=== PATIENT | male | born 1955 | race Caucasian/White ===

== ENCOUNTER → 2018-08-25 06:02 | Outpatient (CLI) | payer BC, SELFPAY ==
--- NOTE | 2018-08-25 06:36 | MRI_ITS ---
STUDY: MRI LUMBAR SPINE WITHOUT CONTRAST REASON FOR EXAM: Male, 62 years old. Back pain. Right hip pain. TECHNIQUE: Standardized fat and water weighted pulse sequences were obtained in the sagittal and axial planes. COMPARISON: None FINDINGS: There is normal alignment and curvature of the lumbosacral spine with narrowing of the disc spaces at L1-L2, L2-3, L3-4, L4-5. The L5-S1 disc space is normal. There are no fractures and no abnormal marrow infiltrative processes except for Modic endplate changes at the sites of disc space narrowing. The conus medullaris terminates at T12-L1. L1-2: Normal endplates. Mild disc space narrowing. Normal bilateral facet joints. Normal central canal and bilateral lateral recesses. Normal bilateral intervertebral neural foramina. L2-3: Disc space narrowing with marginal osteophytes from the vertebral body endplates and Modic type I endplate changes. There is mild concentric disc bulging and narrowing of all of the intervertebral foramina. Mild degenerative changes of the facet joint L3-4: Disc space narrowing with small marginal osteophytes from the vertebral body endplates and Modic endplate changes as well. Degenerative changes of the facet joints. No focal disc protrusion or extrusion. L4-5: There is narrowing of the disc space with concentric disc bulging and encroachment on both intervertebral foramina. No focal disc protrusion or extrusion. There is a 7.4 x 3.4 mm synovial cyst within the central canal and originating from the right facet joint. L5-S1: Normal endplates. Normal disc height, hydration and morphology. Normal bilateral facet joints. Normal central canal and bilateral lateral recesses. Normal bilateral intervertebral neural foramina. The aorta and visualized portions of the kidneys are normal. 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 No focal disc protrusion or extrusion. A 7.4 x 3.4 mm synovial cyst within the right side of the central canal and originating from the right facet joint at the L4-5 level Electronically Signed: Barrington Ruiz MD at 6:02 EDT Tel , Service support ,
== END ==
PROVIDERS: Family Provider Family Medicine; PCP Family Medicine; Referring Provider Family Medicine
DX: M54.16 Radiculopathy, lumbar region (principal)
CPT/HCPCS: 72148

== ENCOUNTER → 2021-04-27 09:39 | Outpatient (CLI) | payer MEDICARE, OTHER, SELFPAY ==
--- NOTE | 2021-04-27 09:49 | RAD_ITS ---
STUDY: X-RAY - CERVICAL SPINE REASON FOR EXAM: Male, 65 years old. PAIN TECHNIQUE: 3 view(s) of the cervical spine were obtained. COMPARISON: None FINDINGS: Craniocervical junction is intact and aligned. There is minor straightening and reversal of cervical lordosis. Vertebral bodies are intact. There is age-related disc degeneration at C5-C6 and C6-C7 with ventral osteophyte. Odontoid is intact and located symmetrically within the atlas which in turn is centered on the axis. Prevertebral soft tissues are normal. RAD/Cerv Spine 2 or 3 Views IMPRESSION: Mild age-related changes in the lower cervical spine. Electronically Signed: Iris Mascorro MD at 16:52 EDT Tel , Service support ,
== END ==
PROVIDERS: PCP Family Medicine
DX: M54.2 Cervicalgia (principal)
CPT/HCPCS: 72040

== ENCOUNTER 2025-06-28 07:44 | Inpatient (IN) | payer MEDICARE, OTHER, SELFPAY ==
[2025-06-28] VITALS (26 sets, daily range): BP systolic 92–149; BP diastolic 56–98; PULSE 51–82; RESP 16–24; TEMP 36.6–37.1; O2SAT 94–100; BMI 27.1
--- NOTE | 2025-06-28 07:48 | EKG12_ITS ---
Test Reason : CP Blood Pressure : */* mmHG Vent. Rate : 55 BPM Atrial Rate : 55 BPM P-R Int : 148 ms QRS Dur : 72 ms QT Int : 418 ms P-R-T Axes : 34 70 34 degrees QTcB Int : 399 ms Critical Test Result: STEMI Sinus bradycardia with sinus arrhythmia ST elevation consider anterolateral injury or acute infarct ACUTE ID / STEMI Abnormal ECG Confirmed by PIYUSH COKER, NUVIA ([id number]), avid editor CESAR WALLIS ([id number]) on 07/01/2025 9:13:48 AM Referred By: Baudilio Murillo Confirmed By: NUVIA PICKETT MD
--- NOTE | 2025-06-28 07:49 | ED.VIS.CHEST ---
HPI History of Present Illness Chief Complaint: Chest Pain Detail of Chief Complaint: Right parasternal discomfort Informant: patient Onset/Context/Timing Onset: Today and Hours Activity at onset: activity on onset Timing: Continuous Quality: Positive for Dull Location: Right Parasternal Current Severity: Moderate Maximum Severity: Severe Worsened By: Exertion Relieved By: Nothing Associated Symptoms: Positive for Nausea and Diaphoresis; Negative for Vomiting, Dyspnea, Cough, Fever, Lightheadedness, Acid Reflux or Palpitations Narrative Narrative: Patient 69-year-old gentleman with history hypothyroidism who was riding his bicycle when he developed chest discomfort. He has no known history of coronary disease, hypertension, diabetes or hypercholesterolemia. He rides often during the week. He has no other symptoms. Prior Similar Symptoms: No Recent Illness/Hospitalization: No CVD Risk Factors: Negative for Hypertension, Diabetes, Hypercholesterolemia, Family History 1' </=55 or Smoking PE Risk Factors: Negative for Recent Travel/Surgery, Recent Immobilization, Prior DVT or PE, Cancer or OCP + Smoking + >/=35 TAD Risk Factors: Negative for Marfan's Syndrome, Hypertension or Family History PFSH PFSH Allergy/AdvReac Type Severity Reaction Status Date / Time No Known Allergies Allergy Verified 06/28/25 07:52 Social History (Updated 06/28/25 @ 07:[address] Gage Woodson MD) household members: spouse Smoking Status: Never smoker ROS ROS ED Constitutional Constitutional ED: Denies chills, fever(s) or subjective Eyes Eyes: Reports none ENT ENT ED: Denies rhinorrhea Cardiovascular Cardiovascular: Reports as per HPI; Denies orthopnea Respiratory/Chest Respiratory/Chest: Reports dyspnea; Denies cough, dyspnea on exertion or orthopnea Gastrointestinal Gastrointestinal: Denies abdominal pain, diarrhea, melena or vomiting Genitourinary Genitourinary ED: Denies dysuria or hematuria Musculoskeletal Musculoskeletal: Denies arthralgias, back pain or myalgias Integumentary Denies rash Hematologic/Lymphatic Hematologic/Lymphatic: Denies easy bleeding, easy bruising or lymphadenopathy EXAM Physical Exam Const Positive well nourished and well developed Constitutional Narrative: Patient seems slightly anxious. He is slightly diaphoretic. General Appearance ED: well developed HEENT Reports moist mucous membranes normocephalic and atraumatic Eyes PERRL and EOMs intact bilaterally Neck no lymphadenopathy and no JVD Chest Wall inspection of chest normal and palpation of chest normal Resp normal respiratory effort and clear to auscultation bilaterally Cardio regular rate, regular rhythm, S1 normal heart sound, S2 normal heart sound and no murmurs GI normal to inspection, nondistended, normoactive bowel sounds, soft to palpation and non-tender Extremity normal to inspection General Extremety ED: Negative for edema or pulses abnormal General Extremity: Negative for edema or pulses abnormal Neuro oriented x3 and CN's II-XII intact bilaterally Sensorium / Orientation: awake and alert Psych Mood & Affect: anxious Skin no rashes or lesions noted MDM MDM MDM Narrative Medical decision making narrative: Patient had 7 prehospital EKGs. The fourth EKG had hyperacute T waves. First EKG was transmitted did not reveal evidence of a STEMI. EKG that was obtained here has ST elevation with hyperacute T waves V2 through V3 consistent with an anterior AK. There is no reciprocal changes. Patient received 324 mg of aspirin prehospital. He received 180 mg of Brilinta in the emergency department 5000 units of heparin. Spoke with the certified nuclear medicine technologist Dr. Murillo. He asked for us to get to the patient to the [facility] as quick as possible. [facility] notified us at 0753 that they were ready. EKG Initial EKG: Attestation: I personally reviewed and interpreted this EKG as follows: Interpretation: Sinus Rhythm (Acute ST elevation AK anterior leads, hyperacute T waves. 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 (Informed of EKG findings and need for [facility]) and Discussing w/Consultants (vp digital marketing social media and crm) Discharge Plan Triage Chief Complaint: Chest Pain ED Provider: Gage Woodson Dx/Rx/DC Orders Clinical Impression: Acute ST elevation myocardial infarction (STEMI) of anterior wall, Hypothyroidism, Elevated blood-pressure reading without diagnosis of hypertension Primary Care Provider: Gilbert Hernandes Referrals: Gilbert Hernandes MD [Primary Care Provider] - Print Language: Macanese Disposition Disposition: Acute Care Hospital [facility]
[2025-06-28] MEDS: TICAGRELOR 90 MG TABLET 180 MG PO (07:50)
[2025-06-28] MEDS: Heparin Injection (Vial) 5,000 UNIT/ML VIAL 5000 UNIT IV (07:50)
[2025-06-28 08:03] LABS: Hematocrit 46.8 % (40-54); Hemoglobin 15.9 g/dL (13.0-16.5); Immature Granulocytes Count 0.010 X10^3/uL (0.0-0.0); Mean Corp Hgb Conc 34.0 g/dL (32-36); Mean Corpuscular Volume 86.2 fL (80-94); Mean Platelet Vol. 9.0 fl (6.2-12.0); NRBC Flagged by Analyzer 0 % (0-5); Platelet Count 220 K/mm3 (150-450); RBC Distribution Width CV 13.2 % (11.6-14.6); RBC Distribution Width SD 40.7 fl (35.1-43.9); Red Blood Count 5.43 M/mm3 (4.6-6.2); White Blood Count 5.6 K/mm3 (4.4-11.0)
--- OUTSIDE RECORDS SUMMARY | 2025-06-28 08:11 | XMS RPT_ITS | CCD ---
[facility] Providers Care Lay Health Advocate Name Role Phone Ashtyn Gamez Unavailable Unavailable Finneran, Ashtyn Unavailable Unavailable Finneran, Ashtyn Unavailable Unavailable Godinsky, Chan Unavailable Unavailable Finneran, Ashtyn Unavailable Unavailable Finneran, Ashtyn Unavailable Unavailable Godinsky, Chan Unavailable Unavailable Finneran, Ashtyn Unavailable Unavailable Finneran, Ashtyn Unavailable Unavailable Godinsky, Chan Unavailable Unavailable Finneran, Ashtyn Unavailable Unavailable Finneran, Ashtyn Unavailable Unavailable Godinsky, Chan Unavailable Unavailable Finneran, Ashtyn Unavailable Unavailable Finneran, Ashtyn Unavailable Unavailable Teodoroan Ashtyn COKER Primary Care Provider [phone] Wayne Red MD Unavailable Gabe Mattson MD Unavailable [phone] ASHTYN GAMEZ Attending Unavailable ASHTYN GAMEZ Referring Unavailable ASHTYN GAMEZ Primary Care Unavailable GABE MATTSON Attending Unavailable ASHTYN GAMEZ Primary Care Unavailable GABE MATTSON Attending Unavailable ASHTYN GAMEZ Referring Unavailable ASHTYN GAMEZ Primary Care Unavailable Medications Current Medications Medication Drug Class(es) Dates Sig (Normalized) Sig (Original) cholecalciferol 0.025 mg oral capsule (5 sources) Vitamin D take 1 capsule by mouth once daily cholecalciferol (Vitamin D-3) 25 MCG (1000 UT) capsule Take 1,000 Units by mouth daily. Active levothyroxine sodium 0.075 mg oral tablet (5 sources) l-Thyroxine Start: 4 End: 4 levothyroxine (Synthroid, Levoxyl) 75 MCG tablet Take 75 mcg by mouth. 05/28/2024 Active Multiple Vitamins-Minerals (Centrum Men) tablet (5 sources) Multiple Vitamins-Minerals (Centrum Men) tablet Take by mouth. Active naproxen sodium 220 mg oral tablet (5 sources) Nonsteroidal Anti-inflammatory Drug Start: 4 naproxen sodium (Aleve) 220 MG tablet every 12 hours. 02/29/2024 Active saccharomyces boulardii 250 mg oral capsule (5 sources) saccharomyces boulardii (Florastor) 250 MG capsule Take by mouth. Active tadalafil 20 mg oral tablet (5 sources) Phosphodiesterase 5 Inhibitor Start: 4 End: 4 take 1 tablet by mouth every twenty-four hours as needed tadalafil (Cialis) 20 MG tablet Take 1 tablet (20 mg) by mouth Daily as needed for erectile dysfunction. 12 tablet 3 07/25/2024 Active Problems Active Problems Problem Classification Problem Date Documented Da te Episodic/Chronic Genitourinary symptoms and ill-defined conditions (3 sources) Nocturia; Translations: [Nocturia] Onset: 07-25-2024 07-25-2024 Episodic Hyperplasia of prostate (4 sources) Benign prostatic hypertrophy with outflow obstruction; Translations: [Benign prostatic hyperplasia with lower urinary tract symptoms] Onset: 08-29-2024 07-25-2024 Chronic Other diseases of kidney and ureters (2 sources) Other obstructive and reflux uropathy; Translations: [Other obstructive and reflux uropathy] Onset: 08-29-2024 Episodic Other male genital disorders (1 source) Secondary erectile dysfunction; Translations: [Male erectile dysfunction, unspecified] 07-25-2024 Chronic Other male genital disorders (2 sources) Male erectile dysfunction, unspecified; Translations: [Male erectile dysfunction, unspecified] Onset: 07-25-2024 Chronic Spondylosis; intervertebral disc disorders; other back problems (4 sources) Other spondylosis, lumbar region; Translations: [Spondylosis without myelopathy or radiculopathy, lumbar region] Onset: 07-06-2018 Chronic Spondylosis; intervertebral disc disorders; other back problems (2 sources) Spinal stenosis, lumbar region without neurogenic claudication; Translations: [Spinal stenosis, lumbar region without neurogenic franklin] Onset: 10-27-2018 Past or Other Problems Problem Classification Problem Date Documented Da te Episodic/Chronic Other connective tissue disease (10 sources) Synovial cyst of lumbar spine; Translations: [Other bursal cyst, other site] Onset: 10-18-2018 08-29-2022 Episodic Other non-traumatic joint disorders (5 sources) Pain in left shoulder; Translations: [Pain in joint, shoulder region] Onset: 03-02-2024 03-02-2024 Episodic Spondylosis; intervertebral disc disorders; other back problems (14 sources) Low back pain; Translations: [Radiculopathy, lumbar region] Onset: 09-20-2018 08-29-2022 Episodic Results Test Name Value Interpretation Reference Range Facility 36on 09-05-2024 36 Pt has declined to schedule SX at this time. Scheduled OV appt for further discussion of SX with Dr. Mattson 11/21/2024 @08:50am [facility] location. [place] [address] ----- Message from Gabe Mattson MD sent at 08/29/2024 2:42 PM EDT ----- Cysto, turp (up to him when he wants, and after fluid shortage) [place] [address] Spoke with spouse, Chioma, gave Dr. Aguilar message. Cancelled 09/21 scheduled SX. Made OV appt 11/21/24 in [facility] for further discussion of SX. Offered sooner available appt but pt wishes to schedule out. [address] 09-04-2024 36 Call placed to pt to schedule SX, spoke with spouse Chioma. Pt has many questions. Pt would like to know if he can postpone SX for year or more. Pt would like to know the risks if he does wait. Pt would like to know risk vs benefits of SX. Please advise. If you feel another in-office appt would be best to discuss these questions, please let me know and I will get pt scheduled. Thank you. [place] [address] ----- Message from Gabe Mattson MD sent at 08/29/2024 2:42 PM EDT ----- Cysto, turp (up to him when he wants, and after fluid shortage) [facility] 36on 08-27-2024 36 Pt returned the call from the office and the message was released. He confirmed it is ok to change his upcoming appt to 2:20 pm on 08/29/[address] Mattson. [facility] 36on 08-24-2024 36 Left message for patient asking if his upcoming appointment time with Dr Mattson can be moved to 2:20 pm on 08/29 [facility] Office Visiton 07-25-2024 Follow-up visit [id number] Tiki Quinteros 1955 M Date Provider Department Center 07/25/2024 [id number] MATTSON [facility] None Family History Family Status - Relation Status Age at Mother Father Level of Service:33996 [place] OFFICE/OUTPATIENT NEW MODERATE MDM 45 MINUTES Reason for Visit and Comments: New Patient [542] Benign Prostatic Hypertrophy [[id number]] - Slow stream Nocturia 1-2 times Has tried Tamsulosin in past was not effective [facility] Progress Noteon 07-25-2024 Progress Note Gabe Mattson MD 07/25/2024 at 10:33 AM UROLOGY INITIAL OFFICE VISIT PATIENT NAME: Austin Quinteros DATE OF : 1955 TODAY'S DATE: 07/25/2024 Chief Complaint: Chief Complaint Patient presents with New Patient Benign Prostatic Hypertrophy Slow stream Nocturia 1-2 times Has tried Tamsulosin in past was not effective HISTORY OF PRESENT ILLNESS: Mr. Quinteros is a 68 y.o. male who presents with BPH, obstruction He does report nocturia 2 times per night He does report weakened stream during the day He denies hematuria He also has urgency , frequency to void He tried taking flomax, without improvement REVIEW OF SYSTEMS: Review of Systems Constitutional: Negative for activity change, chills, fatigue and fever. Gastrointestinal: Negative for abdominal distention and abdominal pain. Genitourinary: Positive for frequency and urgency. Negative for decreased urine volume, difficulty urinating, flank pain and hematuria. Past Medical History: Past Medical History: Diagnosis Date Thyroid disease no longer on medications Past Surgical History: Past Surgical History: Procedure Laterality Date CARPAL TUNNEL RELEASE Bilateral 2012 Current Medications: Prior to Admission medications Medication Sig Start Date End Date Taking? Authorizing Provider cholecalciferol (Vitamin D-3) 25 MCG (1000 UT) capsule Take 1,000 Units by mouth daily. Yes Historical Provider, levothyroxine (Synthroid, Levoxyl) 75 MCG tablet Take 75 mcg by mouth. 05/28/24 08/26/24 Yes Historical Provider, Multiple Vitamins-Minerals (Centrum Men) tablet Take by mouth. Yes Historical Provider, naproxen sodium (Aleve) 220 MG tablet every 12 hours. 02/29/24 Yes Historical Provider, MD clifton mckeon (Florastor) 250 MG capsule Take by mouth. Yes Historical Provider, Allergies: Patient has no known allergies. Social History: Social History Socioeconomic History Marital status: Spouse name: Not on file Number of children: Not on file Years of education: Not on file Highest education level: Not on file Occupational History Not on file Tobacco Use Smoking status: Never Smokeless tobacco: Never Substance and Sexual Activity Alcohol use: No Drug use: No Sexual activity: Not on file Other Topics Concern Not on file Social History Narrative Not on file Social Determinants of Health Financial Resource Strain: Not on file Food Insecurity: Not on file Transportation Needs: Not on file Physical Activity: Not on file Stress: Not on file Social Connections: Not on file Intimate Partner Violence: Not on file Housing Stability: Not on file Family History: @FAMXNH@ PHYSICAL EXAM: VITALS: There were no vitals taken for this visit. Physical Exam Vitals reviewed. Constitutional: Appearance: Normal appearance. Musculoskeletal: General: Normal range of motion. Cervical back: Normal range of motion. Skin: General: Skin is dry. Neurological: General: No focal deficit present. Mental Status: He is alert and oriented to person, place, and time. DATA: WBC No results found for: WBC BMP No results found for: NA, K, CL, CO2, BUN, CREATININE, GLUCOSE, CALCIUM PSA No results found for: PSA UANo results found for: APPEARANCE, COLORU, LABSPEC, LABPH, URINE, GLUCOSEU, UROBILINOGEN, BILIRUBINUR, OCBU Review: Records reviewed from Dr Gamez PSA 06/2023 0.8 Creatinine 1.0 Will plan for cystoscopy next visit. I explained this procedure in detail including all risks, benefit and alternatives. I explained the possibility of urinary retention, infection and bleeding. Assessment and Plan Diagnoses and all orders for this visit: BPH with urinary obstruction Nocturia - Bladder scan ED (erectile dysfunction) of organic origin Other orders - tadalafil (Cialis) 20 MG tablet; Take 1 tablet (20 mg) by mouth Daily as needed for erectile dysfunction. PSA excellent Post void residual 0ml No relief with flomax for BPH and LUTs Follow up for cyto, trus Rx for cialis to try for ed Follow up for Transrectal ultrasound and cyto . Gabe Mattson MD 07/25/24 10:33 AM Normal [facility] 36on 05-11-2024 36 Patient returned radha l to office. He would prefer the [place] office since it is closest to him home. Appt scheduled 07/25/[address] Mattson and placed on the wait list in case of a cancellation Normal [facility] XR Shoulder - left 2 Viewson 03-03-2024 No fracture or dislocation of the left shoulder is identified. Mild degenerative changes of the left acromioclavicular and glenohumeral joints. Report Dictated on Electronically Signed By: Jorge Russo MD Electronically Signed Date/Time: 03/03/2024 12:39 PM EDT [facility] Patient Name: AUSTIN QUINTEROS : 1955 Exam Date/Time: 03/02/2024 12:20 Procedure: XR SHOULDER 2+ VIEWS LEFT Ordering Provider: GAMEZ MATTHEW Reason For Exam: [id number] LEFT SHOULDER CLINICAL INDICATION: Pain Three views of the left shoulder were obtained. COMPARISON: None. FINDINGS: No fracture or dislocation of the left shoulder is identified. There is no abnormal soft tissue swelling. There is degenerative spurring and loss of joint space at the left acromioclavicular and glenohumeral joints. [facility] Jorge Russo MD - 03/03/2024 Patient Name: AUSTIN QUINTEROS : 1955 Exam Date/Time: 03/02/2024 12:20 Procedure: XR SHOULDER 2+ VIEWS LEFT Ordering Provider: GAMEZ MATTHEW Reason For Exam: [id number] LEFT SHOULDER CLINICAL INDICATION: Pain Three views of the left shoulder were obtained. COMPARISON: None. FINDINGS: No fracture or dislocation of the left shoulder is identified. There is no abnormal soft tissue swelling. There is degenerative spurring and loss of joint space at the left acromioclavicular and glenohumeral joints. IMPRESSION: No fracture or dislocation of the left shoulder is identified. Mild degenerative changes of the left acromioclavicular and glenohumeral joints. Report Dictated on Electronically Signed By: Jorge Russo MD Electronically Signed Date/Time: 03/03/2024 12:39 PM EDT [employer] XR Shoulder - left 2 ViewsOr dered By: Jorge Russo on 03-03-2024 [employer] [facility] [employer] XR Shoulder - left 2 Viewson 03-02-2024 Radiology Study observation (narrative) [employer] Cerv Spine 2 or 3 Viewson Cerv Spine 2 or 3 Views [facility] [address] [place] [id number] Cerv Spine 2 or 3 Views MR#: [id number] Acct: [id number] Name: AUSTIN QUINTEROS Román Brunner Rep #: [id number] : 1955 M 65 From: [place] PCP: Dr. Ashtyn Gamez MD Status: REG CLI Study: Cerv Spine 2 or 3 Views Date of Exam: 04/27/21 Exam# [id number] Ordering Dr: PATRICIA GARZA STUDY: X-RAY - CERVICAL SPINE REASON FOR EXAM: Male, 65 years old. PAIN TECHNIQUE: 3 view(s) of the cervical spine were obtained. COMPARISON: None FINDINGS: Craniocervical junction is intact and aligned. There is minor straightening and reversal of cervical lordosis. Vertebral bodies are intact. There is age-related disc degeneration at C5-C6 and C6-C7 with ventral osteophyte. Odontoid is intact and located symmetrically within the atlas which in turn is centered on the axis. Prevertebral soft tissues are normal. RAD/Cerv Spine 2 or 3 Views IMPRESSION: Mild age-related changes in the lower cervical spine. Electronically Signed: Iris Mascorro MD at 16:52 EDT Tel , Service support , CC: Dr. Ashtyn Gamez MD; PATRICIA GARZA Wool Shearer: Signed Normal [facility] CULTURE STAPH AUREUSon 10-29 CULTURE STAPH AUREUS CULTURE STAPH AUREUS --> Status: F No Staphylococcus aureus isolated. Normal [facility] Comment on above: Performed By: #### C /SA ####[place] [address] [place] [address] Hemoglobin AND Hematocriton 10-27-2018 Hematocrit Auto Volume Fraction (Bld) 49.3 % Normal 40.0-52.[address] [facility] Comment on above: Performed By: #### H GHCT ####[facility] [employer] [id number] [place] [address] Hemoglobin mass conc (Bld) 17.1 g/dL Normal 13.0-18.[address] [facility] Comment on above: Performed By: #### H GHCT ####[place] [address] [place] [address] CR Spine Lumbosacral 2 or 3 Viewson 09-21-2018 CR Spine Lumbosacral 2 or 3 Views Patient Name: AUSTIN QUINTEROS Diagnostic Radiology Exam Date/Time 09/20/2018 09:10:00 EST Exam CR Spine Lumbosacral 2 or 3 Views Ordering Physician CHAN CAMPBELL Accession Number [id number] CPT4 Codes 79844 () Reason For Exam PAIN Report LUMBAR SPINE 2 VIEWS CLINICAL INDICATION: PAIN TECHNIQUE: Two views of the lumbar spine. Lateral flexion and extension views. COMPARISON: 07/06/2018 FINDINGS: On the flexion lateral image, there is grade 1 retrolisthesis of L2 on 3 and L3 on 4 which does not significant change with extension. No other focal alignment abnormality. Moderate disc space narrowing L2-3, L3-4, L4-5. Large endplate osteophytes at L2-3 and L3-4. Mild facet arthrosis lower lumbar spine. No acute fracture seen. IMPRESSION: 1. Degenerative changes. Report Dictated on Final Dictating Physician: MD TURNER JOHN R Signed Date and Time: 09/20/2018 10:57 pm Signed by: MD TURNER JOHN R Transcribed Date and Time: 09/20/2018 10:[address] [facility] CR Hip w/ Pelvis 2 or 3 View s Righton 07-07-2018 CR Hip w/ Pelvis 2 or 3 Views Right Patient Name: AUSTIN QUINTEROS Diagnostic Radiology Exam Date/Time 07/06/2018 12:10:00 EDT Exam CR Hip w/ Pelvis 2 or 3 Views Right n Ordering Physician MD FRANCO, ASHTYN AHUJA Accession Number [id number] CPT4 Codes 44332 () Reason For Exam PAIN Report RIGHT HIP CLINICAL INDICATION: Right hip pain A single AP view of the pelvis followed by AP and lateral views of the right hip were obtained. COMPARISON: None FINDINGS: No fracture or dislocation of the pelvis or right hip is identified. Mild loss of joint space and acetabular spurring is noted within the left and right hip joints. The sacroiliac joints appear grossly unremarkable. No lytic or blastic bony lesions are seen. IMPRESSION: No fracture or dislocation of the pelvis or right hip is identified. Mild osteoarthritis of the bilateral hips. Report Dictated on Final Dictating Physician: JORGE RUSSO Signed Date and Time: 07/07/2018 1:11 pm Signed by: JORGE RUSSO Transcribed Date and Time: 07/07/2018 1:[address] [facility] CR Spine Lumbosacral 4+ View son 07-07-2018 CR Spine Lumbosacral 4+ Views Patient Name: AUSTIN QUINTEROS Diagnostic Radiology Exam Date/Time 07/06/2018 12:10:00 EDT Exam CR Spine Lumbosacral 4+ Views Ordering Physician MD FRANCO, ASHTYN AHUJA Accession Number [id number] CPT4 Codes 56373 () Reason For Exam PAIN Report LUMBAR SPINE SERIES CLINICAL INDICATION: Back pain AP, oblique, and lateral views of the lumbar spine were obtained. COMPARISON: None. FINDINGS: Mild dextroscoliosis of the lumbar spine is noted convex at L2/L3. Alignment is otherwise within normal limits. No fracture or compression deformity of the lumbar spine is seen. There is severe loss of joint space and degenerative spurring at L2/L3. More moderate degenerative changes are noted at L3/L4 and L4/L5. There are mild facet hypertrophic changes noted diffusely. No pars interarticularis defects are seen on the oblique views. IMPRESSION: No acute bony abnormality of the lumbar spine is identified. Mild dextroscoliosis of the lumbar spine. Advanced degenerative changes at L2/L3. Report Dictated on Workstation: [employer] Final Dictating Physician: JORGE RUSSO Signed Date and Time: 07/07/2018 1:14 pm Signed by: JORGE RUSSO Transcribed Date and Time: 07/07/2018 1:16 Normal [facility] Vital Signs Date Time Vital Sign Value Performing Clinician Elvin rodrigez 08-29-2024 14:20-0400 Diastolic blood pressure 79 mm[Hg] Gabe Mattson MD Work Phone: [facility] 08-29-2024 14:20-0400 Heart rate 77 /min Gabe Mattson MD Work Phone: [facility] 08-29-2024 14:20-0400 Systolic blood pressure 136 mm[Hg] Gabe Mattson MD Work Phone: [facility] Encounters Encounter Date Encounter Type Care Provider Facility Start: 09-05-2024 End: 09-05-2024 Telephone encounter Gabe Mattson MD Work Phone: [facility] [place] Comment on above: Surgery Scheduling Start: 09-04-2024 End: 09-05-2024 Telephone encounter Gabe Mattson MD Work Phone: [facility] Start: 08-29-2024 End: 08-29-2024 Patient encounter procedure Gabe Mattson MD Work Phone: [facility] Comment on above: BPH with urinary obs truction (Primary Dx) Start: 08-29-2024 End: 08-29-2024 ambulatory [facility] Start: 08-24-2024 End: 08-27-2024 Telephone encounter Gabe Mattson MD Work Phone: [facility] Comment on above: Appointment Request Start: 07-25-2024 End: 07-25-2024 Office outpatient new 45 minutes Gabe Mattson MD Work Phone: [facility] Comment on above: BPH with urinary obs truction (Primary Dx); Nocturia; ED (erectile dysfunction) of organic origin Start: 07-25-2024 End: 07-25-2024 ambulatory [facility] Start: 03-14-2024 End: 03-14-2024 Telephone encounter Wayne Red MD Work Phone: [facility] Start: 03-02-2024 End: 06-01-2024 Subsequent hospital visit by physician Ashtyn Gamez MD Work Phone: [facility] Rad[facility] Comment on above: Pain in left shoulde r Pain in left shoulde r (Primary Dx) Start: 03-02-2024 End: 03-02-2024 ambulatory ASHTYN GAMEZ [facility] Start: 11-03-2018 Patient encounter procedure [facility] Start: 10-27-2018 [facility] Start: 10-27-2018 [facility] Start: 09-20-2018 [facility] Start: 09-13-2018 [facility] Start: 07-06-2018 Patient encounter procedure Ashtyn Gamez [facility] Encounter for other preprocedural examination Chan Soledad [facility] Plan of Treatment Date Care Activity Detail Author Start: 2029 RSV Immunization for Adults (1 - 1-dose 75+ series) RSV Immunization for Adults (1 - 1-dose 75+ series) [facility] Start: 11-21-2024 End: 11-21-2024 Patient encounter procedure 11/21/2024 8:50 AM EST Office Visit [facility] [address] [place] [id number] Gabe Mattson MD [address] [place] [address] [facility] Start: 08-29-2024 End: 08-29-2024 Patient encounter procedure [facility] Start: 07-25-2024 End: 07-25-2024 Patient encounter procedure 07/25/2024 10:00 AM EDT Office Visit [facility] [address] [place] [id number] Gabe Mattson MD [address] [place] [address] [facility] Start: 07-15-2024 COVID-19 Vaccine ( season) COVID-19 Vaccine ( season) [facility] Start: 07-15-2024 COVID-19 Vaccine ( season) COVID-19 Vaccine ( season) [facility] Start: 07-15-2024 Influenza vaccination Influenza Vacc ine (#1) [facility] Start: 07-15-2023 COVID-19 Vaccine ( season) COVID-19 Vaccine ( season) [facility] Start: 05-16-2019 DTaP/Tdap/Td Vaccine s (1 - Tdap) DTaP/Tdap/Td Vaccines (1 - Tdap) [facility] Start: 2014 RSV Immunization age d 60 or older (1 - 1-dose 60+ series) RSV Immunization aged 60 or older (1 - 1-dose 60+ series) [facility] Start: 1972 Hepatitis C screening Hepatitis C Sc reening [facility] Start: 1966 Depression Screening Depression Scre ening [facility] Start: 1955 Lipid panel Lipid Panel [facility] Start: 1955 Medicare Annual Well ness (AWV) Medicare Annual Wellness (AWV) [facility] Start: 1955 Screening for malign ant neoplasm of colon [facility] Start: 1955 Thyroid stimulating hormone measurement TSH Level [facility] [employer] OUTSIDE PROCEDURE SCAN OUTSIDE P ROCEDURE SCAN Procedures Ordered: 03/02/2024 [facility] [employer] [facility] Comment on above: Ordered: 03/02/2024 End: 03-02-2024 XR Shoulder - left 2 Views [facility] [employer] System Work Phone: Comment on above: Once for 1 Occurrenc es starting 03/02/2024 until 03/02/2024 Immunizations Immunization Date Immunization Notes Care Provider [facility] 07-19-2023 influenza virus vacc ine, unspecified formulation Ashtyn Gamez MD Work Phone: [facility] [employer] Payers Date Payer Category Payer Commercial Managed C are - HMO [facility] [id number] 2023 Unknown 2023 Unknown [id number] 2019 Medicare 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 (finding) [facility] Start: 1955 Sex Assigned At Not on file [facility] Gender identity Not on file [facility] Start: 06-14-2022 Sex Male (finding) [facility] Clinical Notes 03-14-2024 to 09-05-2024 Telephone Encounter - Alisa De Santiago - 09/05/2024 9:39 AM EDTTelephone Encounter - Alisa De Santiago - 09/05/2024 9:39 AM EDTTelephone Encounter - Alisa De Santiago - 09/05/2024 9:39 AM EDT Note Date & Type Note Facility 09-05-2024 Telephone encount er Note Pt has declined to schedule SX at this time. Scheduled OV appt for further discussion of SX with Dr. Mattson 11/21/2024 @08:50am [facility] location. [facility] 09-05-2024 Telephone encount er Note ----- Message from Gabe Mattson MD sent at 08/29/2024 2:42 PM EDT ----- Cysto, turp (up to him when he wants, and after fluid shortage) [facility] 09-05-2024 Miscellaneous Notes Formattin g of this note might be different from the original. Pt has declined to schedule SX at this time. Scheduled OV appt for further discussion of SX with Dr. Mattson 11/21/2024 @08:50am [facility] location. ----- Message from Gabe Mattson MD sent at 08/29/2024 2:42 PM EDT ----- Cysto, turp (up to him when he wants, and after fluid shortage) documented in this encounter [facility] 09-05-2024 Telephone encount er Note Spoke with spouse, Chioma, gave Dr. Aguilar message. Cancelled 09/21 scheduled SX. Made OV appt 11/21/24 in [facility] for further discussion of SX. Offered sooner available appt but pt wishes to schedule out. [facility] 09-05-2024 Miscellaneous Notes Formattin g of this note might be different from the original. Spoke with spouse, Chioma, gave Dr. Aguilar message. Cancelled 09/21 scheduled SX. Made OV appt 11/21/24 in [facility] for further discussion of SX. Offered sooner available appt but pt wishes to schedule out. Call placed to pt to schedule SX, spoke with spouse Chioma. Pt has many questions. Pt would like to know if he can postpone SX for year or more. Pt would like to know the risks if he does wait. Pt would like to know risk vs benefits of SX. Please advise. If you feel another in-office appt would be best to discuss these questions, please let me know and I will get pt scheduled. Thank you. ----- Message from Gabe Mattson MD sent at 08/29/2024 2:42 PM EDT ----- Cysto, turp (up to him when he wants, and after fluid shortage) documented in this encounter [facility] 09-04-2024 Telephone encount er Note Call placed to pt to schedule SX, spoke with spouse Chioma. Pt has many questions. Pt would like to know if he can postpone SX for year or more. Pt would like to know the risks if he does wait. Pt would like to know risk vs benefits of SX. Please advise. If you feel another in-office appt would be best to discuss these questions, please let me know and I will get pt scheduled. Thank you. [facility] 09-04-2024 Telephone encount er Note ----- Message from Gabe Mattson MD sent at 08/29/2024 2:42 PM EDT ----- Cysto, turp (up to him when he wants, and after fluid shortage) [facility] 08-29-2024 History of Presen t illness Narrative Images from the original note were not included. Cystoscopy Procedure Note Indications: BPH with urinary obstruction [N40.1, N13.8] Pre-operative Diagnosis: BPH obstruction Post-operative Diagnosis: BPH Procedure Details The risks, benefits, complications, treatment options, and expected outcomes were discussed with the patient. The patient concurred with the proposed plan, giving informed consent. Cystoscopy was performed today under local anesthesia, using sterile technique. The patient was placed on the office table, prepped with Betadine, and draped in the usual sterile fashion. A flexible cystoscope was used to perform this procedure. Findings: Anterior urethra: normal without strictures and without scarring. Prostatic urethra: 3+ trilobar prostatic hyperplasia, without bladder neck contracture of 18 [place] size. Bladder: Mild trabeculation, without lesions. Ureteral orifice(s) was/were seen bilateral. Ureteral orifice(s) bilateral were in the normal location and bilateral ureteral orifices were effluxing clear urine. Moderate median lobe causing obstruction Specimens: none Complications: None; patient tolerated the procedure well. Disposition: To home after 30 minute observation. Condition: stable Attending Attestation: I performed the procedure. UROLOGY PROCEDURE REPORT PATIENT NAME: Austin Quinteros DATE OF : 1955 TODAY'S DATE: 08/29/2024 PreOp Dx::BPH PostOp Dx: Same Operation Transrectal Ultrasound of the prostate,no biopsy Surgeon Gabe Mattson MD Assist None Anesthesia:local EBL Minimal Specimen none Complications None; patient tolerated the procedure well. Condition To Home INDICATIONS: Austin Quinteros , is a 68 y.o. male who has BPH. Prostate Ultrasound is indicated. The risks of ultrasound and possible biopsy were explained in detail. The procedure was explained. All questions were answered and he wishes to proceed. PROCEDURE: Austin Quinteros Was brought to the exam room. Thorough time out was performed and everyone present was in agreement.Austin Quinteros was placed in the lithotomy position. The prostate probe was placed and the prostate was imaged in the transverse and longitudinal planes.,no biopsy was performed. FINDINGS Prostate Size 55 ml Seminal Vesicles WNL Bladder Unremarkable Areas of hypoechoic: No Calcifications: No The patient tolerated procedure well TURP I discussed the procedure in detail. I explained the overnight hospital stay involved. I explained the need for a catheter post operatively. I explained the need to hold any blood thinners both before and after surgery. I explained the complications including primarily bleeding and infection and post operative stricture. All risks, benefits and alternatives explained. Pt agrees to proceed forward I explained to the patient today that the etiology of his lower urinary tract symptoms appear to be related to BPH. I explained the dangers to his renal function of urinary retention and obstruction over time. The risks, benefits and alternatives of surgery were explained to him. These include but are not limited to hematuria, urinary incontinence, retrograde ejaculation, and very likely a period of continued urinary frequency and urgency. I explained that he will have to wear a catheter in his bladder after surgery. He understands the above and wishes to proceed forward. Impression/Plan Diagnoses and all orders for this visit: BPH with urinary obstruction Prostate measuring 55 grams No relief with flomax Median lobe so urolift not ideal Recommend TURP for obstructive luts when he is ready to schedule No follow-ups on file. Gabe Mattson MD 08/29/24 2:42 PM documented in this encounter [facility] 08-29-2024 Note Cystoscopy Procedure Note Indications: BPH with urinary obstruction [N40.1, N13.8] Pre-operative Diagnosis: BPH obstruction Post-operative Diagnosis: BPH Procedure Details The risks, benefits, complications, treatment options, and expected outcomes were discussed with the patient. The patient concurred with the proposed plan, giving informed consent. Cystoscopy was performed today under local anesthesia, using sterile technique. The patient was placed on the office table, prepped with Betadine, and draped in the usual sterile fashion. A flexible cystoscope was used to perform this procedure. Findings: Anterior urethra: normal without strictures and without scarring. Prostatic urethra: 3+ trilobar prostatic hyperplasia, without bladder neck contracture of 18 [place] size. Bladder: Mild trabeculation, without lesions. Ureteral orifice(s) was/were seen bilateral. Ureteral orifice(s) bilateral were in the normal location and bilateral ureteral orifices were effluxing clear urine. Moderate median lobe causing obstruction Specimens: none Complications: None; patient tolerated the procedure well. Disposition: To home after 30 minute observation. Condition: stable Attending Attestation: I performed the procedure. UROLOGY PROCEDURE REPORT PATIENT NAME: Austin Quinteros DATE OF : 1955 TODAY'S DATE: 08/29/2024 PreOp Dx::BPH PostOp Dx: Same Operation Transrectal Ultrasound of the prostate,no biopsy Surgeon Gabe Mattson MD Assist None Anesthesia:local EBL Minimal Specimen none Complications None; patient tolerated the procedure well. Condition To Home INDICATIONS: Austin Quinteros , is a 68 y.o. male who has BPH. Prostate Ultrasound is indicated. The risks of ultrasound and possible biopsy were explained in detail. The procedure was explained. All questions were answered and he wishes to proceed. PROCEDURE: Austin Quinteros Was brought to the exam room. Thorough time out was performed and everyone present was in agreement.Austin Quinteros was placed in the lithotomy position. The prostate probe was placed and the prostate was imaged in the transverse and longitudinal planes.,no biopsy was performed. FINDINGS Prostate Size 55 ml Seminal Vesicles WNL Bladder Unremarkable Areas of hypoechoic: No Calcifications: No The patient tolerated procedure well TURP I discussed the procedure in detail. I explained the overnight hospital stay involved. I explained the need for a catheter post operatively. I explained the need to hold any blood thinners both before and after surgery. I explained the complications including primarily bleeding and infection and post operative stricture. All risks, benefits and alternatives explained. Pt agrees to proceed forward I explained to the patient today that the etiology of his lower urinary tract symptoms appear to be related to BPH. I explained the dangers to his renal function of urinary retention and obstruction over time. The risks, benefits and alternatives of surgery were explained to him. These include but are not limited to hematuria, urinary incontinence, retrograde ejaculation, and very likely a period of continued urinary frequency and urgency. I explained that he will have to wear a catheter in his bladder after surgery. He understands the above and wishes to proceed forward. Impression/Plan Diagnoses and all orders for this visit: BPH with urinary obstruction Prostate measuring 55 grams No relief with flomax Median lobe so urolift not ideal Recommend TURP for obstructive luts when he is ready to schedule No follow-ups on file. Gabe Mattson MD 08/29/24 2:42 PM [facility] 08-27-2024 Telephone encount er Note Pt returned the call from the office and the message was released. He confirmed it is ok to change his upcoming appt to 2:20 pm on 08/29/[address] Mattson. [facility] 08-27-2024 Miscellaneous Notes Formattin g of this note might be different from the original. Pt returned the call from the office and the message was released. He confirmed it is ok to change his upcoming appt to 2:20 pm on 08/29/[address] Mattson. Left message for patient asking if his upcoming appointment time with Dr Mattson can be moved to 2:20 pm on 08/29 documented in this encounter [facility] 08-24-2024 Telephone encount er Note Left message for patient asking if his upcoming appointment time with Dr Mattson can be moved to 2:20 pm on 08/29 [facility] 07-25-2024 History of Presen t illness Narrative Images from the original note were not included. Gabe Mattson MD 07/25/2024 at 10:33 AM UROLOGY INITIAL OFFICE VISIT PATIENT NAME: Austin Quinteros DATE OF : 1955 TODAY'S DATE: 07/25/2024 Chief Complaint: Chief Complaint Patient presents with New Patient Benign Prostatic Hypertrophy Slow stream Nocturia 1-2 times Has tried Tamsulosin in past was not effective HISTORY OF PRESENT ILLNESS: Mr. Quinteros is a 68 y.o. male who presents with BPH, obstruction He does report nocturia 2 times per night He does report weakened stream during the day He denies hematuria He also has urgency , frequency to void He tried taking flomax, without improvement REVIEW OF SYSTEMS: Review of Systems Constitutional: Negative for activity change, chills, fatigue and fever. Gastrointestinal: Negative for abdominal distention and abdominal pain. Genitourinary: Positive for frequency and urgency. Negative for decreased urine volume, difficulty urinating, flank pain and hematuria. Past Medical History: Past Medical History: Diagnosis Date Thyroid disease no longer on medications Past Surgical History: Past Surgical History: Procedure Laterality Date CARPAL TUNNEL RELEASE Bilateral 2012 Current Medications: Prior to Admission medications Medication Sig Start Date End Date Taking? Authorizing Provider cholecalciferol (Vitamin D-3) 25 MCG (1000 UT) capsule Take 1,000 Units by mouth daily. Yes Historical Provider, levothyroxine (Synthroid, Levoxyl) 75 MCG tablet Take 75 mcg by mouth. 05/28/24 08/26/24 Yes Historical Provider, Multiple Vitamins-Minerals (Centrum Men) tablet Take by mouth. Yes Historical Provider, naproxen sodium (Aleve) 220 MG tablet every 12 hours. 02/29/24 Yes Historical Provider, MD lazo boulardii (Florastor) 250 MG capsule Take by mouth. Yes Historical Provider, Allergies: Patient has no known allergies. Social History: Social History Socioeconomic History Marital status: Spouse name: Not on file Number of children: Not on file Years of education: Not on file Highest education level: Not on file Occupational History Not on file Tobacco Use Smoking status: Never Smokeless tobacco: Never Substance and Sexual Activity Alcohol use: No Drug use: No Sexual activity: Not on file Other Topics Concern Not on file Social History Narrative Not on file Social Determinants of Health Financial Resource Strain: Not on file Food Insecurity: Not on file Transportation Needs: Not on file Physical Activity: Not on file Stress: Not on file Social Connections: Not on file Intimate Partner Violence: Not on file Housing Stability: Not on file Family History: @FAMHXNH@ PHYSICAL EXAM: VITALS: There were no vitals taken for this visit. Physical Exam Vitals reviewed. Constitutional: Appearance: Normal appearance. Musculoskeletal: General: Normal range of motion. Cervical back: Normal range of motion. Skin: General: Skin is dry. Neurological: General: No focal deficit present. Mental Status: He is alert and oriented to person, place, and time. DATA: WBC No results found for: WBC BMP No results found for: NA, K, CL, CO2, BUN, CREATININE, GLUCOSE, CALCIUM PSA No results found for: PSA UANo results found for: APPEARANCE, COLORU, LABSPEC, LABPH, URINE, GLUCOSEU, UROBILINOGEN, BILIRUBINUR, OCBU Review: Records reviewed from Dr Gamez PSA 06/2023 0.8 Creatinine 1.0 Will plan for cystoscopy next visit. I explained this procedure in detail including all risks, benefit and alternatives. I explained the possibility of urinary retention, infection and bleeding. Assessment and Plan Diagnoses and all orders for this visit: BPH with urinary obstruction Nocturia - Bladder scan ED (erectile dysfunction) of organic origin Other orders - tadalafil (Cialis) 20 MG tablet; Take 1 tablet (20 mg) by mouth Daily as needed for erectile dysfunction. PSA excellent Post void residual 0ml No relief with flomax for BPH and LUTs Follow up for cyto, trus Rx for cialis to try for ed Follow up for Transrectal ultrasound and cyto . Gabe Mattson MD 07/25/24 10:33 AM documented in this encounter [facility] 05-11-2024 Telephone encount er Note Patient returned call to office. He would prefer the [place] office since it is closest to him home. Appt scheduled 07/25/[address] Mattson and placed on the wait list in case of a cancellation [facility] 05-11-2024 Miscellaneous Notes Formattin g of this note might be different from the original. Patient returned call to office. He would prefer the [place] office since it is closest to him home. Appt scheduled 07/25/[address] Mattson and placed on the wait list in case of a cancellation Referral from [facility]. Referral created and all documents uploaded to media. Call placed to pt but no answer at this time. I left a detailed VM with office number for call back to schedule [employer] appt. documented in this encounter [facility] 03-14-2024 Note Referral from [facility]. Selin busch created and all documents uploaded to media. Call placed to pt but no answer at this time. I left a detailed VM with office number for call back to schedule [facility] appt. [facility] 03-14-2024 Telephone encount er Note Referral from [facility]. Referral created and all documents uploaded to media. Call placed to pt but no answer at this time. I left a detailed VM with office number for call back to schedule [facility] appt. [facility] 03-14-2024 Miscellaneous Notes Formattin g of this note might be different from the original. Referral from [facility]. Referral created and all documents uploaded to media. Call placed to pt but no answer at this time. I left a detailed VM with office number for call back to schedule [employer] appt. documented in this encounter [facility] Evaluation note Diagnosis Pain in left shoulder [facility] Diagnosis Pain in left shoulder- Primary Pain in left shoulder [facility] Diagnosis BPH with urinary obstruction- Primary Hypertrophy of prostate with urinary obstruction and other lower urinary tract symptoms (LUTS) Nocturia ED (erectile dysfunction) of organic origin Impotence of organic origin [facility] Diagnosis BPH with urinary obstruction- Primary Hypertrophy of prostate with urinary obstruction and other lower urinary tract symptoms (LUTS) documented in this encounter [facility] Summary Purpose Family History No Family History Records FoundNo Family History Records FoundNo Family History Records FoundNo Family History Records Found Advance Directives No Advanced Directives Records FoundNo Advanced Directives Records FoundNo Advanced Directives Records FoundNo Advanced Directives Records Found Additional Source Comments (unrecognized sect ion and content) No Status Records FoundNo Status Records FoundNo Status Records FoundNo Status Records Found INFORMATION SOURCE (unrecogn ized section and content) DATE CREATED AUTHOR 10/21/2018 [facility] DATE CREATED AUTHOR AUTHOR'S ORGANIZ ATION 11/09/2018 [facility] DATE CREATED AUTHOR AUTHOR'S ORGANIZ ATION 05/02/2021 [facility] DATE CREATED AUTHOR AUTHOR'S ORGANIZ ATION 09/06/2024 [facility] Care Teams (unrecognized sec tion and content) [facility] Relationship Specialty Start Date End Date Ashtyn Gamez MD [address] [place] [address] PCP - General 07/06/18 [facility] Relationship Specialty Start Date End Date Ashtyn Gamez MD [address] [place] [address] PCP - General 07/06/18 Wayne Red MD [address] [place] [address] Surgeon Urology 03/14/24 [facility] Relationship Specialty Start Date End Date Ashtyn Gamez MD [address] [place] [address] PCP - General 07/06/18 Wayne Red MD [address] [place] [address] Surgeon Urology 03/14/24 [facility] Relationship Specialty Start Date End Date Ashtyn Gamez MD [address] [place] [address] PCP - General 07/06/18 Wayne Red MD [address] [place] [address] Surgeon Urology 03/14/24 [facility] Relationship Specialty Start Date End Date Ashtyn Gamez MD [address] [place] [address] PCP - General 07/06/18 Wayne Red MD [address] [place] [address] Surgeon Urology 03/14/24 Gabe Mattson MD [address] [place] [address] Surgeon Urology 07/25/24 [facility] Relationship Specialty Start Date End Date Ashtyn Gamez MD [address] [place] [phone] PCP - General 07/06/18 Wayne Red MD [address] [place] [id number] Surgeon Urology 03/14/24 Gabe Mattson MD [address] [place] [address] Surgeon Urology 07/25/24 [facility] Relationship Specialty Start Date End Date Ashtyn Gamez MD [address] [place] [address] PCP - General 07/06/18 Wayne Red MD [address] [place] [phone] Surgeon Urology 03/14/24 Gabe Mattson MD [address] [place] [address] Surgeon Urology 07/25/24 [facility] Relationship Specialty Start Date End Date Ashtyn Gamez MD [address] [place] [phone] PCP - General 07/06/18 Wayne Red MD [address] [place] [address] Surgeon Urology 03/14/24 Gabe Mattson MD [address] [place] [address] Surgeon Urology 07/25/24 Reason for Visit (unrecogniz ed section and content) Reason Comments New Patient Benign Prostatic Hypertrophy Slow stream Nocturia 1-2 times Has tried Tamsulosin in past was not effective Specialty Diagnoses / Procedures Referred By Contac t Referred To Contact Urology Diagnoses Benign prostatic hyperplasia without lower urinary tract symptoms Procedures Eval and Tx Ashtyn Gamez MD [address] [place] [address] [facility] [address] [facility] [address] [place] [address] Referral ID Status Reason Start Date Expiration Date V isits Requested Visits Authorized [id number] Pending Review 03/14/2024 03/14/2025 1 1 Reason Onset Date Comments Appointment Request 08/24/2024 Reason Comments Benign Prostatic Hypertrophy Procedure Cystoscopy / TRUS pr ostate Reason Onset Date Comments Surgery Scheduling 09/05/2024 FOR RECORDS PERTAINING TO PATIENTS WHO ARE OR HAVE BEEN ENROLLED IN A CHEMICAL DEPENDENCY/SUBSTANCEABUSE PROGRAM, SOME INFORMATION MAY BE OMITTED. This clinical summary was aggregated from multiple sources. Caution should be exercised in using it in the provision of clinical care. This summary normalizes information from multiple sources, and as a consequence, information in this document may materially change the coding, format and clinical context of patient data. In addition, data may be omitted in some cases. CLINICAL DECISIONS SHOULD BE BASED ON THE PRIMARY CLINICAL RECORDS. [employer] provides no warranty or guarantee of the accuracy or completeness of information in this document.
--- NOTE | 2025-06-28 08:16 | ED.RN ---
Pt was given 324 of ASA and 3 nitro [employer]
[2025-06-28 08:28] LABS: Anion Gap 10 (5-15); BUN 18 mg/dL (4-19); BUN/Creat Ratio 18.5 RATIO (10-20); Calcium,Total 9.3 mg/dL (7.6-11.0); Carbon Dioxide 23.8 mmol/L (21.0-32.0); Chloride 106 mmol/L (98-108); Estimated Creatinine Clearance 79.27 ml/min (50-250); Glucose 130 mg/dL (70-99); Potassium 3.5 mmol/L (3.3-5.1); Troponin T High Sensitivity 28 ng/L (<=22)
[2025-06-28 08:39] LABS: Prothrombin Time (Protime)PT. 13.4 SECONDS (11.7-14.9)
[2025-06-28 08:40] LABS: Partial Thromboplast Time 25.8 Seconds (24.1-36.2)
--- NOTE | 2025-06-28 09:22 | PCM.CONS.C ---
Assessment & Plan Assessment/Plan (1) Acute ST elevation myocardial infarction (STEMI) of anterior wall: PLAN: The patient was given intravenous heparin bolus, aspirin, 1 loading dose of Brilinta 180 mg, ticagrelor and rushed to the car catheterization lab after explaining all the risks involved including but not limited to , myocardial infarction, cerebrovascular accident, and bleeding and he agreed to proceed with it. Will utilize a right radial artery approach The procedure was performed demonstrating total occlusion of the proximal LAD with GEORGETTE 0 flow along with distal left main 30% stenosis and mid RCA 30% stenosis with moderate elevation of intracardiac filling pressures LVEDP 30 mmHg. PCI with drug-eluting stent, 2 overlapping in the mid and proximal LAD in addition to kissing balloon angioplasty to the second diagonal branch was performed with restoring GEORGETTE-3 flow in both LAD and diagonal branch. There was 0% residual stenosis. The patient remained hemodynamically stable not requiring any pressors. He is in no acute respiratory distress. #1 initiate very low-dose beta-blockers if tolerated however the heart rate is in the 50s #2 initiate very low-dose VENTURA inhibitors if tolerated due to low normal blood pressure #3 continue dual and platelet therapy baby aspirin anticoagulant for minimum of 1 year #4 high potency statins for goal LDL less than 55 considering the patient's age #5 echocardiogram for LV systolic function #6 cardiac rehabilitation referral (2) Elevated blood-pressure reading without diagnosis of hypertension: PLAN: Currently BP is lower limits of normal following the intervention for which we will carefully monitor (3) Hypothyroidism: PLAN: Continue Synthroid HPI Consult Data Date of Consult: 06/28/25 HPI Narrative Reason for Consultation: STEMI HPI Narrative: AUSTIN BHAGAT, is a 69 M who presents chest pain on and off since last night however this morning after biking since the patient has a very active lifestyle and has never had a coronary event, the above symptoms appear to be worrisome and this morning his pain was persistent for which he called 911 and came to the ER where he was found to be an anterior wall STEMI with an injury pattern of at least [address] segment elevation extending from V2 V3 through V6. He continued to have 10 out of 10 chest pain. No syncope associated with it. No significant respiratory distress. He denies any previous coronary event or cerebrovascular event. He denies any TIA-like symptoms. He denies any swelling lower extremities orthopnea or PND. He denies any tobacco or alcohol use. He runs a very active lifestyle and uses only Synthroid for hypothyroidism. He denies any ingestion of [id number]-[id number] medications. PFSH Allergy/AdvReac Type Severity Reaction Status Date / Time No Known Allergies Allergy Verified 06/28/25 07:52 Family History no significant family his no significant family history Surgical History no surgical history no surgical history Social History household members: spouse Smoking Status: Never smoker ROS ROS Narrative Most of the review of system is nonsignificant and noncontributory to the above Physical Exam Const alert and oriented x3 Orientation / Consciousness: awake HEENT normocephalic and head/scalp atraumatic Eyes PERRL and EOMs intact bilaterally Neck full ROM Carotids: normal carotid upstroke Lymph Lymphatic: no lymphadenopathy noted Chest inspection of chest normal Resp normal respiratory effort and clear to auscultation bilaterally Cardio regular rate and regular rhythm Palpation: normal PMI Rate: bradycardia Rhythm: regular rhythm GI normal to inspection, nondistended, normoactive bowel sounds Palpation: no hepatosplenomegaly no CVA tenderness and external exam normal Back/Spine no CVA tenderness Extremity normal capillary refill, no joint enlargement and no clubbing, cyanosis or edema Skin no rashes or lesions noted Psych mental status grossly normal Risk Stratification Risk Stratification Applicable: No Objective Data Vital Signs: Vital Signs Temp Pulse Resp BP Pulse Ox O2 Del Method 98.8 F 62 18 139/78 H 97 Room Air 06/28/25 07:44 06/28/25 07:44 06/28/25 07:44 06/28/25 07:44 06/28/25 07:44 06/28/25 07:54 Oxygen Delivery Method Room Air Weight: 205 lb 14.588 oz Body Mass Index (BMI) 27.1 Intake & Output: Intake and Output for Last 24 Hours 06/26/25 06/27/25 06/28/25 23:59 23:59 23:59 Intake Total Balance Lab / Micro Data Attestation: I reviewed the patient's lab results. 06/28/25 07:53 06/28/25 07:53 Labs: Laboratory Results - last 24 hr 06/28/25 07:53: WBC 5.6, RBC 5.43, Hgb 15.9, Hct 46.8, MCV 86.2, MCH 29.3, MCHC 34.0, RDW Std Deviation 40.7, RDW Coeff of Abbe 13.2, Plt Count 220, MPV 9.0, Immature Gran % (Auto) 0.200, Neut % (Auto) 54.6, Lymph % (Auto) 32.3, Tillman % (Auto) 6.8, Eos % (Auto) 5.2 H, Baso % (Auto) 0.9, Absolute Neuts (auto) 3.1, Absolute Lymphs (auto) 1.81, Nucleated RBC % 0, PT 13.4, INR 1.0, APTT 25.8, Sodium 140, Potassium 3.5, Chloride 106, Carbon Dioxide 23.8, Anion Gap 10, BUN 18, Creatinine 0.98, Estim Creat Clear Calc 79.27, Est GFR (MDRD) Non-Af 83, BUN/Creatinine Ratio 18.5, Glucose 130 H, Calcium 9.3, Troponin T High Sens 28 H Rhythm Strip Rhythm Strip: Sinus Rhythm Ectopy: None Cardiology Labs/Tests 06/28/25 07:53: WBC 5.6, RBC 5.43, Hgb 15.9, Hct 46.8, MCV 86.2, MCH 29.3, MCHC 34.0, Plt Count 220, MPV 9.0, Immature Gran % (Auto) 0.200, Neut % (Auto) 54.6, Lymph % (Auto) 32.3, Tillman % (Auto) 6.8, Eos % (Auto) 5.2 H, Baso % (Auto) 0.9, Absolute Neuts (auto) 3.1, Nucleated RBC % 0, PT 13.4, INR 1.0, APTT 25.8, Sodium 140, Potassium 3.5, Chloride 106, Carbon Dioxide 23.8, Anion Gap 10, BUN 18, Creatinine 0.98, Est GFR (MDRD) Non-Af 83, BUN/Creatinine Ratio 18.5, Glucose 130 H, Calcium 9.3 Rhythm: EKG: Sinus bradycardia with anterior wall ST segment elevation consistent with injury pattern extending 3 mm from V3 through V6 ECHO: Stress Test: Cardiac Cath: PCI: CT Surgery: Holter monitor: EPS: PPM: CXR: Chest CT Scan:
[2025-06-28 09:30] LABS: ACT Activated Clotting Time 227 sec (74-137)
[2025-06-28 09:30] LABS: ACT Activated Clotting Time 182 sec (74-137)
[2025-06-28 09:30] LABS: ACT Activated Clotting Time 291 sec (74-137)
--- NOTE | 2025-06-28 09:31 | PCIREPORT_ITS ---
PCI Cardiac Cath Report PCI Report: Procedures #1 left heart catheterization #2 coronary angiography #3 left ventriculography #4 PCI with drug-eluting stent to the proximal and mid LAD with a kissing balloon angioplasty to the second diagonal branch #5 right radial artery approach #6 conscious sedation Advanced Practice Registered Nurse Dr Baudilio Murillo MD [facility] Sedation Administered via licensed practitioner under my supervision, 1 mg of Versed 50 mcg of fentanyl which was repeated once Indication for procedure Acute anterior wall STEMI with stuttering pain of at least 12 hours however the acute pain that was persistent 10 out of 10 occurred this a.m. while biking induced by exercise Technique of the diagnostic procedure Using JR4, 5 Hungarian pigtail catheter, an XB 3.06 Hungarian guiding catheter, the procedure was performed. Multiple views of the coronary arteries were obtained and aortic valve was crossed with 5 Hungarian pigtail for left ventriculogram as well as measuring L ventricular end-diastolic pressure and a pullback technique to measure the AV gradient. Hemodynamics Left ventricular end-diastolic pressure at the beginning of procedure was 32 mmHg and towards the end of procedure 27 mmHg. Systemic pressure 104/54, no pressure gradient appreciated across aortic valve Angiographic findings Left main?large-caliber vessel with distal 20-30% stenosis at the bifurcation Left anterior descending artery?large caliber vessel with a small first diagonal branch and large septal senior portfolio analyst then the LAD is 100% occluded with GEORGETTE 0 flow distally prior to the origin of the second large diagonal branch, the later has an ostial 90% stenosis and mid LAD has 3 tandem lesions of 50% stenosis all hazy appearing suggestive of an active soft plaque Left circumflex?large caliber vessel with a large first marginal branch without stenosis and a moderate size second appears manage branch without stenosis Right coronary artery?large dominant vessel with an ostial 30% stenosis and a mid 30% stenosis and distally a large PDA and a large bifurcating PLV without stenosis Left ventriculogram?was performed at the end of procedure in the [place] projection revealing normal-sized ventricle with mild to moderate systolic dysfunction EF around 40 to 45% Technique of the interventional procedure Appropriate AUC criteria?met Anticoagulation?heparin to maintain therapeutic ACT throughout the procedure time, at the end of the case ACT 227 seconds Antiplatelet?pretreatment with aspirin 325 mg and 180 mg of ticagrelor and 2 boluses of Integrilin Guide catheter?XB 3.06 Hungarian Guide wired?0.014 run-through in both LAD and diagonal branch Initially we performed a balloon dilatation with a 2.5 x 12 mm to the mid LAD restoring GEORGETTE-3 flow after the balloon was inflated twice up to 6 claudette and deflated quickly and then it was apparent that the ostial second diagonal branch has a 95% stenosis and we performed a Cutting Balloon angioplasty to the ostial diagonal branch with a 2.5 x 10 mm cutting balloon Alto from [employer] up to 6 claudette inflated for 30 seconds twice and then we deployed 2 overlapping drug-eluting stent to cover the entire diseased segment of the mid LAD and the proximal LAD 3.5 x 38 mm proximally from Medtronic frontier stent up to 14 claudette after pulling the guidewire from the diagonal branch and then distally a 3.5 x 26 mm Medtronic stent up to 14 claudette and then postdilated the entire stented segment with a 4.0 mm noncompliant balloon up to 14 claudette however at the ostial diagonal branch we performed a kissing balloon angioplasty with a 2.5 x 12 mm noncompliant balloon in the diagonal branch and a 4.0 mm noncompliant balloon in the LAD simultaneously up to 12 claudette resulting in excellent angiograp hic results and 0 % residual l stenosis and GEORGETTE-3 flow distally in both LAD and diagonal branch. It is worth mentioning there was an area just distal to the diagonal branch with slight stent underexpansion for which we inflated a 4.0 x 12 mm noncompliant balloon up to 20 claudette resulting in 0% stenosis and excellent angiographic results. Conclusions 1- 100% occlusion of the proximal LAD in the setting of an anterior wall STEMI and GEORGETTE 0 flow along with ostial second diagonal branch 90% stenosis that underwent successful PCI with 2 overlapping drug-eluting stent to the proximal and mid LAD and Cutting Balloon angioplasty to the ostial diagonal branch with final kissing balloon angioplasty restoring GEORGETTE-3 flow in LAD and diagonal branch and resulting in 0% 0 stenosis from 100% occlusion. Final diameter 4.2 mm #2 mild disease involving the ostial and proximal dominant RCA with 20 to 30% stenosis #3 distal left main 20 to 30% stenosis at the bifurcation #4 mild elevation of intracardiac filling pressures with moderate LV systolic dysfunction EF of around 45% Recommendation #1 dual antiplatelet therapy for minimum of 1 year #2 hypotensive statins for a minimum goal LDL less than 55 #3 very slow introduction of beta-blockers and VENTURA inhibitors as tolerated for favorable LV remodeling however the patient blood pressure and heart rate are at the lower limits of normal which may not allow the above medical therapy #4 check echocardiogram for accurate assessment of LVEF #5 cardiac rehabitation program referral
--- NOTE | 2025-06-28 09:44 | EKG12_ITS ---
Test Reason : post cath stemi Blood Pressure : */* mmHG Vent. Rate : 55 BPM Atrial Rate : 55 BPM P-R Int : 168 ms QRS Dur : 80 ms QT Int : 418 ms P-R-T Axes : 68 74 21 degrees QTcB Int : 399 ms Sinus bradycardia Nonspecific ST abnormality Abnormal ECG When compared with ECG of 28-Jun-2025 07:46, MANUAL COMPARISON REQUIRED DATA IS UNCONFIRMED Confirmed by PIYUSH COKER, NUVIA ([id number]), video news editor SEPIDEH POPE ([id number]) on 07/02/2025 6:17:16 AM Referred By: Baudilio Murillo Confirmed By: NUVIA PICKETT MD
--- NOTE | 2025-06-28 09:53 | ECHOD_ITS ---
Reason For Study Reason For Study: S/P AK Procedure This was a 2D Doppler, Color Flow transthoracic echocardiogram. The patient was scanned supine. Exam performed portable in clinical lab specialist. Left Ventricle Normal LV size. Normal left ventricular thickness. Diastolic function is indeterminate. The estimated ejection fraction is 50 %. There is moderate hypokinesis involving the mid to distal anterior wall and anterior apical segment. Right Ventricle Normal RV size. Normal systolic function. Atria The left and right atria are normal. Mitral Valve The mitral valve is structurally normal. No prolapse or stenosis seen. Trivial mitral valve insufficiency. Tricuspid Valve Unable to estimate RV systolic pressure due to inadequate jet, pulmonary artery pressure probably normal. Aortic Valve Trisinus/trileaflet aortic valve. With mild sclerosis but no stenosis. Pulmonic Valve Trivial eccentric pulmonic valve insufficiency. Great Vessels Normal sized aortic root. Pericardium/Pleural No pericardial effusion. MMode/2D Measurements & Calculations LVIDd: 4.5 cm IVSd: 1.1 cm LVOT diam: 2.2 cm LVIDs: 2.6 cm LVPWd: 1.1 cm LVOT area: 3.7 cm2 RVDd: 3.9 cm FS: 41.4 % LAV(MOD-bp): 51.6 ml LVAd ap4: 26.0 cm2 LVAd ap2: 22.8 cm2 LAV(MOD-bp) Indexed: 23.7 ml/m2 LVLd ap4: 7.8 cm LVLd ap2: 8.4 cm LAV(MOD-sp2): 58.5 ml EDV(MOD-sp4): 71.6 ml EDV(MOD-sp2): 53.2 ml LAV(MOD-sp4): 45.7 ml EDV(sp4-el): 74.0 ml EDV(sp2-el): 52.9 ml LVAs ap4: 15.6 cm2 LVAs ap2: 15.0 cm2 LVLs ap4: 6.8 cm LVLs ap2: 7.3 cm ESV(MOD-sp4): 31.1 ml ESV(MOD-sp2): 26.0 ml ESV(sp4-el): 30.6 ml ESV(sp2-el): 26.3 ml EF(MOD-sp4): 56.6 % EF(MOD-sp2): 51.1 % EF(sp4-el): 58.6 % SV(MOD-sp4): 40.5 ml SV(MOD-sp2): 27.2 ml SV(sp4-el): 43.4 ml SI(MOD-sp4): 18.6 ml/m2 SI(MOD-sp2): 12.5 ml/m2 Ao sinus diam: 3.6 cm LA A4 area: 17.1 cm2 LA dimension(2D): 3.6 cm TAPSE: 2.2 cm RA A4 area: 14.9 cm2 Time Measurements MV dec time: 0.17 sec Doppler Measurements & Calculations MV E max mandeep: 55.8 cm/sec Lat Peak E' Mandeep: 10.3 cm/sec Med Peak E' Mandeep: 10.3 cm/sec MV A max mandeep: 46.9 cm/sec E/E' lat: 5.4 E/E' med: 5.4 MV E/A: 1.2 MV dec slope: 329.7 cm/sec2 Ao V2 max: 91.6 cm/sec LV V1 max: 92.1 cm/sec Ao max P.4 mmHg LV V1 max P.4 mmHg Ao V2 mean: 63.9 cm/sec LV V1 mean P.1 mmHg Ao mean P.8 mmHg LV V1 mean: 67.5 cm/sec Ao V2 VTI: 23.0 cm LV V1 VTI: 22.7 cm AV (velocity ratio): 0.99 DAVID(I,D): 3.7 cm2 DAVID(V,D): 3.7 cm2 SV(LVOT): 84.1 ml PA V2 max: 68.9 cm/sec ECHO/Echo Complete Interpretation Summary Normal LV size. Normal left ventricular thickness. Diastolic function is indeterminate. The estimated ejection fraction is 50 %. There is moderate hypokinesis involving the mid to distal anterior wall and ant erior apical segment Normal systolic function. Normal RV size. With mild sclerosis but no stenosis No significant valvular pathology Ordering Physician: Baudilio Murillo Referring Physician: Baudilio Murillo MD Performed By: Kasia Pearl RDCS
[2025-06-28] MEDS: 0.9% Normal Saline (1000mL) 1,000 ML 50 ML IV (10:35)
[2025-06-28 10:40] LABS: Hematocrit 45.2 % (40-54); Hemoglobin 15.6 g/dL (13.0-16.5); Immature Granulocytes Count 0.030 X10^3/uL (0.0-0.0); Mean Corp Hgb Conc 34.5 g/dL (32-36); Mean Corpuscular Volume 85.4 fL (80-94); Mean Platelet Vol. 9.0 fl (6.2-12.0); NRBC Flagged by Analyzer 0 % (0-5); Platelet Count 220 K/mm3 (150-450); RBC Distribution Width CV 13.2 % (11.6-14.6); RBC Distribution Width SD 40.9 fl (35.1-43.9); Red Blood Count 5.29 M/mm3 (4.6-6.2); White Blood Count 9.2 K/mm3 (4.4-11.0)
[2025-06-28 10:54] LABS: Prothrombin Time (Protime)PT. 14.6 SECONDS (11.7-14.9)
[2025-06-28 10:58] LABS: Partial Thromboplast Time 176.2 Seconds (24.1-36.2)
[2025-06-28 11:04] LABS: Anion Gap 8 (5-15); BUN 17 mg/dL (4-19); BUN/Creat Ratio 19.0 RATIO (10-20); Calcium,Total 8.9 mg/dL (7.6-11.0); Carbon Dioxide 23.3 mmol/L (21.0-32.0); Chloride 107 mmol/L (98-108); Estimated Creatinine Clearance 89.29 ml/min (50-250); Glucose 110 mg/dL (70-99); Potassium 4.1 mmol/L (3.3-5.1); Troponin T High Sensitivity 1233 ng/L (<=22)
--- NOTE | 2025-06-28 11:41 | PCM.HP.STD ---
HPI - General General Date of Admission: 06/28/25 Date of Service: 06/28/25 Chief Complaint: Chest pain HPI Narrative AUSTIN BHAGAT, is a 69 M who presented to [facility] [place] ED on 06/28/2025 with chest pain. STEMI alert called in the ED. EKG showed ST elevations with hyperacute T waves in V2 and V3. Vital signs were stable precath. Was taken emergently to the [facility]. Left heart cath showed 100% occlusion of the proximal LAD along with tandem lesions in the mid LAD suggestive of active soft plaque. RCA and left circumflex with minimal stenosis. S/p 2 drug-eluting stents placed in the proximal and mid LAD with balloon angioplasty with good result. Estimated EF 45% in the [facility]. Patient was taken to the ICU after cath for further management. I saw the patient shortly after he arrived to the ICU. He was sitting back comfortably in bed and in no acute distress. Denied any chest pain currently. Has minimal medical history noted, is only on Synthroid for hypothyroidism at home. He is very active and was riding his bike today when the chest pain occurred. Noted that he did have mild chest discomfort intermittently over the past week but no chest pain prior to this. Denies any alcohol or tobacco use. No other acute concerns at this time. [facility] Medical History Enlarged prostate Chest pain (~06/28/25) Myocardial infarct (~06/28/25) Hypothyroidism Non-smoker Home Medications ?Medication ?Instructions ?Recorded ?Last Taken ?Type cholecalciferol (vitamin D3) 50 50 mcg PO DAILY supplement 06/28/25 06/27/25 History mcg (2,000 unit) capsule (Vitamin D3) levothyroxine 75 mcg tablet 75 mcg PO DAILY thyroid 06/28/25 06/28/25 History multivitamin (Daily Multi-Vitamin 1 tab PO DAILY supplement 06/28/25 06/27/25 History tablet) somaya life probiotic 1 ea PO DAILY supplement 06/28/25 06/27/25 History Allergy/AdvReac Type Severity Reaction Status Date / Time No Known Allergies Allergy Verified 06/28/25 07:52 Family History no significant family his Surgical History (Updated 06/28/25 @ 10:45 by Mary Webster) H/O cardiac catheterization (~06/28/25) History of heart artery stent (~06/28/25) Surgical History no surgical history Social History household members: spouse Smoking Status: Never smoker ROS Constitutional Constitutional: Denies chills, fatigue, fever(s) or weakness Eyes Eyes: Denies change in vision Cardiovascular Cardiovascular: Denies chest pain, dyspnea on exertion, edema or lightheadedness Respiratory/Chest Respiratory/Chest: Denies cough or shortness of breath at rest Gastrointestinal Gastrointestinal: Denies abdominal pain Vital Signs Vital Signs Vital Signs: 06/28/25 07:44 06/28/25 07:54 06/28/25 11:16 Temperature 98.8 F Temperature Source Oral Pulse Rate 62 65 Respiratory Rate 18 Blood Pressure 139/78 H 130/72 H Blood Pressure Mean 98 Pulse Ox 97 Oxygen Delivery Method Room Air Room Air Weight Weight: 93.5 kg Body Mass Index (BMI) 27.1 Physical Exam Const alert, oriented x3, no apparent distress, average body habitus, healthy appearing and well nourished Constitutional Narrative: Pleasant elderly male, sitting back comfortably in bed, conversing normally, in no acute distress. General Appearance: cooperative, comfortable, well kempt and well developed HEENT normocephalic, head/scalp atraumatic, hearing grossly normal bilaterally, nasal mucous membranes and turbinates normal and moist oral mucous membranes Eyes PERRL, EOMs intact bilaterally and conjunctivae normal Neck full ROM Chest inspection of chest normal Resp normal respiratory effort, normal air movement, no use of accessory muscles and clear to auscultation bilaterally Cardio regular rate, regular rhythm, no murmurs and peripheral pulses 2+ throughout GI normal to inspection, nondistended, normoactive bowel sounds, soft to palpation, non-tender and non-distended Back/Spine normal ROM Extremity normal to inspection, full ROM and no pedal edema Skin no rashes or lesions noted Psych mental status grossly normal Results Lab / Micro Data 06/28/25 10:30 06/28/25 10:30 Labs: Laboratory Results - last 24 hr 06/28/25 07:20: Activated Clotting Time 291 H 06/28/25 07:53: WBC 5.6, RBC 5.43, Hgb 15.9, Hct 46.8, MCV 86.2, MCH 29.3, MCHC 34.0, RDW Std Deviation 40.7, RDW Coeff of Abbe 13.2, Plt Count 220, MPV 9.0, Immature Gran % (Auto) 0.200, Neut % (Auto) 54.6, Lymph % (Auto) 32.3, [place] % (Auto) 6.8, Eos % (Auto) 5.2 H, Baso % (Auto) 0.9, Absolute Neuts (auto) 3.1, Absolute Lymphs (auto) 1.81, Nucleated RBC % 0, PT 13.4, INR 1.0, APTT 25.8, Sodium 140, Potassium 3.5, Chloride 106, Carbon Dioxide 23.8, Anion Gap 10, BUN 18, Creatinine 0.98, Estim Creat Clear Calc 79.27, Est GFR (MDRD) Non-Af 83, BUN/Creatinine Ratio 18.5, Glucose 130 H, Calcium 9.3, Troponin T High Sens 28 H 06/28/25 08:06: Activated Clotting Time 182 H 06/28/25 08:21: Activated Clotting Time 227 H 06/28/25 10:30: WBC 9.2, RBC 5.29, Hgb 15.6, Hct 45.2, MCV 85.4, MCH 29.5, MCHC 34.5, RDW Std Deviation 40.9, RDW Coeff of Abbe 13.2, Plt Count 220, MPV 9.0, Immature Gran % (Auto) 0.300, Neut % (Auto) 86.1 H, Lymph % (Auto) 10.3 L, [place] % (Auto) 2.5, Eos % (Auto) 0.5, Baso % (Auto) 0.3, Absolute Neuts (auto) 8.0 H, Absolute Lymphs (auto) 0.95, Nucleated RBC % 0, Sodium 138, Potassium 4.1, Chloride 107, Carbon Dioxide 23.3, Anion Gap 8, BUN 17, Creatinine 0.87, Estim Creat Clear Calc 89.29, Est GFR (MDRD) Non-Af 93, BUN/Creatinine Ratio 19.0, Glucose 110 H, Calcium 8.9, Troponin T High Sens 1233 H* D Rhythm Strip Rhythm Strip: Sinus Rhythm Ectopy: None Assessment & Plan Assessment/Plan (1) Acute ST elevation myocardial infarction (STEMI) of anterior wall: PLAN: Plan Patient is a 69-year-old male who presented [facility] [place] ED on 06/28/2025 with chest pain. 1. STEMI ? Admit under inpatient status to ICU. Cardiology following. EKG in ED showed ST elevations in V2 and V3. Emergent left heart cath showed 100% occlusion of the proximal LAD along with tandem lesions in the mid LAD suggestive of active soft plaque. RCA and left circumflex with minimal stenosis. S/p 2 drug-eluting stents placed in the proximal and mid LAD with balloon angioplasty with good result. Echo post cath showed EF 50%, moderate hypokinesis involving the mid to distal anterior wall and anterior apical segment, no other concerning findings. Per cardiology, will treat with aspirin, Brilinta, high intensity statin, and low-dose Lopressor and lisinopril as tolerated. Lipid panel and A1c ordered. Continue cardiac monitoring. If patient remains stable, will be okay for discharge home in the next 1 to 2 days. 2. Hypothyroidism ? TSH ordered. Continue home Synthroid. DVT prophylaxis: Lovenox CODE STATUS: Full code, verified Expected disposition: Home, 1 to 2 days Total clinical time spent by myself addressing the patient's medical issues, reviewing all the data, and collaborating with patient's care team: 55 minutes. Charges/Coding Visit Charges Inpatient E&M: 59855 Init Hosp L2
--- NOTE | 2025-06-28 11:43 | ECQM.STEMI ---
STEMI STEMI ED Door Time / Other REG STEMI EKG Time (1) Acute ST elevation myocardial infarction (STEMI) of anterior wall: Acute 06/28/25 07:44 Balloon/Aspiration Date-Time Date of Balloon/Aspiration:: 06/28/25 Time of Balloon/Aspiration:: 08:13
--- NOTE | 2025-06-28 12:46 | CRPHASE1_ITS ---
Patient Communication Patient Information PHII Cardiac Rehab Discussed with Patient:: Yes Guide to Cardiac Rehab Given to Patient:: Yes Cardiac Rehab Facility Choice List Given to Patient:: Yes Communication to Cardiac Rehab Choice Program [facility] CR PHII:: Communication Given to CR [employer]:: Baudilio Murillo Refer Phase II Cardiac Rehab:: Yes Sessions:: 36 sessions - 3 days/wk, 12 weeks Cardiac Rehabilitation Info Program Information Cardiac Rehabilitation Program Information: Cardiac Rehab The cardiac rehab team at [facility] consists of highly skilled exercise physiologists, nurses, respiratory therapists and physicians working together with you. Our purpose is to help you have a full recovery and achieve the goals you set for yourself. Over the years many of our patients have returned to activities they assumed they would never do again! We can help restore your confidence and motivation to make lifestyle changes that can have a significant impact on your health and quality of life! We can help answer questions and concerns you may have about exercise, lifestyle, medications, diet, stress and anxiety which are common following a hospitalization. WE monitor ECG and vital signs during exercise and discuss your progress with you and report to your physician(s). Cardiac Rehab is proven to help reduce readmissions, improve functional capacity and lower recurrence of problems with your heart. Our Cardiac Rehab program is Certified by the [place] [employer]-Vascular and Pulmonary Rehabilitation (AACVPR) and Accredited by the [place] [employer] through our [facility]. You can contact us at . We invite you to call us with your questions or to get started in our program. If you have other questions or concerns be sure to ask your physician/provider during your follow-up visit. WE look forward to seeing you!
--- NOTE | 2025-06-28 12:47 | CRPH1.INSTRU ---
General Education Discussed with Patient CAD and cardiac anatomy and function:: Patient communicates acknowledgment and Family communicates acknowledgment Explanation of diagnoses and procedures:: Patient communicates acknowledgment and Family communicates acknowledgment Sign/Symptoms of VT:: Patient communicates acknowledgment and Family communicates acknowledgment Antiplatelet therapy: Patient communicates acknowledgment and Family communicates acknowledgment Proper use of NTG-SL: Patient communicates acknowledgment and Family communicates acknowledgment Emergency procedures and activation of EMS: Patient communicates acknowledgment and Family communicates acknowledgment Compliance of all prescribed medications: Patient communicates acknowledgment and Family communicates acknowledgment Dyslipidemia Risk Factors Patient Dyslipidemia Risk Factors Are:: Total Cholesterol, Triglycerides, HDL and LDL Recommendations Recommendations Include:: Lipid profile not available Response Code Dyslipidemia Response Code:: Patient communicates acknowledgment and Family communicates acknowledgment Overweight/Obesity Risk Factors Patient Overweight/Obesity Risk Factors Are:: BMI Normal [24-29 & > 65 years old] Recommendations Recommendations Include:: Weight loss of 5-10%, Reduced calorie diet and Exercise 5-7 times/week Response Code Overweight/Obesity:: Patient communicates acknowledgment and Family communicates acknowledgment Hypertension Risk Factors Patient Hypertension Risk Factors Are:: No documented hx of HTN
[2025-06-28] MEDS: TICAGRELOR 90 MG TABLET PO (21:19)
[2025-06-29] VITALS (14 sets, daily range): BP systolic 91–119; BP diastolic 56–75; PULSE 51–73; RESP 13–21; TEMP 36.6–36.9; O2SAT 91–99; BMI 27.2
[2025-06-29 06:34] LABS: Hematocrit 45.1 % (40-54); Hemoglobin 15.2 g/dL (13.0-16.5); Mean Corp Hgb Conc 33.7 g/dL (32-36); Mean Corpuscular Volume 86.6 fL (80-94); Mean Platelet Vol. 9.5 fl (6.2-12.0); Platelet Count 215 K/mm3 (150-450); RBC Distribution Width CV 13.5 % (11.6-14.6); RBC Distribution Width SD 41.7 fl (35.1-43.9); Red Blood Count 5.21 M/mm3 (4.6-6.2); White Blood Count 7.7 K/mm3 (4.4-11.0)
[2025-06-29 06:55] LABS: Scan Indicated on CBC? Y/N NO
[2025-06-29 07:48] LABS: AST(SGOT) 94 U/L (<=37); Alanine Aminotransfer ALT/SGPT 30 U/L (<=46); Albumin, Serum 3.7 g/dL (3.4-4.8); Alkaline Phosphatase 60 U/L (40-129); Anion Gap 11 (5-15); BUN 15 mg/dL (4-19); BUN/Creat Ratio 16.1 RATIO (10-20); Calcium,Total 8.8 mg/dL (7.6-11.0); Carbon Dioxide 19.7 mmol/L (21.0-32.0); Chloride 109 mmol/L (98-108); Estimated Creatinine Clearance 84.44 ml/min (50-250); Globulin 2.2 g/dL (2.2-4.2); Glucose 104 mg/dL (70-99); Potassium 3.9 mmol/L (3.3-5.1)
[2025-06-29] MEDS: Aspirin E.C. 81 MG Tablet PO (08:15)
[2025-06-29 08:21] LABS: Cholesterol 152 mg/dL (<=200); Low Density Lipoprotein Calc. 102 mg/dL; Triglycerides 82 mg/dL; Very Low Density Lipoprotein 16 mg/dL (5-40); cholesterol:hdl ratio screen 4.50
--- NOTE | 2025-06-29 10:00 | EKG12_ITS ---
Test Reason : AM EKG Blood Pressure : */* mmHG Vent. Rate : 52 BPM Atrial Rate : 52 BPM P-R Int : 142 ms QRS Dur : 84 ms QT Int : 480 ms P-R-T Axes : 23 74 111 degrees QTcB Int : [address] & Marked T wave abnormality, consider anterolateral ischemia Abnormal ECG When compared with ECG of 28-Jun-2025 10:05, MANUAL COMPARISON REQUIRED DATA IS UNCONFIRMED Confirmed by PIYUSH COKER, NUVIA ([id number]), development editor SEPIDEH POPE ([id number]) on 07/02/2025 6:15:47 AM Referred By: Baudilio Murillo Confirmed By: NUVIA PICKETT MD
--- NOTE | 2025-06-29 10:35 | CASEMGMT ---
RN CM Face to Face with patient for initial transition planning/care coordination assessment. RN CM introduced self and role at [facility]. Patient lying in bed, alert and oriented. Patient willing to participate in assessment and is able to answer all questions appropriately. Care providers, pharmacy, and demographics verified. Strata: 1 PCP: Greta Specialists: none Preferred Pharmacy: Ruma RUIZ; [facility] Retail at discharge Insurance: [facility], MMO Prescription Benefit: yes, copy of prescription card placed on chart and copy sent to [facility] Retail Rx Living Will/HPOA: yes, Chioma Quinteros LNOK: Living Arrangements: Patient lives with in a 2 story home. Patient is independent and able to ambulate stairs. Transportation: self, DME/HHC: Nupur has access to cane at home. No previous HHC or SNF Patient wishes to discharge home with follow-up plans in place, denies needs at discharge. Patient states he has no further needs or concerns at this time. CM to follow for discharge planning needs that may arise. Disposition Plan: Patient to discharge home with family support and follow-up plans in place. Piper PERSAUD, RN, CM
[2025-06-29] MEDS: TICAGRELOR 90 MG TABLET PO (10:48)
[2025-06-29] MEDS: Cholecalciferol (VIT D3) 25 MCG TABLET (1,000 UNITS) 50 MCG PO (10:49)
--- NOTE | 2025-06-29 11:04 | PN.CARD_ITS ---
Subjective Subjective He is doing well this morning. He denies any chest pain or shortness of breath. Objective Data Vital Signs: Vital Signs Temp Pulse Resp BP Pulse Ox O2 Del Method O2 Flow Rate 97.9 F 60 16 107/67 97 Room Air 2 06/29/25 08:00 06/29/25 10:48 06/29/25 09:00 06/29/25 09:00 06/29/25 09:00 06/29/25 09:00 06/28/25 16:00 Oxygen Flow Rate (L/min) 2 Oxygen Delivery Method Room Air Weight: 206 lb 5.643 oz Body Mass Index (BMI) 27.2 Intake & Output: Intake and Output for Last 24 Hours 06/27/25 06/28/25 06/29/25 23:59 23:59 23:59 Intake Total 270 / 270 Output Total 450 / 750 300 / 300 Balance -180 / -480 -300 / -300 Lab / Micro Data 06/29/25 06:05 06/29/25 06:05 Labs: Laboratory Results - last 24 hr 06/28/25 10:30: PT 14.6, INR 1.1, APTT 176.2 H*, Sodium 138, Potassium 4.1, Chloride 107, Carbon Dioxide 23.3, Anion Gap 8, BUN 17, Creatinine 0.87, Estim Creat Clear Calc 89.29, Est GFR (MDRD) Non-Af 93, BUN/Creatinine Ratio 19.0, G lucose 110 H, Hemoglobin A1c 5.5, Calcium 8.9, Troponin T High Sens 1233 H* D, TSH 1.680 06/29/25 06:05: WBC 7.7, RBC 5.21, Hgb 15.2, Hct 45.1, MCV 86.6, MCH 29.2, MCHC 33.7, RDW Std Deviation 41.7, RDW Coeff of Abbe 13.5, Plt Count 215, MPV 9.5, Sodium 140, Potassium 3.9, Chloride 109 H, Carbon Dioxide 19.7 L, Anion Gap 11, BUN 15, Creatinine 0.92, Estim Creat Clear Calc 84.44, Est GFR (MDRD) Non-Af 90, BUN/Creatinine Ratio 16.1, Glucose 104 H, Calcium 8.8, Total Bilirubin 0.73, AST 94 H, ALT 30, Alkaline Phosphatase 60, Total Protein 5.9, Albumin 3.7, Globulin 2.2, Albumin/Globulin Ratio 1.7, Triglycerides 82, Cholesterol 152, LDL Cholesterol, Calc 102, VLDL Cholesterol 16, HDL Cholesterol 34 L, Cholesterol/HDL Ratio 4.50 Rhythm Strip Rhythm Strip: Sinus Rhythm Ectopy: None Cardiology Labs/Tests 06/28/25 10:30: PT 14.6, INR 1.1, APTT 176.2 H*, Sodium 138, Potassium 4.1, Chloride 107, Carbon Dioxide 23.3, Anion Gap 8, BUN 17, Creatinine 0.87, Est GFR (MDRD) Non-Af 93, BUN/Creatinine Ratio 19.0, Glucose 110 H, Hemoglobin A1c 5.5, Calcium 8.9 06/29/25 06:05: WBC 7.7, RBC 5.21, Hgb 15.2, Hct 45.1, MCV 86.6, MCH 29.2, MCHC 33.7, Plt Count 215, MPV 9.5, Sodium 140, Potassium 3.9, Chloride 109 H, Carbon Dioxide 19.7 L, Anion Gap 11, BUN 15, Creatinine 0.92, Est GFR (MDRD) Non-Af 90, BUN/Creatinine Ratio 16.1, Glucose 104 H, Calcium 8.8, Total Bilirubin 0.73, Triglycerides 82, Cholesterol 152, VLDL Cholesterol 16, HDL Cholesterol 34 L, Cholesterol/HDL Ratio 4.50 Rhythm: NSR EKG: NSR ECHO: EF 50% with mild wall motion Cardiac Cath: 100% proximal LAD PCI: 2 EMA to LAD Radiography Diagnostic Testing: Radiology Impression Echocardiogram 06/28/25 09:53 Interpretation Summary Normal LV size. Normal left ventricular thickness. Diastolic function is indeterminate. The estimated ejection fraction is 50 %. There is moderate hypokinesis involving the mid to distal anterior wall and anterior apical segment Normal systolic function. Normal RV size. With mild sclerosis but no stenosis No significant valvular pathology Ordering Physician: Baudilio Murillo Referring Physician: Baudilio Murillo MD Performed By: Kasia Pearl RDCS Physical Exam Const alert HEENT normocephalic Eyes PERRL Neck full ROM Lymph Lymphatic: no lymphadenopathy noted Chest inspection of chest normal Resp normal respiratory effort Cardio regular rate, regular rhythm, S1 normal heart sound and S2 normal heart sound GI normal to inspection, nondistended, normoactive bowel sounds no CVA tenderness Back/Spine no CVA tenderness Extremity normal to inspection Skin no rashes or lesions noted Assessment & Plan Assessment/Plan (1) Acute ST elevation myocardial infarction (STEMI) of anterior wall: PLAN: Status post PCI to LAD with two overlapping stents and KBI to second diagonal with excellent angiographic results. mild-moderate disease in RCA. Continue with Aspirin and Ticagrelor Switch to metoprolol succinate 25 mg daily Continue with lisinopril 5 mg daily Continue with high intensity Statin and repeat lipid panel in 3 months Cardiac rehab Had a long discssion about importance of medications compliance
--- NOTE | 2025-06-29 11:36 | PCM.DC ---
Discharge Instructions DC O2, CPAP, BIPAP needs Home O2 Discharge instructions: No Dressing / Incision Discharge Activity: Return to Normal Activity Weight Bearing Status: Full weight bearing Follow Up Care Test Results: Test results from this visit will be discussed in further detail at your follow-up appointment, if applicable. Discharge Plan Admission Admit Date/Time: 06/28/25 11:43 Primary Reason for Your Visit: acute PR Attending Provider: Jose Miguel Glynn Primary Care Provider: Gilbert Hernandes Consulting Providers: Baudilio Murillo; Padilla Terry Discharge Orders/Prescriptions Prescriptions: New lisinopril 5 mg Tablet 5 mg PO DAILY Qty: 30 0RF ticagrelor [Brilinta] 90 mg Tablet 90 mg PO BID Qty: 60 0RF atorvastatin 80 mg Tablet 80 mg PO QHS Qty: 30 0RF metoprolol succinate 25 mg tablet extended release 24 hr 25 mg PO DAILY Qty: 30 0RF Rx Instructions: start on 06/29/25 aspirin 81 mg Tablet,Delayed Release (Dr/Ec) 81 mg PO BREAKFAST Qty: 0 0RF Continued levothyroxine 75 mcg tablet 75 mcg PO DAILY multivitamin [Daily Multi-Vitamin] Tablet 1 tab PO DAILY [employer] life probiotic capsule 1 ea PO DAILY cholecalciferol (vitamin D3) [Vitamin D3] 50 mcg (2,000 unit) capsule 50 mcg PO DAILY Referrals / Follow Up: Deni Ludwig MD [Med Staff - Active Staff] - See Referral Note (in two weeks-call this tuesday if you have not heard from the office-tell them you were hospitalized and had a heart stent placed) Gilbert Hernandes MD [Primary Care Provider] - Disposition Disposition (needs filled in before D/C Order can be placed): Home, Self Care
--- NOTE | 2025-06-29 11:45 | PCM.DC.SUM ---
Providers Date of Admission: 06/28/25 Date of Discharge: 06/29/25 Primary Care Physician: Dr. Gilbert Hernandes MD Reason For Visit: ACUTE ANTERIOR ST ELEVATION ME Diagnosis Discharge Diagnosis (1) Acute ST elevation myocardial infarction (STEMI) of anterior wall: Status: Acute Code(s): I21.09 - ST elevation (STEMI) myocardial infarction involving other coronary artery of anterior wall Plan 1. ST elevation ME #2 hypothyroidism #3 occlusive coronary artery disease in the LAD #4 hyperlipidemia Medications at Discharge Home Medications cholecalciferol (vitamin D3) 50 mcg (2,000 unit) capsule (Vitamin D3) 50 mcg PO DAILY supplement 06/28/25 levothyroxine 75 mcg tablet 75 mcg PO DAILY thyroid 06/28/25 multivitamin (Daily Multi-Vitamin tablet) 1 tab PO DAILY supplement 06/28/25 somaya life probiotic 1 ea PO DAILY supplement 06/28/25 aspirin 81 mg tablet,delayed release 81 mg PO BREAKFAST #0 tabs 06/29/25 atorvastatin 80 mg tablet 80 mg PO QHS #30 tabs 06/29/25 lisinopril 5 mg tablet 5 mg PO DAILY #30 tabs 06/29/25 metoprolol succinate 25 mg tablet,extended release 24 hr 25 mg PO DAILY #30 tabs 06/29/25 ticagrelor 90 mg tablet (Brilinta) 90 mg PO BID #60 tabs 06/29/25 Hospital Course Operations None Procedures 2-D Echocardiogram Summary of Care Provided Minutes Spent on Discharge: 31 Hospital Course: This 69-year-old white male was seen in the emergency room at [facility] with a chief complaint of chest pain, STEMI alert was called in the emergency room, EKG showed ST elevation in the anterior wall leads V2 and V3. Vital signs are stable, patient was taken emergently to the [facility] [facility], cardiac catheterization showed 100% occlusion of the proximal LAD along with occlusive disease in the mid LAD, 2 drug-eluting stents were placed, there were no complications from the procedure. Patient was transferred to the ICU, he had no major arrhythmias during his hospitalization. On 06/29/2025, patient was seen and examined: On examination he appeared in good health and spirits. Vital signs as documented. Skin warm and dry and without overt rashes. Neck without JVD, neck was supple, trachea midline, thyroid was normal. Lungs clear bilaterally, normal air movement was noted. Heart exam notable for regular rhythm, normal sounds and absence of murmurs, rubs or gallops. Abdomen unremarkable and without evidence of organomegaly, masses, or abdominal aortic enlargement. Bowel sounds are present, abdomen is not distended. Extremities nonedematous, no cyanosis was noted, no clubbing was noted. Neuro: Cranial nerves II through XII are grossly intact, no focal motor deficits were noted, sensation to light touch and pinprick intact, motor exam 5/5 throughout. Psych: Patient is alert and oriented x3, he does not appear anxious or depressed, he does not appear agitated. Echocardiogram showed a 50% EF. Patient was discharged home in stable condition on 06/29/2025 Weight / BMI Weight Weight: 93.6 kg Body Mass Index (BMI) 27.2 ABG / Lab / Microbiology Data 06/29/25 06:05 06/29/25 06:05 Laboratory: Laboratory Results - last 24 hr 06/28/25 10:30: PT 14.6, INR 1.1, APTT 176.2 H*, Hemoglobin A1c 5.5, TSH 1.680 06/29/25 06:05: WBC 7.7, RBC 5.21, Hgb 15.2, Hct 45.1, MCV 86.6, MCH 29.2, MCHC 33.7, RDW Std Deviation 41.7, RDW Coeff of Abbe 13.5, Plt Count 215, MPV 9.5, Sodium 140, Potassium 3.9, Chloride 109 H, Carbon Dioxide 19.7 L, Anion Gap 11, BUN 15, Creatinine 0.92, Estim Creat Clear Calc 84.44, Est GFR (MDRD) Non-Af 90, BUN/Creatinine Ratio 16.1, Glucose 104 H, Calcium 8.8, Total Bilirubin 0.73, AST 94 H, ALT 30, Alkaline Phosphatase 60, Total Protein 5.9, Albumin 3.7, Globulin 2.2, Albumin/Globulin Ratio 1.7, Triglycerides 82, Cholesterol 152, LDL Cholesterol, Calc 102, VLDL Cholesterol 16, HDL Cholesterol 34 L, Cholesterol/HDL Ratio 4.50 Radiography Diagnostic Testing: Radiology Impression Echocardiogram 06/28/25 09:53 Interpretation Summary Normal LV size. Normal left ventricular thickness. Diastolic function is indeterminate. The estimated ejection fraction is 50 %. There is moderate hypokinesis involving the mid to distal anterior wall and anterior apical segment Normal systolic function. Normal RV size. With mild sclerosis but no stenosis No significant valvular pathology Ordering Physician: Baudilio Murillo Referring Physician: Baudilio Murillo MD Performed By: Kasia Pearl RDCS D/C Instructions Weight Bearing Status: Full weight bearing DC O2, CPAP, BIPAP Needs Home O2 Discharge instructions: No Meaningful Use Info Meaningful Use Meaningful Use Diagnoses (Choose all that apply): AMI AMI/Post PCI/Angioplasty Aspirin given w/in 24hrs of arrival?: Yes ASA at discharge?: Yes Antiplatelet Therapy at Discharge:: Yes Statins at discharge?: Yes Jan/ARB at discharge?: Yes Beta Scarlett at discharge?: Yes Done w/ Acute ME measure.: Yes Documented LVEF (%): 50 Discharge Plan Admission Admit Date/Time: 06/28/25 11:43 Primary Reason for Your Visit: acute ME Attending Provider: Jose Miguel Glynn Primary Care Provider: Gilbert Hernandes Consulting Providers: Baudilio Murillo; Padilla Terry Discharge Orders/Prescriptions Prescriptions: New lisinopril 5 mg Tablet 5 mg PO DAILY Qty: 30 0RF ticagrelor [Brilinta] 90 mg Tablet 90 mg PO BID Qty: 60 0RF atorvastatin 80 mg Tablet 80 mg PO QHS Qty: 30 0RF metoprolol succinate 25 mg tablet extended release 24 hr 25 mg PO DAILY Qty: 30 0RF Rx Instructions: start on 06/29/25 aspirin 81 mg Tablet,Delayed Release (Dr/Ec) 81 mg PO BREAKFAST Qty: 0 0RF Continued levothyroxine 75 mcg tablet 75 mcg PO DAILY multivitamin [Daily Multi-Vitamin] Tablet 1 tab PO DAILY somaya life probiotic capsule 1 ea PO DAILY cholecalciferol (vitamin D3) [Vitamin D3] 50 mcg (2,000 unit) capsule 50 mcg PO DAILY Referrals / Follow Up: Deni Ludwig MD [Med Staff - Active Staff] - See Referral Note (in two weeks-call this tuesday if you have not heard from the office-tell them you were hospitalized and had a heart stent placed) Gilbert Hernandes MD [Primary Care Provider] - Disposition Disposition (needs filled in before D/C Order can be placed): Home, Self Care Charges/Coding Visit Charges Inpatient E&M: 21111 Disch Hosp >30min
== END 2025-06-29 13:00 | disposition home or self-care (01) | DRG 322 ==
LOC: ED 07:59 → ICU 08:09
PROVIDERS: Hospitalist; Admitting Provider Internal Medicine Cardiovascular Disease; Emergency Provider Emergency Medicine; PCP Family Medicine; Referring Provider Internal Medicine Cardiovascular Disease; Visit Provider Internal Medicine
DX: I21.02 ST elevation (STEMI) myocardial infarction involving left anterior descending coronary artery (principal); E03.9 Hypothyroidism, unspecified; E78.5 Hyperlipidemia, unspecified; I25.10 Atherosclerotic heart disease of native coronary artery without angina pectoris; R03.0 Elevated blood-pressure reading, without diagnosis of hypertension
CPT/HCPCS: 80048; 80053; 80061; 83036; 84443; 84484; 85025; 85027; 85347; 85610; 85730; 92921; 92941; 93005; 93306; 93458; 94668; 94762; 97802; 99152; 99153; 99285; C1725; Q9967; C1769; C1874; C1894; C9606; J0153; J1327

== ENCOUNTER → 2025-07-09 | Outpatient (CLI) | payer MEDICARE, OTHER, SELFPAY ==
--- NOTE | 2025-07-09 08:19 | PCM.CR.HP ---
CR - History & Physical General Arrival date:: 07/09/25 Arrival time:: 08:00 Date of Referral:: 07/01/25 Date of CR Evaluation:: 07/09/25 Referring Physician: Dr Murillo Primary Diagnosis: STEMI/PCI History of Present Cardiac Event Onset Date Current stable Angina Pectoris:: No Acute Myocardial Infarction within 12 months:: Yes Coronary Artery Bypass Graft:: No Heart valve replacement or repair:: No PTCA or coronary stenting:: Yes Vessel: LAD Heart or Heart-Lung Transplant:: No Heart Failure EF <35%:: No Type of Symptoms:: chest pain Interventions with present event:: Stents Were there any complications?: No Medications Ambulatory Orders ?Medication ?Instructions ?Recorded cholecalciferol (vitamin D3) 50 50 mcg PO DAILY supplement 06/28/25 mcg (2,000 unit) capsule (Vitamin D3) levothyroxine 75 mcg tablet 75 mcg PO DAILY thyroid 06/28/25 multivitamin (Daily Multi-Vitamin 1 tab PO DAILY supplement 06/28/25 tablet) somaya life probiotic 1 ea PO DAILY supplement 06/28/25 aspirin 81 mg tablet,delayed 81 mg PO BREAKFAST #0 tabs 06/29/25 release atorvastatin 80 mg tablet 80 mg PO QHS #90 tabs 07/05/25 lisinopril 5 mg tablet 5 mg PO DAILY #90 tabs 07/05/25 metoprolol succinate 25 mg 25 mg PO DAILY #90 tabs 07/05/25 tablet,extended release 24 hr ticagrelor 90 mg tablet (Brilinta) 90 mg PO BID #180 tabs 07/05/25 Allergies Allergies No Known Allergies Allergy (Verified 07/05/25 09:11) Sleep Disorder Evaluation Hx of Sleep Apnea: No Do you snore loudly (louder than talking or can be heard through closed doors)?: No Do you often feel tired/ fatigued/ sleepy during daytime?: No Has anyone observed you stop breathing during sleep?: No History of Hypertension (for STOP score): No STOP Results: Negative Advance Directives Advanced Directives Advance Directives: Yes Living Will Living Will: Yes Power of Bulb Farmworker, Durable Power of Bulb Farmworker for Healthcare: Yes Name of Medical Power of Bulb Farmworker: [place]/ Information Education/Medical Records Advanced Care Planning Booklet Provided: Patient Declined Advance Directives on File: Yes Request family branch customer service representative bring in a Copy: No Reason not requested: on file Advanced Directives Advanced Directives Do you have a Healthcare Power of Bulb Farmworker?: Yes Living Will: Yes Advance Directives on File: Yes Past Medical History Covid-19 Screening Physicial Symptoms Fever: No Unexplained muscle aches: No Current respiratory symptoms: No Upper respiratory infections symptoms: No Gastro-intestinal symptoms: No Otg-Isot-Qhymft symptoms: No Other Clinical Concerns Has tested positive for COVID-19 in last 30 days: No Exposure Risk Had contact w/person w/symptoms or Covid-19 (+) last 14 days: No Has High Risk Exposures ID'd by Health dept/Inf Control team: No Pertinent Comorbidities 65 years or older:: Yes Lives in Assisted Living facility:: No Has a chronic lung disease or moderate to severe asthma:: No Has a serious heart condition:: No Immunocompromised:: No Severely obese (Body Mass Index of 40 or higher):: No Diabetic:: No Has chronic kidney disease undergoing dialysis:: No Has liver disease:: No Past Medical Illness Medical History Enlarged prostate Chest pain (~06/28/25) Myocardial infarct (~06/28/25) Hypothyroidism Non-smoker Past Surgical History Surgical History Stented coronary artery (06/28/25) H/O cardiac catheterization (~06/28/25) History of heart artery stent (~06/28/25) Surgical History: - (carpal tunnel) Review of Systems Review of Systems Hints Review of Present Symptoms: Reports Appetite - Normal and Sleep - Normal Pain Is Patient Pain Free?: Yes Pain Location: none Risk Factor Assessment Chief Complaint Chief Complaint: PCI Vital Signs Respiratory Rate: 16 Pulse Ox: 98 Blood Pressure: 118/74 Nailbeds:: Normal Pulse Pulse Rate: 54 Pulse Rhythm: Regular Blood Cholesterol/Lipids Total Cholesterol (mg/dL) Goal = less than 200 mg/dL: 152 HDL Cholesterol (mg/dL) Goal = less than 40 mg/dL: 34 LDL Cholesterol (mg/dL) Goal = less than 70 mg/dL: 102 Triglycerides (mg/dL) Goal = less than 150 mg/dL: 82 Diabetes Nutrition Referral for Diabetes: No Obesity Height: 6 ft 1 in Weight:: 200 lb Weight in Pounds: 200.0 lbs Weight Source: Stated by Patient Body Mass Index (BMI): 26.4 Nutritional Referral for Obesity: No Physical Inactivity Physical Inactivity: Reg Exercise 30 min/day and Physically demanding job Risk Stratification Risk Guidelines: Lowest Risk: Risk Factor for Sedentary Lifestyle and Moderate Risk: Risk Factor for Dyslipidemia and Risk Factor for Hypertension For Smoking Smoking Risk Guidelines For Dyslipidemia Dyslipidemia Risk Guidelines For Diabetes Mellitus Diabetes Risk Guidelines For Obesity/Overweight Obesity/Overweight Risk Guidelines For Hypertension Hypertension Risk Guidelines For Sedentary Lifestyle Sedentary Lifestyle Risk Guidelines For Depression Depression Risk Guidelines Social History Smoking History Smoking Status: Never smoker Alcohol Use Alcohol Usage: No Substance Abuse Hx Substance Use: No 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) Social Environment Status Marital Status: Current Living Arrangements Living Environment:: Spouse Children How many children do you have?: 4 Do any of your children live nearby?: Yes Safety Do you feel safe in your surroundings?: Yes Assistance Do you need any assistance at home?: No Nutrition Survey Nutrition Survey Instructions Scoring Instructions Nutrition Survey Initial: Have you lost >10 lbs over the past 2 months without trying?: No Are you following a special diet at home for diabetes, low fat, or low salt?: No Are you interested in meeting with a dietitian for help understanding your diet?: Yes Do you eat less than 3 meals a day?: No Do you eat fatty meats (lott, sausage, ribs, etc), fried foods, desserts, large amounts of salad dressings, margarine, butter, or cheese most days?: Yes Do you have food allergies? [Enter types in comment field]: No Do you eat in restaurants more than 3 times a week?: No Do you season food with salt, seasoning salt, or garlic salt?: Yes Do you used canned, boxed, frozen meals, or soups, seasoning packets?: Yes Total Score:: 4 Self-Efficacy 6-Item Scale Initial Assessment: We would like to know how confident you are in doing certain activities. Please select your confidence level for: Fatigue Select Number: 10 Physical Discomfort or Pain Select Number: 10 Emotional Distress Select Number: 9 Other Symptoms or Health Problems Select Number: 10 Different Tasks and Activities Select Number: 8 Medication Select Number: 10 Total Score:: 9
[2025-07-09 08:48] VITALS: BP 118/74; PULSE 54; RESP 16; O2SAT 98
--- NOTE | 2025-07-09 08:54 | PCM.CR.ITP ---
Diagnosis General Information Admitting Diagnosis: STEMI Secondary Diagnosis: PCI Barriers to Learning: No Barriers Stage of change r/t lifestyle modifications:: Action Gave educational material for:: Treating Heart Disease, How The Heart Works, What it means to have Heart Disease, How Coronary Artery Disease is Diagnosed, Heart Procedures, What Heart Medications Do, Risk Factors & Modifications, Living an Active Life, Nutrition, Emotions & Heart Disease, Stress Management & Relaxation and Sleep Disorders & Heart Disease Education/Goals Individual Counseling: Initial Assessment: Abnormal Cholesterol Levels and Low HDL <40/Males or <50/Females Cardiac Rehabilitation Goals Personal Goals: Initial Assessment: Improve energy level, Get back to work, or to resume activities faster, Improve knowledge of cardiac disease, Improve muscle strength and endurance, Improve diet and eating habits (eat healthier) and Control risk factors (learn risk factor modification) Scale for measuring improvement of personal goals Diagnosis & Disease Process Outcomes/Goals: Pt IDs own risk factors & lifestyle modifications by Session 10, Verbalizes symptoms of angina & response by session 3. and Pt independently manages Plan/Interventions: Assist Pt to ID & engage in lifestyle modification to reduce CVD risk, Instruct on individual risk factors, Review symptoms of angina & emergency actions and Review secondary diagnosis & identify educational needs. 30 day Reassessments:: Not Met 30 day Reassessments:: Not Met 30 day Reassessments:: Not Met 30 day Reassessments:: Not Met Final Reassessments:: Not Met Safety Referral to Physical Therapy: No Referral to [facility] Case Management: No Fall Risk Assessed:: Yes Assistive Devices:: None Exercise - Initial Assessment Visit Date of Eval: 07/09/25 (initial evaluation) Mets: Pre-: >5 METS for 30 minutes by discharge Physician Prescribed Exercise Modalities: Treadmill, Rower, Schwinn Airdyne AD-7, SciFit Stepper, SciFit Pro-II Ergometer and SciFit Lateral [place] Frequency: 3x/week for 12 weeks [36 sessions] Intensity: 60-80% of age predicted maximum heart rate reserve Duration: 30 - 45 minutes METs - Progression 0.5-1.0 weekly:: 0.5-1.0 Current METSs:: 3 Target Heart Rate:: 90-113 Target RPE 12-16:: 12-16 EKG Type: Sinus Federico with T wave abnormality Outcomes & Goals Goals:: Verbalizes understanding of THR, RPE & goal METS by session 6, Documents in home exercise log/reports 30 min aerobic 5 day/wk by DC and Demonstrates accurate pulse taking by DC Intervention & Plan Exercise Program Goals: Instruct on personal THR & RPE, Instruct on MET level & personal MET goal, Show patient to take own pulse /validate performance until accurate and Instruct on home exercise Physical Activity Home Exercise Physical Activity - Home Exercise: Safe Exercise, Warm-up, Self-monitoring, Cool-Down, Home Exercise > 30 min Daily and Sitting Time <3 hours/daily Outcomes & Goals Outcomes/Goals: Demonstrates correct Warm-up/exercise Cool-Down (S3) if = 2.5 METs, Verbalizes symptoms of exercise intolerance by Session 3 (S3) and Demonstrate safe equipment use (S3) & follows exercise prescrition (6) Intervention & Plan Plan/Intervention: Instruct warm-up & cool-down if exercising at > 2 METs, Instruct on symptoms of exercise intolerance & actions to take, Instruct & monitor on saf and Assess intial functional capacity & safety risk Nutrition - Initial Assessment Program Goals Nutrition Program Goals Patient has diagnosis of Hyperlipidemia (ICD E78)?: Yes Visit Date of Eval: 07/09/25 (initial evaluation) Cholesterol/Lipids (Other Core Measures) Triglycerides (mg/dL): 82 Total Cholesterol (mg/dL): 152 LDL Cholesterol (mg/dL): 102 HDL Cholesterol (mg/dL): 34 Lipid Medication: atorvastating 80mg QHS Outcomes/Goals: Pt IDs own risk factors & lifestyle modifications by Session 10, Verbalizes symptoms of angina & response by session 3. and Pt independently manages Intervention/Plan: Advocate for lipid panel cholesterol medication if applicable, Instruct on personal lipid levels & lipid goals/NCEP guidelines and Instruct on cholesterol Referral to dietitian:: Yes Diabetes (Other Core Measures) Diabetes Type: Not Applicable Weight Mgt (Other Care) Height: 6 ft 1 in Weight:: 200 lb BMI: 26.4 BMI (Report if calculated above): 26 Diagnosis Overweight/Obesity BMI> 30% ICD-10 E66: No Diagnosis High BMI/Morbid Obesity BMI> 35% ICD-10 Z68: No Outcomes/Goals: Pt sets, maintains & shows weight loss goal & trend during rehab Intervention/Plan: Instruct on ideal BMI & set weight loss goal w/patient, Assist pt to ID & incorporate diet changes for weight loss by S9, Refer to Structured Weight Loss program as appropriate and Encourage goal of using 250-300dcal per session for weight loss Healthy Eating Habits Will attend diet classes:: Yes Outcomes/Goals:: Consume diet rich in vegs,fruits,whole grain/high fiber,fish,lean meat and Limit sat/trans fats,cholesterol & added salts & sugars Intervention/Plan:: Assess current eating habits Education Gave educational materials for:: Signs & symptoms of hypoglycemia, Signs & symptoms of hyperglycemia, Relate diabetes to coronary artery disease and Healthy eating Core - Initial Assessment Visit Date of Eval: 07/09/25 (initial evaluation) Medication Compliance Preventative Medication(s):: Aspirin, VENTURA inhibitor, Ticagrelor/P2Y12 inhibitor and Beta alexandrea H/O mental health issues: depression, anxiety, or addiction?: No Doesn?t believe in the benefits of treatment?: No Believes medications are unnecessary or harmful?: No Has a concern about medication side effects?: No Expresses concern over the cost of medications?: No Outcomes/Goals: Verbalizes medications,desired effect & common side effects @ DC, Pt self-reports following medication regimen and Keeps card in wallet w/medications listed by DC Interventions/plans: Instruct on medication effects & side effects, Review medication list w/patient every two weeks and Instruct importance of taking meds as ordered & assist problem solving Tobacco Use Tobacco Use: Non-smoker Hypertension Hypertension Diagnosis:: Not Applicable Resting Blood Pressure:: 188/74 [employer] [employer] Hypertension Guidelines Outcomes/Goals: Able to verbalize/achieve optimal blood pressure <130/80 and Incorporates diet changes & exercise for blood pressure control by DC Interventions/plan: Instruct on optimal blood pressure, hypertension & medications and Instruct on effects of sodium, alcohol, stress, exercise &hypertension Tobacco Cessation Referral Smoking Cessation Referral:: No Individual Education/Counseling:: Yes Education Schedule Given:: Yes Psychosocial - Initial Assess VIsit Date of Eval: 07/09/25 (initial evaluation) History of previous Mental disease:: No History of Emotional Disorders: None Target Goals Target Goals Psychosocial Test Tool Used:: PHQ-9 Questionnaire phq-9 Severity See PHQ-9 Score: 1 Total Score:: 1 Referral to Behavioral Health PS - Interventions: Yes: Attend Stress Management Classes and No: Referral to Behavioral Health if PHQ-9 score >9:, No: Referral to [facility] and No: Referral to Physician if PHQ-9 if score is 5-9: Outcomes/Goals: See list Psychosocial Outcomes/Goals:: ID's personal stressors & 2 strategies to manage stress by discharge Intervention/Plan: See List Interventions/Plan:: Assess stressors,coping strategies & signs of derpression on admission, Instruct/assist pt to develop coping & personal stress Mgt strategies, Refer to Behavioral Health if appropriate, Refer to Physician if appropriate and Instruct patient to recognize signs & symptoms of depression Patient Health Questionnaire PHQ-9 Screening Initial Assessment: 1. Little interest or pleasure in doing things: Not at all 2. Feeling down, depressed, or hopeless: Not at all 3. Trouble falling or staying asleep, or sleeping too much: Not at all 4. Feeling tired or having little energy: Several days 5. Poor appetite or overeating: Not at all 6. Feeling bad about yourself -- or that you are a failure or have let yourself or your family down: Not at all 7. Trouble concentrating on things, such as reading the newspaper or watching television: Not at all 8. Moving or speaking so slowly that other people could have noticed. Or the opposite - being so fidgety or restless that you have been moving around a lot more than usual: Not at all 9. Thoughts that you would be better off , or of hurting yourself in some way: Not at all How difficult have these problems made it for you to do your work, take care of things at home, or get along with other people?: Not difficult at all Total Score: 1 LUCIANA-Q SV Test Statements CAD is a disease of the arteries in the heart: False Examples of risk factors for heart disease: True Angina is chest pain or discomfort: True The benefits of resistance training include: True Eating more meat and dairy products: False Anti-platelet medications such as aspirin are important: True The only effective way to manage stress: False An exercise warm-up slowly increases heart rate: I Don't Know Prepared, processed foods usually have high sodium: True Depression is common after a heart attack: True The statin medications lower cholesterol: True To control blood pressure, lower the amount of sodium: True If someone gets chest discomfort during walking: False Transfats are partially hydrogenated vegetable oils: I Don't Know Sleep apnea that is not treated increases the risk: False To control cholesterol, one should become a vegetarian: True Someone knows if he/she is exercising at the right level: False Diabetes cannot be prevented with exercise & health eating: True Stress is a large risk for heart attack: True A diet that can help lower blood pressure is rich in: True Total Score Total Correct Responses: 15 Self-Efficacy 6-Item Scale Initial Assessment: We would like to know how confident you are in doing certain activities. Please select your confidence level for: Fatigue Select Number: 10 Physical Discomfort or Pain Select Number: 10 Emotional Distress Select Number: 9 Other Symptoms or Health Problems Select Number: 10 Different Tasks and Activities Select Number: 8 Medication Select Number: 10 Total Score:: 9 Nutrition Survey Nutrition Survey Instructions Scoring Instructions Nutrition Survey Initial: Have you lost >10 lbs over the past 2 months without trying?: No Are you following a special diet at home for diabetes, low fat, or low salt?: No Are you interested in meeting with a dietitian for help understanding your diet?: Yes Do you eat less than 3 meals a day?: No Do you eat fatty meats (oltt, sausage, ribs, etc), fried foods, desserts, large amounts of salad dressings, margarine, butter, or cheese most days?: Yes Do you have food allergies? [Enter types in comment field]: No Do you eat in restaurants more than 3 times a week?: No Do you season food with salt, seasoning salt, or garlic salt?: Yes Do you used canned, boxed, frozen meals, or soups, seasoning packets?: Yes Total Score:: 4 Exercise - 30-day Assessment Physician Prescribed Exercise Modalities: Treadmill, Rower, Schwinn Airdyne AD-7, SciFit Stepper, SciFit Pro-II Ergometer and SciFit Lateral [place] Exercise - 60-day Assessment Physician Prescribed Exercise Modalities: Treadmill, Rower, Schwinn Airdyne AD-7, SciFit Stepper, SciFit Pro-II Ergometer and SciFit Lateral [place] Exercise - 90-day Assessment Physician Prescribed Exercise Modalities: Treadmill, Rower, Schwinn Airdyne AD-7, SciFit Stepper, SciFit Pro-II Ergometer and 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 Exercise - Final/Discharge Physician Prescribed Exercise Modalities: Treadmill, Rower, Schwinn Airdyne AD-7, SciFit Stepper, SciFit Pro-II Ergometer and SciFit Lateral [place] Frequency: 3x/week for 12 weeks [36 sessions] Intensity: 60-80% of age predicted maximum heart rate reserve METs - Progression 0.5-1.0 weekly:: 0.5-1.0 Current METSs:: 3 Target Heart Rate:: 90-113 Nutrition - 30-Day Assessment Weight Mgt (Other Care) Height: 6 ft 1 in Weight:: 200 lb BMI: 26.4 BMI (Report if calculated above): 26 Nutrition - 60-Day Assessment Weight Mgt (Other Care) Height: 6 ft 1 in Weight:: 200 lb BMI: 26.4 BMI (Report if calculated above): 26 Core - Final Assessment Hypertension Resting Blood Pressure:: 188/74 [employer] Hypertension Guidelines Core - 60-Day Assessment Hypertension Resting Blood Pressure:: 188/74 [place] [employer] Hypertension Guidelines Psychosocial - 30-Day Assess Target Goals Target Goals Referral to Behavioral Health PS - Interventions: Yes: Attend Stress Management Classes and No: Referral to Behavioral Health if PHQ-9 score >9:, No: Referral to [facility] and No: Referral to Physician if PHQ-9 if score is 5-9: Psychosocial - 60-Day Assess Target Goals Target Goals Referral to Behavioral Health PS - Interventions: Yes: Attend Stress Management Classes and No: Referral to Behavioral Health if PHQ-9 score >9:, No: Referral to [facility] and No: Referral to Physician if PHQ-9 if score is 5-9: Psychosocial - 90-Day Assess Target Goals Target Goals Referral to Behavioral Health PS - Interventions: Yes: Attend Stress Management Classes and No: Referral to Behavioral Health if PHQ-9 score >9:, No: Referral to [facility] and No: Referral to Physician if PHQ-9 if score is 5-9: Psychosocial - Final Assessmen Target Goals Target Goals Psychosocial Test phq-9 Severity See PHQ-9 Score: 1 Total Score:: 1 Referral to Behavioral Health PS - Interventions: Yes: Attend Stress Management Classes and No: Referral to Behavioral Health if PHQ-9 score >9:, No: Referral to [facility] and No: Referral to Physician if PHQ-9 if score is 5-9: Nutrition - 90-Day Assessment Weight Mgt (Other Care) Height: 6 ft 1 in Weight:: 200 lb BMI: 26.4 BMI (Report if calculated above): 26 Nutrition - Final Assessment Program Goals Patient has diagnosis of Hyperlipidemia (ICD E78)?: Yes Weight Mgt (Other Care) Height: 6 ft 1 in Weight:: 200 lb BMI: 26.4 BMI (Report if calculated above): 26
[2025-07-09 09:03] VITALS: BP 188/74; BMI 26.0; BMI 26.4
[2025-07-09 09:05] VITALS: BMI 26.4
== END | disposition home or self-care (01) ==
LOC: CR 08:00
PROVIDERS: PCP Family Medicine; Referring Provider Internal Medicine Cardiovascular Disease; Visit Provider Internal Medicine Cardiovascular Disease
DX: Z95.5 Presence of coronary angioplasty implant and graft (principal); I21.09 ST elevation (STEMI) myocardial infarction involving other coronary artery of anterior wall; R03.0 Elevated blood-pressure reading, without diagnosis of hypertension

== ENCOUNTER 2025-07-12 08:53 | Outpatient (RCR) | payer MEDICARE, OTHER, SELFPAY ==
[2025-07-09 09:03] VITALS: BMI 26.4
== END 2025-07-14 23:59 ==
LOC: CR 08:53
PROVIDERS: PCP Family Medicine; Referring Provider Internal Medicine Cardiovascular Disease; Visit Provider Internal Medicine Cardiovascular Disease
DX: I21.09 ST elevation (STEMI) myocardial infarction involving other coronary artery of anterior wall (principal); R03.0 Elevated blood-pressure reading, without diagnosis of hypertension; Z95.5 Presence of coronary angioplasty implant and graft
CPT/HCPCS: 93798

== ENCOUNTER 2025-08-12 09:15 | Outpatient (RCR) | payer MEDICARE, OTHER, SELFPAY ==
[2025-07-09 09:03] VITALS: BMI 26.4
--- NOTE | 2025-08-07 08:53 | PCM.CR.ITP ---
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 Nutrition - Initial Assessment Weight Mgt (Other Care) Height: 6 ft 1 in Weight:: 199 lb BMI: 26.2 Psychosocial - Initial Assess Referral to Behavioral Health PS - Interventions: Yes: Attend Stress Management Classes Exercise - 30-day Assessment Visit Date of Eval: 08/07/25 Session #:: 10 Physician Prescribed Exercise Modalities: Treadmill, Schwinn Airdyne AD-7 and SciFit Lateral [place] Frequency: 3x/week for 12 weeks [36 sessions] Intensity: 60-80% of age predicted maximum heart rate reserve Duration: 30 - 45 minutes Current METSs:: 6.5 Target Heart Rate:: 90-113 Current RPE:: 9-10 Maximum Excercise HR:: 106 Resting Blood Pressure: 92/62 Maximum Exercise Blood Pressure: 118/68 EKG Type: SB to ST with a rare pac, pvc Outcomes & Goals Goals:: Verbalizes understanding of THR, RPE & goal METS by session 6, Documents in home exercise log/reports 30 min aerobic 5 day/wk by DC, Demonstrates accurate pulse taking by DC and Other additional outcome/goals: see below Intervention & Plan Exercise Program Goals: Instruct on personal THR & RPE, Instruct on MET level & personal MET goal, Show patient to take own pulse /validate performance until accurate, Instruct on home exercise and Other additional plan/int Physical Activity Home Exercise Physical Activity - Home Exercise: Safe Exercise, Warm-up, Self-monitoring, Cool-Down, Home Exercise > 30 min Daily and Sitting Time <3 hours/daily Outcomes & Goals Outcomes/Goals: Demonstrates correct Warm-up/exercise Cool-Down (S3) if = 2.5 METs, Verbalizes symptoms of exercise intolerance by Session 3 (S3), Demonstrate safe equipment use (S3) & follows exercise prescrition (6) and Other: See below Intervention & Plan Plan/Intervention: Instruct warm-up & cool-down if exercising at > 2 METs, Instruct on symptoms of exercise intolerance & actions to take, Instruct & monitor on saf, Assess intial functional capacity & safety risk and Other See below 30-day Reassessments 30 day Reassessments:: Progressing Reassessment Notes & Comments:: Pt oriented to equipment. RPE explained to pt. Pt demonstrates understanding in his daily sessions. 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 Loss Sales Consultant Exercise - Final/Discharge Physician Prescribed Exercise Modalities: Treadmill, Schwinn Airdyne AD-7 and SciFit Lateral [place] Nutrition - 30-Day Assessment Program Goals Nutrition Program Goals Patient has diagnosis of Hyperlipidemia (ICD E78)?: Yes Visit Date of Eval: 08/07/25 Session #:: 10 (Nutrition survey score of 4) Cholesterol/Lipids (Other Core Measures) Determine presence & major risk factors that modify LDL goal: Hypertension or hypertensive medication, Low HDL cholesterol <40 mg/dL*, Family history of premature CHD in Male < 55 years: female <65 yearsFa and Age men > 45 years; women >/= 55 years Outcomes/Goals: Pt IDs own risk factors & lifestyle modifications by Session 10, Verbalizes symptoms of angina & response by session 3., Pt independently manages and Other Additional Outcomes/Goals: Intervention/Plan: Advocate for lipid panel cholesterol medication if applicable, Instruct on personal lipid levels & lipid goals/NCEP guidelines, Instruct on cholesterol and Other additional plan/int Diabetes (Other Core Measures) Diabetes Type: Not Applicable Weight Mgt (Other Care) Height: 6 ft 1 in Weight:: 199 lb BMI: 26.2 Diagnosis Overweight/Obesity BMI> 30% ICD-10 E66: No Diagnosis High BMI/Morbid Obesity BMI> 35% ICD-10 Z68: No Outcomes/Goals: Pt sets, maintains & shows weight loss goal & trend during rehab and Other additional outcomes/goals Intervention/Plan: Instruct on ideal BMI & set weight loss goal w/patient, Assist pt to ID & incorporate diet changes for weight loss by S9, Refer to Structured Weight Loss program as appropriate, Encourage goal of using 250-300dcal per session for weight loss and Other additional plan/interventions 30 day Reassessments:: Progressing Reassessment Notes & Comments:: Pt is at a healthy weight. Pt is scheduled to attend nutrition classes. Heart healthy low sodium diet encouraged. Healthy Eating Habits Will attend diet classes:: Yes Outcomes/Goals:: Consume diet rich in vegs,fruits,whole grain/high fiber,fish,lean meat, Limit sat/trans fats,cholesterol & added salts & sugars and Other additional outcome/goals: Intervention/Plan:: Assess current eating habits and Other Additional plan/interventions 30-day Reassessments:: Progressing Reassessment Notes & Comments:: Pt is at a healthy weight. Pt is scheduled to attend nutrition classes. Heart healthy low sodium diet encouraged. 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 Education Gave educational materials for:: Signs & symptoms of hypoglycemia, Signs & symptoms of hyperglycemia, Relate diabetes to coronary artery disease and Healthy eating Nutrition - 60-Day Assessment Weight Mgt (Other Care) Height: 6 ft 1 in Weight:: 199 lb BMI: 26.2 Core - 30-Day Assessment Visit Date of Eval: 08/07/25 Session #:: 10 Medication Compliance Preventative Medication(s):: Aspirin, VENTURA inhibitor, Ticagrelor/P2Y12 inhibitor and Beta alexandrea H/O mental health issues: depression, anxiety, or addiction?: No Doesn?t believe in the benefits of treatment?: No Believes medications are unnecessary or harmful?: No Has a concern about medication side effects?: No Expresses concern over the cost of medications?: No Outcomes/Goals: Verbalizes medications,desired effect & common side effects @ DC, Pt self-reports following medication regimen, Keeps card in wallet w/medications listed by DC and Other additional outcome/goals: Interventions/plans: Instruct on medication effects & side effects, Review medication list w/patient every two weeks, Instruct importance of taking meds as ordered & assist problem solving and Other additional 30-day Reassessments:: Progressing Reassessment Notes & Comments:: Pt is currently taking meds as prescribed. Pt to attend cardiac meds class. Tobacco Use Tobacco Use: Non-smoker Hypertension Hypertension Diagnosis:: Hypertension ICD-10 I10 Resting Blood Pressure:: 92/62 [employer] Hypertension Guidelines Peak Exercise Blood Pressure:: 118/68 Outcomes/Goals: Able to verbalize/achieve optimal blood pressure <130/80, Incorporates diet changes & exercise for blood pressure control by DC and Other additional outcomes/goals Interventions/plan: Instruct on optimal blood pressure, hypertension & medications, Instruct on effects of sodium, alcohol, stress, exercise &hypertension and Other additional plan/interventions 30 day Reassessments:: Progressing Reassessment Notes & Comments:: Pt's BP's are within AHA normal limits. Will continue to monitor and report to pt's physician if necessary. Tobacco Cessation Referral Smoking Cessation Referral:: No Individual Education/Counseling:: No Education Schedule Given:: Yes Psychosocial - 30-Day Assess VIsit Date of Eval: 08/07/25 Session #:: 10 History of previous Mental disease:: No Psychosocial Test Tool Used:: PHQ-9 Questionnaire phq-9 Severity See PHQ-9 Score: 1 Referral to Behavioral Health PS - Interventions: Yes: Attend Stress Management Classes Outcomes/Goals: See list Psychosocial Outcomes/Goals:: ID's personal stressors & 2 strategies to manage stress by discharge and Other Additional outcome/goals: Intervention/Plan: See List Interventions/Plan:: Assess stressors,coping strategies & signs of derpression on admission, Instruct/assist pt to develop coping & personal stress Mgt strategies, Refer to Behavioral Health if appropriate, Refer to Physician if appropriate, Instruct patient to recognize signs & symptoms of depression, Instruct patient to recog and Other additional plan/intervention 30-day Reassessments: 30 day Reassessments:: Progressing Reassessment Notes & Comments:: Pt denies any psychosocial issues at this time. Pt to attend stress management class. Will reassess every 30 days. Psychosocial - 60-Day Assess Referral to Behavioral Health PS - Interventions: Yes: Attend Stress Management Classes Outcomes/Goals: See list Psychosocial Outcomes/Goals:: ID's personal stressors & 2 strategies to manage stress by discharge and Other Additional outcome/goals: Psychosocial - 90-Day Assess Referral to Behavioral Health PS - Interventions: Yes: Attend Stress Management Classes Psychosocial - Final Assessmen Referral to Behavioral Health PS - Interventions: Yes: Attend Stress Management Classes Nutrition - 90-Day Assessment Weight Mgt (Other Care) Height: 6 ft 1 in Weight:: 199 lb BMI: 26.2 Nutrition - Final Assessment Weight Mgt (Other Care) Height: 6 ft 1 in Weight:: 199 lb BMI: 26.2
[2025-08-07 08:59] VITALS: BP 92/62
[2025-08-07 09:10] VITALS: BMI 26.2
[2025-08-07 09:21] VITALS: BP 92/62
== END 2025-08-13 23:59 ==
LOC: CR 09:15
PROVIDERS: PCP Family Medicine; Referring Provider Internal Medicine Cardiovascular Disease; Visit Provider Internal Medicine Cardiovascular Disease
DX: Z95.5 Presence of coronary angioplasty implant and graft (principal); I21.09 ST elevation (STEMI) myocardial infarction involving other coronary artery of anterior wall; R03.0 Elevated blood-pressure reading, without diagnosis of hypertension
CPT/HCPCS: 93798

== ENCOUNTER 2025-09-13 09:15 | Outpatient (RCR) | payer MEDICARE, OTHER, SELFPAY ==
[2025-08-07 09:10] VITALS: BMI 26.2
--- NOTE | 2025-09-04 08:13 | PCM.CR.ITP ---
Exercise - Initial Assessment Physician Prescribed Exercise Modalities: Treadmill, Schwinn Airdyne AD-7 and SciFit Lateral Rig Builder Helper Nutrition - Initial Assessment Weight Mgt (Other Care) Height: 6 ft 1 in Weight:: 200 lb 8 oz BMI: 26.4 Core - Initial Assessment Hypertension Resting Blood Pressure:: 108/70 [place] [employer] Hypertension Guidelines Psychosocial - Initial Assess Referral to Behavioral Health PS - Interventions: Yes: Attend Stress Management Classes Exercise - 30-day Assessment Physician Prescribed Exercise Modalities: Treadmill, Schwinn Airdyne AD-7 and SciFit Lateral Rig Builder Helper Exercise - 60-day Assessment Visit Date of Eval: 09/04/25 Session #:: 21 Physician Prescribed Exercise Modalities: Treadmill, Schwinn Airdyne AD-7 and SciFit Lateral [place] Frequency: 3x/week for 12 weeks [36 sessions] Intensity: 60-80% of age predicted maximum heart rate reserve Duration: 30 - 45 minutes Current METSs:: 8.7 Target Heart Rate:: 90-113 Current RPE:: 12 Maximum Excercise HR:: 112 Resting Blood Pressure: 110/64 Maximum Exercise Blood Pressure: 140/70 EKG Type: SB to ST w/ a rare pac, pvc Outcomes & Goals Goals:: Verbalizes understanding of THR, RPE & goal METS by session 6, Documents in home exercise log/reports 30 min aerobic 5 day/wk by DC, Demonstrates accurate pulse taking by DC and Other additional outcome/goals: see below Intervention & Plan Exercise Program Goals: Instruct on personal THR & RPE, Instruct on MET level & personal MET goal, Show patient to take own pulse /validate performance until accurate, Instruct on home exercise and Other additional plan/int Physical Activity Home Exercise Physical Activity - Home Exercise: Safe Exercise, Warm-up, Self-monitoring, Cool-Down, Home Exercise > 30 min Daily and Sitting Time <3 hours/daily Outcomes & Goals Outcomes/Goals: Demonstrates correct Warm-up/exercise Cool-Down (S3) if = 2.5 METs, Verbalizes symptoms of exercise intolerance by Session 3 (S3), Demonstrate safe equipment use (S3) & follows exercise prescrition (6) and Other: See below Intervention & Plan Plan/Intervention: Instruct warm-up & cool-down if exercising at > 2 METs, Instruct on symptoms of exercise intolerance & actions to take, Instruct & monitor on saf, Assess intial functional capacity & safety risk and Other See below 30-day Reassessments 30 day Reassessments:: Progressing Reassessment Notes & Comments:: Proper warm up and cool down demonstrated and explained to pt. Pt is able to return demonstration in their daily sessions. Exercise - 90-day Assessment Physician Prescribed Exercise Modalities: Treadmill, Schwinn Airdyne AD-7 and SciFit Lateral [place] Exercise - Final/Discharge Physician Prescribed Exercise Modalities: Treadmill, Schwinn Airdyne AD-7 and SciFit Lateral [place] Nutrition - 30-Day Assessment Weight Mgt (Other Care) Height: 6 ft 1 in Weight:: 200 lb 8 oz BMI: 26.4 Nutrition - 60-Day Assessment Program Goals Nutrition Program Goals Patient has diagnosis of Hyperlipidemia (ICD E78)?: Yes Visit Date of Eval: 09/04/25 Session #:: 21 (Nutrition survey score of 4.) Cholesterol/Lipids (Other Core Measures) Determine presence & major risk factors that modify LDL goal: Cigarette smoking, Hypertension or hypertensive medication, Low HDL cholesterol <40 mg/dL*, Family history of premature CHD in Male < 55 years: female <65 yearsFa and Age men > 45 years; women >/= 55 years Outcomes/Goals: Pt IDs own risk factors & lifestyle modifications by Session 10, Verbalizes symptoms of angina & response by session 3., Pt independently manages and Other Additional Outcomes/Goals: Intervention/Plan: Advocate for lipid panel cholesterol medication if applicable, Instruct on personal lipid levels & lipid goals/NCEP guidelines, Instruct on cholesterol and Other additional plan/int Diabetes (Other Core Measures) Diabetes Type: Not Applicable Weight Mgt (Other Care) Height: 6 ft 1 in Weight:: 200 lb 8 oz BMI: 26.4 Diagnosis Overweight/Obesity BMI> 30% ICD-10 E66: No Diagnosis High BMI/Morbid Obesity BMI> 35% ICD-10 Z68: No Outcomes/Goals: Pt sets, maintains & shows weight loss goal & trend during rehab and Other additional outcomes/goals Intervention/Plan: Instruct on ideal BMI & set weight loss goal w/patient, Assist pt to ID & incorporate diet changes for weight loss by S9, Refer to Structured Weight Loss program as appropriate, Encourage goal of using 250-300dcal per session for weight loss and Other additional plan/interventions Healthy Eating Habits Will attend diet classes:: Yes Outcomes/Goals:: Consume diet rich in vegs,fruits,whole grain/high fiber,fish,lean meat, Limit sat/trans fats,cholesterol & added salts & sugars and Other additional outcome/goals: Intervention/Plan:: Assess current eating habits and Other Additional plan/interventions 30-day Reassessments:: Progressing Reassessment Notes & Comments:: Pt is at a healthy weight. Pt is scheduled to attend nutrition classes with our attorney lawyer. Heart healthy low sodium diet encouraged. Education Gave educational materials for:: Signs & symptoms of hypoglycemia, Signs & symptoms of hyperglycemia, Relate diabetes to coronary artery disease and Healthy eating Core - Final Assessment Hypertension Resting Blood Pressure:: 108/70 [place] [employer] Hypertension Guidelines Core - 60-Day Assessment Visit Date of Eval: 09/04/25 Session #:: 21 Medication Compliance Preventative Medication(s):: Aspirin, VENTURA inhibitor, Ticagrelor/P2Y12 inhibitor and Beta alexandrea H/O mental health issues: depression, anxiety, or addiction?: No Doesn’t believe in the benefits of treatment?: No Believes medications are unnecessary or harmful?: No Has a concern about medication side effects?: No Expresses concern over the cost of medications?: No Outcomes/Goals: Verbalizes medications,desired effect & common side effects @ DC, Pt self-reports following medication regimen, Keeps card in wallet w/medications listed by DC and Other additional outcome/goals: Interventions/plans: Instruct on medication effects & side effects, Review medication list w/patient every two weeks, Instruct importance of taking meds as ordered & assist problem solving and Other additional Tobacco Use Tobacco Use: Non-smoker Hypertension Hypertension Diagnosis:: Hypertension ICD-10 I10 Resting Blood Pressure:: 110/64 Resting Blood Pressure:: 108/70 [place] [employer] Hypertension Guidelines Peak Exercise Blood Pressure:: 140/70 Outcomes/Goals: Able to verbalize/achieve optimal blood pressure <130/80, Incorporates diet changes & exercise for blood pressure control by DC and Other additional outcomes/goals Interventions/plan: Instruct on optimal blood pressure, hypertension & medications, Instruct on effects of sodium, alcohol, stress, exercise &hypertension and Other additional plan/interventions 30 day Reassessments:: Progressing Reassessment Notes & Comments:: Pt's BP's are within AHA normal limits. Will continue to monitor and report to pt's physician if necessary. Pt is currently taking meds as prescribed. Tobacco Cessation Referral Smoking Cessation Referral:: No Individual Education/Counseling:: No Education Schedule Given:: Yes Psychosocial - 30-Day Assess Referral to Behavioral Health PS - Interventions: Yes: Attend Stress Management Classes Outcomes/Goals: See list Psychosocial Outcomes/Goals:: ID's personal stressors & 2 strategies to manage stress by discharge and Other Additional outcome/goals: Psychosocial - 60-Day Assess VIsit Date of Eval: 09/04/25 Session #:: 21 History of previous Mental disease:: No Psychosocial Test Tool Used:: [employer] QOL Cardiac and PHQ-9 Questionnaire phq-9 Severity See PHQ-9 Score: 1 Referral to Behavioral Health PS - Interventions: Yes: Attend Stress Management Classes Outcomes/Goals: See list Psychosocial Outcomes/Goals:: ID's personal stressors & 2 strategies to manage stress by discharge and Other Additional outcome/goals: Intervention/Plan: See List Interventions/Plan:: Assess stressors,coping strategies & signs of derpression on admission, Instruct/assist pt to develop coping & personal stress Mgt strategies, Refer to Behavioral Health if appropriate, Refer to Physician if appropriate, Instruct patient to recognize signs & symptoms of depression, Instruct patient to recog and Other additional plan/intervention 30-day Reassessments: 30 day Reassessments:: Progressing Reassessment Notes & Comments:: Pt denies any psychosocial issues at this time. Pt to attend stress management class. Will reassess every 30 days. Psychosocial - 90-Day Assess Referral to Behavioral Health PS - Interventions: Yes: Attend Stress Management Classes Psychosocial - Final Assessmen Referral to Behavioral Health PS - Interventions: Yes: Attend Stress Management Classes Nutrition - 90-Day Assessment Weight Mgt (Other Care) Height: 6 ft 1 in Weight:: 200 lb 8 oz BMI: 26.4 Nutrition - Final Assessment Weight Mgt (Other Care) Height: 6 ft 1 in Weight:: 200 lb 8 oz BMI: 26.4
[2025-09-04 08:25] VITALS: BP 108/70; BP 110/64; BMI 26.4
== END 2025-09-13 23:59 ==
LOC: CR 09:15
PROVIDERS: PCP Family Medicine; Referring Provider Internal Medicine Cardiovascular Disease; Visit Provider Internal Medicine Cardiovascular Disease
DX: Z95.5 Presence of coronary angioplasty implant and graft (principal); I21.09 ST elevation (STEMI) myocardial infarction involving other coronary artery of anterior wall; R03.0 Elevated blood-pressure reading, without diagnosis of hypertension
CPT/HCPCS: 93798

== ENCOUNTER 2025-10-07 09:15 | Outpatient (RCR) | payer MEDICARE, OTHER, SELFPAY ==
[2025-09-04 08:25] VITALS: BMI 26.4
--- NOTE | 2025-10-03 08:46 | PCM.CR.ITP ---
Exercise - Initial Assessment Physician Prescribed Exercise Modalities: Treadmill, Schwinn Airdyne AD-7 and SciFit Lateral Associate Merchandiser Nutrition - Initial Assessment Weight Mgt (Other Care) Height: 6 ft 1 in Weight:: 199 lb BMI: 26.2 Psychosocial - Initial Assess Referral to Behavioral Health PS - Interventions: Yes: Attend Stress Management Classes Exercise - 30-day Assessment Physician Prescribed Exercise Modalities: Treadmill, Schwinn Airdyne AD-7 and SciFit Lateral Associate Merchandiser Exercise - 60-day Assessment Physician Prescribed Exercise Modalities: Treadmill, Schwinn Airdyne AD-7 and SciFit Lateral [place] Exercise - 90-day Assessment Visit Date of Eval: 10/03/25 Session #:: 34 Physician Prescribed Exercise Modalities: Treadmill, Schwinn Airdyne AD-7 and SciFit Lateral [place] Frequency: 3x/week for 12 weeks [36 sessions] Intensity: 60-80% of age predicted maximum heart rate reserve Duration: 30 - 45 minutes Current METSs:: 11.4 Target Heart Rate:: 90-120 Current RPE:: 12-13 Maximum Excercise HR:: 131 Resting Blood Pressure: 108/50 Maximum Exercise Blood Pressure: 160/70 EKG Type: NSR-ST w/rare to occas PAC, rare PVC. ST depression noted. Outcomes & Goals Goals:: Verbalizes understanding of THR, RPE & goal METS by session 6, Documents in home exercise log/reports 30 min aerobic 5 day/wk by DC, Demonstrates accurate pulse taking by DC and Other additional outcome/goals: see below Intervention & Plan Exercise Program Goals: Instruct on personal THR & RPE, Instruct on MET level & personal MET goal, Show patient to take own pulse /validate performance until accurate, Instruct on home exercise and Other additional plan/int Physical Activity Home Exercise Physical Activity - Home Exercise: Safe Exercise, Warm-up, Self-monitoring, Cool-Down, Home Exercise > 30 min Daily and Sitting Time <3 hours/daily Outcomes & Goals Outcomes/Goals: Demonstrates correct Warm-up/exercise Cool-Down (S3) if = 2.5 METs, Verbalizes symptoms of exercise intolerance by Session 3 (S3), Demonstrate safe equipment use (S3) & follows exercise prescrition (6) and Other: See below Intervention & Plan Plan/Intervention: Instruct warm-up & cool-down if exercising at > 2 METs, Instruct on symptoms of exercise intolerance & actions to take, Instruct & monitor on saf, Assess intial functional capacity & safety risk and Other See below 30-day Reassessments 30 day Reassessments:: Met Reassessment Notes & Comments:: Pt has met his exercise goals. Pt was working at 11.4 METS. Pt will be given his exercise prescription as well as community resources to continue his exercise. Pt understands the importance of warming up and cooling down. Pt also understands symptoms of exercise intolerance and how to exercise safely. Pt has 2 sessions remaining. Exercise - Final/Discharge Physician Prescribed Exercise Modalities: Treadmill, Schwinn Airdyne AD-7 and SciFit Lateral Associate Merchandiser Nutrition - 30-Day Assessment Weight Mgt (Other Care) Height: 6 ft 1 in Weight:: 199 lb BMI: 26.2 Nutrition - 60-Day Assessment Weight Mgt (Other Care) Height: 6 ft 1 in Weight:: 199 lb BMI: 26.2 Core - 30-Day Assessment Hypertension [place] [employer] Hypertension Guidelines Reassessment Notes & Comments:: Pt's BP's are within AHA normal limits. Will continue to monitor and report to pt's physician if necessary. Core - Final Assessment Hypertension [place] [employer] Hypertension Guidelines Reassessment Notes & Comments:: Pt's BP's are within AHA normal limits. Will continue to monitor and report to pt's physician if necessary. Core - 90 Day Assessment Visit Date of Eval: 10/03/25 Session #:: 34 Medication Compliance Preventative Medication(s):: Aspirin, VENTURA inhibitor, Ticagrelor/P2Y12 inhibitor and Beta alexandrea H/O mental health issues: depression, anxiety, or addiction?: No Doesn’t believe in the benefits of treatment?: No Believes medications are unnecessary or harmful?: No Has a concern about medication side effects?: No Expresses concern over the cost of medications?: No Outcomes/Goals: Verbalizes medications,desired effect & common side effects @ DC, Pt self-reports following medication regimen, Keeps card in wallet w/medications listed by DC and Other additional outcome/goals: Interventions/plans: Instruct on medication effects & side effects, Review medication list w/patient every two weeks, Instruct importance of taking meds as ordered & assist problem solving and Other additional Tobacco Use Tobacco Use: Non-smoker Hypertension Resting Blood Pressure:: 108/50 [place] [employer] Hypertension Guidelines Peak Exercise Blood Pressure:: 160/70 Outcomes/Goals: Able to verbalize/achieve optimal blood pressure <130/80, Incorporates diet changes & exercise for blood pressure control by DC and Other additional outcomes/goals Interventions/plan: Instruct on optimal blood pressure, hypertension & medications, Instruct on effects of sodium, alcohol, stress, exercise &hypertension and Other additional plan/interventions 30 day Reassessments:: Met Reassessment Notes & Comments:: Pt's BP's are within AHA normal limits. Will continue to monitor and report to pt's physician if necessary. Tobacco Cessation Referral Smoking Cessation Referral:: No Individual Education/Counseling:: No Education Schedule Given:: Yes Psychosocial - 30-Day Assess Referral to Behavioral Health PS - Interventions: Yes: Attend Stress Management Classes Psychosocial - 60-Day Assess Referral to Behavioral Health PS - Interventions: Yes: Attend Stress Management Classes Psychosocial - 90-Day Assess VIsit Date of Eval: 10/03/25 Session #:: 34 Psychosocial Test Tool Used:: [employer] QOL Cardiac and PHQ-9 Questionnaire phq-9 Severity See PHQ-9 Score: 1 Referral to Behavioral Health PS - Interventions: Yes: Attend Stress Management Classes Outcomes/Goals: See list Psychosocial Outcomes/Goals:: ID's personal stressors & 2 strategies to manage stress by discharge and Other Additional outcome/goals: Intervention/Plan: See List Interventions/Plan:: Assess stressors,coping strategies & signs of derpression on admission, Instruct/assist pt to develop coping & personal stress Mgt strategies, Refer to Behavioral Health if appropriate, Refer to Physician if appropriate, Instruct patient to recognize signs & symptoms of depression, Instruct patient to recog and Other additional plan/intervention 30-day Reassessments: 30 day Reassessments:: Met Reassessment Notes & Comments:: Pt denies any psychosocial issues at this time. Pt has attended stress management class. Psychosocial - Final Assessmen Referral to Behavioral Health PS - Interventions: Yes: Attend Stress Management Classes Nutrition - 90-Day Assessment Visit Date of Eval: 10/03/25 Session #:: 34 Cholesterol/Lipids (Other Core Measures) Triglycerides (mg/dL): 82 Total Cholesterol (mg/dL): 152 LDL Cholesterol (mg/dL): 102 HDL Cholesterol (mg/dL): 34 Lipid Medication: atorvastatin Determine presence & major risk factors that modify LDL goal: Hypertension or hypertensive medication, Low HDL cholesterol <40 mg/dL*, Family history of premature CHD in Male < 55 years: female <65 yearsFa and Age men > 45 years; women >/= 55 years Intervention/Plan: Advocate for lipid panel cholesterol medication if applicable, Instruct on personal lipid levels & lipid goals/NCEP guidelines, Instruct on cholesterol and Other additional plan/int 30-day Reassessments:: Progressing Reassessment Notes & Comments:: Pt had a 1 on 1 consultation with our chiropractic neurologist 10/02/25. Diabetes (Other Core Measures) Diabetes Type: Not Applicable Weight Mgt (Other Care) Height: 6 ft 1 in Weight:: 199 lb BMI: 26.2 Diagnosis Overweight/Obesity BMI> 30% ICD-10 E66: No Diagnosis High BMI/Morbid Obesity BMI> 35% ICD-10 Z68: No Healthy Eating Habits Will attend diet classes:: Yes Outcomes/Goals:: Consume diet rich in vegs,fruits,whole grain/high fiber,fish,lean meat, Limit sat/trans fats,cholesterol & added salts & sugars and Other additional outcome/goals: Intervention/Plan:: Assess current eating habits and Other Additional plan/interventions 30-day Reassessments:: Met Reassessment Notes & Comments:: Pt has met 1 on 1 with our chiropractic neurologist. Pt is also attending nutrition classes this week with our chiropractic neurologist. Education Gave educational materials for:: Signs & symptoms of hypoglycemia, Signs & symptoms of hyperglycemia, Relate diabetes to coronary artery disease and Healthy eating Nutrition - Final Assessment Weight Mgt (Other Care) Height: 6 ft 1 in Weight:: 199 lb BMI: 26.2
[2025-10-03 08:52] VITALS: BP 108/50
[2025-10-03 08:58] VITALS: BP 108/50; BMI 26.2
== END 2025-10-13 23:59 ==
LOC: CR 09:15
PROVIDERS: PCP Family Medicine; Referring Provider Internal Medicine Cardiovascular Disease; Visit Provider Internal Medicine Cardiovascular Disease
DX: Z95.5 Presence of coronary angioplasty implant and graft (principal); I21.09 ST elevation (STEMI) myocardial infarction involving other coronary artery of anterior wall; R03.0 Elevated blood-pressure reading, without diagnosis of hypertension
CPT/HCPCS: 93798; 97802

== ENCOUNTER → 2025-10-21 | Outpatient (CLI) | payer MEDICARE, OTHER, SELFPAY ==
[2025-09-04 08:25] VITALS: BMI 26.4
[2025-10-03 08:58] VITALS: BMI 26.2
--- NOTE | 2025-10-21 14:41 | ECHOL_ITS ---
Reason For Study Reason For Study: STEMI Procedure This was a limited 2D transthoracic echocardiogram. Exam performed in department. Left Ventricle Normal left ventricle. Left ventricular EF by Chen's biplane: 69%. Diastolic function unable to be determined on limited echocardiogram. No regional wall motion abnormalities noted. Right Ventricle Normal right ventricle. Normal systolic function. Atria The left and right atria are normal. Right atrial pressure estimated at: 3 mmHg. Mitral Valve Normal mitral valve. Tricuspid Valve Normal tricuspid valve. No tricuspid regurgitation. No tricuspid stenosis. Aortic Valve Normal trileaflet aortic valve. Pericardium/Pleural No pericardial effusion. MMode/2D Measurements & Calculations LVIDd: 4.9 cm IVSd: 0.92 cm LAV(MOD- bp): 53.6 ml LVIDs: 3.2 cm LVPWd: 1.1 cm LAV(MOD- bp) Indexed: 25.2 ml/m2 FS: 34.7 % LAV(MOD- sp2): 49.6 ml LAV(MOD- sp4): 45.9 ml LVAd ap4: 28.7 cm2 LVAd ap2: 28.3 cm2 SV(MOD- sp4): 54.9 ml LVLd ap4: 8.7 cm LVLd ap2: 8.5 cm SI(MOD- sp4): 25.8 ml/m2 EDV(MOD-sp4): 79.0 ml EDV(MOD-sp2): 82.4 ml EDV(sp4-el): 80.4 ml EDV(sp2-el): 80.2 ml LVAs ap4: 13.7 cm2 LVAs ap2: 13.8 cm2 LVLs ap4: 7.0 cm LVLs ap2: 7.0 cm ESV(MOD-sp4): 24.2 ml ESV(MOD-sp2): 25.1 ml ESV(sp4-el): 22.7 ml ESV(sp2-el): 22.9 ml EF(MOD-sp4): 69.4 % EF(MOD-sp2): 69.6 % EF(sp4-el): 71.7 % SV(MOD-sp2): 57.3 ml SV(sp4-el): 57.7 ml LA A4 area: 17.7 cm2 SI(MOD-sp2): 26.9 ml/m2 LA dimension(2D): 3.4 cm RA A4 area: 20.2 cm2 ECHO/Echo, Limited Study Interpretation Summary Limited echocardiogram. Normal left ventricular systolic function, with EF: 69% by Chen's biplane Normal left ventricular wall motion Normal right ventricular systolic function Valvular assessment limited on this study Ordering Physician: Maryjane Glynn Referring Physician: Maryjane Glynn Performed By: Allison Navarrete RCS
--- OUTSIDE RECORDS SUMMARY | 2025-10-21 16:22 | XMS RPT_ITS | CCD ---
Author Organization [facility] Care Team Providers Care [employer] Name Role Phone Ashtyn Gamez Unavailable Unavailable Finneran, Ashtyn Unavailable Unavailable Finneran, Ashtyn Unavailable Unavailable Godinsky, Chan Unavailable Unavailable Finneran, Ashtyn Unavailable Unavailable Finneran, Ashtyn Unavailable Unavailable Godinsky, Chan Unavailable Unavailable Finneran, Ashtyn Unavailable Unavailable Finneran, Ashtyn Unavailable Unavailable Godinsky, Chan Unavailable Unavailable Finneran, Ashtyn Unavailable Unavailable Finneran, Ashtyn Unavailable Unavailable Godinsky, Chan Unavailable Unavailable Finneran, Ahstyn Unavailable Unavailable Finneran, Ashtyn Unavailable Unavailable Ashtyn Gamez MD Primary Care Provider [phone] Wayne Red MD Unavailable Gabe Mattson MD Unavailable ASHTYN GAMEZ Attending Unavailable ASHTYN GAMEZ Referring Unavailable GRETA, ASHTYN Primary Care Unavailable GABE MATTSON Attending Unavailable JEAN CLAUDENERHORTENSIA, ASHTYN Primary Care Unavailable GABE MATTSON Attending Unavailable JEAN CLAUDENERAN, ASHTYN Referring Unavailable JEAN CLAUDENERAN, ASHTYN Primary Care Unavailable Dr. Ashtyn Gamez MD Primary Care Provider Dr. Gage Woodson MD Emergency Provider Dr. Baudilio Murillo MD Admit Provider Unavailable Dr. Baudilio Murillo MD Attending Provider UnavailDr. Baudilio Edwards MD Referring Provider UnavailDr. Ashtyn Armstrong MD Primary Care Provider Dr. Gage Woodson MD Emergency Provider Dr. Baudilio Murillo MD Admit Provider Unavailable Dr. Baudilio Murillo MD Attending Provider Unavailab Fady COKER Dr. Samer Referring Provider Unavailab Fady COKER, Dr. Astudillo Other Provider Unavailable Dr. Jose Miguel Glynn DO Attending Provider Mara PICKENS, Dr. Causey Other Provider Gretta PICKENS, Dr. Gillespie Other Provider Rufus COKER, Dr. Tamez Attending Provider Unavailab katelynn Gamez MD, Dr. Hunt Referring Provider Renard MCKENZIE-CMaryjane Attending Provider Oziel COKER, Dr. Cheema Attending Provider Oziel COKER, Dr. Cheema Referring Provider Greta COKER, Dr. Hunt Primary Care Physician Chintan COKER, Dr. Almonte Emergency Department Physician Lidia COKER, Dr. Astudillo Admitting Physician Unavailmanuel Murillo MD, Dr. Astudillo Attending Physician Unavailmanuel Murillo MD, Dr. Astudillo Nurse Practitioner Unavailab Nomi PICKENS, Dr. Gillespie Attending Physician Mara PICKENS, Dr. Causey Nurse Practitioner Gretta PICKENS, Dr. Gillespie Nurse Practitioner Rufus COKER, Dr. Tamez Attending Physician UnavailMaryjane Orta Attending Physician Oziel COKER, Dr. Cheema Attending Physician Greta, Ashtyn Primary Care Unavailable Oziel, Deni Referring Unavailable Oziel, Deni Attending Unavailable Finneran, Ashtyn Primary Care Unavailable Oziel, Deni Referring Unavailable Oziel, Deni Attending Unavailable Azouz, Samer Admitting Unavailable Azouz, Samer Referring Unavailable Jean Claudeneran, Ashtyn Primary Care Unavailable Azouz, Pippar Consulting Unavailable Dashawn Hooper Attending Unavailable Padilla Terry Consulting Unavailable Jose Miguel Glynn Consulting Unavailable Azouz, Samer Attending Unavailable Finneran, Ashtyn Primary Care Unavailable Finneran, Ashtyn Primary Care Unavailable Finneran, Ashtyn Referring Unavailable Maryjane Glynn Attending Unavailable Azouz, Samer Referring Unavailable Finneran, Ashtyn Primary Care Unavailable Lidia, Samer Attending Unavailable Ashtyn Gamez Primary Care Unavailable Oziel, [place] Referring Unavailable Oziel, [place] Attending Unavailable Jean ClaudealfredoAshtyn morales Primary Care Unavailable Oziel, Deni Referring Unavailable Oziel, [place] Attending Unavailable Padilla Terry Attending Unavailable Jose Miguel Glynn Attending Unavailable Azouz, Samer Admitting Unavailable Azouz, Samer Referring Unavailable Azomandi, Samer Attending Unavailable Ashtyn Gamez Primary Care Unavailable Azouz, Samer Consulting Unavailable Azouz, Samer Admitting Unavailable Azouz, Samer Referring Unavailable Ashtyn Gamez Primary Care Unavailable Azouz, Samer Consulting Unavailable Jose Miguel Glynn Attending Unavailable Padilla Terry Consulting Unavailable Medications Current Medications Medication Drug Class(es) Dates Sig (Normalized) Sig (Original) aspirin 81 mg delayed release oral tablet (6 sources) Platelet Aggregation Inhibitor, Nonsteroidal Anti-inflammatory Drug Start: 06-29-2025 take 1 tablet by mouth at breakfast atorvastatin 80 mg oral tablet (10 sources) HMG-CoA Reductase Inhibitor Start: 06-29-2025 End: 07-05-2025 take 1 tablet by mouth at bedtime cholecalciferol 0.05 mg oral capsule (11 sources) Vitamin D Start: 06-28-2025 take 1 capsule by mouth once daily take 1 capsule by mouth once magaly ly cholecalciferol (Vitamin D-3) 25 MCG (1000 UT) capsule Take 1,000 Units by mouth daily. Active levothyroxine sodium 0.075 m g oral tablet (11 sources) l-Thyroxine Start: 06-28-2025 take 1 tablet by kristel th once daily Start: 05-28-2024 End: 08-26-2024 levothyroxine (Synthroid, Le voxyl) 75 MCG tablet Take 75 mcg by mouth. 05/28/2024 Active lisinopril 5 mg oral tablet (10 sources) Angiotensin Converting Enzyme Inhibitor Start: 06-29-2025 End: 07-05-2025 take 1 tablet by mouth once daily 24 hr metoprolol succinate 25 mg extended release oral tablet (10 sources) beta-Adrenergic Scarlett Start: 06-29-2025 End: 07-05-2025 take 1 tablet by mouth once daily Multiple Vitamins-Minerals (Centrum Men) tablet (5 sources) Multiple Vitamins-Minera ls (Centrum Men) tablet Take by mouth. Active Multivitamin (Daily Multi-Vitamin) tablet (6 sources) Start: 06-28-2025 Start: 06-28-2025 Multivitamin ( Daily Multi-Vitamin) tablet Active 1 {tbl} PO DAILY June 28, 2025 12:00am supplement naproxen sodium 220 mg oral tablet (5 sources) Nonsteroidal Anti-inflammatory Drug Start: 02-29-2024 naproxen sodium (Aleve) 220 MG tablet every 12 hours. 02/29/2024 Active saccharomyces boulardii 250 mg oral capsule (5 sources) saccharomyces boulardii (Florastor) 250 MG capsule Take by mouth. Active Sc[employer]crow [employer] life probiotic capsule (6 sources) Start: 06-28-2025 take 1 capsule by mouth once daily Start: 06-28-2025 take 1 capsule by mo [facility] once daily somaya life probiotic capsule Active 1 NMA PO DAILY June 28, 2025 12:00am supplement tadalafil 20 mg oral tablet (5 sources) Phosphodiesterase 5 Inhibitor Start: 07-25-2024 End: 08-24-2024 take 1 tablet by mouth every twenty-four hours as needed tadalafil (Cialis) 20 MG tablet Take 1 tablet (20 mg) by mouth Daily as needed for erectile dysfunction. 12 tablet 3 07/25/2024 Active ticagrelor 90 mg oral tablet (10 sources) Start: 06-29-2025 End: 07-05-2025 take 1 tablet by mouth twice daily Problems Active Problems Problem Classification Problem Date Documented Da te Episodic/Chronic Acute myocardial infarction (18 sources) Acute anterior ST segment elevation myocardial infarction; Translations: [ST elevation (STEMI) myocardial infarction involving other coronary artery of anterior wall] Onset: 06-28-2025 06-28-2025 Chronic Coronary atherosclerosis and other heart disease (10 sources) Stented coronary artery; Translations: [Presence of coronary angioplasty implant and graft] Onset: 06-28-2025 07-01-2025 Episodic Comment on above: PCI with drug-elutin g stent, 2 overlapping in the mid and proximal LAD ([place] 3.5x39 mmg and [place] 3.5 X26 mm) in addition to kissing balloon angioplasty to the second diagonal branch was performed with restoring GEORGETTE-3 flow in both LAD and diagonal branch PCI with drug-elutin g stent, 2 overlapping in the mid and proximal LAD ([place] 3.5x39 mmg and [place] 3.5 X26 mm) in addition to kissing balloon angioplasty to the second diagonal branch was performed with restoring GEORGETTE-3 flow in both LAD and diagonal branch-06/28/2025 Genitourinary symptoms and ill-defined conditions (3 sources) Nocturia; Translations: [Nocturia] Onset: 07-25-2024 07-25-2024 Episodic Hyperplasia of prostate (4 sources) Benign prostatic hypertrophy with outflow obstruction; Translations: [Benign prostatic hyperplasia with lower urinary tract symptoms] Onset: 08-29-2024 07-25-2024 Chronic Other circulatory disease (19 sources) Elevated blood-pressure reading without diagnosis of hypertension; Translations: [Elevated blood-pressure reading, without diagnosis of hypertension] 06-28-2025 Episodic Other circulatory disease (1 source) Elevated blood-pressure reading, without diagnosis of hypertension; Translations: [Elevated blood-pressure reading, without diagnosis of hypertension] Onset: 08-19-2025 Episodic Other diseases of kidney and ureters (2 [...] lumbar region without neurogenic franklin] Onset: 10-27-2018 Thyroid disorders (15 sources) Hypothyroidism; Translations: [Hypothyroidism, unspecified] Onset: 08-19-2025 06-28-2025 Chronic Unclassified (5 sources) in two weeks-call this tuesday if you have not heard from the office-tell them you were hospitalized and had a heart stent placed Unclassified (4 sources) Presence of stent in coronary artery Unclassified (4 [address]) Acute [address] elevation myocardial infarction (STEMI) of anterior wall Unclassified (5 sources) Z95.5 - Presence of coronary angioplasty implant and graft,I21.09 - ST elevation (STEMI) myocardial infarction involving other coronary artery of anterior wall,R03.0 - Elevated blood-pressure reading, without diagnosis of hypertension Past or Other Problems Problem Classification Problem [...] Test Name Value Interpretation Reference Range Facility No Panel InformationOrdered By: Toy Rosado on 08-07-2025 [facility] Cardiac Rehab [address] [place] [address] CR - Individual Treatment Plan MR#: [id number] Acct: [id number] Name: TEX QUINTEROS Rep #:[id number] : 1955 69 From: Toy Mittal BS, RVT PCP: Dr. Ashtyn Gamez MD DOS: 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 [place] Nutrition - Initial Assessment Weight Mgt (Other Care) Height: 6 ft 1 in Weight:: 199 lb BMI: 26.2 Psychosocial - Initial Assess Referral to Behavioral Health PS - Interventions: Yes: Attend Stress Management Classes Exercise - 30-day Assessment Visit Date of Eval: 08/07/25 Session #:: 10 Physician Prescribed Exercise Modalities: Treadmill, Schwinn Airdyne AD-7 and SciFit Lateral Hvac Engineering Technician Frequency: 3x/week for 12 weeks [36 sessions] Intensity: 60-80% of age predicted maximum heart rate reserve Duration: 30 - 45 minutes Current METSs:: 6.5 Target Heart Rate:: 90-113 Current RPE:: 9-10 Maximum Excercise HR:: 106 Resting Blood Pressure: 92/62 Maximum Exercise Blood Pressure: 118/68 EKG Type: SB to ST with a rare pac, pvc Outcomes & Goals Goals:: Verbalizes understanding of THR, RPE & goal METS by session 6, Documentsin home exercise log/reports 30 min aerobic 5 day/wk by DC, Demonstrates accurate pulse taking by DC and Other additional outcome/goals: see below Intervention & Plan Exercise Program Goals: Instruct on personal THR & RPE, Instruct on MET level & personal MET goal, Show patient to take own pulse /validate performance until accurate, Instruct on home exercise and Other additional plan/int Physical Activity Home Exercise Physical Activity - Home Exercise: Safe Exercise, Warm-up, Self-monitoring, Cool-Down, Home Exercise > 30 min Daily and Sitting Time <3 hours/daily Outcomes & Goals Outcomes/Goals: Demonstrates correct Warm-up/exercise Cool-Down (S3) if = 2.5 METs, Verbalizes symptoms of exercise intolerance by Session 3 (S3), Demonstratesafe equipment use (S3) & follows exercise prescrition (6) and Other: See below Intervention & Plan Plan/Intervention: Instruct warm-up & cool-down if exercising at > 2 METs, Instruct on symptoms of exercise intolerance & actions to take, Instruct & monitor on saf, Assess intial functional capacity & safety risk and Other See below 30-day Reassessments 30 day Reassessments:: Progressing Reassessment Notes & Comments:: Pt oriented to equipment. RPE explained to pt. Pt demonstrates understanding in his daily sessions. Exercise - 60-day Assessment Physician Prescribed Exercise Modalities: Treadmill, Schwinn Airdyne AD-7 and SciFit Lateral Hvac Engineering Technician Exercise - 90-day Assessment Physician Prescribed Exercise Modalities: Treadmill, Schwinn Airdyne AD-7 and SciFit Lateral Hvac Engineering Technician Exercise - Final/Discharge Physician Prescribed Exercise Modalities: Treadmill, Schwinn Airdyne AD-7 and SciFit Lateral [place] Nutrition - 30-Day Assessment Program Goals Nutrition Program Goals Patient has diagnosis of Hyperlipidemia (ICD E78)?: Yes Visit Date of Eval: 08/07/25 Session #:: 10 (Nutrition survey score of 4) Cholesterol/Lipids (Other Core Measures) Determine presence & major risk factors that modify LDL goal: Hypertension or hypertensive medication, Low HDL cholesterol <40 mg/dL*, Family history of premature CHD in Male < 55 years: female <65 yearsFa and Age men > 45 years; women >/= 55 years Outcomes/Goals: Pt IDs own risk factors & lifestyle modifications by Session 10,Verbalizes symptoms of angina & response by session 3., Pt independently managesand Other Additional Outcomes/Goals: Intervention/Plan: Advocate for lipid panel cholesterol medication if applicable, Instruct on personal lipid levels & lipid goals/NCEP guidelines, Instruct on cholesterol and Other additional plan/int Diabetes (Other Core Measures) Diabetes Type: Not Applicable Weight Mgt (Other Care) Height: 6 ft 1 in Weight:: 199 lb BMI: 26.2 Diagnosis Overweight/Obesity BMI> 30% ICD-10 E66: No Diagnosis High BMI/Morbid Obesity BMI> 35% ICD-10 Z68: No Outcomes/Goals: Pt sets, maintains & shows weight loss goal & trend during rehaband Other additional outcomes/goals Intervention/Plan: Instruct on ideal BMI & set weight loss goal w/patient, Assist pt to ID & incorporate diet changes for weight loss by S9, Refer to Structured Weight Loss program as appropriate, Encourage goal of using 250-300dcal per session for weight loss and Other additional plan/interventions 30 day Reassessments:: Progressing Reassessment Notes & Comments:: Pt is at a healthy weight. Pt is scheduled to attend nutrition classes. Heart healthy low sodium diet encouraged. Healthy Eating Habits Will attend diet classes:: Yes Outcomes/Goals:: Consume diet rich in vegs,fruits,whole grain/high fiber,fish,lean meat, Limit sat/trans fats,cholesterol & added salts & sugars and Other additional outcome/goals: Intervention/Plan:: Assess current eating habits and Other Additional plan/interventions 30-day Reassessments (more content not included)... [facility] CR - History AND Physicalon 07-09-2025 CR - History & Physical [facility] Cardiac Rehab [address] [place] [address] CR - History Physical MR#: [id number] Acct: [id number] Name: TEX QUINTEROS Rep #: [id number] : 1955 69 From: Nusrat Hurtado PCP: Dr. Ashtyn Gamez MD DOS: 07/09/25 CR - History Physical General Arrival date:: 07/09/25 Arrival time:: 08:00 Date of Referral:: 07/01/25 Date of CR Evaluation:: 07/09/25 Referring Physician: Dr Murillo Primary Diagnosis: STEMI/PCI History of Present Cardiac Event Onset Date Current stable Angina Pectoris:: No Acute Myocardial Infarction within 12 months:: Yes Coronary Artery Bypass Graft:: No Heart valve replacement or repair:: No PTCA or coronary stenting:: Yes Vessel: LAD Heart or Heart-Lung Transplant:: No Heart Failure EF <35%:: No Type of Symptoms:: chest pain Interventions with present event:: Stents Were there any complications?: No Medications Ambulatory Orders ???Medication ???Instructions ???Recorded cholecalciferol (vitamin D3) 50 50 mcg PO DAILY supplement 5 mcg (2,000 unit) capsule (Vitamin D3) levothyroxine 75 mcg tablet 75 mcg PO DAILY thyroid 06/28/25 multivitamin (Daily Multi-Vitamin 1 tab PO DAILY supplement 5 tablet) somaya life probiotic 1 ea PO DAILY supplement 06/28/25 aspirin 81 mg tablet,delayed 81 mg PO BREAKFAST #0 tabs 5 release atorvastatin 80 mg tablet 80 mg PO QHS #90 tabs 07/05/25 lisinopril 5 mg tablet 5 mg PO DAILY #90 tabs 07/05/25 metoprolol succinate 25 mg 25 mg PO DAILY #90 tabs 07/05/25 tablet,extended release 24 hr ticagrelor 90 mg tablet (Brilinta) 90 mg PO BID #180 tabs 07/05/25 Allergies Allergies No Known Allergies Allergy (Verified 07/05/25 09:11) Sleep Disorder Evaluation Hx of Sleep Apnea: No Do you snore loudly (louder than talking or can be heard through closed doors)?: No Do you often feel tired/ fatigued/ sleepy during daytime?: No Has anyone observed you stop breathing during sleep?: No History of Hypertension (for STOP score): No STOP Results: Negative Advance Directives Advanced Directives Advance Directives: Yes Living Will Living Will: Yes Power of Language Specialist, Durable Power of Language Specialist for Healthcare: Yes Name of Medical Power of Language Specialist: [place]/ Information Education/Medical Records Advanced Care Planning Booklet Provided: Patient Declined Advance Directives on File: Yes Request family arborist representative bring in a Copy: No Reason not requested: on file Advanced Directives Advanced Directives Do you have a Healthcare Power of Language Specialist?: Yes Living Will: Yes Advance Directives on File: Yes Past Medical History Covid-19 Screening Physicial Symptoms Fever: No Unexplained muscle aches: No Current respiratory symptoms: No Upper respiratory infections symptoms: No Gastro-intestinal symptoms: No Kvj-Ebbp-Lrgnje symptoms: No Other Clinical Concerns Has tested positive for COVID-19 in last 30 days: No Exposure Risk Had contact w/person w/symptoms or Covid-19 (+) last 14 days: No Has High Risk Exposures ID'd by Health dept/Inf Control team: No Pertinent Comorbidities 65 years or older:: Yes Lives in Assisted Living facility:: No Has a chronic lung disease or moderate to severe asthma:: No Has a serious heart condition:: No Immunocompromised:: No Severely obese (Body Mass Index of 40 or higher):: No Diabetic:: No Has chronic kidney disease undergoing dialysis:: No Has liver disease:: No Past Medical Illness Medical History Enlarged prostate Chest pain ( 06/28/25) Myocardial infarct ( 06/28/25) Hypothyroidism Non-smoker Past Surgical History Surgical History Stented coronary artery (06/28/25) H/O cardiac catheterization ( 06/28/25) History of heart artery stent ( 06/28/25) Surgical History: - (carpal tunnel) Review of Systems Review of Systems Hints Review of Present Symptoms: Reports Appetite - Normal and Sleep - Normal Pain Is Patient Pain Free?: Yes Pain Location: none Risk Factor Assessment Chief Complaint Chief Complaint: PCI Vital Signs Respiratory Rate: 16 Pulse Ox: 98 Blood Pressure: 118/74 Nailbeds:: Normal Pulse Pulse Rate: 54 Pulse Rhythm: Regular Blood Cholesterol/Lipids Total Cholesterol (mg/dL) Goal = less than 200 mg/dL: 152 HDL Cholesterol (mg/dL) Goal = less than 40 mg/dL: 34 LDL Cholesterol (mg/dL) Goal = less than 70 mg/dL: 102 Triglycerides (mg/dL) Goal = less than 150 mg/dL: 82 Diabetes Nutrition Referral for Diabetes: No Obesity Height: 6 ft 1 in Weight:: 200 lb Weight in Pounds: 200.0 lbs Weight Source: Stated by Patient Body Mass Index (BMI): 26.4 Nutritional Referral for Obesity: No Physical Inactivity Physical Inactivity: Reg Exercise 30 min/day and Physically demanding job Risk (more content not included)... Normal [facility] Cardiac rehabilitation evalu ation reportOrdered By: Nusrat Hurtado on 07-09-2025 Study report [facility] Cardiac Rehab [address] [place] [address] CR - History & Physical MR#: [id number] Acct: [id number] Name: TEX QUINTEROS Rep #:[id number] : 1955 69 From: Nusrat Hurtado PCP: Dr. Ashtyn Gamez MD DOS: CR - History & Physical General Arrival date:: 07/09/25 Arrival time:: 08:00 Date of Referral:: 07/01/25 Date of CR Evaluation:: 07/09/25 Referring Physician: Dr Murillo Primary Diagnosis: STEMI/PCI History of Present Cardiac Event Onset Date Current stable Angina Pectoris:: No Acute Myocardial Infarction within 12 months:: Yes Coronary Artery Bypass Graft:: No Heart valve replacement or repair:: No PTCA or coronary stenting:: Yes Vessel: LAD Heart or Heart-Lung Transplant:: No Heart Failure EF <35%:: No Type of Symptoms:: chest pain Interventions with present event:: Stents Were there any complications?: No Medications Ambulatory Orders ?Medication ?Instructions ?Recorded cholecalciferol (vitamin D3) 50 50 mcg PO DAILY supple ment 06/28/25 mcg (2,000 unit) capsule (Vitamin D3) levothyroxine 75 mcg tablet 75 mcg PO DAILY thyroid multivitamin (Daily Multi-Vitamin 1 tab PO DAILY suppl ement 06/28/25 tablet) somaya life probiotic 1 ea PO DAILY supplement aspirin 81 mg tablet,delayed 81 mg PO BREAKFAST #0 tab s 06/29/25 release atorvastatin 80 mg tablet 80 mg PO QHS #90 tabs lisinopril 5 mg tablet 5 mg PO DAILY #90 tabs 07/05 metoprolol succinate 25 mg 25 mg PO DAILY #90 tabs tablet,extended release 24 hr ticagrelor 90 mg tablet (Brilinta) 90 mg PO BID #180 t abs 07/05/25 Allergies Allergies No Known Allergies Allergy (Verified 07/05/25 09:11) Sleep Disorder Evaluation Hx of Sleep Apnea: No Do you snore loudly (louder than talking or can be heard through closed doors)?:No Do you often feel tired/ fatigued/ sleepy during daytime?: No Has anyone observed you stop breathing during sleep?: No History of Hypertension (for STOP score): No STOP Results: Negative Advance Directives Advanced Directives Advance Directives: Yes Living Will Living Will: Yes Power of Language Specialist, Durable Power of Language Specialist for Healthcare: Yes Name of Medical Power of Language Specialist: [place]/ Information Education/Medical Records Advanced Care Planning Booklet Provided: Patient Declined Advance Directives on File: Yes Request family arborist representative bring in a Copy: No Reason not requested: on file Advanced Directives Advanced Directives Do you have a Healthcare Power of Language Specialist?: Yes Living Will: Yes Advance Directives on File: Yes Past Medical History Covid-19 Screening Physicial Symptoms Fever: No Unexplained muscle aches: No Current respiratory symptoms: No Upper respiratory infections symptoms: No Gastro-intestinal symptoms: No Gik-Vapr-Hoqcsu symptoms: No Other Clinical Concerns Has tested positive for COVID-19 in last 30 days: No Exposure Risk Had contact w/person w/symptoms or Covid-19 (+) last 14 days: No Has High Risk Exposures ID'd by Health dept/Inf Control team: No Pertinent Comorbidities 65 years or older:: Yes Lives in Assisted Living facility:: No Has a chronic lung disease or moderate to severe asthma:: No Has a serious heart condition:: No Immunocompromised:: No Severely obese (Body Mass Index of 40 or higher):: No Diabetic:: No Has chronic kidney disease undergoing dialysis:: No Has liver disease:: No Past Medical Illness Medical History Enlarged prostate Chest pain (~06/28/25) Myocardial infarct (~06/28/25) Hypothyroidism Non-smoker Past Surgical History Surgical History Stented coronary artery (06/28/25) H/O cardiac catheterization (~06/28/25) History of heart artery stent (~06/28/25) Surgical History: - (carpal tunnel) Review of Systems Review of Systems Hints Review of Present Symptoms: Reports Appetite - Normal and Sleep - Normal Pain Is Patient Pain Free?: Yes Pain Location: none Risk Factor Assessment Chief Complaint Chief Complaint: PCI Vital Signs Respiratory Rate: 16 Pulse Ox: 98 Blood Pressure: 118/74 Nailbeds:: Normal Pulse Pulse Rate: 54 Pulse Rhythm: Regular Blood Cholesterol/Lipids Total Cholesterol (mg/dL) Goal = less than 200 mg/dL: 152 HDL Cholesterol (mg/dL) Goal = less than 40 mg/dL: 34 LDL Cholesterol (mg/dL) Goal = less than 70 mg/dL: 102 Triglycerides (mg/dL) Goal = less than 150 mg/dL: 82 Diabetes Nutrition Referral for Diabetes: No Obesity Height: 6 ft 1 in Weight:: 200 lb Weight in Pounds: 200.0 lbs Weight Source: Stated by Patient Body Mass Index (BMI): 26.4 Nutritional Referral for Obesity: No Physical Inactivity Physical Inactivity: Reg Exercise 30 min/day and Physically demanding job Risk Stratification Risk Guidelines: Lowest Risk: Risk Factor for Sedentary Lifestyle and Moderate Risk: Risk Factor for Dyslipidemia and Risk Factor for Hypertension For Smoking Smoking Risk Guidelines For Dyslipidemia Dyslipidemia Risk Guidelines For Diabetes Mellitus Diabetes Risk Guidelines Fo (more content not included)... [facility] No Panel InformationOrdered By: Nusrat Hurtado on 07-09-2025 [facility] Cardiac Rehab [address] [place] [address] CR - Individual Treatment Plan MR#: [id number] Acct: [id number] Name: TEX QUINTEROS Rep #:[id number] : 1955 69 From: Nusrat Hurtado PCP: Dr. Ashtyn Gamez MD DOS: Diagnosis General Information Admitting Diagnosis: STEMI Secondary Diagnosis: PCI Barriers to Learning: No Barriers Stage of change r/t lifestyle modifications:: Action Gave educational material for:: Treating Heart Disease, How The Heart Works, What it means to have Heart Disease, How Coronary Artery Disease is Diagnosed, Heart Procedures, What Heart Medications Do, Risk Factors & Modifications, Living an Active Life, Nutrition, Emotions & Heart Disease, Stress Management & Relaxation and Sleep Disorders & Heart Disease Education/Goals Individual Counseling: Initial Assessment: Abnormal Cholesterol Levels and Low HDL <40/Males or <50/Females Cardiac Rehabilitation Goals Personal Goals: Initial Assessment: Improve energy level, Get back to work, or to resume activities faster, Improve knowledge of cardiac disease, Improve muscle strength and endurance, Improve diet and eating habits (eat healthier) and Control risk factors (learn risk factor modification) Scale for measuring improvement of personal goals Diagnosis & Disease Process Outcomes/Goals: Pt IDs own risk factors & lifestyle modifications by Session 10,Verbalizes symptoms of angina & response by session 3. and Pt independently manages Plan/Interventions: Assist Pt to ID & engage in lifestyle modification to reduceCVD risk, Instruct on individual risk factors, Review symptoms of angina & emergency actions and Review secondary diagnosis & identify educational needs. 30 day Reassessments:: Not Met 30 day Reassessments:: Not Met 30 day Reassessments:: Not Met 30 day Reassessments:: Not Met Final Reassessments:: Not Met Safety Referral to Physical Therapy: No Referral to [facility] Case Management: No Fall Risk Assessed:: Yes Assistive Devices:: None Exercise - Initial Assessment Visit Date of Eval: 07/09/25 (initial evaluation) Mets: Pre-: >5 METS for 30 minutes by discharge Physician Prescribed Exercise Modalities: Treadmill, Rower, Schwinn Airdyne AD-7, SciFit Stepper, Nok Nok LabsFit Pro-II Ergometer and Nok Nok LabsFit Lateral Hvac Engineering Technician Frequency: 3x/week for 12 weeks [36 sessions] Intensity: 60-80% of age predicted maximum heart rate reserve Duration: 30 - 45 minutes METs - Progression 0.5-1.0 weekly:: 0.5-1.0 Current METSs:: 3 Target Heart Rate:: 90-113 Target RPE 12-16:: 12-16 EKG Type: Sinus Federico with T wave abnormality Outcomes & Goals Goals:: Verbalizes understanding of THR, RPE & goal METS by session 6, Documentsin home exercise log/reports 30 min aerobic 5 day/wk by DC and Demonstrates accurate pulse taking by DC Intervention & Plan Exercise Program Goals: Instruct on personal THR & RPE, Instruct on MET level & personal MET goal, Show patient to take own pulse /validate performance until accurate and Instruct on home exercise Physical Activity Home Exercise Physical Activity - Home Exercise: Safe Exercise, Warm-up, Self-monitoring, Cool-Down, Home Exercise > 30 min Daily and Sitting Time <3 hours/daily Outcomes & Goals Outcomes/Goals: Demonstrates correct Warm-up/exercise Cool-Down (S3) if = 2.5 METs, Verbalizes symptoms of exercise intolerance by Session 3 (S3) and Demonstrate safe equipment use (S3) & follows exercise prescrition (6) Intervention & Plan Plan/Intervention: Instruct warm-up & cool-down if exercising at > 2 METs, Instruct on symptoms of exercise intolerance & actions to take, Instruct & monitor on saf and Assess intial functional capacity & safety risk Nutrition - Initial Assessment Program Goals Nutrition Program Goals Patient has diagnosis of Hyperlipidemia (ICD E78)?: Yes Visit Date of Eval: 07/09/25 (initial evaluation) Cholesterol/Lipids (Other Core Measures) Triglycerides (mg/dL): 82 Total Cholesterol (mg/dL): 152 LDL Cholesterol (mg/dL): 102 HDL Cholesterol (mg/dL): 34 Lipid Medication: atorvastating 80mg QHS Outcomes/Goals: Pt IDs own risk factors & lifestyle modifications by Session 10,Verbalizes symptoms of angina & response by session 3. and Pt independently manages Intervention/Plan: Advocate for lipid panel cholesterol medication if applicable, Instruct on personal lipid levels & lipid goals/NCEP guidelines and Instruct on cholesterol Referral to dietitian:: Yes Diabetes (Other Core Measures) Diabetes Type: Not Applicable Weight Mgt (Other Care) Height: 6 ft 1 in Weight:: 200 lb BMI: 26.4 BMI (Report if calculated above): 26 Diagnosis Overweight/Obesity BMI> 30% ICD-10 E66: No Diagnosis High BMI/Morbid Obesity BMI> 35% ICD-10 Z68: No Outcomes/Goals: Pt sets, maintains & shows weight loss goal & trend during rehab Intervention/Plan: Instruct on ideal BMI & set weight loss goal w/patient, Assist pt to ID & incorporate diet changes for weight loss by S9, Refer to Structured Weight Loss program as appropriate and Encourage goal of using 250-300dcal per session f (more content not included)... [facility] Cardiology Visit Reporton Cardiology Visit Report [facility] [address] [place] [address] OFFICE VISIT Date of Service: 07/05/25 MR#: [id number] Acct: [id number] Name: TEX QUINTEROS Jr. Rep #: [id number] : 1955 Provider: EMERSON mason Age/Sex: 69/M Location: [facility] [place] Status: Signed HPI HPI History of Present Illness Details: TEX QUINTEROS, is a 69 M who presents to the office today for cardiovascular hospital follow-up visit. He had presented to the emergency room on 06/28/2025 with complaints of chest pain on and off, and after biking the symptoms appear to be worrisome and the pain more persistent. He called 911, and came to the emergency room where he was found to have anterior wall STEMI with an injury pattern of at least [address] segment elevation extending from V2 V3 through V6. He continued to have 10 out of 10 chest pain. He underwent a cardiac catheterization which demonstrated 100% occlusion of the proximal LAD with 90% stenosis in his ostial second diagonal branch, mild disease involving the ostial and proximal dominant RCA with 20 to 30% stenosis, distal left main 20 to 30% stenosis and an ejection fraction of 45%. He did undergo successful EMA to his proximal and mid LAD. He underwent a echocardiogram post catheterization which demonstrated ejection fraction of 50%, moderate hypokinesis involving the mid to distal anterior wall and anterior apical segment. He runs a very active lifestyle and uses only Synthroid for hypothyroidism. From a cardiac standpoint, the patient is doing well. He denies any palpitations, chest pain, pressure or heaviness. He denies SOB, Orthopnea, and PND. He does not have bleeding issues; no blood in urine, stool, or nosebleeds. He denies any decrease in energy level, myalgias, or claudication. He does not have edema, or sudden weight gain. He denies lightheadedness, dizziness, syncopal or near syncopal episodes, and headaches. 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 Required: No Is patient in pain?: No Allergies No Known Allergies Allergy (Verified 07/05/25 09:11) Medications ???Medication ???Instructions ???Recorded ???Confirmed ???Type cholecalciferol (vitamin D3) 50 50 mcg PO DAILY supplement 5 07/05/25 History mcg (2,000 unit) capsule (Vitamin D3) levothyroxine 75 mcg tablet 75 mcg PO DAILY thyroid 06/28/25 0 07/05/25 History multivitamin (Daily Multi-Vitamin 1 tab PO DAILY supplement 5 07/05/25 History tablet) suzanne life probiotic 1 ea PO DAILY supplement 06/28/25 07/05/25 History aspirin 81 mg tablet,delayed 81 mg PO BREAKFAST #0 tabs 5 07/05/25 Rx release atorvastatin 80 mg tablet 80 mg PO QHS #90 tabs 07/05/25 Rx lisinopril 5 mg tablet 5 mg PO DAILY #90 tabs 07/05/25 Rx metoprolol succinate 25 mg 25 mg PO DAILY #90 tabs 07/05/25 0 07/05/25 Rx tablet,extended release 24 hr ticagrelor 90 mg tablet (Brilinta) 90 mg PO BID #180 tabs 07/05/25 07/05/25 Rx Ejection fraction %: 50 Have you fallen in the past year?: No PFSH Medical History Enlarged prostate Chest pain ( 06/28/25) Myocardial infarct ( 06/28/25) Hypothyroidism Non-smoker Surgical History Stented coronary artery (06/28/25) H/O cardiac catheterization ( 06/28/25) History of heart artery stent ( 06/28/25) Social History household members: spouse Smoking Status: Never smoker ROS Const Const: Negative for fatigue, weakness, headache(s) or frequent falls Eyes Eyes: Negative for blurry vision ENT ENT: Negative for headache(s), dizziness or Nosebleed/epistaxis Cardio Chest Pain: No Palpitations: No Edema: None Muscle aches with walking: None Resp Respiratory: Negative for SOB with activity, SOB at rest or SOB orthopnea SOB lying down GI GI: Negative nausea, vomiting, heartburn, bright, red blood in stools or black,tarry stools : Negative for hematuria Neuro Neuro: Negative for dizziness, lightheadedness, near syncope, syncope, frequent falls, headache(s), weakness or blurry vision Endo Endo: Negative for fatigue Cardiology Exam Const Appearance: cooperative and no acute distress Nutritional Appearance: average body habitus and overweight Orientation: alert and oriented x3 Head Head: normal to inspection Ears: hearing grossly normal bilaterally Nose: external nose normal Face and Sinus: face symmetric Eyes General: appearance normal, bety (more content not included)... Normal [facility] 12 Lead EKGon 06-29-2025 12 Lead EKG [facility] Cardiovascular Services [address] [place] [address] 12 Lead EKG 06/29/25 0446 MR#: [id number] Acct: [id number] Name: TEX QUINTEROS Jr. Rep #: [id number] : 1955 69 From: Deni Ludwig MD Attending Dr: Dr. Jose Miguel Glynn DO Status: D IS IN Ordering Dr: Baudilio Murillo MD Date: 06/29/25 Location: ICU Sex: M C Admitted: 06/28/25 Test Reason : AM EKG Blood Pressure : */* mmHG Vent. Rate : 52 BPM Atrial Rate : 52 BPM P-R Int : 142 ms QRS Dur : 84 ms QT Int : 480 ms P-R-T Axes : 23 74 111 degrees QTcB Int : [address] Marked T wave abnormality, consider anterolateral ischemia Abnormal ECG When compared with ECG of 28-Jun-2025 10:05, MANUAL COMPARISON REQUIRED DATA IS UNCONFIRMED Confirmed by OZIEL COKER, DENI ([id number]), editor managing newspaper BELINDA POPE ([id number]) on 07/02/2025 6:15:47 AM Referred By: Baudilio Murillo Confirmed By: DENI LUDWIG MD 07/02/25 0615 Date Deni Ludwig MD CC: Dr. Jose Miguel Glynn DO; Dr. Ashtyn Gamez MD; Dr. Baudilio Murillo MD Signed Normal [facility] Anion gap in Serum or Plasma Ordered By: Baudilio Murillo on 06-29-2025 Anion gap [Moles/Vol] 11 mmol/L 5-15 [facility] BUN/creatinine ratioOrdered By: Baudilio Murillo on 06-29-2025 Urea nitrogen/Creatinine [Mass ratio] 16.1 mg/mg 10-20 [facility] Bilirubin, totalOrdered By: Baudilio Murillo on 06-29-2025 Bilirubin [Mass/Vol] 0.73 mg/dL 0.00-1.30 [facility] CBC-Complete Blood Cnt No Di ffon 06-29-2025 Erythrocyte distribution width (RBC) [Ratio] 13.5 % Normal 11.6-14.6 [facility] Comment on above: Performed By: #### L 100.0500, L500.4100, L500.4050 ####[facility] [address] [place], [address] Hematocrit (Bld) [Volume fraction] 45.1 % Normal 40-54 [facility] Comment on above: Performed By: #### L 100.0500, L500.4100, L500.4050 ####[facility] [address] [place], [address] Hemoglobin (Bld) [Mass/Vol] 15.2 g/dL Normal 13.0-16.5 [facility] Comment on above: Performed By: #### L 100.0500, L500.4100, L500.4050 ####[facility] [address] [place], [address] MCH (RBC) [Entitic mass] 29.2 pg Normal 27.0-32.0 [facility] Comment on above: Performed By: #### L 100.0500, L500.4100, L500.4050 ####[facility] [address] [place], [address] MCHC (RBC) [Mass/Vol] 33.7 g/dL Normal 32-36 [facility] Comment on above: Performed By: #### L 100.0500, L500.4100, L500.4050 ####[facility] [address] [place], [address] MCV (RBC) [Entitic vol] 86.6 fL Normal 80-94 [facility] Comment on above: Performed By: #### L 100.0500, L500.4100, L500.4050 ####[facility] [address] [place], [address] Platelet mean volume (Bld) [Entitic vol] 9.5 fL Normal 6.2-12.0 [facility] Comment on above: Performed By: #### L 100.0500, L500.4100, L500.4050 ####[facility] [address] [place], [address] Platelets (Bld) [#/Vol] 215 10*3/uL Normal 150-450 [facility] Comment on above: Performed By: #### L 100.0500, L500.4100, L500.4050 ####[facility] [address] [place], [address] RBC (Bld) [#/Vol] 5.21 10*6/uL Normal 4.6-6.2 [facility] Comment on above: Performed By: #### L 100.0500, L500.4100, L500.4050 ####[facility] [address] [place], [address] RDW SD 41.7 fl Normal 35.1-43.9 [facility] Comment on above: Performed By: #### L 100.0500, L500.4100, L500.4050 ####[facility] [address] [place], [address] WBC (Bld) [#/Vol] 7.7 10*3/uL Normal 4.4-11.0 [facility] Comment on above: Performed By: #### L 100.0500, L500.4100, L500.4050 ####[facility] [address] [place], [address] Calculated very low density lipoprotein (VLDL) cholesterol measurementOrdered By: Padilla Terry on 06-29-2025 Calculated very low density lipoprotein (VLDL) cholesterol measurement 16 mg/dL 5-40 [facility] Carbon dioxide, total [Moles /volume] in Central venous bloodOrdered By: Baudilio Murillo on 06-29-2025 CO2 [Moles/Vol] 19.7 mmol/L Low 21.0-32.0 [facility] Chloride assayOrdered By: Sa kimberly Murillo on 06-29-2025 Chloride [Moles/Vol] 109 mmol/L High 98-108 [facility] Comprehensive Metabolic Prof ilon 06-29-2025 Albumin [Mass/Vol] 3.7 g/dL Normal 3.4-4.8 [facility] Comment on above: Performed By: #### L 100.0500, L500.4100, L500.4050 ####[facility] [address] [place], [address] Albumin/Globulin [Mass ratio] 1.7 {ratio} Normal 0.9-2.4 [facility] Comment on above: Performed By: #### L 100.0500, L500.4100, L500.4050 ####[facility] [address] [place], [address] ALK PHOS 60 U/L Normal 40-129 [facility] Comment on above: Performed By: #### L 100.0500, L500.4100, L500.4050 ####[facility] [address] [place], [address] ALT [Catalytic activity/Vol] 30 U/L Normal <=46 [facility] Comment on above: Performed By: #### L 100.0500, L500.4100, L500.4050 ####[facility] [address] [place], [address] AST [Catalytic activity/Vol] 94 U/L High <=37 [facility] Comment on above: Performed By: #### L 100.0500, L500.4100, L500.4050 ####[facility] [address] [place], [address] Bilirubin [Mass/Vol] 0.73 mg/dL Normal 0.00-1.30 [facility] Comment on above: Performed By: #### L 100.0500, L500.4100, L500.4050 ####[facility] [address] [place], [address] BUN/CRE 16.1 RATIO Normal 10-20 [facility] Comment on above: Performed By: #### L 100.0500, L500.4100, L500.4050 ####[facility] [address] [place], [address] Calcium [Mass/Vol] 8.8 mg/dL Normal 7.6-11.0 [facility] Comment on above: Performed By: #### L 100.0500, L500.4100, L500.4050 ####[facility] [address] [place], [address] Chloride [Moles/Vol] 109 mmol/L High 98-108 [facility] Comment on above: Performed By: #### L 100.0500, L500.4100, L500.4050 ####[facility] [address] [place], [address] CO2 [Moles/Vol] 19.7 mmol/L Low 21.0-32.0 [facility] Comment on above: Performed By: #### L 100.0500, L500.4100, L500.4050 ####[facility] [address] [place], [address] Creatinine [Mass/Vol] 0.92 mg/dL Normal 0.70-1.20 [facility] Comment on above: Performed By: #### L 100.0500, L500.4100, L500.4050 ####[facility] [address] [place], [address] ECRCL 84.44 ml/min Normal 50-250 [facility] Comment on above: Performed By: #### L 100.0500, L500.4100, L500.4050 ####[facility] [address] [place], [address] GAP 11 Normal 5-15 [facility] Comment on above: Performed By: #### L 100.0500, L500.4100, L500.4050 ####[facility] [address] [place], [address] GFR/1.73 sq M.predicted among non-blacks MDRD (S/P/Bld) [Vol rate/Area] 90 mL/min/{1.73_m2} Normal >60 [facility] Comment on above: Result Comment: mL/m in/1.73m2 CKD-EPI Creatinine Equation (2020) Performed By: #### L 100.0500, L500.4100, L500.4050 ####[facility] [address] [place], [address] Globulin (S) [Mass/Vol] 2.2 g/dL Normal 2.2-4.2 [facility] Comment on above: Performed By: #### L 100.0500, L500.4100, L500.4050 ####[facility] [address] [place], [address] Glucose [Mass/Vol] 104 mg/dL High 70-99 [facility] Comment on above: Performed By: #### L 100.0500, L500.4100, L500.4050 ####[facility] [address] [place], [address] Potassium [Moles/Vol] 3.9 mmol/L Normal 3.3-5.1 [facility] Comment on above: Performed By: #### L 100.0500, L500.4100, L500.4050 ####[facility] [address] [place], [address] Sodium [Moles/Vol] 140 mmol/L Normal 133-145 [facility] Comment on above: Performed By: #### L 100.0500, L500.4100, L500.4050 ####[facility] [address] [place], [address] T PROT 5.9 g/dL Normal 5.9-8.4 [facility] Comment on above: Performed By: #### L 100.0500, L500.4100, L500.4050 ####[facility] [address] [place], [address] Urea nitrogen [Mass/Vol] 15 mg/dL Normal 4-19 [facility] Comment on above: Performed By: #### L 100.0500, L500.4100, L500.4050 ####[facility] [address] [place], [address] Discharge Instructionon 06-14 Discharge Instruction [facility] Medical Records Department [address] [place] [address] Instructions for Home/Discharge Instructions 06/29/25 1136 MR#: [id number] Acct: [id number] Name: TEX QUINTEROS Jr. Rep #: [id number] : 1955 69 From: Jose Miguel Glynn DO PCP: Dr. Ashtyn Gamez MD Status:ADM IN Discharge Instructions DC O2, CPAP, BIPAP needs Home O2 Discharge instructions: No Dressing / Incision Discharge Activity: Return to Normal Activity Weight Bearing Status: Full weight bearing Follow Up Care Test Results: Test results from this visit will be discussed in further detail at your follow-up appointment, if applicable. Discharge Plan Admission Admit Date/Time: 06/28/25 11:43 Primary Reason for Your Visit: acute DE Attending Provider: Jose Miguel Glynn Primary Care Provider: Ashtyn Gamez Consulting Providers: Baudilio Murillo; Padilla Terry Discharge Orders/Prescriptions Prescriptions: New lisinopril 5 mg Tablet 5 mg PO DAILY Qty: 30 0RF ticagrelor [Brilinta] 90 mg Tablet 90 mg PO BID Qty: 60 0RF atorvastatin 80 mg Tablet 80 mg PO QHS Qty: 30 0RF metoprolol succinate 25 mg tablet extended release 24 hr 25 mg PO DAILY Qty: 30 0RF Rx Instructions: start on 06/29/25 aspirin 81 mg Tablet,Delayed Release (Dr/Ec) 81 mg PO BREAKFAST Qty: 0 0RF Continued levothyroxine 75 mcg tablet 75 mcg PO DAILY multivitamin [Daily Multi-Vitamin] Tablet 1 tab PO DAILY somaya life probiotic capsule 1 ea PO DAILY cholecalciferol (vitamin D3) [Vitamin D3] 50 mcg (2,000 unit) capsule 50 mcg PO DAILY Referrals / Follow Up: Deni Ludwig MD [Med Staff - Active Staff] - See Referral Note (in two weeks-call this tuesday if you have not heard from the office-tell them you were hospitalized and had a heart stent placed) Ashtyn Gamez MD [Primary Care Provider] - Disposition Disposition (needs filled in before D/C Order can be placed): Home, Self Care 06/29/25 1145 Jose Miguel Glynn DO CC: Dr. Padilla Terry DO; Dr. Ashtyn Gamez MD; Dr. Baudilio Murillo MD Signed Normal [facility] Erythrocyte distribution wid th ratioOrdered By: Baudilio Murillo on 06-29-2025 Erythrocyte distribution width (RBC) [Ratio] 13.5 % 11.6-14.6 [facility] Erythrocyte distribution wid th standard deviationOrdered By: Baudilio Murillo on 06-29-2025 Erythrocyte distribution width (RBC) [Ratio] 41.7 fl 35.1-43.9 [facility] Glomerular filtration rate ( GFR) estimation/1.73 sq m using serum, plasma, or whole bOrdered By: Baudilio Murillo on 06-29-2025 GFR/1.73 sq M.predicted among non-blacks MDRD (S/P/Bld) [Vol rate/Area] 90 mL/min/{1.73_m2} >60 [facility] Comment on above: mL/min/1.73m2 CKD-EP I Creatinine Equation (2020) Hematocrit Auto (Bld) [Volum e fraction]Ordered By: Baudilio Murillo on 06-29-2025 Hematocrit (Bld) [Volume fraction] 45.1 % 40-54 [facility] Hemoglobin measurementOrdere d By: Baudilio Murillo on 06-29-2025 Hemoglobin (Bld) [Mass/Vol] 15.2 g/dL 13.0-16.5 [facility] LDL calc ser/plasOrdered By: Padilla Terry on 06-29-2025 Cholesterol in LDL [Mass/Vol] 102 mg/dL [facility] Comment on above: Mzmvlakbgl=353-205 m g/dL & Higher Xuvq=148 mg/dL or greaterFriedwald Equation for LDL-C Laboratory - Chemistry and C hemistry - challengeOrdered By: Baudilio Murillo on 06-29-2025 AST [Catalytic activity/Vol] 94 U/L High <38 [facility] Lipid Profileon 06-29-2025 CHOL:HDL 4.50 Normal [facility] Comment on above: Performed By: #### L 100.0500, L500.4100, L500.4050 ####[facility] [address] [place], [place], [address] Cholesterol [Mass/Vol] 152 mg/dL Normal <=200 [facility] Comment on above: Result Comment: Chol esterol level, Desirable <200 mg/dL Borderline high cholesterol 200-239 mg/dL High cholesterol >=240 mg/dL Recommendations of the NCEP Adult Treatment Panel for the following risk-cutoff thresholds for the [place] population. Performed By: #### L 100.0500, L500.4100, L500.4050 ####[facility] [address] [place], [address] Cholesterol in HDL [Mass/Vol] 34 mg/dL Low [facility] Comment on above: Result Comment: Kelsey onal Cholesterol Education Program (NCEP) guidelines: <40 mg/dL: Low HDL-cholesterol (major risk factor for CHD) >= 60 mg/dL: High HDL-cholesterol (negative risk factor for CHD) HDL-cholesterol is affected by a number of factors, e.g. smoking, exercise, hormones, sex and age. Performed By: #### L 100.0500, L500.4100, L500.4050 ####[facility] [address] [place], [address] Cholesterol in LDL [Mass/Vol] 102 mg/dL Normal [facility] Comment on above: Result Comment: Bord mnbndz=937-193 mg/dL Higher Fpng=717 mg/dL or greater Friedwald Equation for LDL-C Performed By: #### L 100.0500, L500.4100, L500.4050 ####[facility] [address] [place], [address] Cholesterol in VLDL [Mass/Vol] 16 mg/dL Normal 5-40 [facility] Comment on above: Performed By: #### L 100.0500, L500.4100, L500.4050 ####[facility] [address] [place], [address] Triglyceride [Mass/Vol] 82 mg/dL Normal [facility] Comment on above: Result Comment: The drugs N-Acetylcysteine and Metamizole may falsely depress this assay. Normal range: <150 mg/dL Borderline High: 150-199 mg/dL High: 200-499 mg/dL Very High: >500 mg/dL Performed By: #### L 100.0500, L500.4100, L500.4050 ####[facility] [address] [place], [address] MCV (mean corpuscular volume ) determinationOrdered By: Baudilio Murillo on 06-29-2025 MCV (RBC) [Entitic vol] 86.6 fL 80-94 [facility] Mean corpuscular hemoglobin (MCH) determinationOrdered By: Baudilio Murillo on 06-29-2025 MCH (RBC) [Entitic mass] 29.2 pg 27.0-32.0 [facility] Mean corpuscular hemoglobin concentration (MCHC) determinationOrdered By: Baudilio Murillo on 06-29-2025 MCHC (RBC) [Mass/Vol] 33.7 g/dL 32-36 [facility] Mean platelet volume determi nationOrdered By: Baudilio Murillo on 06-29-2025 Platelet mean volume (Bld) [Entitic vol] 9.5 fL 6.2-12.0 [facility] Platelet countOrdered By: Sa kimberly Murillo on 06-29-2025 Platelets (Bld) [#/Vol] 215 10*3/uL 150-450 [facility] Potassium measurement (mass/ volume)Ordered By: Baudilio Murillo on 06-29-2025 Potassium (Unsp spec) [Mass/Vol] 3.9 mmol/L 3.3-5.1 [facility] RBC Auto (Bld) [#/Vol]Ordere d By: Baudilio Murillo on 06-29-2025 RBC (Bld) [#/Vol] 5.21 10*6/uL 4.6-6.2 [facility] Screening total cholesterol/ high density lipoprotein (HDL) cholesterol ratioOrdered By: Padilla Terry on 06-29-2025 Cholesterol.total/Marion sterol in HDL [Mass ratio] 4.50 {ratio} [facility] Serum creatinine measurement (mass/volume)Ordered By: Baudilio Murillo on 06-29-2025 Creatinine [Mass/Vol] 0.92 mg/dL 0.70-1.20 [facility] Serum globulin measurementOr dered By: Baudilio Murillo on 06-29-2025 Globulin (S) [Mass/Vol] 2.2 g/dL 2.2-4.2 [facility] Serum glucose measurement (m ass/volume)Ordered By: Baudilio Murillo on 06-29-2025 Glucose [Mass/Vol] 104 mg/dL High 70-99 [facility] Serum or plasma alanine james otransferase (ALT) measurementOrdered By: Baudilio Murillo on 06-29-2025 ALT [Catalytic activity/Vol] 30 U/L <47 [facility] Serum or plasma albumin jody urement (mass/volume)[facility] Albumin [Mass/Vol] 3.7 g/dL 3.4-4.8 [facility] Serum or plasma albumin/glob ulin mass ratioOrdered By: [facility] on 06-29-2025 Albumin/Globulin [Mass ratio] 1.7 {ratio} 0.9-2.4 [facility] Serum or plasma alkaline flash sphatase measurementOrdered By: [facility] on 06-29-2025 ALP [Catalytic activity/Vol] 60 U/L 40-129 [facility] Serum or plasma calcium jody urement (mass/volume)Ordered By: [facility] on 06-29-2025 Calcium [Mass/Vol] 8.8 mg/dL 7.6-11.0 [facility] Serum or plasma cholesterol in HDL measurement (mass/volume)Ordered By: Padilla Terry on 06-29-2025 Cholesterol in HDL [Mass/Vol] 34 mg/dL Low >40 [facility] Comment on above: National Cholesterol Education Program (NCEP) guidelines:<40 mg/dL: Low HDL-cholesterol (major risk factor for CHD)>= 60 mg/dL: High HDL-cholesterol (negative risk factor for CHD)HDL-cholesterol is affected by a number of factors, e.g. smoking, exercise, hormones, sex and age. Serum or plasma cholesterol measurement (mass/volume)Ordered By: Padilla Terry on 06-29-2025 Cholesterol [Mass/Vol] 152 mg/dL <201 [facility] Comment on above: Cholesterol level, D esirable <200 mg/dLBorderline high cholesterol 200-239 mg/dLHigh cholesterol >=240 mg/dLRecommendations of the NCEP Adult Treatment Panel for the following risk-cutoff thresholds for the [place] population. Serum or plasma urea nitroge n measurement (mass/volume)Ordered By: [facility] Urea nitrogen [Mass/Vol] 15 mg/dL 4-19 [facility] Sodium levelOrdered By: [facility] on 06-29-2025 Sodium [Moles/Vol] 140 mmol/L 133-145 [facility] Total proteinOrdered By: Deon wilson Lidia on 06-29-2025 Protein [Mass/Vol] 5.9 g/dL 5.9-8.4 [facility] Triglycerides measurementOrd ered By: Padilla Terry on 06-29-2025 Triglyceride [Mass/Vol] 82 mg/dL <199 [facility] Comment on above: The drugs N-Acetylcy steine and Metamizole may falsely depress this assay. Normal range: <150 mg/dLBorderline High: 150-199 mg/dLHigh: 200-499 mg/dLVery High: >500 mg/dL White blood cell (WBC) count Ordered By: Baudilio Murillo on 06-29-2025 WBC (Bld) [#/Vol] 7.7 10*3/uL 4.4-11.0 [facility] 12 Lead EKGon 06-28-2025 12 Lead EKG [facility] Cardiovascular Services [address] [place] [address] 12 Lead EKG 06/28/25 1005 MR#: [id number] Acct: [id number] Name: TEX QUINTEROS JrDesean Rep #: [id number] : 1955 69 From: Deni Ludwig MD Attending Dr: Dr. Jose Miguel Glynn, Status: D IS IN Ordering Dr: Baudilio Murillo MD Date: 06/28/25 Location: ICU Sex: M C Admitted: 06/28/25 Test Reason : post cath stemi Blood Pressure : */* mmHG Vent. Rate : 55 BPM Atrial Rate : 55 BPM P-R Int : 168 ms QRS Dur : 80 ms QT Int : 418 ms P-R-T Axes : 68 74 21 degrees QTcB Int : 399 ms Sinus bradycardia Nonspecific ST abnormality Abnormal ECG When compared with ECG of 28-Jun-2025 07:46, MANUAL COMPARISON REQUIRED DATA IS UNCONFIRMED Confirmed by DENI LUDWIG MD ([id number]), editor managing newspaper BELINDA POPE ([id number]) on 07/02/2025 6:17:16 AM Referred By: Baudilio Murillo Confirmed By: DENI LUDWIG MD 07/02/25 0617 Date Deni Ludwig MD CC: Dr. Jose Miguel Glynn DO; Dr. Ashtyn Gamez MD; Dr. Baudilio Murillo MD Signed Normal [facility] 12 Lead EKG [facility] Cardiovascular Services [address] [place] [address] 12 Lead EKG 06/28/25 0746 MR#: [id number] Acct: [id number] Name: TEX QUINTEROS Jr. Rep #: [id number] : 1955 69 From: Deni Ludwig MD Attending Dr: Dr. Jose Miguel Glynn DO Status: D IS IN Ordering Dr: Gage Woodson MD Date: 06/28/25 Location: ICU Sex: M C Admitted: 06/28/25 Test Reason : CP Blood Pressure : */* mmHG Vent. Rate : 55 BPM Atrial Rate : 55 BPM P-R Int : 148 ms QRS Dur : 72 ms QT Int : 418 ms P-R-T Axes : 34 70 34 degrees QTcB Int : 399 ms Critical Test Result: STEMI Sinus bradycardia with sinus arrhythmia ST elevation consider anterolateral injury or acute infarct ACUTE DE / STEMI Abnormal ECG Confirmed by OZIEL COKER, DENI ([id number]), editor managing newspaper CESAR WALLIS ([id number]) on 07/01/2025 9:13:48 AM Referred By: Baudilio Murillo Confirmed By: DENI LUDWIG MD 07/01/25 0913 Date Deni Ludwig MD CC: Dr. Jose Miguel Glynn DO; Dr. Ashtyn Gamez MD; Dr. Baudilio Murillo MD; Dr. Gage Woodson MD Signed [facility] ACT Activated Clotting Timeo n 06-28-2025 ACTk CLOT TIME 291 sec High 74-137 [facility] Comment on above: Performed By: #### L 9100.0100 #### [facility] [address] [place], [place], [address] ACTk CLOT TIME 227 sec High 74-137 [facility] Comment on above: Performed By: #### L 9100.0100 #### [facility] [address] [place], [place], [address] ACTk CLOT TIME 182 sec High 74-137 [facility] Comment on above: Performed By: #### L 9100.0100 #### [facility] [address] [place], [place], [address] Absolute lymphocyte countOrd ered By: Samer Lidia on 06-28-2025 Lymphocytes Auto (Unsp spec) [#/Vol] 0.95 10*3/uL 0.83-4.51 [facility] Absolute lymphocyte countOrd ered By: Gage Woodson on 06-28-2025 Lymphocytes Auto (Unsp spec) [#/Vol] 1.81 10*3/uL 0.83-4.51 [facility] Absolute neutrophil countOrd ered By: Samer Azouz on 06-28-2025 Neutrophils (Bld) [#/Vol] 8.0 10*3/uL High 2.0-7.7 [facility] Absolute neutrophil countOrd ered By: Gage Woodson on 06-28-2025 Neutrophils (Bld) [#/Vol] 3.1 10*3/uL 2.0-7.7 [facility] Activated partial thrombopla stin time (aPTT) in platelet poor plasma by coagulation aOrdered By: Samer Azomandi on 06-28-2025 aPTT Coag (PPP) [Time] 176.2 s Critically high 24.1-36. 2 [facility] Activated partial thrombopla stin time (aPTT) in platelet poor plasma by coagulation aOrdered By: Gage Woodson on 06-28-2025 aPTT Coag (PPP) [Time] 25.8 s 24.1-36.2 [facility] Anion gap in Serum or Plasma Ordered By: Gage Woodson on 06-28-2025 Anion gap [Moles/Vol] 10 mmol/L 03-28 [facility] Automated lymphocyte count a s percentage of total leukocytesOrdered By: Baudilio Lidia on 06-28-2025 Lymphocytes/100 WBC Auto (Unsp spec) 10.3 % Low [facility] Automated lymphocyte count a s percentage of total leukocytesOrdered By: Gage Woodson on 06-28-2025 Lymphocytes/100 WBC Auto (Unsp spec) 32.3 % [facility] BUN/creatinine ratioOrdered By: Gage Woodson on 06-28-2025 Urea nitrogen/Creatinine [Mass ratio] 18.5 mg/mg 09-02 [facility] Basic Metabolic Profile (BMP )on 06-28-2025 BUN/CRE 19.0 RATIO Normal 09-02 [facility] Comment on above: Order Comment: If no t obtained within the previous 24 hours Performed By: #### L 500.2500, L300.3900, L501.4021, L100.0100, L300.4310 ####[facility] [address] [place], [address] Calcium [Mass/Vol] 8.9 mg/dL Normal 7.6-11.0 [facility] Comment on above: Order Comment: If no t obtained within the previous 24 hours Performed By: #### L 500.2500, L300.3900, L501.4021, L100.0100, L300.4310 ####[facility] [address] [place], [address] Chloride [Moles/Vol] 107 mmol/L Normal 98-108 [facility] Comment on above: Order Comment: If no t obtained within the previous 24 hours Performed By: #### L 500.2500, L300.3900, L501.4021, L100.0100, L300.4310 ####[facility] [address] [place], [address] CO2 [Moles/Vol] 23.3 mmol/L Normal 21.0-32.0 [facility] Comment on above: Order Comment: If no t obtained within the previous 24 hours Performed By: #### L 500.2500, L300.3900, L501.4021, L100.0100, L300.4310 ####[facility] [address] [place], [address] Creatinine [Mass/Vol] 0.87 mg/dL Normal 0.70-1.20 [facility] Comment on above: Order Comment: If no t obtained within the previous 24 hours Performed By: #### L 500.2500, L300.3900, L501.4021, L100.0100, L300.4310 ####[facility] [address] [place], [address] ECRCL 89.29 ml/min Normal 50-250 [facility] Comment on above: Order Comment: If no t obtained within the previous 24 hours Performed By: #### L 500.2500, L300.3900, L501.4021, L100.0100, L300.4310 ####[facility] [address] [place], [address] GAP 8 Normal 5-15 [facility] Comment on above: Order Comment: If no t obtained within the previous 24 hours Performed By: #### L 500.2500, L300.3900, L501.4021, L100.0100, L300.4310 ####[facility] [address] [place], [address] GFR/1.73 sq M.predicted among non-blacks MDRD (S/P/Bld) [Vol rate/Area] 93 mL/min/{1.73_m2} Normal >60 [facility] Comment on above: Order Comment: If no t obtained within the previous 24 hours Result Comment: mL/m in/1.73m2 CKD-EPI Creatinine Equation (2020) Performed By: #### L 500.2500, L300.3900, L501.4021, L100.0100, L300.4310 ####[facility] [address] [place], [address] Glucose [Mass/Vol] 110 mg/dL High 70-99 [facility] Comment on above: Order Comment: If no t obtained within the previous 24 hours Performed By: #### L 500.2500, L300.3900, L501.4021, L100.0100, L300.4310 ####[facility] [address] [place], [address] Potassium [Moles/Vol] 4.1 mmol/L Normal 3.3-5.1 [facility] Comment on above: Order Comment: If no t obtained within the previous 24 hours Performed By: #### L 500.2500, L300.3900, L501.4021, L100.0100, L300.4310 ####[facility] [address] [place], [address] Sodium [Moles/Vol] 138 mmol/L Normal 133-145 [facility] Comment on above: Order Comment: If no t obtained within the previous 24 hours Performed By: #### L 500.2500, L300.3900, L501.4021, L100.0100, L300.4310 ####[facility] [address] [place], [address] Urea nitrogen [Mass/Vol] 17 mg/dL Normal 4-19 [facility] Comment on above: Order Comment: If no t obtained within the previous 24 hours Performed By: #### L 500.2500, L300.3900, L501.4021, L100.0100, L300.4310 ####[facility] [address] [place], [address] BUN/CRE 18.5 RATIO Normal 10-20 [facility] Comment on above: Performed By: #### L 300.3900, L300.4310, L100.0100, L501.4021, L500.2500 #### [facility] [address] [place], [address] Calcium [Mass/Vol] 9.3 mg/dL Normal 7.6-11.0 [facility] Comment on above: Performed By: #### L 300.3900, L300.4310, L100.0100, L501.4021, L500.2500 #### [facility] [address] [place], [address] Chloride [Moles/Vol] 106 mmol/L Normal 98-108 [facility] [place] Comment on above: Performed By: #### L 300.3900, L300.4310, L100.0100, L501.4021, L500.2500 #### [facility] [address] [place], [address] CO2 [Moles/Vol] 23.8 mmol/L Normal 21.0-32.0 [facility] Comment on above: Performed By: #### L 300.3900, L300.4310, L100.0100, L501.4021, L500.2500 #### [facility] [address] [place], [address] Creatinine [Mass/Vol] 0.98 mg/dL Normal 0.70-1.20 [facility] Comment on above: Performed By: #### L 300.3900, L300.4310, L100.0100, L501.4021, L500.2500 #### [facility] [address] [place], [address] ECRCL 79.27 ml/min Normal 50-250 [facility] Comment on above: Performed By: #### L 300.3900, L300.4310, L100.0100, L501.4021, L500.2500 #### [facility] [address] [place], [address] GAP 10 Normal 5-15 [facility] Comment on above: Performed By: #### L 300.3900, L300.4310, L100.0100, L501.4021, L500.2500 #### [facility] [address] [place], [address] GFR/1.73 sq M.predicted among non-blacks MDRD (S/P/Bld) [Vol rate/Area] 83 mL/min/{1.73_m2} Normal >60 [facility] Comment on above: Result Comment: mL/m in/1.73m2 CKD-EPI Creatinine Equation (2020) Performed By: #### L 300.3900, L300.4310, L100.0100, L501.4021, L500.2500 #### [facility] [address] [place], [address] Glucose [Mass/Vol] 130 mg/dL High 70-99 [facility] Comment on above: Performed By: #### L 300.3900, L300.4310, L100.0100, L501.4021, L500.2500 #### [facility] [address] [place], [address] Potassium [Moles/Vol] 3.5 mmol/L Normal 3.3-5.1 [facility] Comment on above: Performed By: #### L 300.3900, L300.4310, L100.0100, L501.4021, L500.2500 #### [facility] [address] [place], [address] Sodium [Moles/Vol] 140 mmol/L Normal 133-145 [facility] Comment on above: Performed By: #### L 300.3900, L300.4310, L100.0100, L501.4021, L500.2500 #### [facility] [address] [place], [address] Urea nitrogen [Mass/Vol] 18 mg/dL Normal 4-19 [facility] Comment on above: Performed By: #### L 300.3900, L300.4310, L100.0100, L501.4021, L500.2500 #### [facility] [address] [place], [address] Basophil percentageOrdered B y: Baudilio Murillo on 06-28-2025 Basophils/100 WBC (Bld) 0.3 % 0-1 [facility] Basophil percentageOrdered B y: Gage Woodson on 06-28-2025 Basophils/100 WBC (Bld) 0.9 % 0-1 [facility] CBC W/Diff, Automatedon 06-14 Absolute Lymph 0.95 X10 3/uL Normal 0.83-4.51 [facility] Comment on above: Order Comment: Comme nts: If not obtained within the previous 24 hours Performed By: #### L 500.2500, L300.3900, L501.4021, L100.0100, L300.4310 #### [facility] [address] [place], [address] Absolute Neut 8.0 X10 3/uL High 2.0-7.7 [facility] Comment on above: Order Comment: Comme nts: If not obtained within the previous 24 hours Performed By: #### L 500.2500, L300.3900, L501.4021, L100.0100, L300.4310 #### [facility] [address] [place], [address] Basophils/100 WBC (Bld) 0.3 % Normal 0-1 [facility] Comment on above: Order Comment: Comme nts: If not obtained within the previous 24 hours Performed By: #### L 500.2500, L300.3900, L501.4021, L100.0100, L300.4310 #### [facility] [address] [place], [address] Eosinophils/100 WBC (Bld) 0.5 % Normal 0-5 [facility] Comment on above: Order Comment: Comme nts: If not obtained within the previous 24 hours Performed By: #### L 500.2500, L300.3900, L501.4021, L100.0100, L300.4310 #### [facility] [address] [place], [address] Erythrocyte distribution width (RBC) [Ratio] 13.2 % Normal 11.6-14.6 [facility] Comment on above: Order Comment: Comme nts: If not obtained within the previous 24 hours Performed By: #### L 500.2500, L300.3900, L501.4021, L100.0100, L300.4310 #### [facility] [address] [place], [address] Hematocrit (Bld) [Volume fraction] 45.2 % Normal 40-54 [facility] Comment on above: Order Comment: Comme nts: If not obtained within the previous 24 hours Performed By: #### L 500.2500, L300.3900, L501.4021, L100.0100, L300.4310 #### [facility] [address] [place], [address] Hemoglobin (Bld) [Mass/Vol] 15.6 g/dL Normal 13.0-16.5 [facility] Comment on above: Order Comment: Comme nts: If not obtained within the previous 24 hours Performed By: #### L 500.2500, L300.3900, L501.4021, L100.0100, L300.4310 #### [facility] [address] [place], [address] IG% 0.300 Normal 0.0-0.9 [facility] Comment on above: Order Comment: Comme nts: If not obtained within the previous 24 hours Result Comment: IG% - Immature Granulocytes (promyelocytes, myelocytes and metamyelocytes) > 1% indicates that a LEFT SHIFT is Present. Performed By: #### L 500.2500, L300.3900, L501.4021, L100.0100, L300.4310 #### [facility] [address] [place], [address] Lymphocytes/100 WBC (Bld) 10.3 % Low 19-41 [facility] Comment on above: Order Comment: Comme nts: If not obtained within the previous 24 hours Performed By: #### L 500.2500, L300.3900, L501.4021, L100.0100, L300.4310 #### [facility] [address] [place], [address] MCH (RBC) [Entitic mass] 29.5 pg Normal 27.0-32.0 [facility] Comment on above: Order Comment: Comme nts: If not obtained within the previous 24 hours Performed By: #### L 500.2500, L300.3900, L501.4021, L100.0100, L300.4310 #### [facility] [address] [place], [address] MCHC (RBC) [Mass/Vol] 34.5 g/dL Normal 32-36 [facility] Comment on above: Order Comment: Comme nts: If not obtained within the previous 24 hours Performed By: #### L 500.2500, L300.3900, L501.4021, L100.0100, L300.4310 #### [facility] [address] [place], [address] MCV (RBC) [Entitic vol] 85.4 fL Normal 80-94 [facility] Comment on above: Order Comment: Comme nts: If not obtained within the previous 24 hours Performed By: #### L 500.2500, L300.3900, L501.4021, L100.0100, L300.4310 #### [facility] [address] [place], [address] Monocytes/100 WBC (Bld) 2.5 % Normal 0-10 [facility] Comment on above: Order Comment: Comme nts: If not obtained within the previous 24 hours Performed By: #### L 500.2500, L300.3900, L501.4021, L100.0100, L300.4310 #### [facility] [address] [place], [address] Neutrophils/100 WBC (Bld) 86.1 % High 47-70 [facility] Comment on above: Order Comment: Comme nts: If not obtained within the previous 24 hours Performed By: #### L 500.2500, L300.3900, L501.4021, L100.0100, L300.4310 #### [facility] [address] [place], [address] Nucleated RBC (Bld) [#/Vol] 0 10*3/uL Normal 0-5 [facility] Comment on above: Order Comment: Comme nts: If not obtained within the previous 24 hours Performed By: #### L 500.2500, L300.3900, L501.4021, L100.0100, L300.4310 #### [facility] [address] [place], [address] Platelet mean volume (Bld) [Entitic vol] 9.0 fL Normal 6.2-12.0 [facility] Comment on above: Order Comment: Comme nts: If not obtained within the previous 24 hours Performed By: #### L 500.2500, L300.3900, L501.4021, L100.0100, L300.4310 #### [facility] [address] [place], [address] Platelets (Bld) [#/Vol] 220 10*3/uL Normal 150-450 [facility] Comment on above: Order Comment: Comme nts: If not obtained within the previous 24 hours Performed By: #### L 500.2500, L300.3900, L501.4021, L100.0100, L300.4310 #### [facility] [address] [place], [address] RBC (Bld) [#/Vol] 5.29 10*6/uL Normal 4.6-6.2 [facility] Comment on above: Order Comment: Comme nts: If not obtained within the previous 24 hours Performed By: #### L 500.2500, L300.3900, L501.4021, L100.0100, L300.4310 #### [facility] [address] [place], [address] RDW SD 40.9 fl Normal 35.1-43.9 [facility] Comment on above: Order Comment: Comme nts: If not obtained within the previous 24 hours Performed By: #### L 500.2500, L300.3900, L501.4021, L100.0100, L300.4310 #### [facility] [address] [place], [address] WBC (Bld) [#/Vol] 9.2 10*3/uL Normal 4.4-11.0 [facility] Comment on above: Order Comment: Comme nts: If not obtained within the previous 24 hours Performed By: #### L 500.2500, L300.3900, L501.4021, L100.0100, L300.4310 #### [facility] [address] [place], [address] Absolute Lymph 1.81 X10 3/uL Normal 0.83-4.51 [facility] Comment on above: Performed By: #### L 300.3900, L300.4310, L100.0100, L501.4021, L500.2500 #### [facility] [address] [place], [address] Absolute Neut 3.1 X10 3/uL Normal 2.0-7.7 [facility] Comment on above: Performed By: #### L 300.3900, L300.4310, L100.0100, L501.4021, L500.2500 #### [facility] [address] [place], [address] Basophils/100 WBC (Bld) 0.9 % Normal 0-1 [facility] Comment on above: Performed By: #### L 300.3900, L300.4310, L100.0100, L501.4021, L500.2500 #### [facility] [address] [place], [address] Eosinophils/100 WBC (Bld) 5.2 % High 0-5 [facility] Comment on above: Performed By: #### L 300.3900, L300.4310, L100.0100, L501.4021, L500.2500 #### [facility] [address] [place], [address] Erythrocyte distribution width (RBC) [Ratio] 13.2 % Normal 11.6-14.6 [facility] Comment on above: Performed By: #### L 300.3900, L300.4310, L100.0100, L501.4021, L500.2500 #### [facility] [address] [place], [address] Hematocrit (Bld) [Volume fraction] 46.8 % Normal 40-54 [facility] Comment on above: Performed By: #### L 300.3900, L300.4310, L100.0100, L501.4021, L500.2500 #### [facility] [address] [place], [address] Hemoglobin (Bld) [Mass/Vol] 15.9 g/dL Normal 13.0-16.5 [facility] Comment on above: Performed By: #### L 300.3900, L300.4310, L100.0100, L501.4021, L500.2500 #### [facility] [address] [place], [address] IG% 0.200 Normal 0.0-0.9 [facility] Comment on above: Result Comment: IG% - Immature Granulocytes (promyelocytes, myelocytes and metamyelocytes) > 1% indicates that a LEFT SHIFT is Present. Performed By: #### L 300.3900, L300.4310, L100.0100, L501.4021, L500.2500 #### [facility] [address] [place], [address] Lymphocytes/100 WBC (Bld) 32.3 % Normal 19-41 [facility] Comment on above: Performed By: #### L 300.3900, L300.4310, L100.0100, L501.4021, L500.2500 #### [facility] [address] [place], [address] MCH (RBC) [Entitic mass] 29.3 pg Normal 27.0-32.0 [facility] Comment on above: Performed By: #### L 300.3900, L300.4310, L100.0100, L501.4021, L500.2500 #### [facility] [address] [place], [address] MCHC (RBC) [Mass/Vol] 34.0 g/dL Normal 32-36 [facility] Comment on above: Performed By: #### L 300.3900, L300.4310, L100.0100, L501.4021, L500.2500 #### [facility] [address] [place], [address] MCV (RBC) [Entitic vol] 86.2 fL Normal 80-94 [facility] Comment on above: Performed By: #### L 300.3900, L300.4310, L100.0100, L501.4021, L500.2500 #### [facility] [address] [place], [address] Monocytes/100 WBC (Bld) 6.8 % Normal 0-10 [facility] Comment on above: Performed By: #### L 300.3900, L300.4310, L100.0100, L501.4021, L500.2500 #### [facility] [address] [place], [address] Neutrophils/100 WBC (Bld) 54.6 % Normal 47-70 [facility] Comment on above: Performed By: #### L 300.3900, L300.4310, L100.0100, L501.4021, L500.2500 #### [facility] [address] [place], [address] Nucleated RBC (Bld) [#/Vol] 0 10*3/uL Normal 0-5 [facility] Comment on above: Performed By: #### L 300.3900, L300.4310, L100.0100, L501.4021, L500.2500 #### [facility] [address] [place], [address] Platelet mean volume (Bld) [Entitic vol] 9.0 fL Normal 6.2-12.0 [facility] Comment on above: Performed By: #### L 300.3900, L300.4310, L100.0100, L501.4021, L500.2500 #### [facility] [address] [place], [address] Platelets (Bld) [#/Vol] 220 10*3/uL Normal 150-450 [facility] Comment on above: Performed By: #### L 300.3900, L300.4310, L100.0100, L501.4021, L500.2500 #### [facility] [address] [place], [address] RBC (Bld) [#/Vol] 5.43 10*6/uL Normal 4.6-6.2 [facility] Comment on above: Performed By: #### L 300.3900, L300.4310, L100.0100, L501.4021, L500.2500 #### [facility] [address] [place], [address] RDW SD 40.7 fl Normal 35.1-43.9 [facility] Comment on above: Performed By: #### L 300.3900, L300.4310, L100.0100, L501.4021, L500.2500 #### [facility] [address] [place], [address] WBC (Bld) [#/Vol] 5.6 10*3/uL Normal 4.4-11.0 [facility] Comment on above: Performed By: #### L 300.3900, L300.4310, L100.0100, L501.4021, L500.2500 #### [facility] [address] [place], [address] CVS/PCIREPORTon 06-28-2025 CVS/PCIREPORT [facility] Cardiovascular Services [address] [facility] [place] [address] MR#: [id number] Acct: [id number] Name: TEX QUINTEROS JrDesean Rep #: [id number] : 1955 69 From: Baudilio Murillo MD Primary Care: Dr. Ashtyn Gamez MD Status: ADM IN Referring Dr: Baudilio Murillo MD Sex: M C ADDENDUM by Dr. Baudilio Murillo MD on 06/28/25 at 0953 Addendum Contrast used???Isovue 240 cc Radiation 878.5 mgy 06/28/25 0953 Date Baudilio Murillo MD cc: Dr. Ashtyn Gamez MD; Dr. Baudilio Murillo MD * Signed PCI Cardiac Cath Report PCI Report: Procedures #1 left heart catheterization #2 coronary angiography #3 left ventriculography #4 PCI with drug-eluting stent to the proximal and mid LAD with a kissing balloon angioplasty to the second diagonal branch #5 right radial artery approach #6 conscious sedation Construction Supervisor/Carpenter Dr Baudilio Murillo MD [facility] Sedation Administered via licensed practitioner under my supervision, 1 mg of Versed 50 mcg of fentanyl which was repeated once Indication for procedure Acute anterior wall STEMI with stuttering pain of at least 12 hours however the acute pain that was persistent 10 out of 10 occurred this a.m. while biking induced by exercise Technique of the diagnostic procedure Using JR4, 5 Cymraes pigtail catheter, an XB 3.06 Cymraes guiding catheter, the procedure was performed. Multiple views of the coronary arteries were obtained and aortic valve was crossed with 5 Cymraes pigtail for left ventriculogram as well as measuring L ventricular end-diastolic pressure and a pullback technique to measure the AV gradient. Hemodynamics Left ventricular end-diastolic pressure at the beginning of procedure was 32 mmHg and towards the end of procedure 27 mmHg. Systemic pressure 104/54, no pressure gradient appreciated across aortic valve Angiographic findings Left main???large-caliber vessel with distal 20-30% stenosis at the bifurcation Left anterior descending artery???large caliber vessel with a small first diagonal branch and large septal nurses superintendent then the LAD is 100% occluded with GEORGETTE 0 flow distally prior to the origin of the second large diagonal branch, the later has an ostial 90% stenosis and mid LAD has 3 tandem lesions of 50% stenosis all hazy appearing suggestive of an active soft plaque Left circumflex???large caliber vessel with a large first marginal branch without stenosis and a moderate size second appears manage branch without stenosis Right coronary artery???large dominant vessel with an ostial 30% stenosis and a mid 30% stenosis and distally a large PDA and a large bifurcating PLV without stenosis Left ventriculogram???was performed at the end of procedure in the HAWTHORNE projection revealing normal- sized ventricle with mild to moderate systolic dysfunction EF around 40 to 45% Technique of the interventional procedure Appropriate AUC criteria???met Anticoagulation???hep clau to maintain therapeutic ACT throughout the procedure time, at the end of the case ACT 227 seconds Antiplatelet???pretre atment with aspirin 325 mg and 180 mg of ticagrelor and 2 boluses of Integrilin Guide catheter???XB 3.06 Cymraes Guide wired???0.014 run-through in both LAD and diagonal branch Initially we performed a balloon dilatation with a 2.5 x 12 mm to the mid LAD restoring GEORGETTE-3 flow after the balloon was inflated twice up to 6 claudette and deflated quickly and then it was apparent that the ostial second diagonal branch has a 95% stenosis and we performed a Cutting Balloon angioplasty to the ostial diagonal branch with a 2.5 x 10 mm cutting balloon Lillie from [employer] up to 6 claudette inflated for 30 seconds twice and then we deployed 2 overlapping drug-eluting stent to cover the entire diseased segment of the mid LAD and the proximal LAD 3.5 x 38 mm proximally from Medtronic frontier stent up to 14 claudette after pulling the guidewire from the diagonal branch and then distally a 3.5 x 26 mm Medtronic stent up to 14 claudette and then postdilated the entire stented segment with a 4.0 mm noncompliant balloon up to 14 claudette however at the ostial diagonal branch we performed a kissing balloon angioplasty with a 2.5 x 12 mm noncompliant balloon in the diagonal branch and a 4.0 mm noncompliant balloon in the LAD simultaneously up to 12 claudette resulting in excellent angiographic results and 0 % residual l stenosis and GEORGETTE-3 flow distally in both LAD and diagonal branch. It is worth mentioning there was an area just distal to the diagonal branch with slight stent underexpansion for which we inflated a 4.0 x 12 mm noncompliant balloon up to 20 claudette resulting in 0% stenosis and excellent angiographic results. Conclusions 1- 100% occlusion of the proximal LAD in the setting of an anterior wall STEMI and GEORGETTE 0 flow along with ostial second diagonal branc (more content not included)... Normal [facility] Carbon dioxide, total [Moles /volume] in Central venous bloodOrdered By: Gage Woodson on 06-28-2025 CO2 [Moles/Vol] 23.8 mmol/L 21.0-32.0 [facility] Cardiac catheterization repo rtOrdered By: Baudilio Murillo on 06-28-2025 Cardiac catheterization study [facility] Cardiovascular Services [address] [place] [address] MR#: [id number] Acct: [id number] Name: TEX QUINTEROS Jr. Rep #: [id number] : 1955 69 From: Baudilio Murillo MD Primary Care: Dr. Ashtyn Gamez MD atus: ADM IN Referring Dr: Baudilio Murillo MD Sex: M C ADDENDUM by Dr. Baudilio Murillo MD on 06/28/25 at 0953 Addendum Contrast used?Isovue 240 cc Radiation 878.5 mgy 06/28/25 0953 Date _ Baudilio Murillo MD cc: Dr. Ashtyn Gamez MD; Dr. Baudilio Murillo MD ~* Signed PCI Cardiac Cath Report PCI Report: Procedures #1 left heart catheterization #2 coronary angiography #3 left ventriculography #4 PCI with drug-eluting stent to the proximal and mid LAD with a kissing balloon angioplasty to the second diagonal branch #5 right radial artery approach #6 conscious sedation Construction Supervisor/Carpenter Dr Baudilio Murillo MD [facility] Sedation Administered via licensed practitioner under my supervision, 1 mg of Versed 50 mcg of fentanyl which was repeated once Indication for procedure Acute anterior wall STEMI with stuttering pain of at least 12 hours however the acute pain that was persistent 10 out of 10 occurred this a.m. while biking induced by exercise Technique of the diagnostic procedure Using JR4, 5 Cymraes pigtail catheter, an XB 3.06 Cymraes guiding catheter, the procedure was performed. Multiple views of the coronary arteries were obtained and aortic valve was crossed with 5 Cymraes pigtail for left ventriculogram as well as measuring L ventricular end-diastolic pressure and a pullback technique to measure the AV gradient. Hemodynamics Left ventricular end-diastolic pressure at the beginning of procedure was 32 mmHg and towards the end of procedure 27 mmHg. Systemic pressure 104/54, no pressure gradient appreciated across aortic valve Angiographic findings Left main?large-caliber vessel with distal 20-30% stenosis at the bifurcation Left anterior descending artery?large caliber vessel with a small first diagonalbranch and large septal nurses superintendent then the LAD is 100% occluded with GEORGETTE 0 flow distally prior to the origin of the second large diagonal branch, the laterhas an ostial 90% stenosis and mid LAD has 3 tandem lesions of 50% stenosis all hazy appearing suggestive of an active soft plaque Left circumflex?large caliber vessel with a large first marginal branch without stenosis and a moderate size second appears manage branch without stenosis Right coronary artery?large dominant vessel with an ostial 30% stenosis and a mid 30% stenosis and distally a large PDA and a large bifurcating PLV without stenosis Left ventriculogram?was performed at the end of procedure in the HAWTHORNE projection revealing normal-sized ventricle with mild to moderate systolic dysfunction EF around 40 to 45% Technique of the interventional procedure Appropriate AUC criteria?met Anticoagulation?hepar in to maintain therapeutic ACT throughout the procedure time, at the end of the case ACT 227 seconds Antiplatelet?pretreat ment with aspirin 325 mg and 180 mg of ticagrelor and 2 boluses of Integrilin Guide catheter?XB 3.06 Cymraes Guide wired?0.014 run-through in both LAD and diagonal branch Initially we performed a balloon dilatation with a 2.5 x 12 mm to the mid LAD restoring GEORGETTE-3 flow after the balloon was inflated twice up to 6 claudette and deflated quickly and then it was apparent that the ostial second diagonal branchhas a 95% stenosis and we performed a Cutting Balloon angioplasty to the ostial diagonal branch with a 2.5 x 10 mm cutting balloon Lillie from [employer] up to 6 claudette inflated for 30 seconds twice and then we deployed 2 overlapping drug-eluting stent to cover the entire diseased segment of the mid LAD and the proximal LAD 3.5 x 38 mm proximally from Medtronic frontier stent upto 14 claudette after pulling the guidewire from the diagonal branch and then distallya 3.5 x 26 mm Medtronic stent up to 14 claudette and then postdilated the entire stented segment with a 4.0 mm noncompliant balloon up to 14 claudette however at the ostial diagonal branch we performed a kissing balloon angioplasty with a 2.5 x 12 mm noncompliant balloon in the diagonal branch and a 4.0 mm noncompliant balloon in the LAD simultaneously up to 12 claudette resulting in excellent angiographic results and 0 % residual l stenosis and GEORGETTE-3 flow distally in both LAD and diagonal branch. It is worth mentioning there was an area just distal to the diagonal branch with slight stent underexpansion for which we inflated a 4.0 x 12 mm noncompliant balloon up to 20 claudette resulting in 0% stenosis and excellent angiographic results. Conclusions 1- 100% occlusion of the proximal LAD in the setting of an anterior wall STEMI and GEORGETTE 0 flow along with ostial second diagonal branch 90% stenosis that underwent successful PCI with 2 overlapping drug-eluting stent to the proximal and mid LAD and Cutting Balloon angioplasty to the ostial diagonal branch with final kissing ballo (more content not included)... [facility] Cardiac rehabilitation repor tOrdered By: Emery Quinteros on 06-28-2025 Study report [facility] Cardiac Rehab [address] [place] [address] CR: Phase I Assessment MR#: [id number] Acct: [id number] Name: TEX QUINTEROS Jr. Rep #:[id number] : 1955 69 From: Emery Quinteros PCP: Dr. Ashtyn Gamez MD DOS: Patient Communication Patient Information PHII Cardiac Rehab Discussed with Patient:: Yes Guide to Cardiac Rehab Given to Patient:: Yes Cardiac Rehab Facility Choice List Given to Patient:: Yes Communication to Cardiac Rehab Choice Program [facility] CR PHII:: Communication Given to CR Chief Writer:: Baudilio Murillo Refer Phase II Cardiac Rehab:: Yes Sessions:: 36 sessions - 3 days/wk, 12 weeks Cardiac Rehabilitation Info Program Information Cardiac Rehabilitation Program Information: Cardiac Rehab The cardiac rehab team at [facility] consists of highly skilled exercise physiologists, nurses, respiratory therapists and physicians working together with you. Our purpose is to help you have a full recovery and achieve the goals you set for yourself. Over the years many of our patients have returned to activities they assumed they would never do again! We can help restore your confidence and motivation to make lifestyle changes that can have a significant impact on your health and quality of life! We can help answer questions and concerns you may have about exercise, lifestyle, medications, diet, stress and anxiety which are common following a hospitalization. WE monitor ECG and vital signs during exercise and discuss your progress with you and report toyour physician(s). Cardiac Rehab is proven to help reduce readmissions, improve functional capacityand lower recurrence of problems with your heart. Our Cardiac Rehab program is Certified by the [place] [employer]-Vascular and Pulmonary [employer] (AACVPR) and Accredited by the [place] [employer] through our [facility]. You can contact us at . We invite you to call us with your questions or to get started in our program. If you have other questions or concerns be sure to ask your physician/provider during your follow-up visit. WE look forward to seeing you! 06/28/25 1247 Date Emery W Neli Outcome assessment reviewed. Exercise plan approved as documented. Treatment plan and goals support patient needs/abilities. Continue with current plan. I certify the patient demonstrates improvement and remains willing and capable of participation. the patient continues to benefit from cardiac rehab services/training. The patient may continue at current intensity, endurance andmodality and progress per protocol. Cosigner Signature: Date CC: ~ Signed [facility] Chloride assayOrdered By: Octavio Woodson on 06-28-2025 Chloride [Moles/Vol] 106 mmol/L 98-108 [facility] Consultation - Cardiologyon 06-28-2025 Consultation - Cardiology [facility] Medical Records Department [address] [place] [id number] Consultation - Cardiology 06/28/25 0922 MR#: [id number] Acct: [id number] Name: TEX QUINTEROS Jr. Rep #: [id number] : 1955 69 From: Baudilio Murillo MD PCP: Dr. Ashtyn Gamez MD Status:ADM IN Location: ICU ICU03-1 Assessment Plan Assessment/Plan (1) Acute ST elevation myocardial infarction (STEMI) of anterior wall: PLAN: The patient was given intravenous heparin bolus, aspirin, 1 loading dose of Brilinta 180 mg, ticagrelor and rushed to the car catheterization lab after explaining all the risks involved including but not limited to , myocardial infarction, cerebrovascular accident, and bleeding and he agreed to proceed with it. Will utilize a right radial artery approach The procedure was performed demonstrating total occlusion of the proximal LAD with GEORGETTE 0 flow along with distal left main 30% stenosis and mid RCA 30% stenosis with moderate elevation of intracardiac filling pressures LVEDP 30 mmHg. PCI with drug-eluting stent, 2 overlapping in the mid and proximal LAD in addition to kissing balloon angioplasty to the second diagonal branch was performed with restoring GEORGETTE-3 flow in both LAD and diagonal branch. There was 0% residual stenosis. The patient remained hemodynamically stable not requiring any pressors. He is in no acute respiratory distress. #1 initiate very low-dose beta-blockers if tolerated however the heart rate is in the 50s #2 initiate very low-dose VENTURA inhibitors if tolerated due to low normal blood pressure #3 continue dual and platelet therapy baby aspirin anticoagulant for minimum of 1 year #4 high potency statins for goal LDL less than 55 considering the patient's age #5 echocardiogram for LV systolic function #6 cardiac rehabilitation referral (2) Elevated blood-pressure reading without diagnosis of hypertension: PLAN: Currently BP is lower limits of normal following the intervention for which we will carefully monitor (3) Hypothyroidism: PLAN: Continue Synthroid HPI Consult Data Date of Consult: 06/28/25 HPI Narrative Reason for Consultation: STEMI HPI Narrative: TEX QUINTEROS, is a 69 M who presents chest pain on and off since last night however this morning after biking since the patient has a very active lifestyle and has never had a coronary event, the above symptoms appear to be worrisome and this morning his pain was persistent for which he called 911 and came to the ER where he was found to be an anterior wall STEMI with an injury pattern of at least [address] segment elevation extending from V2 V3 through V6. He continued to have 10 out of 10 chest pain. No syncope associated with it. No significant respiratory distress. He denies any previous coronary event or cerebrovascular event. He denies any TIA-like symptoms. He denies any swelling lower extremities orthopnea or PND. He denies any tobacco or alcohol use. He runs a very active lifestyle and uses only Synthroid for hypothyroidism. He denies any ingestion of coos-koh-zgtqrcw medications. PFSH Allergy/AdvReac Type Severity Reaction Status Date / Time No Known Allergies Allergy Verified 06/28/25 07:52 Family History no significant family his no significant family history Surgical History no surgical history no surgical history Social History household members: spouse Smoking Status: Never smoker ROS ROS Narrative Most of the review of system is nonsignificant and noncontributory to the above Physical Exam Const alert and oriented x3 Orientation / Consciousness: awake HEENT normocephalic and head/scalp atraumatic Eyes PERRL and EOMs intact bilaterally Neck full ROM Carotids: normal carotid upstroke Lymph Lymphatic: no lymphadenopathy noted Chest inspection of chest normal Resp normal respiratory effort and clear to auscultation bilaterally Cardio regular rate and regular rhythm Palpation: normal PMI Rate: bradycardia Rhythm: regular rhythm GI normal to inspection, nondistended, normoactive bowel sounds Palpation: no hepatosplenomegaly no CVA tenderness and external exam normal Back/Spine no CVA tenderness Extremity normal capillary refill, no joint enlargement and no clubbing, cyanosis or edema Skin no rashes or lesions noted Psych mental status grossly normal Risk Stratification Risk Stratification Applicable: No Objective Data Vital Signs: Vital Signs Temp Pulse Resp BP Pulse Ox O2 Del Method 98.8 F 62 18 139/78 H 97 Room Air 06/28/25 07:44 06/28/25 07:44 06/28/25 07:44 06/28/25 07:44 06/28/25 07:44 06/28/25 07:54 Oxygen Delivery Method Room Air Weight: 205 lb 14.588 oz Body Mass Index (BMI) 27.1 Intake Output: Intake and Output for Last 24 Hours (more content not included)... Normal [facility] Echo Completeon 06-28-2025 Echo Complete [facility] Cardiovascular Services [address] [place] [address] Echo Complete 06/28/25 0927 MR#: [id number] Acct: [id number] Name: TEX QUINTEROS Román Brunner Rep #: [id number] : 1955 69 From: Baudilio Murillo MD Attending Dr: Dr. Padilla Terry, DO Status : ADM IN Ordering Dr: Baudilio Murillo MD Date: 06/28/25 Location: ICU Sex: M C Admitted: 06/28/25 Reason For Study Reason For Study: S/P DE Procedure This was a 2D Doppler, Color Flow transthoracic echocardiogram. The patient was scanned supine. Exam performed portable in cath lab tech. Left Ventricle Normal LV size. Normal left ventricular thickness. Diastolic function is indeterminate. The estimated ejection fraction is 50 %. There is moderate hypokinesis involving the mid to distal anterior wall and anterior apical segment. Right Ventricle Normal RV size. Normal systolic function. Atria The left and right atria are normal. Mitral Valve The mitral valve is structurally normal. No prolapse or stenosis seen. Trivial mitral valve insufficiency. Tricuspid Valve Unable to estimate RV systolic pressure due to inadequate jet, pulmonary artery pressure probably normal. Aortic Valve Trisinus/trileaflet aortic valve. With mild sclerosis but no stenosis. Pulmonic Valve Trivial eccentric pulmonic valve insufficiency. Great Vessels Normal sized aortic root. Pericardium/Pleural No pericardial effusion. MMode/2D Measurements Calculations LVIDd: 4.5 cm IVSd: 1.1 cm LVOT diam: 2.2 cm LVIDs: 2.6 cm LVPWd: 1.1 cm LVOT area: 3.7 cm2 RVDd: 3.9 cm FS: 41.4 % LAV(MOD-bp): 51.6 ml LVAd ap4: 26.0 cm2 LVAd ap2: 22.8 cm2 LAV(MOD-bp) Indexed: 23.7 ml/m2 LVLd ap4: 7.8 cm LVLd ap2: 8.4 cm LAV(MOD-sp2): 58.5 ml EDV(MOD-sp4): 71.6 ml EDV(MOD-sp2): 53.2 ml LAV(MOD-sp4): 45.7 ml EDV(sp4-el): 74.0 ml EDV(sp2-el): 52.9 ml LVAs ap4: 15.6 cm2 LVAs ap2: 15.0 cm2 LVLs ap4: 6.8 cm LVLs ap2: 7.3 cm ESV(MOD-sp4): 31.1 ml ESV(MOD-sp2): 26.0 ml ESV(sp4-el): 30.6 ml ESV(sp2-el): 26.3 ml EF(MOD-sp4): 56.6 % EF(MOD-sp2): 51.1 % EF(sp4-el): 58.6 % SV(MOD-sp4): 40.5 ml SV(MOD-sp2): 27.2 ml SV(sp4-el): 43.4 ml SI(MOD-sp4): 18.6 ml/m2 SI(MOD-sp2): 12.5 ml/m2 Ao sinus diam: 3.6 cm LA A4 area: 17.1 cm2 LA dimension(2D): 3.6 cm TAPSE: 2.2 cm RA A4 area: 14.9 cm2 Time Measurements MV dec time: 0.17 sec Doppler Measurements Calculations MV E max princess: 55.8 cm/sec Lat Peak E' Princess: 10.3 cm/sec Med Peak E' Princess: 10.3 cm/sec MV A max princess: 46.9 cm/sec E/E' lat: 5.4 E/E' med: 5.4 MV E/A: 1.2 MV dec slope: 329.7 cm/sec2 Ao V2 max: 91.6 cm/sec LV V1 max: 92.1 cm/sec Ao max P.4 mmHg LV V1 max P.4 mmHg Ao V2 mean: 63.9 cm/sec LV V1 mean P.1 mmHg Ao mean P.8 mmHg LV V1 mean: 67.5 cm/sec Ao V2 VTI: 23.0 cm LV V1 VTI: 22.7 cm AV (velocity ratio): 0.99 DAVID(I,D): 3.7 cm2 DAVID(V,D): 3.7 cm2 SV(LVOT): 84.1 ml PA V2 max: 68.9 cm/sec ECHO/Echo Complete Interpretation Summary Normal LV size. Normal left ventricular thickness. Diastolic function is indeterminate. The estimated ejection fraction is 50 %. There is moderate hypokinesis involving the mid to distal anterior wall and anterior apical segment Normal systolic function. Normal RV size. With mild sclerosis but no stenosis No significant valvular pathology Ordering Physician: Baudilio Murillo Referring Physician: Baudilio Murillo MD Performed By: Kasia Pearl RDCS 06/28/25 1600 Date Baudilio Murillo MD CC: Dr. Padilla Terry DO; Dr. Ashtyn Gamez MD; Dr. 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 [address] Echo Complete 06/28/25926 MR#: [id number] Acct: [id number] Name: TEX QUINTEROS Jr. Rep #:[id number] : 1955 69 From: Baudilio France Attending Dr: Dr. Padilla Terry DO Status: ADM IN Ordering Dr: Baudilio Murillo MD Date: Location: ICU Sex: M C Admitted: 06/28/25 Reason For Study Reason For Study: S/P DE Procedure This was a 2D Doppler, Color Flow transthoracic echocardiogram. The patient was scanned supine. Exam performed portable in cath lab tech. Left Ventricle Normal LV size. Normal left ventricular thickness. Diastolic function is indeterminate. The estimated ejection fraction is 50 %. There is moderate hypokinesis involving the mid to distal anterior walland anterior apical segment. Right Ventricle Normal RV size. Normal systolic function. Atria The left and right atria are normal. Mitral Valve The mitral valve is structurally normal. No prolapse or stenosis seen. Trivial mitral valve insufficiency. Tricuspid Valve Unable to estimate RV systolic pressure due to inadequate jet, pulmonary artery pressure probably normal. Aortic Valve Trisinus/trileaflet aortic valve. With mild sclerosis but no stenosis. Pulmonic Valve Trivial eccentric pulmonic valve insufficiency. Great Vessels Normal sized aortic root. Pericardium/Pleural No pericardial effusion. MMode/2D Measurements & Calculations LVIDd: 4.5 cm IVSd: 1.1 cm LVOT diam: 2.2 cm LVIDs: 2.6 cm LVPWd: 1.1 cm LVOT area: 3.7 cm2 RVDd: 3.9 cm FS: 41.4 % LAV(MOD-bp): 51.6 ml LVAd ap4: 26.0 cm2 LVAd ap2: 22.8 cm2 LAV(MOD-bp) Indexed: 23.7 ml/m2 LVLd ap4: 7.8 cm LVLd ap2: 8.4 cm LAV(MOD-sp2): 58.5 ml EDV(MOD-sp4): 71.6 ml EDV(MOD-sp2): 53.2 ml LAV(MOD-sp4): 45.7 ml EDV(sp4-el): 74.0 ml EDV(sp2-el): 52.9 ml LVAs ap4: 15.6 cm2 LVAs ap2: 15.0 cm2 LVLs ap4: 6.8 cm LVLs ap2: 7.3 cm ESV(MOD-sp4): 31.1 ml ESV(MOD-sp2): 26.0 ml ESV(sp4-el): 30.6 ml ESV(sp2-el): 26.3 ml EF(MOD-sp4): 56.6 % EF(MOD-sp2): 51.1 % EF(sp4-el): 58.6 % SV(MOD-sp4): 40.5 ml SV(MOD-sp2): 27.2 ml SV(sp4-el): 43.4 ml SI(MOD-sp4): 18.6 ml/m2 SI(MOD-sp2): 12.5 ml/m2 Ao sinus diam: 3.6 cm LA A4 area: 17.1 cm2 LA dimension(2D): 3.6 cm TAPSE: 2.2 cm RA A4 area: 14.9 cm2 Time Measurements MV dec time: 0.17 sec Doppler Measurements & Calculations MV E max princess: 55.8 cm/sec Lat Peak E' Princess: 10.3 cm/sec Med Peak E' Princess: 10.3 cm/sec MV A max princess: 46.9 cm/sec E/E' lat: 5.4 E/E' med: 5.4 MV E/A: 1.2 MV dec slope: 329.7 cm/sec2 Ao V2 max: 91.6 cm/sec LV V1 max: 92.1 cm/sec Ao max P.4 mmHg LV V1 max P.4 mmHg Ao V2 mean: 63.9 cm/sec LV V1 mean P.1 mmHg Ao mean P.8 mmHg LV V1 mean: 67.5 cm/sec Ao V2 VTI: 23.0 cm LV V1 VTI: 22.7 cm AV (velocity ratio): 0.99 DAVID(I,D): 3.7 cm2 DAVID(V,D): 3.7 cm2 SV(LVOT): 84.1 ml PA V2 max: 68.9 cm/sec ECHO/Echo Complete Interpretation Summary Normal LV size. Normal left ventricular thickness. Diastolic function is indeterminate. The estimated ejection fraction is 50 %. There is moderate hypokinesis involving the mid to distal anterior wall and anterior apical segment Normal systolic function. Normal RV size. With mild sclerosis but no stenosis No significant valvular pathology Ordering Physician: Baudilio Murillo Referring Physician: Baudilio Murillo MD Performed By: Kasia Pearl RDCS 06/28/251599 Date _ Baudilio Murillo MD CC: Dr. Padilla Terry DO; Dr. Ashtyn Gamez MD; Dr. 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 Rep #: [id number] : 1955 69 From: Gage Woodson MD PCP: Dr. Ashtyn Gamez MD Status:REG ER Location: ED HPI History of Present Illness Chief Complaint: Chest Pain Detail of Chief Complaint: Right parasternal discomfort Informant: patient Onset/Context/Timing Onset: Today and Hours Activity at onset: activity on onset Timing: Continuous Quality: Positive for Dull Location: Right Parasternal Current Severity: Moderate Maximum Severity: Severe Worsened By: Exertion Relieved By: Nothing Associated Symptoms: Positive for Nausea and Diaphoresis; Negative for Vomiting, Dyspnea, Cough, Fever, Lightheadedness, Acid Reflux or Palpitations Narrative Narrative: Patient 69-year-old gentleman with history hypothyroidism who was riding his bicycle when he developed chest discomfort. He has no known history of coronary disease, hypertension, diabetes or hypercholesterolemia. He rides often during the week. He has no other symptoms. Prior Similar Symptoms: No Recent Illness/Hospitalizati on: No CVD Risk Factors: Negative for Hypertension, Diabetes, Hypercholesterolemia, Family History 1' or Smoking PE Risk Factors: Negative for Recent Travel/Surgery, Recent Immobilization, Prior DVT or PE, Cancer or OCP + Smoking + >/=35 TAD Risk Factors: Negative for Marfan's Syndrome, Hypertension or Family History PFSH PFSH Allergy/AdvReac Type Severity Reaction Status Date / Time No Known Allergies Allergy Verified 06/28/25 07:52 Social History (Updated 06/28/25 @ 07:[address] Gage Woodson MD) household members: spouse Smoking Status: Never smoker ROS ROS ED Constitutional Constitutional ED: Denies chills, fever(s) or subjective Eyes Eyes: Reports none ENT ENT ED: Denies rhinorrhea Cardiovascular Cardiovascular: Reports as per HPI; Denies orthopnea Respiratory/Chest Respiratory/Chest: Reports dyspnea; Denies cough, dyspnea on exertion or orthopnea Gastrointestinal Gastrointestinal: Denies abdominal pain, diarrhea, melena or vomiting Genitourinary Genitourinary ED: Denies dysuria or hematuria Musculoskeletal Musculoskeletal: Denies arthralgias, back pain or myalgias Integumentary Denies rash Hematologic/Lymphatic Hematologic/Lymphatic : Denies easy bleeding, easy bruising or lymphadenopathy EXAM Physical Exam Const Positive well nourished and well developed Constitutional Narrative: Patient seems slightly anxious. He is slightly diaphoretic. General Appearance ED: well developed HEENT Reports moist mucous membranes normocephalic and atraumatic Eyes PERRL and EOMs intact bilaterally Neck no lymphadenopathy and no JVD Chest Wall inspection of chest normal and palpation of chest normal Resp normal respiratory effort and clear to auscultation bilaterally Cardio regular rate, regular rhythm, S1 normal heart sound, S2 normal heart sound and no murmurs GI normal to inspection, nondistended, normoactive bowel sounds, soft to palpation and non-tender Extremity normal to inspection General Extremety ED: Negative for edema or pulses abnormal General Extremity: Negative for edema or pulses abnormal Neuro oriented x3 and CN's II-XII intact bilaterally Sensorium / Orientation: awake and alert Psych Mood Affect: anxious Skin no rashes or lesions noted MDM MDM MDM Narrative Medical decision making narrative: Patient had 7 prehospital EKGs. The fourth EKG had hyperacute T waves. First EKG was transmitted did not reveal evidence of a STEMI. EKG that was obtained here has ST elevation with hyperacute T waves V2 through V3 consistent with an anterior DE. There is no reciprocal changes. Patient received 324 mg of aspirin prehospital. He received 180 mg of Brilinta in the emergency department 5000 units of heparin. Spoke with the gizzard puller Dr. Murillo. He asked for us to get to the patient to the [facility] as quick as possible. [facility] notified us at 0753 that they were ready. EKG Initial EKG: Attestation: I personally reviewed and interpreted this EKG as follows: Interpretation: Sinus Rhythm (Acute ST elevation DE anterior leads, hyperacute T waves. There is no reciprocal changes.) Critical Care Time Critical Care Time: Yes Critical care time (excluding procedures): 30-74 minutes (8), Including time spent: (History, physical, documentation, discussion with EMS,), Discussing w/Patient /or Family/Hardwood Floor Installer (Informed of EKG findings and need for [facility]) and Discussing w/Consultants (proofer prepress) Discharge Plan Triage Chief Complaint: Chest Pain ED Provider: Gage Woodson Dx/Rx/DC Orders Clinical Impression: Acute ST elevati (more content not included)... Normal [facility] Eosinophil percentageOrdered By: Baudilio Murillo on 06-28-2025 Eosinophils/100 WBC (Bld) 0.5 % 0-5 [facility] Eosinophil percentageOrdered By: Gage Woodson on 06-28-2025 Eosinophils/100 WBC (Bld) 5.2 % High 0-5 [facility] Erythrocyte distribution wid th ratioOrdered By: Gage Woodson on 06-28-2025 Erythrocyte distribution width (RBC) [Ratio] 13.2 % 11.6-14.6 [facility] Erythrocyte distribution wid th standard deviationOrdered By: Gage Woodson on 06-28-2025 Erythrocyte distribution width (RBC) [Ratio] 40.7 fl 35.1-43.9 [facility] Glomerular filtration rate ( GFR) estimation/1.73 sq m using serum, plasma, or whole bOrdered By: Gage Woodson on 06-28-2025 GFR/1.73 sq M.predicted among non-blacks MDRD (S/P/Bld) [Vol rate/Area] 83 mL/min/{1.73_m2} >60 [facility] Comment on above: mL/min/1.73m2 CKD-EP I Creatinine Equation (2020) H AND P Exam - Hospital[facility] 06-28-2025 H&P Exam - Hospitalist [facility] Medical Records Department [address] [place] [address] H P Exam - Hospitalist 06/28/25 1141 MR#: [id number] Acct: [id number] Name: TEX QUINTEROS Jr. Rep #: [id number] : 1955 69 From: Padilla Terry DO PCP: Dr. Ashtyn Gamez MD Status:ADM IN Location: ICU ICU03-1 HPI - General General Date of Admission: 06/28/25 Date of Service: 06/28/25 Chief Complaint: Chest pain HPI Narrative TEX QUINTEROS, is a 69 M who presented to [facility] ED on 06/28/2025 with chest pain. STEMI alert called in the ED. EKG showed ST elevations with hyperacute T waves in V2 and V3. Vital signs were stable precath. Was taken emergently to the [facility]. Left heart cath showed 100% occlusion of the proximal LAD along with tandem lesions in the mid LAD suggestive of active soft plaque. RCA and left circumflex with minimal stenosis. S/p 2 drug-eluting stents placed in the proximal and mid LAD with balloon angioplasty with good result. Estimated EF 45% in the [facility]. Patient was taken to the ICU after cath for further management. I saw the patient shortly after he arrived to the ICU. He was sitting back comfortably in bed and in no acute distress. Denied any chest pain currently. Has minimal medical history noted, is only on Synthroid for hypothyroidism at home. He is very active and was riding his bike today when the chest pain occurred. Noted that he did have mild chest discomfort intermittently over the past week but no chest pain prior to this. Denies any alcohol or tobacco use. No other acute concerns at this time. [facility] Medical History Enlarged prostate Chest pain ( 06/28/25) Myocardial infarct ( 06/28/25) Hypothyroidism Non-smoker Home Medications ???Medication ???Instructions ???Recorded ???Last Taken ???Type cholecalciferol (vitamin D3) 50 50 mcg PO DAILY supplement 5 06/27/25 History mcg (2,000 unit) capsule (Vitamin D3) levothyroxine 75 mcg tablet 75 mcg PO DAILY thyroid 06/28/25 0 06/28/25 History multivitamin (Daily Multi-Vitamin 1 tab PO DAILY supplement 5 06/27/25 History tablet) somaya life probiotic 1 ea PO DAILY supplement 06/28/25 06/27/25 History Allergy/AdvReac Type Severity Reaction Status Date / Time No Known Allergies Allergy Verified 06/28/25 07:52 Family History no significant family his Surgical History (Updated 06/28/25 @ 10:45 by Mary Webster) H/O cardiac catheterization ( 06/28/25) History of heart artery stent ( 06/28/25) Surgical History no surgical history Social History household members: spouse Smoking Status: Never smoker ROS Constitutional Constitutional: Denies chills, fatigue, fever(s) or weakness Eyes Eyes: Denies change in vision Cardiovascular Cardiovascular: Denies chest pain, dyspnea on exertion, edema or lightheadedness Respiratory/Chest Respiratory/Chest: Denies cough or shortness of breath at rest Gastrointestinal Gastrointestinal: Denies abdominal pain Vital Signs Vital Signs Vital Signs: 06/28/25 07:44 06/28/25 07:54 06/28/25 11:16 Temperature 98.8 F Temperature Source Oral Pulse Rate 62 65 Respiratory Rate 18 Blood Pressure 139/78 H 130/72 H Blood Pressure Mean 98 Pulse Ox 97 Oxygen Delivery Method Room Air Room Air Weight Weight: 93.5 kg Body Mass Index (BMI) 27.1 Physical Exam Const alert, oriented x3, no apparent distress, average body habitus, healthy appearing and well nourished Constitutional Narrative: Pleasant elderly male, sitting back comfortably in bed, conversing normally, in no acute distress. General Appearance: cooperative, comfortable, well kempt and well developed HEENT normocephalic, head/scalp atraumatic, hearing grossly normal bilaterally, nasal mucous membranes and turbinates normal and moist oral mucous membranes Eyes PERRL, EOMs intact bilaterally and conjunctivae normal Neck full ROM Chest inspection of chest normal Resp normal respiratory effort, normal air movement, no use of accessory muscles and clear to auscultation bilaterally Cardio regular rate, regular rhythm, no murmurs and peripheral pulses 2+ throughout GI normal to inspection, nondistended, normoactive bowel sounds, soft to palpation, non-tender and non- distended Back/Spine normal ROM Extremity normal to inspection, full ROM and no pedal edema Skin no rashes or lesions noted Psych mental status grossly normal Results Lab / Micro Data 06/28/25 10:30 06/28/25 10:30 Labs: Laboratory Results - last 24 hr 06/28/25 07:20: Activated Clotting Time 291 H 06/28/25 07:53: WBC 5.6, RBC 5.43, Hgb 15.9, Hct 46.8, MCV 86.2, MCH 29.3, MCHC 34.0, RDW Std Deviation 40.7, RDW Alexey (more content not included)... Normal [facility] Hematocrit Auto (Bld) [Volum e fraction]Ordered By: Gage Woodson on 06-28-2025 Hematocrit (Bld) [Volume fraction] 46.8 % 40-54 [facility] Hemoglobin A1con 06-28-2025 HbA1c (Bld) [Mass fraction] 5.5 % Normal <=5.6 [facility] Comment on above: Result Comment: Norm al < 5.7 % Prediabetic 5.7 - 6.4 % Diabetic >or= 6.5 % Please note range changes. Performed By: #### L 501.9985, L501.9520 ####[facility] [address] [place], [place], [id number] Hemoglobin A1c percentageOrd ered By: Padilla Terry on 06-28-2025 HbA1c (Bld) [Mass fraction] 5.5 % <5.7 [facility] Comment on above: Normal < 5.7 % Predi abetic 5.7 - 6.4 % Diabetic >or= 6.5 % Please note range changes. Hemoglobin measurementOrdere d By: Gage Woodson on 06-28-2025 Hemoglobin (Bld) [Mass/Vol] 15.9 g/dL 13.0-16.5 [facility] Immature granulocytes/100 WB C Auto (Bld)Ordered By: Baudilio Murillo on 06-28-2025 Immature granulocytes/100 WBC (Bld) 0.300 % 0.0-0.9 [facility] Comment on above: IG% - Immature Granu locytes (promyelocytes, myelocytes and metamyelocytes) > 1% indicates that a LEFT SHIFT is Present. Immature granulocytes/100 WB C Auto (Bld)Ordered By: Gage Woodson on 06-28-2025 Immature granulocytes/100 WBC (Bld) 0.200 % 0.0-0.9 [facility] Comment on above: IG% - Immature Granu locytes (promyelocytes, myelocytes and metamyelocytes) > 1% indicates that a LEFT SHIFT is Present. International normalized rat io (INR) calculationOrdered By: Baudilio Murillo on 06-28-2025 INR Coag (Bld) [Relative time] 1.1 {INR} [facility] International normalized rat io (INR) calculationOrdered By: Gage Woodson on 06-28-2025 INR Coag (Bld) [Relative time] 1.0 {INR} [facility] L501.4021on 06-28-2025 Trop T High Sen 1233 ng/L Invalid Interpretation Code <=22 [facility] Comment on above: Result Comment: Crit ical Result(s) Called at 1104: by: IRIS NEWSOME TO RAMONE. ??Results read back by same. Performed By: #### L 500.2500, L300.3900, L501.4021, L100.0100, L300.4310 ####[facility] [address] [facility] [place], [address] Trop T High Sen 28 ng/L High <=22 [facility] Comment on above: Performed By: #### L 300.3900, L300.4310, L100.0100, L501.4021, L500.2500 #### [facility] Laboratory [address] [place], [address] MCV (mean corpuscular volume ) determinationOrdered By: Gage Alcarazo on 06-28-2025 MCV (RBC) [Entitic vol] 86.2 fL 80-94 [facility] MR/QUALITYon 06-28-2025 MR/QUALITY [facility] Medical Records Department [address] [place] [address] Quality Report 06/28/25 1143 MR#: [id number] Acct: [id number] Name: TEX QUINTEROS Jr. Rep #: [id number] : 1955 69 From: Valentino Friedman PCP: Dr. Ashtyn Gamez MD Status:ADM IN Y Location: ICU ICU03-1 STEMI STEMI ED Door Time / Other REG STEMI EKG Time (1) Acute ST elevation myocardial infarction (STEMI) of anterior wall: Acute 06/28/25 07:44 Balloon/Aspiration Date-Time Date of Balloon/Aspiration:: 06/28/25 Time of Balloon/Aspiration:: 08:13 06/28/25 1144 Date Valentino Ramseymansoor Signature (if applicable): Date CC: Signed Normal [facility] Mean corpuscular hemoglobin (MCH) determinationOrdered By: Gageeveline Woodson on 06-28-2025 MCH (RBC) [Entitic mass] 29.3 pg 27.0-32.0 [facility] Mean corpuscular hemoglobin concentration (MCHC) determinationOrdered By: Gage Woodson on 06-28-2025 MCHC (RBC) [Mass/Vol] 34.0 g/dL 32-36 [facility] Mean platelet volume determi nationOrdered By: Gage Woodson on 06-28-2025 Platelet mean volume (Bld) [Entitic vol] 9.0 fL 6.2-12.0 [facility] Monocyte percentageOrdered B y: Baudilio Murillo on 06-28-2025 Monocytes/100 WBC (Bld) 2.5 % 0-10 [facility] Monocyte percentageOrdered B y: Gage Woodson on 06-28-2025 Monocytes/100 WBC (Bld) 6.8 % 0-10 [facility] Neutrophil percentageOrdered By: Samer Azouz on 06-28-2025 Neutrophils/100 WBC (Bld) 86.1 % High 47-70 [facility] Neutrophil percentageOrdered By: Gage Woodson on 06-28-2025 Neutrophils/100 WBC (Bld) 54.6 % 47-70 [facility] Nucleated red blood cell per centageOrdered By: Pippar Lidia on 06-28-2025 Nucleated RBC/100 WBC (Bld) [Ratio] 0 % 0-5 [facility] Nucleated red blood cell per centageOrdered By: Gage Woodson on 06-28-2025 Nucleated RBC/100 WBC (Bld) [Ratio] 0 % 0-5 [facility] Partial Thromboplast Timeon 06-28-2025 aPTT Coag (Bld) [Time] 176.2 s Invalid Interpretation Code 24.1-36.2 [facility] Comment on above: Order Comment: Comme nts: If not obtained within the previous 24 hoursCRITICAL VALUE CALLED TO /15/25 [facility] Awa Soriano.RESULTS READ BACK BY same. Performed By: #### L 500.2500, L300.3900, L501.4021, L100.0100, L300.4310 ####[facility] [address] [place], [place], [id number] aPTT Coag (Bld) [Time] 25.8 s Normal 24.1-36.2 [facility] Comment on above: Performed By: #### L 300.3900, L300.4310, L100.0100, L501.4021, L500.2500 #### [facility] [address] [place], [place], [address] Platelet countOrdered By: Octavio eveline Chintan on 06-28-2025 Platelets (Bld) [#/Vol] 220 10*3/uL 150-450 [facility] Potassium measurement (mass/ volume)Ordered By: Gage Woodson on 06-28-2025 Potassium (Unsp spec) [Mass/Vol] 3.5 mmol/L 3.3-5.1 [facility] Prothrombin Time w/INRon INR Coag (PPP) [Relative time] 1.1 {INR} Normal [facility] Comment on above: Order Comment: Comme nts: If not obtained within the previous 24 hoursCRITICAL VALUE CALLED TO [email or web address]/15/25 140 Awa Soriano.RESULTS READ BACK BY same. Performed By: #### L 500.2500, L300.3900, L501.4021, L100.0100, L300.4310 ####[facility] [address] [place], [address] PT Coag (PPP) [Time] 14.6 s Normal 11.7-14.9 [facility] Comment on above: Order Comment: Comme nts: If not obtained within the previous 24 hoursCRITICAL VALUE CALLED TO [email or web address]/15/25 Maranda6 Awa Soriano.RESULTS READ BACK BY same. Performed By: #### L 500.2500, L300.3900, L501.4021, L100.0100, L300.4310 ####[facility] [address] [place], [address] INR Coag (PPP) [Relative time] 1.0 {INR} Normal [facility] Comment on above: Performed By: #### L 300.3900, L300.4310, L100.0100, L501.4021, L500.2500 #### [facility] [address] [place], [address] PT Coag (PPP) [Time] 13.4 s Normal 11.7-14.9 [facility] Comment on above: Performed By: #### L 300.3900, L300.4310, L100.0100, L501.4021, L500.2500 #### [facility] [address] [place], [address] Prothrombin timeOrdered By: Baudilio Murillo on 06-28-2025 PT Coag (PPP) [Time] 14.6 s 11.7-14.9 [facility] Prothrombin timeOrdered By: Gage Woodson on 06-28-2025 PT Coag (PPP) [Time] 13.4 s 11.7-14.9 [facility] RBC Auto (Bld) [#/Vol]Ordere d By: Gage Woodson on 06-28-2025 RBC (Bld) [#/Vol] 5.43 10*6/uL 4.6-6.2 [facility] Serum creatinine measurement (mass/volume)Ordered By: Gageeveline Woodson on 06-28-2025 Creatinine [Mass/Vol] 0.98 mg/dL 0.70-1.20 [facility] [facility] Serum glucose measurement (m ass/volume)Ordered By: Gageeveline Woodson on 06-28-2025 Glucose [Mass/Vol] 130 mg/dL High 70-99 [facility] Serum or plasma calcium jody urement (mass/volume)Ordered By: Gage Woodson on 06-28-2025 Calcium [Mass/Vol] 9.3 mg/dL 7.6-11.0 [facility] Serum or plasma urea nitroge n measurement (mass/volume)Ordered By: Gage Woodson on 06-28-2025 Urea nitrogen [Mass/Vol] 18 mg/dL 4-19 [facility] Sodium levelOrdered By: Gage Woodson on 06-28-2025 Sodium [Moles/Vol] 140 mmol/L 133-145 [facility] TSH DL <= 0.005 mIU/L QnOrde red By: Padilla Terry on 06-28-2025 TSH Qn 1.680 uIU/mL 0.300-4.200 [facility] Thyroid Stim Hormone (TSH)on 06-28-2025 TSH 1.680 uIU/mL Normal 0.300-4.200 [facility] Comment on above: Performed By: #### L 501.9985, L501.9520 ####[facility] [id number] [place], [address] Troponin T HS 2 HRon 025 Trop T High Sen Normal <=22 [facility] Comment on above: Result Comment: Mirna rizzo via OM: Ordered Performed By: #### L 499.0042 ####[facility] [id number] [place], [address] Trop T High Sen Normal <=22 [facility] Comment on above: Result Comment: Mirna rizzo via OM: Ordered Performed By: #### L 9100.0100 #### [facility] [address] [place], [address] Troponin T HS 4 HRon 025 Trop T High Sen Normal <=22 [facility] Comment on above: Result Comment: Mirna rizzo via OM: Ordered Performed By: #### L 9100.0100 #### [facility] [address] [place], [address] Trop T High Sen Normal <=22 [facility] Comment on above: Result Comment: Mirna rizzo via OM: Ordered Performed By: #### L 499.0043 #### [facility] [address] [place], [address] Troponin T.cardiac [Mass/vol ume] in Serum or Plasma by High sensitivity methodOrdered By: Baudilio Murillo on 06-28-2025 Troponin T.cardiac High sensitivity method [Mass/Vol] 1233 ng/L Critically high <22 [facility] Comment on above: Delta: 28 on [phone] Result(s) Called at 1104: by: IRIS NEWSOME TO RAMONE. Results read back by pippa. Troponin T.cardiac [Mass/vol ume] in Serum or Plasma by High sensitivity methodOrdered By: Gage Woodson on 06-28-2025 Troponin T.cardiac High sensitivity method [Mass/Vol] 28 ng/L High <22 [facility] White blood cell (WBC) count Ordered By: Gage Woodson on 06-28-2025 WBC (Bld) [#/Vol] 5.6 10*3/uL 4.4-11.0 [facility] 36on 09-05-2024 36 Pt has declined to schedule SX at this time. Scheduled OV appt for further discussion of SX with Dr. Mattson 11/21/2024 @08:50am [place] location. [facility] 36 ----- Message from Gabe Mattson MD sent at 08/29/2024 2:42 PM EDT ----- Cysto, turp (up to him when he wants, and after fluid shortage) [facility] 36 Spoke with spouse, Chioma, gave Dr. Aguilar message. Cancelled 09/21 scheduled SX. Made OV appt 11/21/24 in [facility] for further discussion of SX. Offered sooner available appt but pt wishes to schedule out. [facility] 36on 09-04-2024 36 Call placed to pt to [...] I will get pt scheduled. Thank you. [facility] 36 ----- Message from Gabe Mattson MD sent at 08/29/2024 2:42 PM EDT ----- Cysto, turp (up to him when he wants, and after fluid shortage) [facility] 36on 08-27-2024 36 Pt returned the call from the office and the message was released. He confirmed it is ok to change his upcoming appt to 2:20 pm on 08/29/[address] Mattson. [facility] 36on 08-24-2024 36 Left message for patient asking if his upcoming appointment time with Dr Mattson can be moved to 2:20 pm on 08/29 [facility] Office Visiton 07-25-2024 Follow-up visit [id number] Tiki Quinteros 1955 M Date Provider Department Center 07/25/2024 [id number] None Family History Family Status - Relation Status Age at Mother Father Level of Service:65178 IN OFFICE/OUTPATIENT NEW MODERATE MDM 45 MINUTES Reason for Visit and Comments: New Patient [542] Benign Prostatic Hypertrophy [[id number]] - Slow stream Nocturia 1-2 times Has tried Tamsulosin in past was not effective [facility] Progress Noteon 07-25-2024 Progress Note Gabe Mattson MD 07/25/2024 at 10:33 AM UROLOGY INITIAL OFFICE VISIT PATIENT NAME: Tex Quinteros DATE OF : 1955 TODAY'S DATE: [...] Gabe Mattson MD 07/25/24 10:33 AM Normal [facility] 36on 05-11-2024 36 Patient returned radha l to office. He would prefer the [place] office since it is closest to him home. Appt scheduled 07/25/[address] Mattson and placed on the wait list in case of a cancellation Normal [facility] XR Shoulder - left 2 Viewson 03-03-2024 No fracture or dislocation of the left shoulder is identified. Mild degenerative changes of the left acromioclavicular and glenohumeral joints. Report Dictated on Electronically Signed By: Jorge Russo MD Electronically Signed Date/Time: 03/03/2024 12:39 PM EDT [facility] Patient Name: TEX QUINTEROS : 1955 Exam Date/Time: 03/02/2024 12:20 [...] at the left acromioclavicular and glenohumeral joints. [facility] Jorge Russo MD - 03/03/2024 Patient Name: TEX QUINTEROS : 1955 Exam Date/Time: 03/02/2024 12:20 [...] Electronically Signed Date/Time: 03/03/2024 12:39 PM EDT [employer] [email or web address] XR Shoulder - left 2 ViewsOr dered By: Jroge Russo on 03-03-2024 Appointuit XR Shoulder - left 2 Viewson 03-02-2024 Radiology Study observation (narrative) [facility] alth CULTURE STAPH AUREUSon 10-29 CULTURE STAPH AUREUS CULTURE STAPH AUREU S --> Status: F No Staphylococcus aureus isolated. [facility] Comment on above: Performed By: #### C /SA ####[id number] [place], [place] Hemoglobin AND Hematocriton 10-27-2018 Hematocrit Auto Volume Fraction (Bld) 49.3 % Normal 40.0-52.0 [facility] Comment on above: Performed By: #### H GHCT ####[facility] [place], [place] Hemoglobin mass conc (Bld) 17.1 g/dL Normal 13.0-18.0 [facility] Comment on above: Performed By: #### H GHCT ####[address] [place], [place] CR Spine Lumbosacral 2 or 3 Viewson 09-21-2018 CR Spine Lumbosacral 2 or 3 Views Patient Name: TEX QUINTEROS Diagnostic Radiology Exam Date/Time 09/20/2018 09:10:00 EST Exam CR Spine Lumbosacral 2 or 3 Views Ordering Physician CHAN CAMPBELL Accession Number [id number] CPT4 Codes 07101 () Reason For Exam PAIN Report LUMBAR [...] Transcribed Date and Time: 09/20/2018 10:58 Normal [facility] CR Hip w/ Pelvis 2 or 3 View s Righton 07-07-2018 CR Hip w/ Pelvis 2 or 3 Views Right Patient Name: TEX QUINTEROS Diagnostic Radiology Exam Date/Time 07/06/2018 12:10:00 EDT Exam CR Hip w/ Pelvis 2 or 3 Views Right n Ordering Physician MD GAMEZ MATTHEW PATRICK Accession Number [id number] CPT4 Codes 74440 () Reason For Exam PAIN Report RIGHT [...] Transcribed Date and Time: 07/07/2018 1:12 Normal [facility] CR Spine Lumbosacral 4+ View son 07-07-2018 CR Spine Lumbosacral 4+ Views Patient Name: TEX QUINTEROS Diagnostic Radiology Exam Date/Time 07/06/2018 12:10:00 EDT Exam CR Spine Lumbosacral 4+ Views Ordering Physician MD GAMEZ MATTHEW PATRICK Accession Number [id number] CPT4 Codes 39984 () Reason For Exam PAIN Report LUMBAR [...] degenerative changes at L2/L3. Report Dictated on Final Dictating Physician: JORGE RUSSO Signed Date and Time: 07/07/2018 1:14 pm Signed by: JORGE RUSSO Transcribed Date and Time: 07/07/2018 1:16 Normal [facility] Vital Signs Date Time Vital Sign Value Performing Clinician Faci lity 08-07-2025 09:10-0400 Body height 185.[address] Ashtyn Gamez MD Work Phone: [facility] 08-07-2025 09:10-0400 Body weight 90.[address] Ashtyn Gamez MD Work Phone: [facility] 07-09-2025 09:05-0400 Body mass index (BMI) [Ratio] 26.4 kg/m2 Dr. Ashtyn Gamez MD Work Phone: [facility] 07-09-2025 09:03-0400 Body height 185.[address] Ashtyn Gamez MD Work Phone: [facility] 07-09-2025 09:03-0400 Body weight 90.[address] Ashtyn Gamez MD Work Phone: [facility] 07-09-2025 08:48-0400 Diastolic blood pressure 74 mm[Hg] Dr. Ashtyn Gamez MD Work Phone: [facility] 07-09-2025 08:48-0400 Heart rate 54 /min Dr. Ashtyn Gamez MD Work Phone: [facility] 07-09-2025 08:48-0400 Respiratory rate 16 /min Dr. Ashtyn Gamez MD Work Phone: [facility] 07-09-2025 08:48-0400 SaO2% (BldA) [Mass fraction] 98 % Dr. Ashtyn Gamez MD Work Phone: [facility] 07-09-2025 08:48-0400 Systolic blood pressure 118 mm[Hg] Dr. Ashtyn Gamez MD Work Phone: [facility] 07-05-2025 07:31-0400 Body height 185.[address] Ashtyn Gamez MD Work Phone: [facility] 07-05-2025 07:31-0400 Body mass index (BMI) [Ratio] 26.6 kg/m2 Dr. Ashtyn Gamez MD Work Phone: [facility] 07-05-2025 07:31-0400 Body weight 91.[address] Ashtyn Gamez MD Work Phone: [facility] 07-05-2025 07:31-0400 Diastolic blood pressure 71 mm[Hg] Dr. Ashtyn Gamez MD Work Phone: [facility] 07-05-2025 07:31-0400 Heart rate 57 /min Dr. Ashtyn Gamez MD Work Phone: [facility] 07-05-2025 07:31-0400 SaO2% (BldA) [Mass fraction] 98 % Dr. Ashtyn Gamez MD Work Phone: [facility] 07-05-2025 07:31-0400 Systolic blood pressure 118 mm[Hg] Dr. Ashtyn Gamez MD Work Phone: [facility] 06-29-2025 12:00-0400 Body temperature 97.9 [degF] Dr. Ashtyn Gamez MD Work Phone: [facility] 06-29-2025 12:00-0400 Diastolic blood pressure 56 mm[Hg] Dr. Ashtyn Gamez MD Work Phone: [facility] 06-29-2025 12:00-0400 Heart rate 64 /min Dr. Ashtyn Gamez MD Work Phone: [facility] 06-29-2025 12:00-0400 Respiratory rate 18 /min Dr. Ashtyn Gamez MD Work Phone: [facility] 06-29-2025 12:00-0400 SaO2% (BldA) [Mass fraction] 97 % Dr. Ashtyn Gamez MD Work Phone: [facility] 06-29-2025 12:00-0400 Systolic blood pressure 119 mm[Hg] Dr. Ashtyn Gamez MD Work Phone: [facility] 06-29-2025 05:38-0400 Body mass index (BMI) [Ratio] 27.2 kg/m2 Dr. Ashtyn Gamez MD Work Phone: [facility] 06-29-2025 05:38-0400 Body weight 93.[address] Ashtyn Gamez MD Work Phone: [facility] 06-28-2025 16:00-0400 Inhaled oxygen flow rate 2 L/min Dr. Ashtyn Gamez MD Work Phone: [facility] 06-28-2025 14:30-0400 Body height 185.[address] Ashtyn Gamez MD Work Phone: [facility] 06-28-2025 07:44-0400 Body height 185.[address] Ashtyn Gamez MD Work Phone: [facility] 06-28-2025 07:44-0400 Body mass index (BMI) [Ratio] 27.1 kg/m2 Dr. Ashtyn Gamez MD Work Phone: [facility] 06-28-2025 07:44-0400 Body temperature 98.8 [degF] Dr. Ashtyn Gamez MD Work Phone: [facility] 06-28-2025 07:44-0400 Body weight 93.[address] Ashtyn Gamez MD Work Phone: [facility] 06-28-2025 07:44-0400 Diastolic blood pressure 78 mm[Hg] Dr. Ashtyn Gamez MD Work Phone: [facility] 06-28-2025 07:44-0400 Heart rate 62 /min Dr. Ashtyn Gamez MD Work Phone: [facility] 06-28-2025 07:44-0400 Respiratory rate 18 /min Dr. Ashtyn Gamez MD Work Phone: [facility] 06-28-2025 07:44-0400 SaO2% (BldA) [Mass fraction] 97 % Dr. Ashtyn Gamez MD Work Phone: [facility] 06-28-2025 07:44-0400 Systolic blood pressure 139 mm[Hg] Dr. Ashtyn Gamez MD Work Phone: [facility] 08-29-2024 14:20-0400 Diastolic blood pressure 79 mm[Hg] Gabe Mattson MD Work Phone: [facility] 08-29-2024 14:20-0400 Heart rate 77 /min Gabe Mattson MD Work Phone: [facility] 08-29-2024 14:20-0400 Systolic blood pressure 136 mm[Hg] Gabe Mattson MD Work Phone: [facility] [email or web address] Encounters Encounter Date Encounter Type Care Provider Facility Start: 09-25-2025 ambulatory Ashtyn Gamez [facility] ty:[facility] Start: 09-13-2025 End: 09-13-2025 ambulatory Ashtyn Gamez Facility:[facility] Start: 08-14-[address] Deni Ludwig MD -Cardiac Rehab Work Phone: Start: 08-12-2025 End: 08-13-[address] Ashtyn Gamez MD Work Phone: -[facility] Start: 08-12-2025 End: 08-13-[address] Deni Ludwig MD -Cardiac Rehab Work Phone: Start: 07-17-[address] Deni Ludwig MD -Cardiac Rehab Work Phone: Start: 07-12-2025 End: 07-14-[address] Deni Ludwig MD -Cardiac Rehab Work Phone: Start: 07-12-2025 End: 07-14-[address] Ashtyn Gamez MD Work Phone: -[facility] Start: 07-09-2025 End: 07-09-[address] Ashtyn Gamez MD Work Phone: -[facility] Start: 07-09-2025 End: 07-09-[address] Baudilio Murillo MD -Cardiac Rehab Work Phone: Start: 07-09-2025 End: 07-09-2025 ambulatory [facility] Facility:[facility] Start: 07-05-2025 End: 07-05-2025 Patient encounter procedure Maryjane NORMAN -[facility] Work Phone: Start: 07-05-2025 End: 07-05-[address] Ashtyn Gamez MD Work Phone: -[facility] Start: 07-01-2025 Non-patient / Non-visit Dr. Baudilio darling MD -[facility] Start: 07-01-[address] Ashtyn king MD Work Phone: -[facility] Start: 06-29-2025 Non-patient / Non-visit Dr. Dashawn treviño MD -[facility] Start: 06-28-2025 ambulatory [facility] Facility:[facility] Start: 06-28-2025 End: 06-29-2025 Evaluation and management of inpatient Dr. Jose Miguel Glynn DO -Intensive Care Unit Work Phone: Start: 06-28-2025 Non-patient / Non-visit Dr. Baudilio darling MD -[facility] Start: 06-28-2025 ambulatory [facility] Facility:[facility] Start: 06-28-2025 Evaluation and manag ement of inpatient Dr. Baudilio Murillo MD -Intensive Care Unit Work Phone: Start: 09-05-2024 End: 09-05-2024 Telephone encounter Gabe Mattson MD Work Phone: [facility] Comment on above: Surgery Scheduling Start: 09-04-2024 End: 09-05-2024 Telephone encounter [facility] Start: 08-29-2024 End: 08-29-2024 Patient encounter procedure Gabe Mattson MD Work Phone: [facility] Comment on above: BPH with urinary obs truction (Primary Dx) Start: 08-29-2024 End: 08-29-2024 ambulatory [facility] Start: 08-24-2024 End: 08-27-2024 Telephone encounter Gabe Mattson MD Work Phone: [facility] Comment on above: Appointment Request Start: 07-25-2024 End: 07-25-2024 Office outpatient new 45 minutes Gabe Mattson MD Work Phone: [facility] Comment on above: BPH with urinary obs truction (Primary Dx); Nocturia; ED (erectile dysfunction) of organic origin Start: 07-25-2024 End: 07-25-2024 ambulatory [facility] Start: 03-14-2024 End: 03-14-2024 Telephone encounter Wayne Red MD Work Phone: [facility] Start: 03-02-2024 End: 06-01-2024 Subsequent hospital visit by physician Ashtyn Gamez MD Work Phone: [facility] Comment on above: Pain in left shoulde r Pain in left shoulde r (Primary Dx) Start: 03-02-2024 End: 03-02-2024 ambulatory ASHTYN GAMEZ [facility] Start: 11-03-2018 Patient encounter procedure [facility] Start: 10-27-2018 Encounter for other preprocedural examination [facility] Start: 10-27-2018 [facility] Start: 09-20-2018 [facility] Start: 09-13-2018 [facility] Start: 07-06-2018 Patient encounter procedure Ashtyn Jean Claudecollin [facility] Encounter for other preprocedural examination [facility] Procedures Date Procedure Procedure Detail Performing Clinician Start: 06-29-[address] Ashtyn Gamez MD Work Phone: Start: 06-28-2025 Coagulation time, activated Dr. Ashtyn Gamez MD Work Phone: Start: 06-28-[address] Ashtyn Gamez MD Work Phone: Plan of Treatment Date Care Activity Detail Author Start: 2029 RSV Immunization for Adults (1 - 1-dose 75+ series) RSV Immunization for Adults (1 - 1-dose 75+ series) [facility] Start: 07-09-2025 Patient referral to dietitian [facility] Start: 06-29-2025 Patient discharge [facility] Start: 06-29-2025 [facility] Start: 06-28-2025 Continuous pulse oximetry [facility] Start: 06-28-2025 Incentive spirometry [facility] Start: 06-28-2025 Referral to service [facility] Start: 06-28-2025 [facility] Start: 06-28-2025 Admission procedure [facility] Start: 06-28-2025 Following clinical p athway protocol [facility] Start: 06-28-2025 Ambulation without limitation [facility] Start: 06-28-2025 Dietary regime [facility] Start: 06-28-2025 End: 06-28-2025 Notification of physician [facility] Start: 06-28-2025 End: 06-28-2025 [facility] Start: 06-28-2025 End: 06-28-2025 Patient education [facility] Start: 06-28-2025 Provision of activit y privileges [facility] Start: 06-28-2025 Taking patient vital signs [facility] Start: 06-28-2025 Wound care [facility] Start: 06-28-2025 Assessment of risk o f venous thromboembolism [facility] Start: 06-28-2025 Catheterization of vein [facility] Start: 06-28-2025 Chart related administrative procedure [facility] Start: 06-28-2025 Insertion of cathete r into peripheral vein [facility] Start: 06-28-2025 Measuring intake and output [facility] Start: 06-28-2025 Patient referral to dietitian [facility] Start: 06-28-2025 Providing care accor ding to standard [facility] Start: 06-28-2025 Vital signs measurements [facility] Start: 06-28-2025 Cardiac monitoring [facility] Start: 06-28-2025 Cardiac rehabilitati on - phase 1 [facility] Start: 06-28-2025 Cardiac rehabilitati on - phase 2 [facility] Start: 06-28-2025 Oxygen therapy [facility] Start: 06-28-2025 Patient discharge [facility] Start: 06-28-2025 End: 06-28-2025 Pulse taking [facility] Start: 06-28-2025 Catheterization of l eft heart [facility] Start: 06-28-2025 Hospital admission, emergency, from emergency room, medical nature [facility] Start: 06-28-2025 [facility] Start: 11-21-2024 End: 11-21-2024 Patient encounter procedure 11/21/2024 8:50 AM EST Office Visit [facility] [address] [place] [id number] Gabe Mattson MD [address] [place] [address] [facility] Start: 08-29-2024 End: 08-29-2024 Patient encounter procedure [facility] Start: 07-25-2024 End: 07-25-2024 Patient encounter procedure 07/25/2024 10:00 AM EDT Office Visit [facility] [address] [place] [address] Gabe Mattson MD [address] [place] [address] [facility] Start: 07-15-2024 COVID-19 Vaccine ( season) COVID-19 Vaccine ( season) [facility] Start: 07-15-2024 COVID-19 Vaccine () COVID-19 Vaccine () [facility] Start: 07-15-2024 Influenza vaccination Influenza Vacc ine (#1) [facility] Start: 07-15-2023 COVID-19 Vaccine () COVID-19 Vaccine () [facility] Start: 05-16-2019 DTaP/Tdap/Td Vaccine s (1 - Tdap) DTaP/Tdap/Td Vaccines (1 - Tdap) [facility] Start: 2014 RSV Immunization age d 60 or older (1 - 1-dose 60+ series) RSV Immunization aged 60 or older (1 - 1-dose 60+ series) [facility] Start: 1972 Hepatitis C screening Hepatitis C Sc reening [facility] Start: 1966 Depression Screening Depression Scre ening [facility] Start: 1955 Lipid panel Lipid Panel [facility] Start: 1955 Medicare Annual Well ness (AWV) Medicare Annual Wellness (AWV) [facility] Start: 1955 Screening for malign ant neoplasm of colon [facility] Start: 1954 Thyroid stimulating hormone measurement TSH Level [facility] Hepatic function panel [facility] Lipid 1996 panel - S shiva or Plasma [facility] OUTSIDE PROCEDURE SCAN OUTSIDE P ROCEDURE SCAN Procedures Ordered: 03/02/2024 [facility] Comment on above: Ordered: 03/02/2024 Troponin T.cardiac [Mass/volume] in Serum or Plasma by High sensitivity method [facility] Troponin T.cardiac [Mass/volume] in Serum or Plasma by High sensitivity method [facility] Heart limited [facility] End: 03-02-2024 XR Shoulder - left 2 Views [facility] [email or web address] System Work Phone: Comment on above: Once for 1 Occurrenc es starting 03/02/2024 until 03/02/2024 Immunizations Immunization Date Immunization Notes Care Provider Fa [facility] 07-19-2023 influenza, injectabl e, quadrivalent, preservative free Dr. Ashtyn Gamez MD Work Phone: [facility] 07-19-2023 influenza virus vaccine, unspecified formulation Ashtyn Gamez MD Work Phone: [facility] 03-19-2021 Covid (Modern) Dr. Ashtyn Gamez MD Work Phone: [facility] 02-19-2021 Covid ([facility]) Dr. Ashtyn Gamez MD Work Phone: [facility] Payers Date Payer Category Payer Self-pay 2025 Unknown [id number] 2025 Unknown [id number] 2023 Commercial [facility] - HMO [facility] [id number] 2023 Unknown 2023 Unknown [id number] 2019 Medicare [id number] 2019 Medicare [id number] 1955 Unknown [id number] 2.840.1.843202.3.579.2. 668 1955 Unknown [id number] 2.840.1.190152.3.579.2. 668 1955 Unknown [id number] 2.840.1.271307.3.579.2. 668 1955 Unknown [id number] 2.840.1.214536.3.579.2. 668 1955 Unknown [id number] 2.840.1.941703.3.579.2. 8 Self-pay [id number] Unknown [id number] Unknown [id number] 2.840.1.566062.3.579.2. 462 Unknown [id number] 2.840.1.212313.3.579.2. 462 Unknown [id number] 2.840.1.225288.3.579.2. 462 Unknown [id number] 2.840.1.641677.3.579.2. 462 Unknown [id number] 2.840.1.266789.3.579.2. 462 Unknown [id number] 2.840.1.663013.3.579.2. 462 Unknown [id number] .840.1.597707.3.579.2. 462 Unknown [id number] 2.840.1.036266.3.579.2. 462 Unknown [id number] 2.840.1.513433.3.579.2. 462 Unknown [id number] 2.840.1.853695.3.579.2. 462 Unknown [id number] 2.16.840.1.625243.3.579.2. 462 Unknown [id number] 2.840.1.360369.3.579.2. 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 Start: 1955 Sex Assigned At Male [facility] Procedure Code Equipment Code Equipment Origin al Text Equipment Identifier Dates Drug-eluting coronary artery stent, [id number] lymer-coated ()[id number] FDA Start: 06-28-2025 Drug-eluting coronary artery stent, [id number] lymer-coated ()[id number] [id number] FDA Start: 06-28-2025 Goals Date Patient Goal Desired Activity /State Functional Status Date Assessment Result Facility 06-29-2025 Functional status Ambulates [facility] Work Phone: Mental Status Date Assessment Result Facility 06-29-2025 Cognitive function Voice/Name [facility] Work Phone: 06-28-2025 Cognitive function Voice/Name [facility] Work Phone: Clinical Notes 03-14-2024 to 06-29-2025 Note Date & Type Note Facility 06-29-2025 Discharge summary Note Date/Time June 29, 2025 11:45am [facility] Medical Records Department [address] [place] [address] Instructions for Home/Discharge Instructions 06/29/25 1136 MR#: [id number] Acct: [id number] Name: TEX QUINTEROS Jr. Rep #:[id number] : 1955 69 From: Jose Miguel Glynn DO PCP: Dr. Ashtyn Gamez MD Status:A DM IN Discharge Instructions DC O2, CPAP, BIPAP needs Home O2 Discharge instructions: No Dressing / Incision Discharge Activity: Return to Normal Activity Weight Bearing Status: Full weight bearing Follow Up Care Test Results: Test results from this visit will be discussed in further detail at your follow-up appointment, if applicable. Discharge Plan Admission Admit Date/Time: 06/28/25 11:43 Primary Reason for Your Visit: acute DE Attending Provider: Jose Miguel Glynn Primary Care Provider: Ashtyn Gamez Consulting Providers: Baudilio Murillo; Padilla Terry Discharge Orders/Prescriptions Prescriptions: New lisinopril 5 mg Tablet 5 mg PO DAILY Qty: 30 0RF ticagrelor [Brilinta] 90 mg Tablet 90 mg PO BID Qty: 60 0RF atorvastatin 80 mg Tablet 80 mg PO QHS Qty: 30 0RF metoprolol succinate 25 mg tablet extended release 24 hr 25 mg PO DAILY Qty: 30 0RF Rx Instructions: start on 06/29/25 aspirin 81 mg Tablet,Delayed Release (Dr/Ec) 81 mg PO BREAKFAST Qty: 0 0RF Continued levothyroxine 75 mcg tablet 75 mcg PO DAILY multivitamin [Daily Multi-Vitamin] Tablet 1 tab PO DAILY somaya life probiotic capsule 1 ea PO DAILY cholecalciferol (vitamin D3) [Vitamin D3] 50 mcg (2,000 unit) capsule 50 mcg PO DAILY Referrals / Follow Up: Deni Ludwig MD [Med Staff - Active Staff] - See Referral Note (in two weeks-call this tuesday if you have not heard from the office-tell them you were hospitalized and had a heart stent placed) Ashtyn Gamez MD [Primary Care Provider] - Disposition Disposition (needs filled in before D/C Order can be placed): Home, Self Care 06/29/25 1145<Electronically signed by Jose Miguel Glynn DO>Jose Miguel Glynn DO CC: Dr. Padilla Terry DO; Dr. Ashtyn Gamez MD; Dr. Baudilio Murillo MD ~ Signed [facility] Work Phone: 1(373) 865-636308-16-2025 Progress note Author Dashawn Hooper [facility] Note Date/Time June 29, 2025 11 :50am [facility] Medical Records Department [address] [place] [address] Progress Note - Cardiology 06/29/25 1104 MR#: [id number] Acct: [id number] Name: TEX QUINTEROS Jr. Rep #:[id number] : 1955 69 From: Dashawn Hooper MD PCP: Dr. Ashtyn Gamez MD Status:A DM IN Location: ICU ICU03-1 Subjective Subjective He is doing well this morning. He denies any chest pain or shortness of breath. Objective Data Vital Signs: Vital Signs Temp Pulse Resp BP Pulse Ox O2 Del Method O2 Flow Rate 97.9 F 60 16 107/67 97 Room Air 2 06/29/25 08:00 06/29/25 10:48 06/29/25 09:00 06/29/25 09:00 06/29/25 09:00 06/29/25 09:00 06/28/25 16:00 Oxygen Flow Rate (L/min) 2 Oxygen Delivery Method Room Air Weight: 206 lb 5.643 oz Body Mass Index (BMI) 27.2 Intake & Output: Intake and Output for Last 24 Hours 06/27/25 06/28/25 06/29/25 23:59 23:59 23:59 Intake Total 270 / 270 Output Total 450 / 750 300 / 300 Balance -180 / -480 -300 / -300 Lab / Micro Data 06/29/25 06:05 06/29/25 06:05 Labs: Laboratory Results - last 24 hr 06/28/25 10:30: PT 14.6, INR 1.1, APTT 176.2 H*, Sodium 138, Potassium 4.1, Chloride 107, Carbon Dioxide 23.3, Anion Gap 8, BUN 17, Creatinine 0.87, Estim Creat Clear Calc 89.29, Est GFR (MDRD) Non-Af 93, BUN/Creatinine Ratio 19.0, Glucose 110 H, Hemoglobin A1c 5.5, Calcium 8.9, Troponin T High Sens 1233 H* D, TSH 1.680 06/29/25 06:05: WBC 7.7, RBC 5.21, Hgb 15.2, Hct 45.1, MCV 86.6, MCH 29.2, MCHC 33.7, RDW Std Deviation 41.7, RDW Coeff of Abbe 13.5, Plt Count 215, MPV 9.5, Sodium 140, Potassium 3.9, Chloride 109 H, Carbon Dioxide 19.7 L, Anion Gap 11, BUN 15, Creatinine 0.92, Estim Creat Clear Calc 84.44, Est GFR (MDRD) Non-Af 90,BUN/Creatinine Ratio 16.1, Glucose 104 H, Calcium 8.8, Total Bilirubin 0.73, AST94 H, ALT 30, Alkaline Phosphatase 60, Total Protein 5.9, Albumin 3.7, Globulin 2.2, Albumin/Globulin Ratio 1.7, Triglycerides 82, Cholesterol 152, LDL Cholesterol, Calc 102, VLDL Cholesterol 16, HDL Cholesterol 34 L, Cholesterol/HDL Ratio 4.50 Rhythm Strip Rhythm Strip: Sinus Rhythm Ectopy: None Cardiology Labs/Tests 06/28/25 10:30: PT 14.6, INR 1.1, APTT 176.2 H*, Sodium 138, Potassium 4.1, Chloride 107, Carbon Dioxide 23.3, Anion Gap 8, BUN 17, Creatinine 0.87, Est GFR(MDRD) Non-Af 93, BUN/Creatinine Ratio 19.0, Glucose 110 H, Hemoglobin A1c 5.5, Calcium 8.9 06/29/25 06:05: WBC 7.7, RBC 5.21, Hgb 15.2, Hct 45.1, MCV 86.6, MCH 29.2, MCHC 33.7, Plt Count 215, MPV 9.5, Sodium 140, Potassium 3.9, Chloride 109 H, Carbon Dioxide 19.7 L, Anion Gap 11, BUN 15, Creatinine 0.92, Est GFR (MDRD) Non-Af 90,BUN/Creatinine Ratio 16.1, Glucose 104 H, Calcium 8.8, Total Bilirubin 0.73, Triglycerides 82, Cholesterol 152, VLDL Cholesterol 16, HDL Cholesterol 34 L, Cholesterol/HDL Ratio 4.50 Rhythm: NSR EKG: NSR ECHO: EF 50% with mild wall motion Cardiac Cath: 100% proximal LAD PCI: 2 EMA to LAD Radiography Diagnostic Testing: Radiology Impression Echocardiogram 06/28/25 09:53 Interpretation Summary Normal LV size. Normal left ventricular thickness. Diastolic function is indeterminate. The estimated ejection fraction is 50 %. There is moderate hypokinesis involving the mid to distal anterior wall and anterior apical segment Normal systolic function. Normal RV size. With mild sclerosis but no stenosis No significant valvular pathology Ordering Physician: Baudilio Murillo Referring Physician: Baudilio Murillo MD Performed By: Kasia Pearl RDCS Physical Exam Const alert HEENT normocephalic Eyes PERRL Neck full ROM Lymph Lymphatic: no lymphadenopathy noted Chest inspection of chest normal Resp normal respiratory effort Cardio regular rate, regular rhythm, S1 normal heart sound and S2 normal heart sound GI normal to inspection, nondistended, normoactive bowel sounds no CVA tenderness Back/Spine no CVA tenderness Extremity normal to inspection Skin no rashes or lesions noted Assessment & Plan Assessment/Plan (1) Acute ST elevation myocardial infarction (STEMI) of anterior wall: PLAN: Status post PCI to LAD with two overlapping stents and KBI to second diagonal with excellent angiographic results. mild-moderate disease in RCA. Continue with Aspirin and Ticagrelor Switch to metoprolol succinate 25 mg daily Continue with lisinopril 5 mg daily Continue with high intensity Statin and repeat lipid panel in 3 months Cardiac rehab Had a long discssion about importance of medications compliance 06/29/25 1150 <Electronically signed by Dashawn Hooper MD> Cosigner Signature (if applicable): CC: ~ Signed [facility] Work Phone: 1(823) 900-548608-16-2025 Progress note [facility] Medical Records Department [address] [place] [address] Progress Note - Cardiology 06/29/25 1104 MR#: [id number] Acct: [id number] Name: TEX QUINTEROS Rep #:[id number] : 1955 69 From: Dashawn Hooper MD PCP: Dr. Ashtyn Gamez MD Status:A DM IN Location: ICU ICU03-1 Subjective Subjective He is doing well this morning. He denies any chest pain or shortness of breath. Objective Data Vital Signs: Vital Signs Temp Pulse Resp BP Pulse Ox O2 Del Method O2 Flow Rate 97.9 F 60 16 107/67 97 Room Air 2 06/29/25 08:00 06/29/25 10:48 06/29/25 09:00 06/29/25 09:00 06/29/25 09:00 06/29/25 09:00 06/28/25 16:00 Oxygen Flow Rate (L/min) 2 Oxygen Delivery Method Room Air Weight: 206 lb 5.643 oz Body Mass Index (BMI) 27.2 Intake & Output: Intake and Output for Last 24 Hours 06/27/25 06/28/25 06/29/25 23:59 23:59 23:59 Intake Total 270 / 270 Output Total 450 / 750 300 / 300 Balance -180 / -480 -300 / -300 Lab / Micro Data 06/29/25 06:05 06/29/25 06:05 Labs: Laboratory Results - last 24 hr 06/28/25 10:30: PT 14.6, INR 1.1, APTT 176.2 H*, Sodium 138, Potassium 4.1, Chloride 107, Carbon Dioxide 23.3, Anion Gap 8, BUN 17, Creatinine 0.87, Estim Creat Clear Calc 89.29, Est GFR (MDRD) Non-Af 93, BUN/Creatinine Ratio 19.0, Glucose 110 H, Hemoglobin A1c 5.5, Calcium 8.9, Troponin T High Sens 1233 H* D, TSH 1.680 06/29/25 06:05: WBC 7.7, RBC 5.21, Hgb 15.2, Hct 45.1, MCV 86.6, MCH 29.2, MCHC 33.7, RDW Std Deviation 41.7, RDW Coeff of Abbe 13.5, Plt Count 215, MPV 9.5, Sodium 140, Potassium 3.9, Chloride 109 H,Carbon Dioxide 19.7 L, Anion Gap 11, BUN 15, Creatinine 0.92, Estim Creat Clear Calc 84.44, Est GFR(MDRD) Non-Af 90,BUN/Creatinine Ratio 16.1, Glucose 104 H, Calcium 8.8, Total Bilirubin 0.73, AST94H, ALT 30, Alkaline Phosphatase 60, Total Protein 5.9, Albumin 3.7, Globulin 2.2, Albumin/Globulin Ratio 1.7, Triglycerides 82, Cholesterol 152, LDL Cholesterol, Calc 102, VLDL Cholesterol 16, HDL Cholesterol 34 L, Cholesterol/HDL Ratio 4.50 Rhythm Strip Rhythm Strip: Sinus Rhythm Ectopy: None Cardiology Labs/Tests 06/28/25 10:30: PT 14.6, INR 1.1, APTT 176.2 H*, Sodium 138, Potassium 4.1, Chloride 107, Carbon Dioxide 23.3, Anion Gap 8, BUN 17, Creatinine 0.87, Est GFR(MDRD) Non-Af 93, BUN/Creatinine Ratio 19.0, Glucose 110 H, Hemoglobin A1c 5.5, Calcium 8.9 06/29/25 06:05: WBC 7.7, RBC 5.21, Hgb 15.2, Hct 45.1, MCV 86.6, MCH 29.2, MCHC 33.7, Plt Count 215, MPV 9.5, Sodium 140, Potassium 3.9, Chloride 109 H, Carbon Dioxide 19.7 L, Anion Gap 11, BUN 15, Creatinine 0.92, Est GFR (MDRD) Non-Af 90,BUN/Creatinine Ratio 16.1, Glucose 104 H, Calcium 8.8, Total Bilirubin 0.73, Triglycerides 82, Cholesterol 152, VLDL Cholesterol 16, HDL Cholesterol 34 L, Cholesterol/HDL Ratio 4.50 Rhythm: NSR EKG: NSR ECHO: EF 50% with mild wall motion Cardiac Cath: 100% proximal LAD PCI: 2 EMA to LAD Radiography Diagnostic Testing: Radiology Impression Echocardiogram 06/28/25 09:53 Interpretation Summary Normal LV size. Normal left ventricular thickness. Diastolic function is indeterminate. The estimated ejection fraction is 50 %. There is moderate hypokinesis involving the mid to distal anterior wall and anterior apical segment Normal systolic function. Normal RV size. With mild sclerosis but no stenosis No significant valvular pathology Ordering Physician: Baudilio Murillo Referring Physician: Baudilio Murillo MD Performed By: Kasia Pearl, RHODA Physical Exam Const alert HEENT normocephalic Eyes PERRL Neck full ROM Lymph Lymphatic: no lymphadenopathy noted Chest inspection of chest normal Resp normal respiratory effort Cardio regular rate, regular rhythm, S1 normal heart sound and S2 normal heart sound GI normal to inspection, nondistended, normoactive bowel sounds no CVA tenderness Back/Spine no CVA tenderness Extremity normal to inspection Skin no rashes or lesions noted Assessment & Plan Assessment/Plan (1) Acute ST elevation myocardial infarction (STEMI) of anterior wall: PLAN: Status post PCI to LAD with two overlapping stents and KBI to second diagonal with excellent angiographic results. mild-moderate disease in RCA. Continue with Aspirin and Ticagrelor Switch to metoprolol succinate 25 mg daily Continue with lisinopril 5 mg daily Continue with high intensity Statin and repeat lipid panel in 3 months Cardiac rehab Had a long discssion about importance of medications compliance 06/29/25 1150 Cosigner Signature (if applicable): CC: ~ Signed [facility]08-16-2025 Discharge summary [facility] Medical Records Department [address] [place] [address] Instructions for Home/Discharge Instructions 06/29/25 1136 MR#: [id number] Acct: [id number] Name: TEX QUINTEROS Rep #:[id number] : 1955 69 From: Jose Miguel Glynn DO PCP: Dr. Ashtyn Gamez MD Status:A DM IN Discharge Instructions DC O2, CPAP, BIPAP needs Home O2 Discharge instructions: No Dressing / Incision Discharge Activity: Return to Normal Activity Weight Bearing Status: Full weight bearing Follow Up Care Test Results: Test results from this visit will be discussed in further detail at your follow- up appointment, if applicable. Discharge Plan Admission Admit Date/Time: 06/28/25 11:43 Primary Reason for Your Visit: acute DE Attending Provider: Jose Miguel Glynn Primary Care Provider: Ashtyn Gamez Consulting Providers: Baudilio Murillo; Padilla Terry Discharge Orders/Prescriptions Prescriptions: New lisinopril 5 mg Tablet 5 mg PO DAILY Qty: 30 0RF ticagrelor [Brilinta] 90 mg Tablet 90 mg PO BID Qty: 60 0RF atorvastatin 80 mg Tablet 80 mg PO QHS Qty: 30 0RF metoprolol succinate 25 mg tablet extended release 24 hr 25 mg PO DAILY Qty: 30 0RF Rx Instructions: start on 06/29/25 aspirin 81 mg Tablet,Delayed Release (Dr/Ec) 81 mg PO BREAKFAST Qty: 0 0RF Continued levothyroxine 75 mcg tablet 75 mcg PO DAILY multivitamin [Daily Multi-Vitamin] Tablet 1 tab PO DAILY somaya life probiotic capsule 1 ea PO DAILY cholecalciferol (vitamin D3) [Vitamin D3] 50 mcg (2,000 unit) capsule 50 mcg PO DAILY Referrals / Follow Up: Deni Ludwig MD [Med Staff - Active Staff] - See Referral Note (in two weeks- call this tuesday ifyou have not heard from the office-tell them you were hospitalized and had a heart stent placed) Ashtyn Gamez MD [Primary Care Provider] - Disposition Disposition (needs filled in before D/C Order can be placed): Home, Self Care 06/29/25 1145Jose Miguel Glynn DO CC: Dr. Padilla Terry DO; Dr. Ashtyn Gamez MD; Dr. Baudilio Murillo MD ~ [facility]08-16-2025 [facility] Medical Records Department [address] [place] [address] Discharge Summary 06/29/25 1145 MR#: [id number] Acct: [id number] Name: TEX QUINTEROS Rep #: [id number] : 1955 69 From: Jose Miguel Glynn DO PCP: Dr. Ashtyn Gamez MD Status:DIS IN Location: ICU ICU03-1 Providers Date of Admission: 06/28/25 Date of Discharge: 06/29/25 Primary Care Physician: Dr. Ashtyn Gamez MD Reason For Visit: ACUTE ANTERIOR ST ELEVATION DE Diagnosis Discharge Diagnosis (1) Acute ST elevation myocardial infarction (STEMI) of anterior wall: Status: Acute Code(s): I21.09 - ST elevation (STEMI) myocardial infarction involving other coronary artery of anterior wall Plan 1. ST elevation DE #2 hypothyroidism #3 occlusive coronary artery disease in the LAD #4 hyperlipidemia Medications at Discharge Home Medications cholecalciferol (vitamin D3) 50 mcg (2,000 unit) capsule (Vitamin D3) 50 mcg PO DAILY supplement 08/15/25 levothyroxine 75 mcg tablet 75 mcg PO DAILY thyroid 06/28/25 multivitamin (Daily Multi-Vitamin tablet) 1 tab PO DAILY supplement 06/28/25 suzanne life probiotic 1 ea PO DAILY supplement 06/28/25 aspirin 81 mg tablet,delayed release 81 mg PO BREAKFAST #0 tabs 06/29/25 atorvastatin 80 mg tablet 80 mg PO QHS #30 tabs 06/29/25 lisinopril 5 mg tablet 5 mg PO DAILY #30 tabs 06/29/25 metoprolol succinate 25 mg tablet,extended release 24 hr 25 mg PO DAILY #30 tabs 06/29/25 ticagrelor 90 mg tablet (Brilinta) 90 mg PO BID #60 tabs 06/29/25 Hospital Course Operations None Procedures 2-D Echocardiogram Summary of Care Provided Minutes Spent on Discharge: 31 Hospital Course: This 69-year-old white male was seen in the emergency room at [facility] with a chief complaint of chest pain, STEMI alert was called in the emergency room, EKG showed ST elevation in the anterior wall leads V2 and V3. Vital signs are stable, patient was taken emergently to the [facility], cardiac catheterization showed 100% occlusion of the proximal LAD along with occlusive disease in the mid LAD, 2 drug-eluting stents were placed, there were no complications from the procedure. Patient was transferred to the ICU, he had no major arrhythmias during his hospitalization. On 06/29/2025, patient was seen and examined: On examination he appeared in good health and spirits. Vital signs as documented. Skin warm and dry and without overt rashes. Neck without JVD, neck was supple, trachea midline, thyroid was normal. Lungs clear bilaterally, normal air movement was noted. Heart exam notable for regular rhythm, normal sounds and absence of murmurs, rubs or gallops. Abdomen unremarkable and without evidence of organomegaly, masses, or abdominal aortic enlargement. Bowel sounds are present, abdomen is not distended. Extremities nonedematous, no cyanosis was noted, no clubbing was noted. Neuro: Cranial nerves II through XII are grossly intact, no focal motor deficits were noted, sensation to light touch and pinprick intact, motor exam 5/5 throughout. Psych: Patient is alert and oriented x3, he does not appear anxious or depressed, he does not appear agitated. Echocardiogram showed a 50% EF. Patient was discharged home in stable condition on 06/29/2025 Weight / BMI Weight Weight: 93.6 kg Body Mass Index (BMI) 27.2 ABG / Lab / Microbiology Data 06/29/25 06:05 06/29/25 06:05 Laboratory: Laboratory Results - last 24 hr 06/28/25 10:30: PT 14.6, INR 1.1, APTT 176.2 H*, Hemoglobin A1c 5.5, TSH 1.680 06/29/25 06:05: WBC 7.7, RBC 5.21, Hgb 15.2, Hct 45.1, MCV 86.6, MCH 29.2, MCHC 33.7, RDW Std Deviation 41.7, RDW Coeff of Abbe 13.5, Plt Count 215, MPV 9.5, Sodium 140, Potassium 3.9, Chloride 109 H, Carbon Dioxide 19.7 L, Anion Gap 11, BUN 15, Creatinine 0.92, Estim Creat Clear Calc 84.44, Est GFR (MDRD) Non-Af 90, BUN/Creatinine Ratio 16.1, Glucose 104 H, Calcium 8.8, Total Bilirubin 0.73, AST 94 H, ALT 30, Alkaline Phosphatase 60, Total Protein 5.9, Albumin 3.7, Globulin 2.2, Albumin/Globulin Ratio 1.7, Triglycerides 82, Cholesterol 152, LDL Cholesterol, Calc 102, VLDL Cholesterol 16, HDL Cholesterol 34 L, Cholesterol/HDL Ratio 4.50 Radiography Diagnostic Testing: Radiology Impression Echocardiogram 06/28/25 09:53 Interpretation Summary Normal LV size. Normal left ventricular thickness. Diastolic function is indeterminate. The estimated ejection fraction is 50 %. There is moderate hypokinesis involving the mid to distal anterior wall and anterior apical segment Normal systolic function. Normal RV size. With mild sclerosis but no stenosis No significant valvular pathology Ordering Physician: Baudilio Murillo Referring Physician: Baudilio Murillo MD Performed By: Ryanne (more content not included)...[facility] 06-28-2025 History and physical note Author Padilla Terry [facility] Note Date/Time June 28, 2025 4: 31pm [facility] Medical Records Department [address] [place] [address] H&P Exam - Hospitalist 06/28/25 1141 MR#: [id number] Acct: [id number] Name: TEX QUINTEROS Jr. Rep #:[id number] : 1955 69 From: Padilla gr DO PCP: Dr. Ashtyn Gamez MD Status:A DM IN Location: ICU ICU03-1 HPI - General General Date of Admission: 06/28/25 Date of Service: 06/28/25 Chief Complaint: Chest pain HPI Narrative TEX QUINTEROS, is a 69 M who presented to [facility] ED on 06/28/2025 with chest pain. STEMI alert called in the ED. EKG showed ST elevations with hyperacute T waves in V2 and V3. Vital signs were stable precath. Was taken emergently to the [facility]. Left heart cath showed 100% occlusion of the proximal LAD along with tandem lesions in the mid LAD suggestive of active soft plaque. RCA and left circumflex with minimal stenosis. S/p 2 drug-eluting stents placed in the proximal and mid LAD with balloon angioplasty with good result. Estimated EF 45% in the [facility]. Patient was taken to the ICU after cath for further management. I saw the patient shortly after he arrived to the ICU. He was sitting back comfortably inbed and in no acute distress. Denied any chest pain currently. Has minimal medical history noted, is only on Synthroid for hypothyroidism at home. He is very active and was riding his bike today when the chest pain occurred. Noted that he did have mild chest discomfort intermittently over the past week but no chest pain prior to this. Denies any alcohol or tobacco use. No other acute concerns at this time. [facility] Medical History Enlarged prostate Chest pain (~06/28/25) Myocardial infarct (~06/28/25) Hypothyroidism Non-smoker Home Medications ?Medication ?Instructions ?Recorded ?Last Taken ?Type cholecalciferol (vitamin D3) 50 50 mcg PO DAILY supple ment 06/28/25 06/27/25 History mcg (2,000 unit) capsule (Vitamin D3) levothyroxine 75 mcg tablet 75 mcg PO DAILY thyroid 06/28/25 History multivitamin (Daily Multi-Vitamin 1 tab PO DAILY suppl ement 06/28/25 06/27/25 History tablet) suzanne life probiotic 1 ea PO DAILY supplement 06/27/25 History Allergy/AdvReac Type Severity Reaction Status Date / Time No Known Allergies Allergy Verified 06/28/25 07:52 Family History no significant family his Surgical History (Updated 06/28/25 @ 10:45 by Mary Webster) H/O cardiac catheterization (~06/28/25) History of heart artery stent (~06/28/25) Surgical History no surgical history Social History household members: spouse Smoking Status: Never smoker ROS Constitutional Constitutional: Denies chills, fatigue, fever(s) or weakness Eyes Eyes: Denies change in vision Cardiovascular Cardiovascular: Denies chest pain, dyspnea on exertion, edema or lightheadedness Respiratory/Chest Respiratory/Chest: Denies cough or shortness of breath at rest Gastrointestinal Gastrointestinal: Denies abdominal pain Vital Signs Vital Signs Vital Signs: 06/28/25 07:44 06/28/25 07:54 06/28/25 11:16 Temperature 98.8 F Temperature Source Oral Pulse Rate 62 65 Respiratory Rate 18 Blood Pressure 139/78 H 130/72 H Blood Pressure Mean 98 Pulse Ox 97 Oxygen Delivery Method Room Air Room Air Weight Weight: 93.5 kg Body Mass Index (BMI) 27.1 Physical Exam Const alert, oriented x3, no apparent distress, average body habitus, healthy appearing and well nourished Constitutional Narrative: Pleasant elderly male, sitting back comfortably in bed, conversing normally, in no acute distress. General Appearance: cooperative, comfortable, well kempt and well developed HEENT normocephalic, head/scalp atraumatic, hearing grossly normal bilaterally, nasal mucous membranes and turbinates normal and moist oral mucous membranes Eyes PERRL, EOMs intact bilaterally and conjunctivae normal Neck full ROM Chest inspection of chest normal Resp normal respiratory effort, normal air movement, no use of accessory muscles and clear to auscultation bilaterally Cardio regular rate, regular rhythm, no murmurs and peripheral pulses 2+ throughout GI normal to inspection, nondistended, normoactive bowel sounds, soft to palpation,non-tender and non-distended Back/Spine normal ROM Extremity normal to inspection, full ROM and no pedal edema Skin no rashes or lesions noted Psych mental status grossly normal Results Lab / Micro Data 06/28/25 10:30 06/28/25 10:30 Labs: Laboratory Results - last 24 hr 06/28/25 07:20: Activated Clotting Time 291 H 06/28/25 07:53: WBC 5.6, RBC 5.43, Hgb 15.9, Hct 46.8, MCV 86.2, MCH 29.3, MCHC 34.0, RDW Std Deviation 40.7, RDW Coeff of Abbe 13.2, Plt Count 220, MPV 9.0, Immature Gran % (Auto) 0.200, Neut % (Auto) 54.6, Lymph % (Auto) 32.3, [place] % (Auto) 6.8, Eos % (Auto) 5.2 H, Baso % (Auto) 0.9, Absolute Neuts (auto) 3.1, Absolute Lymphs (auto) 1.81, Nucleated RBC % 0, PT 13.4, INR 1.0, APTT 25.8, Sodium 140, Potassium 3.5, Chloride 106, Carbon Dioxide 23.8, Anion Gap 10, BUN 18, Creatinine 0.98, Estim Creat Clear Calc 79.27, Est GFR (MDRD) Non-Af 83, BUN/Creatinine Ratio 18.5, Glucose 130 H, Calcium 9.3, Troponin T High Sens 28 H 06/28/25 08:06: Activated Clotting Time 182 H 06/28/25 08:21: Activated Clotting Time 227 H 06/28/25 10:30: WBC 9.2, RBC 5.29, Hgb 15.6, Hct 45.2, MCV 85.4, MCH 29.5, MCHC 34.5, RDW Std Deviation 40.9, RDW Coeff of Abbe 13.2, Plt Count 220, MPV 9.0, Immature Gran % (Auto) 0.300, Neut % (Auto) 86.1 H, Lymph % (Auto) 10.3 L, [place] % (Auto) 2.5, Eos % (Auto) 0.5, Baso % (Auto) 0.3, Absolute Neuts (auto) 8.0 H, Absolute Lymphs (auto) 0.95, Nucleated RBC % 0, Sodium 138, Potassium 4.1, Chloride 107, Carbon Dioxide 23.3, Anion Gap 8, BUN 17, Creatinine 0.87, Estim Creat Clear Calc 89.29, Est GFR (MDRD) Non-Af 93, BUN/Creatinine Ratio 19.0, Glucose 110 H, Calcium 8.9, Troponin T High Sens 1233 H* D Rhythm Strip Rhythm Strip: Sinus Rhythm Ectopy: None Assessment & Plan Assessment/Plan (1) Acute ST elevation myocardial infarction (STEMI) of anterior wall: PLAN: Plan Patient is a 69-year-old male who presented [facility] ED on 06/28/2025 with chest pain. 1. STEMI ? Admit under inpatient status to ICU. Cardiology following. EKG in ED showed ST elevations in V2 and V3. Emergent left heart cath showed 100% occlusion of the proximal LAD along with tandem lesions in the mid LAD suggestive of active soft plaque. RCA and left circumflex with minimal stenosis. S/p 2 drug-elutingstents placed in the proximal and mid LAD with balloon angioplasty with good result. Echo post cath showed EF 50%, moderate hypokinesis involving the mid todistal anterior wall and anterior apical segment, no other concerning findings. Per cardiology, will treat with aspirin, Brilinta, high intensity statin, and low-dose Lopressor and lisinopril as tolerated. Lipid panel and A1c ordered. Continue cardiac monitoring. If patient remains stable, will be okay for discharge home in the next 1 to 2 days. 2. Hypothyroidism ? TSH ordered. Continue home Synthroid. DVT prophylaxis: Lovenox CODE STATUS: Full code, verified Expected disposition: Home, 1 to 2 days Total clinical time spent by myself addressing the patient's medical issues, reviewing all the data, and collaborating with patient's care team: 55 minutes. Charges/Coding Visit Charges Inpatient E&M: 23004 Init Hosp L2 06/28/25 1631 <Electronically signed by Padilla Terry DO> Cosigner Signature (if applicable): CC: Dr. Padilla Terry DO; Dr. Ashtyn Gamez MD~ Signed [facility] Work Phone: 1(778) 376-783808-15-2025 History and physical note [facility] Medical Records Department [address] [place] [id number] H&P Exam - Hospitalist 06/28/25 1141 MR#: [id number] Acct: [id number] Name: TEX QUINTEROS Jr. Rep #:[id number] : 1955 69 From: Padilla gr DO PCP: Dr. Ashtyn Gamez MD Status:A DM IN Location: ICU ICU03-1 HPI - General General Date of Admission: 06/28/25 Date of Service: 06/28/25 Chief Complaint: Chest pain HPI Narrative TEX QUINTEROS, is a 69 M who presented to [facility] ED on 06/28/2025 with chest pain. STEMI alert called in the ED. EKG showed ST elevations with hyperacute T waves in V2 and V3. Vitalsigns were stable precath. Was taken emergently to the [facility]. Left heart cath showed 100% occlusion of the proximal LAD along with tandem lesions in the mid LAD suggestive of active soft plaque. RCA and left circumflex with minimal stenosis. S/p 2 drug-eluting stents placed in the proximal and mid LAD with balloon angioplasty with good result. Estimated EF 45% in the [facility]. Patient was taken to the ICU after cath for further management. I saw the patient shortly after he arrived to the ICU. He was sitting back comfortably inbed and in no acute distress. Denied any chest pain currently. Has minimal medical history noted, is only on Synthroid for hypothyroidism at home. He is very active and was riding his bike today when the chest pain occurred. Noted that he did have mild chest discomfort intermittently over the past week but no chest pain prior to this. Denies any alcohol or tobacco use. No other acute concerns at this time. [facility] Medical History Enlarged prostate Chest pain (~06/28/25) Myocardial infarct (~06/28/25) Hypothyroidism Non-smoker Home Medications ?Medication ?Instructions ?Recorded ?Last Taken ?Type cholecalciferol (vitamin D3) 50 50 mcg PO DAILY supple ment 06/28/25 06/27/25 History mcg (2,000 unit) capsule (Vitamin D3) levothyroxine 75 mcg tablet 75 mcg PO DAILY thyroid 06/28/25 History multivitamin (Daily Multi-Vitamin 1 tab PO DAILY suppl ement 06/28/25 06/27/25 History tablet) suzanne life probiotic 1 ea PO DAILY supplement 06/27/25 History Allergy/AdvReac Type Severity Reaction Status Date / Time No Known Allergies Allergy Verified 06/28/25 07:52 Family History no significant family his Surgical History (Updated 06/28/25 @ 10:45 by Mary Webster) H/O cardiac catheterization (~06/28/25) History of heart artery stent (~06/28/25) Surgical History no surgical history Social History household members: spouse Smoking Status: Never smoker ROS Constitutional Constitutional: Denies chills, fatigue, fever(s) or weakness Eyes Eyes: Denies change in vision Cardiovascular Cardiovascular: Denies chest pain, dyspnea on exertion, edema or lightheadedness Respiratory/Chest Respiratory/Chest: Denies cough or shortness of breath at rest Gastrointestinal Gastrointestinal: Denies abdominal pain Vital Signs Vital Signs Vital Signs: 06/28/25 07:44 06/28/25 07:54 06/28/25 11:16 Temperature 98.8 F Temperature Source Oral Pulse Rate 62 65 Respiratory Rate 18 Blood Pressure 139/78 H 130/72 H Blood Pressure Mean 98 Pulse Ox 97 Oxygen Delivery Method Room Air Room Air Weight Weight: 93.5 kg Body Mass Index (BMI) 27.1 Physical Exam Const alert, oriented x3, no apparent distress, average body habitus, healthy appearing and well nourished Constitutional Narrative: Pleasant elderly male, sitting back comfortably in bed, conversing normally, in no acute distress. General Appearance: cooperative, comfortable, well kempt and well developed HEENT normocephalic, head/scalp atraumatic, hearing grossly normal bilaterally, nasal mucous membranes and turbinates normal and moist oral mucous membranes Eyes PERRL, EOMs intact bilaterally and conjunctivae normal Neck full ROM Chest inspection of chest normal Resp normal respiratory effort, normal air movement, no use of accessory muscles and clear to auscultation bilaterally Cardio regular rate, regular rhythm, no murmurs and peripheral pulses 2+ throughout GI normal to inspection, nondistended, normoactive bowel sounds, soft to palpation,non-tender and non-distended Back/Spine normal ROM Extremity normal to inspection, full ROM and no pedal edema Skin no rashes or lesions noted Psych mental status grossly normal Results Lab / Micro Data 06/28/25 10:30 06/28/25 10:30 Labs: Laboratory Results - last 24 hr 06/28/25 07:20: Activated Clotting Time 291 H 06/28/25 07:53: WBC 5.6, RBC 5.43, Hgb 15.9, Hct 46.8, MCV 86.2, MCH 29.3, MCHC 34.0, RDW Std Deviation 40.7, RDW Coeff of Abbe 13.2, Plt Count 220, MPV 9.0, Immature Gran % (Auto) 0.200, Neut % (Auto) 54.6, Lymph % (Auto) 32.3, [place] % (Auto) 6.8, Eos % (Auto) 5.2 H, Baso % (Auto) 0.9, Absolute Neuts (auto) 3.1, Absolute Lymphs (auto) 1.81, Nucleated RBC % 0, PT 13.4, INR 1.0, APTT 25.8, Sodium 140, Potassium 3.5, Chloride 106, Carbon Dioxide 23.8, Anion Gap 10, BUN 18, Creatinine 0.98, Estim Creat Clear Calc 79.27, Est GFR (MDRD) Non-Af 83, BUN/Creatinine Ratio 18.5, Glucose 130 H, Calcium 9.3, Troponin T High Sens 28 H 06/28/25 08:06: Activated Clotting Time 182 H 06/28/25 08:21: Activated Clotting Time 227 H 06/28/25 10:30: WBC 9.2, RBC 5.29, Hgb 15.6, Hct 45.2, MCV 85.4, MCH 29.5, MCHC 34.5, RDW Std Deviation 40.9, RDW Coeff of Abbe 13.2, Plt Count 220, MPV 9.0, Immature Gran % (Auto) 0.300, Neut % (Auto) 86.1 H, Lymph % (Auto) 10.3 L, [place] % (Auto) 2.5, Eos % (Auto) 0.5, Baso % (Auto) 0.3, Absolute Neuts (auto) 8.0 H, Absolute Lymphs (auto) 0.95, Nucleated RBC % 0, Sodium 138, Potassium 4.1, Chloride 107, Carbon Dioxide 23.3, Anion Gap 8, BUN 17, Creatinine 0.87, Estim Creat Clear Calc 89.29, Est GFR (MDRD) Non-Af 93, BUN/Creatinine Ratio 19.0, Glucose 110 H, Calcium 8.9, Troponin T High Sens 1233 H* D Rhythm Strip Rhythm Strip: Sinus Rhythm Ectopy: None Assessment & Plan Assessment/Plan (1) Acute ST elevation myocardial infarction (STEMI) of anterior wall: PLAN: Plan Patient is a 69-year-old male who presented [facility] ED on 06/28/2025 with chest pain. 1. STEMI ? Admit under inpatient status to ICU. Cardiology following. EKG in ED showed ST elevations in V2 and V3. Emergent left heart cath showed 100% occlusion of the proximal LAD along with tandem lesions in the mid LAD suggestive of active soft plaque. RCA and left circumflex with minimal stenosis. S/p 2 drug-elutingstents placed in the proximal and mid LAD with balloon angioplasty with good result. Ec ho post cath showed EF 50%, moderate hypokinesis involving the mid todistal anterior wall and anterior apical segment, no other concerning findings. Per cardiology, will treat with aspirin, Brilinta,high intensity statin, and low- dose Lopressor and lisinopril as tolerated. Lipid panel and A1c ordered. Continue cardiac monitoring. If patient remains stable, will be okay for discharge home in the next 1 to 2 days. 2. Hypothyroidism ? TSH ordered. Continue home Synthroid. DVT prophylaxis: Lovenox CODE STATUS: Full code, verified Expected disposition: Home, 1 to 2 days Total clinical time spent by myself addressing the patient's medical issues, reviewing all the data, and collaborating with patient's care team: 55 minutes. Charges/Coding Visit Charges Inpatient E&M: 57554 Init Hosp L2 06/28/25 1631 Cosigner Signature (if applicable): CC: Dr. Padilla Terry DO; Dr. Ashtyn Gamez MD~ Signed [facility]08-15-2025 Evaluation note* Diagnosis Onset Date Resolution Status Admit Date Acute ST elevation myocardia l infarction (STEMI) of anterior wall June 28, 2025 acute June 28, 2 025 11:43am Elevated blood-pressure reading without diagnosis of hypertension acute June 28 11:43am Hypothyroidism acute June 11:43am [facility] Work Phone: [phone]) 524-682708-15-2025 Evaluation note* Diagnosis Onset Date Resolution Status Admit Date Acute ST elevation myocardia l infarction (STEMI) of anterior wall June 28, 2025 acute June 28, 2 025 11:43am Elevated blood-pressure reading without diagnosis of hypertension acute June 28 11:43am Hypothyroidism acute June 11:43am Acute ST elevation myocardia l infarction (STEMI) of anterior wall June 28, 2025 acute July 05, 2 025 8:50am [facility] Work Phone: [phone]) 956-481308-15-2025 Evaluation note* Diagnosis Onset Date Resolution Status Admit Date Acute ST elevation myocardial infarction (STEMI) of anterior wall June 28, 2025 inactive Augus t 2024 11:43am Elevated blood-pressure reading without diagnosis of hypertension inactive June 28 11:43am Hypothyroidism inactive June 11:43am Stented coronary artery June 28, 2025 chron ic July 05, 2025 8:50am [facility] Work Phone: 1(433) 292-324608-15-2025 Progress note Author Valentino Friedman [facility] Note Date/Time June 28, 2025 11 :44am [facility] Medical Records Department [address] [place] [address] Quality Report 06/28/25 1143 MR#: [id number] Acct: [id number] Name: TEX QUINTEROS Jr. Rep #:[id number] : 1955 69 From: Valentino Friedman PCP: Dr. Ashtyn Gamez MD Status:A DM IN Y Location: ICU ICU03-1 STEMI STEMI ED Door Time / Other REG STEMI EKG Time (1) Acute ST elevation myocardial infarction (STEMI) of anterior wall: Acute 06/28/25 07:44 Balloon/Aspiration Date-Time Date of Balloon/Aspiration:: 06/28/25 Time of Balloon/Aspiration:: 08:13 06/28/25 1144 <Electronically signed by Valentino Friedman > Date _ Valentino Stone Signature (if applicable): Date CC: ~ Signed [facility] Work Phone: 1(542) 829-127108-15-2025 Study report [facility] Cardiac Rehab [address] [place] [address] CR: Phase I Education Summary MR#: [id number] Acct: [id number] Name: TEX QUINTEROS Jr. Rep #:[id number] : 1955 69 From: Emery Quinteros PCP: Dr. Ashtyn Gamez MD DOS: General Education Discussed with Patient CAD and cardiac anatomy and function:: Patient communicates acknowledgment and Family communicates acknowledgment Explanation of diagnoses and procedures:: Patient communicates acknowledgment and Family communicates acknowledgment Sign/Symptoms of DE:: Patient communicates acknowledgment and Family communicates acknowledgment Antiplatelet therapy: Patient communicates acknowledgment and Family communicates acknowledgment Proper use of NTG-SL: Patient communicates acknowledgment and Family communicates acknowledgment Emergency procedures and activation of EMS: Patient communicates acknowledgment and Family communicates acknowledgment Compliance of all prescribed medications: Patient communicates acknowledgment and Family communicates acknowledgment Dyslipidemia Risk Factors Patient Dyslipidemia Risk Factors Are:: Total Cholesterol, Triglycerides, HDL and LDL Recommendations Recommendations Include:: Lipid profile not available Response Code Dyslipidemia Response Code:: Patient communicates acknowledgment and Family communicates acknowledgment Overweight/Obesity Risk Factors Patient Overweight/Obesity Risk Factors Are:: BMI Normal [24-29 & > 65 years old] Recommendations Recommendations Include:: Weight loss of 5-10%, Reduced calorie diet and Exercise 5-7 times/week Response Code Overweight/Obesity:: Patient communicates acknowledgment and Family communicatesacknowledgment Hypertension Risk Factors Patient Hypertension Risk Factors Are:: No documented hx of HTN 06/28/25 1248 Date Emery W Neli Outcome assessment reviewed. Exercise plan approved as documented. Treatment plan and goals support patient needs/abilities. Continue with current plan. I certify the patient demonstrates improvement and remains willing and capable of participation. the patient continues to benefit from cardiac rehab services/training. The patient may continue at current intensity, endurance andmodality and progress per protocol. Cosigner Signature: Date CC: ~ Signed [facility]08-15-2025 Progress note [facility] Medical Records Department [address] [place] [address] Quality Report 06/28/25 1143 MR#: [id number] Acct: [id number] Name: TEX QUINTEROS Jr. Rep #:[id number] : 1955 69 From: Valentino Friedman PCP: Dr. Ashtyn Gamez MD Status:A DM IN Y Location: ICU ICU03-1 STEMI STEMI ED Door Time / Other REG STEMI EKG Time (1) Acute ST elevation myocardial infarction (STEMI) of anterior wall: Acute 06/28/25 07:44 Balloon/Aspiration Date-Time Date of Balloon/Aspiration:: 06/28/25 Time of Balloon/Aspiration:: 08:13 06/28/25 1144 > Date _ Valentino Stone Signature (if applicable): Date CC: ~ Signed [facility]08-15-2025 Consult note Author Baudilio Murillo [facility] Note Date/Time June 28, 2025 9: 31am [facility] Medical Records Department [address] [place] [address] Consultation - Cardiology 06/28/25 0922 MR#: [id number] Acct: [id number] Name: TEX QUINTEROS Jr. Rep #:[id number] : 1955 69 From: Baudilio Murillo MD PCP: Dr. Ashtyn Gamez MD Status:A DM IN Location: ICU ICU03-1 Assessment & Plan Assessment/Plan (1) Acute ST elevation myocardial infarction (STEMI) of anterior wall: PLAN: The patient was given intravenous heparin bolus, aspirin, 1 loading dose of Brilinta 180 mg, ticagrelor and rushed to the car catheterization lab after explaining all the risks involved including but not limited to , myocardialinfarction, cerebrovascular accident, and bleeding and he agreed to proceed withit. Will utilize a right radial artery approach The procedure was performed demonstrating total occlusion of the proximal LAD with GEORGETTE 0 flow along with distal left main 30% stenosis and mid RCA 30% stenosis with moderate elevation of intracardiac filling pressures LVEDP 30 mmHg. PCI with drug-eluting stent, 2 overlapping in the mid and proximal LAD inaddition to kissing balloon angioplasty to the second diagonal branch was performed with restoring GEORGETTE-3 flow in both LAD and diagonal branch. There was0% residual stenosis. The patient remained hemodynamically stable not requiringany pressors. He is in no acute respiratory distress. #1 initiate very low-dose beta-blockers if tolerated however the heart rate is in the 50s #2 initiate very low-dose VENTURA inhibitors if tolerated due to low normal blood pressure #3 continue dual and platelet therapy baby aspirin anticoagulant for minimum of 1 year #4 high potency statins for goal LDL less than 55 considering the patient's age #5 echocardiogram for LV systolic function #6 cardiac rehabilitation referral (2) Elevated blood-pressure reading without diagnosis of hypertension: PLAN: Currently BP is lower limits of normal following the intervention for which we will carefully monitor (3) Hypothyroidism: PLAN: Continue Synthroid HPI Consult Data Date of Consult: 06/28/25 HPI Narrative Reason for Consultation: STEMI HPI Narrative: TEX QUINTEROS, is a 69 M who presents chest pain on and off since last night however this morning after biking since the patient has a very active lifestyle and has never had a coronary event, the above symptoms appear to be worrisome and this morning his pain was persistent for which he called 911 and came to theER where he was found to be an anterior wall STEMI with an injury pattern of at least [address] segment elevation extending from V2 V3 through V6. He continued to have 10 out of 10 chest pain. No syncope associated with it. No significantrespiratory distress. He denies any previous coronary event or cerebrovascular event. He denies any TIA-like symptoms. He denies any swelling lower extremities orthopnea or PND. He denies any tobacco or alcohol use. He runs a very active lifestyle and uses only Synthroid for hypothyroidism. He denies anyingestion of [id number] medications. PFSH Allergy/AdvReac Type Severity Reaction Status Date / Time No Known Allergies Allergy Verified 06/28/25 07:52 Family History no significant family his no significant family history Surgical History no surgical history no surgical history Social History household members: spouse Smoking Status: Never smoker ROS ROS Narrative Most of the review of system is nonsignificant and noncontributory to the above Physical Exam Const alert and oriented x3 Orientation / Consciousness: awake HEENT normocephalic and head/scalp atraumatic Eyes PERRL and EOMs intact bilaterally Neck full ROM Carotids: normal carotid upstroke Lymph Lymphatic: no lymphadenopathy noted Chest inspection of chest normal Resp normal respiratory effort and clear to auscultation bilaterally Cardio regular rate and regular rhythm Palpation: normal PMI Rate: bradycardia Rhythm: regular rhythm GI normal to inspection, nondistended, normoactive bowel sounds Palpation: no hepatosplenomegaly no CVA tenderness and external exam normal Back/Spine no CVA tenderness Extremity normal capillary refill, no joint enlargement and no clubbing, cyanosis or edema Skin no rashes or lesions noted Psych mental status grossly normal Risk Stratification Risk Stratification Applicable: No Objective Data Vital Signs: Vital Signs Temp Pulse Resp BP Pulse Ox O2 Del Method 98.8 F 62 18 139/78 H 97 Room Air 06/28/25 07:44 06/28/25 07:44 06/28/25 07:44 06/28/25 07:44 06/28/25 07:44 06/28/25 07:54 Oxygen Delivery Method Room Air Weight: 205 lb 14.588 oz Body Mass Index (BMI) 27.1 Intake & Output: Intake and Output for Last 24 Hours 06/26/25 06/27/25 06/28/25 23:59 23:59 23:59 Intake Total Balance Lab / Micro Data Attestation: I reviewed the patient's lab results. 06/28/25 07:53 06/28/25 07:53 Labs: Laboratory Results - last 24 hr 06/28/25 07:53: WBC 5.6, RBC 5.43, Hgb 15.9, Hct 46.8, MCV 86.2, MCH 29.3, MCHC 34.0, RDW Std Deviation 40.7, RDW Coeff of Abbe 13.2, Plt Count 220, MPV 9.0, Immature Gran % (Auto) 0.200, Neut % (Auto) 54.6, Lymph % (Auto) 32.3, [place] % (Auto) 6.8, Eos % (Auto) 5.2 H, Baso % (Auto) 0.9, Absolute Neuts (auto) 3.1, Absolute Lymphs (auto) 1.81, Nucleated RBC % 0, PT 13.4, INR 1.0, APTT 25.8, Sodium 140, Potassium 3.5, Chloride 106, Carbon Dioxide 23.8, Anion Gap 10, BUN 18, Creatinine 0.98, Estim Creat Clear Calc 79.27, Est GFR (MDRD) Non-Af 83, BUN/Creatinine Ratio 18.5, Glucose 130 H, Calcium 9.3, Troponin T High Sens 28 H Rhythm Strip Rhythm Strip: Sinus Rhythm Ectopy: None Cardiology Labs/Tests 06/28/25 07:53: WBC 5.6, RBC 5.43, Hgb 15.9, Hct 46.8, MCV 86.2, MCH 29.3, MCHC 34.0, Plt Count 220, MPV 9.0, Immature Gran % (Auto) 0.200, Neut % (Auto) 54.6, Lymph % (Auto) 32.3, [place] % (Auto) 6.8, Eos % (Auto) 5.2 H, Baso % (Auto) 0.9, Absolute Neuts (auto) 3.1, Nucleated RBC % 0, PT 13.4, INR 1.0, APTT 25.8, Sodium 140, Potassium 3.5, Chloride 106, Carbon Dioxide 23.8, Anion Gap 10, BUN 18, Creatinine 0.98, Est GFR (MDRD) Non-Af 83, BUN/Creatinine Ratio 18.5, Glucose 130 H, Calcium 9.3 Rhythm: EKG: Sinus bradycardia with anterior wall ST segment elevation consistent with injury pattern extending 3 mm from V3 through V6 ECHO: Stress Test: Cardiac Cath: PCI: CT Surgery: Holter monitor: EPS: PPM: CXR: Chest CT Scan: 06/28/25 0931 <Electronically signed by Baudilio Murillo MD> Cosigner Signature (if applicable): CC: Dr. Ashtyn Gamez MD; Dr. Baudilio Murillo MD~ Signed [facility] Work Phone: 1(298) 340-293408-15-2025 Discharge summary Author Gage Woodson [facility] Note Date/Time June 28, 2025 7: 57am [facility] Medical Records Department [address] [place] [address] Emergency Department Summary 06/28/25 MR#: [id number] Acct: [id number] Name: TEX QUINTEROS JrDesean Rep #:[id number] : 1955 69 From: Gage Woodson MD PCP: Dr. Ashtyn Gamez MD Status:R EG ER Location: ED HPI History of Present Illness Chief Complaint: Chest Pain Detail of Chief Complaint: Right parasternal discomfort Informant: patient Onset/Context/Timing Onset: Today and Hours Activity at onset: activity on onset Timing: Continuous Quality: Positive for Dull Location: Right Parasternal Current Severity: Moderate Maximum Severity: Severe Worsened By: Exertion Relieved By: Nothing Associated Symptoms: Positive for Nausea and Diaphoresis; Negative for Vomiting,Dyspnea, Cough, Fever, Lightheadedness, Acid Reflux or Palpitations Narrative Narrative: Patient 69-year-old gentleman with history hypothyroidism who was riding his bicycle when he developed chest discomfort. He has no known history of coronarydisease, hypertension, diabetes or hypercholesterolemia. He rides often during the week. He has no other symptoms. Prior Similar Symptoms: No Recent Illness/Hospitalization: No CVD Risk Factors: Negative for Hypertension, Diabetes, Hypercholesterolemia, Family History 1' </=55 or Smoking PE Risk Factors: Negative for Recent Travel/Surgery, Recent Immobilization, Prior DVT or PE, Cancer or OCP + Smoking + >/=35 TAD Risk Factors: Negative for Marfan's Syndrome, Hypertension or Family History PFSH PFSH Allergy/AdvReac Type Severity Reaction Status Date / Time No Known Allergies Allergy Verified 06/28/25 07:52 Social History (Updated 06/28/25 @ 07:[address] Gage Woodson MD) household members: spouse Smoking Status: Never smoker ROS ROS ED Constitutional Constitutional ED: Denies chills, fever(s) or subjective Eyes Eyes: Reports none ENT ENT ED: Denies rhinorrhea Cardiovascular Cardiovascular: Reports as per HPI; Denies orthopnea Respiratory/Chest Respiratory/Chest: Reports dyspnea; Denies cough, dyspnea on exertion or orthopnea Gastrointestinal Gastrointestinal: Denies abdominal pain, diarrhea, melena or vomiting Genitourinary Genitourinary ED: Denies dysuria or hematuria Musculoskeletal Musculoskeletal: Denies arthralgias, back pain or myalgias Integumentary Denies rash Hematologic/Lymphatic Hematologic/Lymphatic: Denies easy bleeding, easy bruising or lymphadenopathy EXAM Physical Exam Const Positive well nourished and well developed Constitutional Narrative: Patient seems slightly anxious. He is slightly diaphoretic. General Appearance ED: well developed HEENT Reports moist mucous membranes normocephalic and atraumatic Eyes PERRL and EOMs intact bilaterally Neck no lymphadenopathy and no JVD Chest Wall inspection of chest normal and palpation of chest normal Resp normal respiratory effort and clear to auscultation bilaterally Cardio regular rate, regular rhythm, S1 normal heart sound, S2 normal heart sound and no murmurs GI normal to inspection, nondistended, normoactive bowel sounds, soft to palpation and non-tender Extremity normal to inspection General Extremety ED: Negative for edema or pulses abnormal General Extremity: Negative for edema or pulses abnormal Neuro oriented x3 and CN's II-XII intact bilaterally Sensorium / Orientation: awake and alert Psych Mood & Affect: anxious Skin no rashes or lesions noted MDM MDM MDM Narrative Medical decision making narrative: Patient had 7 prehospital EKGs. The fourth EKG had hyperacute T waves. First EKG was transmitted did not reveal evidence of a STEMI. EKG that was obtained here has ST elevation with hyperacute T waves V2 through V3 consistent with an anterior DE. There is no reciprocal changes. Patient received 324 mg of aspirin prehospital. He received 180 mg of Brilinta in the emergency [id number] units of heparin. Spoke with the gizzard puller Dr. Murillo. He asked for us to get to the patient to the [facility] [employer] as quick as possible. [facility] [employer] notified us at 0753 that they were ready. EKG Initial EKG: Attestation: I personally reviewed and interpreted this EKG as follows: Interpretation: Sinus Rhythm (Acute ST elevation DE anterior leads, hyperacute T waves. There is no reciprocal changes.) Critical Care Time Critical Care Time: Yes Critical care time (excluding procedures): 30-74 minutes (8), Including time spent: (History, physical, documentation, discussion with EMS,), Discussing w/Patient &/or Family/Hardwood Floor Installer (Informed of EKG findings and need for Ch[employer]illa Machine Operator) and Discussing w/Consultants (proofer prepress) Discharge Plan Triage Chief Complaint: Chest Pain ED Provider: Gage Woodson Dx/Rx/DC Orders Clinical Impression: Acute ST elevation myocardial infarction (STEMI) of anterior wall, Hypothyroidism, Elevated blood-pressure reading without diagnosis of hypertension Primary Care Provider: Ashtyn Gamez Referrals: Ashtyn Gamez MD [Primary Care Provider] - Print Language: Marshallese Disposition Disposition: Acute Care Hospital [facility] What to do if you have Problems For any increased pain, shortness of breath, bleeding, nausea or vomiting, chestpain, or any unexpected problems, contact your Primary Care Provider. Call [facility] ([phone]) or report to the closest Emergency Room. Call 911 if necessary. 06/28/25 075 <Electronically signed by Gage Woodson MD> Cosigner Signature (if applicable): CC: Dr. Ashtyn Gamez MD ~ Signed [facility] Work Phone: 1(244) 374-726708-15-2025 Consult note [facility] Medical Records Department [address] [place] [address] Consultation - Cardiology 06/28/25921 MR#: [id number] Acct: [id number] Name: TEX QUINTEROS Jr. Rep #:[id number] : 1955 69 From: Baudilio Murillo MD PCP: Dr. Ashtyn Gamez MD Status:A DM IN Location: ICU ICU03-1 Assessment & Plan Assessment/Plan (1) Acute ST elevation myocardial infarction (STEMI) of anterior wall: PLAN: The patient was given intravenous heparin bolus, aspirin, 1 loading dose of Brilinta 180 mg, ticagrelor and rushed to the car catheterization lab after explaining all the risks involved including but not limited to , myocardialinfarction, cerebrovascular accident, and bleeding and he agreed to proceed withit. Will utilize a right radial artery approach The procedure was performed demonstrating total occlusion of the proximal LAD with GEORGETTE 0 flow along with distal left main 30% stenosis and mid RCA 30% stenosis with moderate elevation of intracardiac filling pressures LVEDP 30 mmHg. PCI with drug-eluting stent, 2 overlapping in the mid and proximal LAD inaddition to kissing balloon angioplasty to the second diagonal branch was performed with restoring GEORGETTE-3 flow in both LAD and diagonal branch. There was0% residual stenosis. The patient remained hemodynamically stable not requiringany pressors. He is in no acute respiratory distress. #1 initiate very low-dose beta-blockers if tolerated however the heart rate is in the 50s #2 initiate very low-dose VENTURA inhibitors if tolerated due to low normal blood pressure #3 continue dual and platelet therapy baby aspirin anticoagulant for minimum of 1 year #4 high potency statins for goal LDL less than 55 considering the patient's age #5 echocardiogram for LV systolic function #6 cardiac rehabilitation referral (2) Elevated blood-pressure reading without diagnosis of hypertension: PLAN: Currently BP is lower limits of normal following the intervention for which we will carefullymonitor (3) Hypothyroidism: PLAN: Continue Synthroid HPI Consult Data Date of Consult: 06/28/25 HPI Narrative Reason for Consultation: STEMI HPI Narrative: TEX QUINTEROS, is a 69 M who presents chest pain on and off since last night however this morning after biking since the patient has a very active lifestyle and has never had a coronary event, the above symptoms appear to be worrisome and this morning his pain was persistent for which he called 911 and came to theER where he was found to be an anterior wall STEMI with an injury pattern of at least3 mm ST segment elevation extending from V2 V3 through V6. He continued to have 10 out of 10 chest pain. No syncope associated with it. No significantrespiratory distress. He denies any previous coronary event or cerebrovascular event. He denies any TIA-like symptoms. He denies any swelling lower extremities orthopnea or PND. He denies any tobacco or alcohol use. He runs a very active lifestyle and uses only Synthroid for hypothyroidism. He denies anyingestion of jgul-mcf-ezwpucc medications. PFSH Allergy/AdvReac Type Severity Reaction Status Date / Time No Known Allergies Allergy Verified 06/28/25 07:52 Family History no significant family his no significant family history Surgical History no surgical history no surgical history Social History household members: spouse Smoking Status: Never smoker ROS ROS Narrative Most of the review of system is nonsignificant and noncontributory to the above Physical Exam Const alert and oriented x3 Orientation / Consciousness: awake HEENT normocephalic and head/scalp atraumatic Eyes PERRL and EOMs intact bilaterally Neck full ROM Carotids: normal carotid upstroke Lymph Lymphatic: no lymphadenopathy noted Chest inspection of chest normal Resp normal respiratory effort and clear to auscultation bilaterally Cardio regular rate and regular rhythm Palpation: normal PMI Rate: bradycardia Rhythm: regular rhythm GI normal to inspection, nondistended, normoactive bowel sounds Palpation: no hepatosplenomegaly no CVA tenderness and external exam normal Back/Spine no CVA tenderness Extremity normal capillary refill, no joint enlargement and no clubbing, cyanosis or edema Skin no rashes or lesions noted Psych mental status grossly normal Risk Stratification Risk Stratification Applicable: No Objective Data Vital Signs: Vital Signs Temp Pulse Resp BP Pulse Ox O2 Del Method 98.8 F 62 18 139/78 H 97 Room Air 06/28/25 07:44 06/28/25 07:44 06/28/25 07:44 06/28/25 07:44 06/28/25 07:44 06/28/25 07:54 Oxygen Delivery Method Room Air Weight: 205 lb 14.588 oz Body Mass Index (BMI) 27.1 Intake & Output: Intake and Output for Last 24 Hours 06/26/25 06/27/25 06/28/25 23:59 23:59 23:59 Intake Total Balance Lab / Micro Data Attestation: I reviewed the patient's lab results. 06/28/25 07:53 06/28/25 07:53 Labs: Laboratory Results - last 24 hr 06/28/25 07:53: WBC 5.6, RBC 5.43, Hgb 15.9, Hct 46.8, MCV 86.2, MCH 29.3, MCHC 34.0, RDW Std Deviation 40.7, RDW Coeff of Abbe 13.2, Plt Count 220, MPV 9.0, Immature Gran % (Auto) 0.200, Neut % (Auto) 54.6, Lymph % (Auto) 32.3, [place] % (Auto) 6.8, Eos % (Auto) 5.2 H, Baso % (Auto) 0.9, Absolute Neuts (auto) 3.1, Absolute Lymphs (auto) 1.81, Nucleated RBC % 0, PT 13.4, INR 1.0, APTT 25.8, Sodium 140, Potassium 3.5, Chloride 106, Carbon Dioxide 23.8, Anion Gap 10, BUN 18, Creatinine 0.98, Estim Creat Clear Calc 79.27, Est GFR (MDRD) Non-Af 83, BUN/Creatinine Ratio 18.5, Glucose 130 H, Calcium 9.3, Troponin T High Sens 28 H Rhythm Strip Rhythm Strip: Sinus Rhythm Ectopy: None Cardiology Labs/Tests 06/28/25 07:53: WBC 5.6, RBC 5.43, Hgb 15.9, Hct 46.8, MCV 86.2, MCH 29.3, MCHC 34.0, Plt Count 220, MPV 9.0, Immature Gran % (Auto) 0.200, Neut % (Auto) 54.6, Lymph % (Auto) 32.3, [place] % (Auto) 6.8,Eos % (Auto) 5.2 H, Baso % (Auto) 0.9, Absolute Neuts (auto) 3.1, Nucleated RBC % 0, PT 13.4, INR 1.0, APTT 25.8, Sodium 140, Potassium 3.5, Chloride 106, Carbon Dioxide 23.8, Anion Gap 10, BUN 18, Creatinine 0.98, Est GFR (MDRD) Non-Af 83, BUN/Creatinine Ratio 18.5, Glucose 130 H, Calcium 9.3 Rhythm: EKG: Sinus bradycardia with anterior wall ST segment elevation consistent with injury pattern extending 3 mm from V3 through V6 ECHO: Stress Test: Cardiac Cath: PCI: CT Surgery: Holter monitor: EPS: PPM: CXR: Chest CT Scan: 06/28/25 0931 Cosigner Signature (if applicable): CC: Dr. Ashtyn Gamez MD; Dr. Baudilio Murillo MD~ Signed [facility]08-15-2025 Discharge summary [facility] Medical Records Department [address] [place] [address] Emergency Department Summary 06/28/25 MR#: [id number] Acct: [id number] Name: TEX QUINTEROS Jr. Rep #:[id number] : 1955 69 From: Gage Woodson MD PCP: Dr. Ashtyn Gamez MD Status:R EG ER Location: ED HPI History of Present Illness Chief Complaint: Chest Pain Detail of Chief Complaint: Right parasternal discomfort Informant: patient Onset/Context/Timing Onset: Today and Hours Activity at onset: activity on onset Timing: Continuous Quality: Positive for Dull Location: Right Parasternal Current Severity: Moderate Maximum Severity: Severe Worsened By: Exertion Relieved By: Nothing Associated Symptoms: Positive for Nausea and Diaphoresis; Negative for Vomiting,Dyspnea, Cough, Fever, Lightheadedness, Acid Reflux or Palpitations Narrative Narrative: Patient 69-year-old gentleman with history hypothyroidism who was riding his bicycle when he developed chest discomfort. He has no known history of coronarydisease, hypertension, diabetes or hypercholesterolemia. He rides often during the week. He has no other symptoms. Prior Similar Symptoms: No Recent Illness/Hospitalization: No CVD Risk Factors: Negative for Hypertension, Diabetes, Hypercholesterolemia, Family History 1' PE Risk Factors: Negative for Recent Travel/Surgery, Recent Immobilization, Prior DVT or PE, Cancer or OCP + Smoking + >/=35 TAD Risk Factors: Negative for Marfan's Syndrome, Hypertension or Family History PFSH PFSH Allergy/AdvReac Type Severity Reaction Status Date / Time No Known Allergies Allergy Verified 06/28/25 07:52 Social History (Updated 06/28/25 @ 07:[address] Gage Woodson MD) household members: spouse Smoking Status: Never smoker ROS ROS ED Constitutional Constitutional ED: Denies chills, fever(s) or subjective Eyes Eyes: Reports none ENT ENT ED: Denies rhinorrhea Cardiovascular Cardiovascular: Reports as per HPI; Denies orthopnea Respiratory/Chest Respiratory/Chest: Reports dyspnea; Denies cough, dyspnea on exertion or orthopnea Gastrointestinal Gastrointestinal: Denies abdominal pain, diarrhea, melena or vomiting Genitourinary Genitourinary ED: Denies dysuria or hematuria Musculoskeletal Musculoskeletal: Denies arthralgias, back pain or myalgias Integumentary Denies rash Hematologic/Lymphatic Hematologic/Lymphatic: Denies easy bleeding, easy bruising or lymphadenopathy EXAM Physical Exam Const Positive well nourished and well developed Constitutional Narrative: Patient seems slightly anxious. He is slightly diaphoretic. General Appearance ED: well developed HEENT Reports moist mucous membranes normocephalic and atraumatic Eyes PERRL and EOMs intact bilaterally Neck no lymphadenopathy and no JVD Chest Wall inspection of chest normal and palpation of chest normal Resp normal respiratory effort and clear to auscultation bilaterally Cardio regular rate, regular rhythm, S1 normal heart sound, S2 normal heart sound and no murmurs GI normal to inspection, nondistended, normoactive bowel sounds, soft to palpation and non-tender Extremity normal to inspection General Extremety ED: Negative for edema or pulses abnormal General Extremity: Negative for edema or pulses abnormal Neuro oriented x3 and CN's II-XII intact bilaterally Sensorium / Orientation: awake and alert Psych Mood & Affect: anxious Skin no rashes or lesions noted MDM MDM MDM Narrative Medical decision making narrative: Patient had 7 prehospital EKGs. The fourth EKG had hyperacute T waves. First EKG was transmitted did not reveal evidence of a STEMI. EKG that was obtained here has ST elevation with hyperacute T waves V2 through V3 consistent with an anterior DE. There is no reciprocal changes. Patient received 324mg of aspirin prehospital. He received 180 mg of Brilinta in the emergency [id number] units of heparin. Spoke with the gizzard puller Dr. Murillo. He asked for us to get to the patientto the [employer]illa Machine Operator as quick as possible. [employer] [employer] Operator notified us at 0753 that they were ready. EKG Initial EKG: Attestation: I personally reviewed and interpreted this EKG as follows: Interpretation: Sinus Rhythm (Acute ST elevation DE anterior leads, hyperacute T waves. There is noreciprocal changes.) Critical Care Time Critical Care Time: Yes Critical care time (excluding procedures): 30-74 minutes (8), Including time spent: (History, physical, documentation, discussion with EMS,), Discussing w/Patient &/or Family/Hardwood Floor Installer (Informedwife of EKG findings and need for Chinchilla Machine Operator) and Discussing w/Consultants (proofer prepress) Discharge Plan Triage Chief Complaint: Chest Pain ED Provider: Gage Woodson Dx/Rx/DC Orders Clinical Impression: Acute ST elevation myocardial infarction (STEMI) of anterior wall, Hypothyroidism, Elevated blood-pressure reading without diagnosis of hypertension Primary Care Provider: Ashtyn Gamez Referrals: Ashtyn Gamez MD [Primary Care Provider] - Print Language: Marshallese Disposition Disposition: Acute Care Hospital [facility] What to do if you have Problems For any increased pain, shortness of breath, bleeding, nausea or vomiting, chestpain, or any unexpected problems, contact your Primary Care Provider. Call [facility] ([phone]) or report tothe closest Emergency Room. Call 911 if necessary. 06/28/25 0757 Cosigner Signature (if applicable): CC: Dr. Ashtyn Gamez MD ~ Signed [facility]08-01-2025 Evaluation note* Diagnosis Onset Date Resolution Status Admit Date Acute ST elevation myocardia l infarction (STEMI) of anterior wall acute June 28 7:51am Elevated blood-pressure read ing without diagnosis of hypertension acute June 28 7:51am Hypothyroidism acute June 7:51am [facility] Work Phone: 1(501) 360-673510-23-2024 Telephone encounter Note* Telephone Encounter - Alisa De Santiago - 09/05/2024 9:39 AM EDT Pt has declined to schedule SX at this time. Scheduled OV appt for further discussion of SX with Dr. Mattson 11/21/2024 @08:50am [facility] location. [id number] Telephone encounter Note* Telephone Encounter - Alisa De Santiago - 09/05/2024 9:39 AM EDT ----- Message from Gabe Mattson MD sent at 08/29/2024 2:42 PM EDT ----- Cysto, turp (up to him when he wants, and after fluid shortage) [facility] [id number] Miscellaneous Notes* Telephone Encounter - Alisa De Santiago - 09/05/2024 9:39 AM EDT Pt has declined to schedule SX at this time. Scheduled OV appt for further discussion of SX with Dr. Mattson 11/21/2024 @08:50am [facility] location. * Telephone Encounter - Alisa De Santiago - 09/05/2024 9:39 AM EDT ----- Message from Gabe Mattson MD sent at 08/29/2024 2:42 PM EDT ----- Cysto, turp (up to him when he wants, and after fluid shortage) documented in this encounterSOhioHealth O'[facility]len[facility] HospitalNcxkto17-42-3241 Telephone encounter Note* Telephone Encounter - Alisa De Santiago - 09/05/2024 9:38 AM EDT Spoke with spouse, Chioma, gave Dr. Aguilar message. Cancelled 09/21 scheduled SX. Made OV appt 11/21/24 in [facility] for further discussion of SX. Offered sooner available appt but pt wishes to schedule out. [facility] [id number] Miscellaneous Notes* Telephone Encounter - Alisa De Santiago - 09/05/2024 9:38 AM EDT Spoke with spouse, Chioma, gave Dr. Aguilar message. Cancelled 09/21 scheduled SX. Made OV appt 11/21/24 in [facility] for further discussion of SX. Offered sooner available appt but pt wishes to schedule out. * Telephone Encounter - Alisa De Santiago - 09/04/2024 8:22 AM EDT Call placed to pt to schedule SX, [...] discuss these questions, please let me know Telly will get pt scheduled. Thank you. * Telephone Encounter - Alisa De Santiago - 09/04/2024 8:22 AM EDT ----- Message from Gabe Mattson MD sent at 08/29/2024 2:42 PM EDT ----- Cysto, turp (up to him when he wants, and after fluid shortage) documented in this encounterSOhioHealth O'Bleness [id number] Telephone encounter Note* Telephone Encounter - Alisa De Santiago - 09/04/2024 8:22 AM EDT Call placed to pt to schedule SX, [...] discuss these questions, please let me know Telly will get pt scheduled. Thank you. [facility] [id number] Telephone encounter Note* Telephone Encounter - Alisa De Santiago - 09/04/2024 8:22 AM EDT ----- Message from Gabe Mattson MD sent at 08/29/2024 2:42 PM EDT ----- Cysto, turp (up to him when he wants, and after fluid shortage) [facility] [id number] History of Present illness Narrative* Gabe Mattson MD - 08/29/2024 2:20 PM EDT Images from the original note were not [...] hyperplasia, without bladder neck contracture of 18 Frenchsize. Bladder: Mild trabeculation, without lesions. Ureteral orifice(s) was/were seen bilateral. Ureteral orifice(s) bilateral were in the normal location and bilateral ureteral orifices were effluxing clear urine. Moderate median lobe causing obstruction Specimens: none Complications: None; patient tolerated the procedure well. Disposition: To home after 30 minute observation. Condition: stable Attending Attestation: I performed the procedure. UROLOGY PROCEDURE REPORT PATIENT NAME: Tex Quinteros DATE OF : 1955 TODAY'S DATE: 08/29/2024 PreOp Dx::BPH PostOp Dx: Same Operation Transrectal Ultrasound of the prostate,no biopsy Surgeon Gabe Mattson MD Assist None Anesthesia:local EBL Minimal Specimen none Complications None; patient tolerated the procedure well. Condition To Home INDICATIONS: Tex Quinteros , is a 68 y.o. male who has BPH. Prostate Ultrasound is indicated. The risks of ultrasound and possible biopsy were explained in detail. The procedure was explained. All questions were answered and he wishes to proceed. PROCEDURE: Tex Quinteros Was brought to the exam room. Thorough time out was performed and everyone present wasin agreement.Tex Quinteros was placed in the lithotomy position. [...] his lower urinary tract symptoms appear to berelated to BPH. I explained the dangers to [...] MD 08/29/24 2:42 PM documented in this [facility]10-16-2024 NoteCystoscopy Procedure Note Indications: BPH with urinary obstruction [...] hyperplasia, without bladder neck contracture of 18 Cymraes size. Bladder: Mild trabeculation, without lesions. Ureteral orifice(s) was/were seen bilateral. Ureteral orifice(s) bilateral were in the normal location and bilateral ureteral orifices were effluxing clear urine. Moderate median lobe causing obstruction Specimens: none Complications: None; patient tolerated the procedure well. Disposition: To home after 30 minute observation. Condition: stable Attending Attestation: I performed the procedure. UROLOGY PROCEDURE REPORT PATIENT NAME: Tex Quinteros DATE OF : 1955 TODAY'S DATE: 08/29/2024 PreOp Dx::BPH PostOp Dx: Same Operation Transrectal Ultrasound of the prostate,no biopsy Surgeon Gabe Mattson MD Assist None Anesthesia:local EBL Minimal Specimen none Complications None; patient tolerated the procedure well. Condition To Home INDICATIONS: Tex Quinteros , is a 68 y.o. male who has BPH. Prostate Ultrasound is indicated. The risks of ultrasound and possible biopsy were explained in detail. The procedure was explained. All questions were answered and he wishes to proceed. PROCEDURE: Tex Quinteros Was brought to the exam room. Thorough time out was performed and everyone present was in agreement.Tex Quinteros was placed in the lithotomy position. [...] on file. Gabe Mattson MD 08/29/24 2:42 [facility]10-14-2024 Telephone encounter Note* Telephone Encounter - Benita Mcmahan - 08/27/2024 1:14 PM EDT Pt returned the call from the office and the message was released. He confirmed it is ok to change his upcoming appt to 2:20 pm on 08/29/[address] Mattson. [facility] [id number] Miscellaneous Notes* Telephone Encounter - Benita Mcmahan - 08/27/2024 1:14 PM EDT Pt returned the call from the office and the message was released. He confirmed it is ok to change his upcoming appt to 2:20 pm on 08/29/[address] Mattson. * Telephone Encounter - Silvestre Jorgensen RN - 08/24/2024 10:38 AM EDT Left message for patient asking if his upcoming appointment time with Dr Mattson can be moved to 2:20 pm on 08/29 documented in this [facility]10-11-2024 Telephone encounter Note* Telephone Encounter - Silvestre Jorgensen RN - 08/24/2024 10:38 AM EDT Left message for patient asking if his upcoming appointment time with Dr Mattson can be moved to 2:20 pm on 08/29 [facility] [id number] History of Present illness Narrative* Gabe Mattson MD - 07/25/2024 10:00 AM EDT Images from the original note were not included. Gabe Mattson MD 07/25/2024 at 10:33 AM UROLOGY INITIAL OFFICE VISIT PATIENT NAME: Tex Quinteros DATE OF : 1955 TODAY'S DATE: [...] Housing Stability: Not on file Family History: @[facility]@ PHYSICAL EXAM: VITALS: There were no vitals [...] MD 07/25/24 10:33 AM documented in this [facility]06-28-2024 Telephone encounter Note* Telephone Encounter - Belindakirsten Hernandez - 05/11/2024 11:58 AM EDT Patient returned call to office. He would prefer the [place] office since it is closest to him home. Appt scheduled 07/25/[address] Mattson and placed on the wait list in case of a cancellation [facility] [id number] Miscellaneous Notes* Telephone Encounter - Belinda Hernandez - 05/11/2024 11:58 AM EDT Patient returned call to office. He would prefer the [place] office since it is closest to him home. Appt scheduled 07/25/[address] Mattson and placed on the wait list in case of a cancellation * Telephone Encounter - Alisa De Santiago - 03/14/2024 3:26 PM EDT Referral from [facility]. Referral created and all documents uploaded to media. Call placed to pt but no answer at this time. I left a detailed VM with office number for call back to schedule ASSOCIATE PROFESSOR appt. documented in this encounterSOhioHealth O'Bleness [id number] NoteReferral from LR. Referral created and all documents uploaded to media. Call placed to pt but no answer at this time. I left a detailed VM with office number for call back to schedule ASSOCIATE PROFESSOR appt.[facility]05-01-2024 Telephone encounter Note* Telephone Encounter - Alisalili De Santiago - 03/14/2024 3:26 PM EDT Referral from LR. Referral created and all documents uploaded to media. Call placed to pt but no answer at this time. I left a detailed VM with office number for call back to schedule ASSOCIATE PROFESSOR appt. [facility] [id number] Miscellaneous Notes* Telephone Encounter - Alisa De Santiago - 03/14/2024 3:26 PM EDT Referral from LR. Referral created and all documents uploaded to media. Call placed to pt but no answer at this time. I left a detailed VM with office number for call back to schedule ASSOCIATE PROFESSOR appt. documented in this [facility] HealthDischarge summary Author Gage Woodson [facility] Note Date/Time June 28, 2025 7: 57am [facility] Medical Records Department [address] [place] [address] Emergency Department Summary 06/28/25 MR#: [id number] Acct: [id number] Name: TEX QUINTEROS JrDesean Rep #:[id number] : 1955 69 From: Gage Woodson MD PCP: Dr. Ashtyn Gamez MD Status:R EG ER Location: ED HPI History of Present Illness Chief Complaint: Chest Pain Detail of Chief Complaint: Right parasternal discomfort Informant: patient Onset/Context/Timing Onset: Today and Hours Activity at onset: activity on onset Timing: Continuous Quality: Positive for Dull Location: Right Parasternal Current Severity: Moderate Maximum Severity: Severe Worsened By: Exertion Relieved By: Nothing Associated Symptoms: Positive for Nausea and Diaphoresis; Negative for Vomiting,Dyspnea, Cough, Fever, Lightheadedness, Acid Reflux or Palpitations Narrative Narrative: Patient 69-year-old gentleman with history hypothyroidism who was riding his bicycle when he developed chest discomfort. He has no known history of coronarydisease, hypertension, diabetes or hypercholesterolemia. He rides often during the week. He has no other symptoms. Prior Similar Symptoms: No Recent Illness/Hospitalization: No CVD Risk Factors: Negative for Hypertension, Diabetes, Hypercholesterolemia, Family History 1' </=55 or Smoking PE Risk Factors: Negative for Recent Travel/Surgery, Recent Immobilization, Prior DVT or PE, Cancer or OCP + Smoking + >/=35 TAD Risk Factors: Negative for Marfan's Syndrome, Hypertension or Family History PFSH PFSH Allergy/AdvReac Type Severity Reaction Status Date / Time No Known Allergies Allergy Verified 06/28/25 07:52 Social History (Updated 06/28/25 @ 07:[address] Gage Woodson MD) household members: spouse Smoking Status: Never smoker ROS ROS ED Constitutional Constitutional ED: Denies chills, fever(s) or subjective Eyes Eyes: Reports none ENT ENT ED: Denies rhinorrhea Cardiovascular Cardiovascular: Reports as per HPI; Denies orthopnea Respiratory/Chest Respiratory/Chest: Reports dyspnea; Denies cough, dyspnea on exertion or orthopnea Gastrointestinal Gastrointestinal: Denies abdominal pain, diarrhea, melena or vomiting Genitourinary Genitourinary ED: Denies dysuria or hematuria Musculoskeletal Musculoskeletal: Denies arthralgias, back pain or myalgias Integumentary Denies rash Hematologic/Lymphatic Hematologic/Lymphatic: Denies easy bleeding, easy bruising or lymphadenopathy EXAM Physical Exam Const Positive well nourished and well developed Constitutional Narrative: Patient seems slightly anxious. He is slightly diaphoretic. General Appearance ED: well developed HEENT Reports moist mucous membranes normocephalic and atraumatic Eyes PERRL and EOMs intact bilaterally Neck no lymphadenopathy and no JVD Chest Wall inspection of chest normal and palpation of chest normal Resp normal respiratory effort and clear to auscultation bilaterally Cardio regular rate, regular rhythm, S1 normal heart sound, S2 normal heart sound and no murmurs GI normal to inspection, nondistended, normoactive bowel sounds, soft to palpation and non-tender Extremity normal to inspection General Extremety ED: Negative for edema or pulses abnormal General Extremity: Negative for edema or pulses abnormal Neuro oriented x3 and CN's II-XII intact bilaterally Sensorium / Orientation: awake and alert Psych Mood & Affect: anxious Skin no rashes or lesions noted MDM MDM MDM Narrative Medical decision making narrative: Patient had 7 prehospital EKGs. The fourth EKG had hyperacute T waves. First EKG was transmitted did not reveal evidence of a STEMI. EKG that was obtained here has ST elevation with hyperacute T waves V2 through V3 consistent with an anterior DE. There is no reciprocal changes. Patient received 324 mg of aspirin prehospital. He received 180 mg of Brilinta in the emergency [id number] units of heparin. Spoke with the gizzard puller Dr. Murillo. He asked for us to get to the patient to the Chinchilla Machine Operator as quick as possible. Chinchilla Machine Operator notified us at 0753 that they were ready. EKG Initial EKG: Attestation: I personally reviewed and interpreted this EKG as follows: Interpretation: Sinus Rhythm (Acute ST elevation DE anterior leads, hyperacute T waves. There is no reciprocal changes.) Critical Care Time Critical Care Time: Yes Critical care time (excluding procedures): 30-74 minutes (8), Including time spent: (History, physical, documentation, discussion with EMS,), Discussing w/Patient &/or Family/Hardwood Floor Installer (Informed of EKG findings and need for Chinchilla Machine Operator) and Discussing w/Consultants (proofer prepress) Discharge Plan Triage Chief Complaint: Chest Pain ED Provider: Gage Woodson Dx/Rx/DC Orders Clinical Impression: Acute ST elevation myocardial infarction (STEMI) of anterior wall, Hypothyroidism, Elevated blood-pressure reading without diagnosis of hypertension Primary Care Provider: Ashtyn Gamez Referrals: Ashtyn Gamez MD [Primary Care Provider] - Print Language: Marshallese Disposition Disposition: Acute Care Hospital [facility] What to do if you have Problems For any increased pain, shortness of breath, bleeding, nausea or vomiting, chestpain, or any unexpected problems, contact your Primary Care Provider. Call [facility] ([phone]) or report to the closest Emergency Room. Call 911 if necessary. 06/28/25 0757 <Electronically signed by Gage Woodson MD> Cosigner Signature (if applicable): CC: Dr. Ashtyn Gamez MD ~ Signed [facility] Work Phone: Evaluation note* Diagnosis Pain in left shoulder documented in this encounter [facility] [place] [facility]* Diagnosis Pain in left shoulder- Primary Pain in left shoulder documented in this encounter [facility] HealthEvaluation note* Diagnosis BPH with urinary obstruction- Primary Hypertrophy of prostate with urinary obstruction and other lower urinary tract symptoms (LUTS) Nocturia ED (erectile dysfunction) of organic origin Impotence of organic origin documented in this encounter [facility] Hospital[facility] [place] [facility]* Diagnosis BPH with urinary obstruction- Primary Hypertrophy of prostate with urinary obstruction and other lower urinary tract symptoms (LUTS) [facility] Dis[facility] instructionsAdditional Instructions Date of Discharge: 06/29/25[facility] Work Phone: Hospital Discharge instructionsAmbulatory Orders* Phase II, Outpatient Cardiac Rehab Location: None Selected [facility] Work Phone: Reason for referral (narrative)No reason for referral information availableWMercy Health Work Phone: Summary Purpose Family History No Family History Records FoundNo Family History Records FoundNo Family History Records FoundNo Family History Records Found Advance Directives No Advanced Directives Records Found Advance Directive Response Recorded Date/ Time Do you have a Healthcare Power of Language Specialist? No June 28, 2025 7:55am Advance Directive Response Recorded Date/ Time Do you have a Healthcare Power of Language Specialist? Yes June 28, 2025 10:37am Advance Directive Response Recorded Date/ Time Advance Directives on File Yes Augus t 2024 8:23am Living Will Yes July 09 9:07am Do you have a Healthcare Power of Language Specialist? Yes July 09, 2025 9:07am Name of Medical Power of Language Specialist [place]/ July 09, 2025 8:23am Advance Directives Yes July 09, 2025 8:23am Do you have a Healthcare Power of Language Specialist? Yes June 28, 2025 10:37am Chief Complaint and Reason for Visit Chief Complaint Admit Date ACUTE ANTERIOR ST ELEVATION DE June 282024 7:51am Reason for Visit Admit Date Acute ST elevation myocardia l infarction (STEMI) of anterior wall June 28, 2025 7:51am Elevated blood-pressure read ing without diagnosis of hypertension June 28, 2025 7:51am Hypothyroidism June 28, 2025 7: 51am Chief Complaint Admit Date ACUTE ANTERIOR ST ELEVATION DE June 282024 9:22am ACUTE ANTERIOR ST ELEVATION DE June 282024 11:43am ACUTE ANTERIOR ST ELEVATION DE June 292024 11:04am Reason for Visit Admit Date Acute ST elevation myocardia l infarction (STEMI) of anterior wall June 28, 2025 11:43am Elevated blood-pressure read ing without diagnosis of hypertension June 28, 2025 11:43am Hypothyroidism June 28, 2025 11 :43am Chief Complaint Admit Date ACUTE ANTERIOR ST ELEVATION DE June 282024 9:22am ACUTE ANTERIOR ST ELEVATION DE June 282024 11:43am ACUTE ANTERIOR ST ELEVATION DE June 292024 11:04am Referral Order July 01, 2025 8: 56am Chief Complaint Admit Date ACUTE ANTERIOR ST ELEVATION DE June 282024 9:22am ACUTE ANTERIOR ST ELEVATION DE June 282024 11:43am ACUTE ANTERIOR ST ELEVATION DE June 292024 11:04am ACUTE ANTERIOR ST ELEVATION DE June 292024 11:45am Referral Order July 01, 2025 8: 56am S/P [facility] 06/28July 05, 2025 8: 50am Reason for Visit Admit Date Acute ST elevation myocardia l infarction (STEMI) of anterior wall June 28, 2025 11:43am Elevated blood-pressure read ing without diagnosis of hypertension June 28, 2025 11:43am Hypothyroidism June 28, 2025 11 :43am Acute ST elevation myocardia l infarction (STEMI) of anterior wall July 05, 2025 8:50am Chief Complaint Admit Date ACUTE ANTERIOR ST ELEVATION DE June 282024 9:22am ACUTE ANTERIOR ST ELEVATION DE June 282024 11:43am ACUTE ANTERIOR ST ELEVATION DE June 292024 11:04am ACUTE ANTERIOR ST ELEVATION DE June 292024 11:45am Referral Order July 01, 2025 8: 56am S/P [facility] 06/28July 05, 2025 8: 50am PCI w/stenting July 09, 2025 7: 59am STEMI/PCI July 12, 2025 8: 53am Reason for Visit Admit Date Acute ST elevation myocardia l infarction (STEMI) of anterior wall June 28, 2025 11:43am Elevated blood-pressure read ing without diagnosis of hypertension June 28, 2025 11:43am Hypothyroidism June 28, 2025 11 :43am Stented coronary artery July 05 8:50am Chief Complaint Admit Date ACUTE ANTERIOR ST ELEVATION DE June 282024 9:22am ACUTE ANTERIOR ST ELEVATION DE June 282024 11:43am ACUTE ANTERIOR ST ELEVATION DE June 292024 11:04am ACUTE ANTERIOR ST ELEVATION DE June 292024 11:45am Referral Order July 01, 2025 8: 56am S/P [facility] 06/28July 05, 2025 8: 50am PCI w/stenting July 09, 2025 7: 59am STEMI/PCI July 12, 2025 8: 53am STEMI/PCI July 17, 2025 7:22am Chief Complaint Admit Date ACUTE ANTERIOR ST ELEVATION DE June 282024 9:22am ACUTE ANTERIOR ST ELEVATION DE June 282024 11:43am ACUTE ANTERIOR ST ELEVATION DE June 292024 11:04am ACUTE ANTERIOR ST ELEVATION DE June 292024 11:45am Referral Order July 01, 2025 8: 56am S/P [facility] 06/28July 05, 2025 8: 50am PCI w/stenting July 09, 2025 7: 59am STEMI/PCI July 12, 2025 8: 53am STEMI/PCI August 12, 2025 9:15am STEMI/PCI August 14, 2025 9: 24am Additional Source Comments (unrecognized sect ion and content) No Status Records FoundNo Status Records FoundNo Status Records FoundNo Status Records Found INFORMATION SOURCE (unrecogn ized section and content) DATE CREATED AUTHOR 10/21/2018 [facility] DATE CREATED AUTHOR AUTHOR'S ORGANIZ ATION 11/09/2018 [facility] DATE CREATED AUTHOR AUTHOR'S ORGANIZ ATION 09/06/2024 [facility] [email or web address] [facility] DATE CREATED AUTHOR AUTHOR'S ORGANIZ ATION 09/26/2025 [facility] Care Teams (unrecognized sec tion and content) [employer] Relationship Specialty Start Date End Date Ashtyn Gamez MD [address] [place] [address] PCP - General 07/06/18 [employer] Relationship Specialty Start Date End Date Ashtyn Gamez MD [address] [place] [address] PCP - General 07/06/18 Wayne Red MD [address] [place] [phone] Surgeon Urology 03/14/24 [employer] Relationship Specialty Start Date End Date Ashtyn Gamez MD [address] [place] [phone] PCP - General 07/06/18 Wayne Red MD [address] [place] [phone] Surgeon Urology 03/14/24 [employer] Relationship Specialty Start Date End Date Ashtyn Gamez MD [address] [place] [address] PCP - General 07/06/18 Wayne Red MD [address] [place] [phone] Surgeon Urology 03/14/24 [employer] Relationship Specialty Start Date End Date Ashtyn Gamez MD [address] [place] [phone] PCP - General 07/06/18 Wayne Red MD [address] [place] [phone] Surgeon Urology 03/14/24 Gabe Mattson MD [address] [place], [place] [id number] Surgeon Urology 07/25/24 [employer] Relationship Specialty Start Date End Date Ashtyn Gamez MD [address] [place] [phone] PCP - General 07/06/18 Wayne Red MD [address] [place] [phone] Surgeon Urology 03/14/24 Gabe Mattson MD [address] [place] [address] Surgeon Urology 07/25/24 [employer] Relationship Specialty Start Date End Date Ashtyn Gamez MD [address] [place] [phone] PCP - General 07/06/18 Wayne Red MD [address] [place] [phone] Surgeon Urology 03/14/24 Gabe Mattson MD [address] [place] [address] Surgeon Urology 07/25/24 [employer] Relationship Specialty Start Date End Date Ashtyn Gamez MD [address] [place] [phone] PCP - General 07/06/18 Wayne Red MD [address] [place] [phone] Surgeon Urology 03/14/24 Gabe Mattson MD [address] [place], [place] [id number] Surgeon Urology 07/25/24 Team Status: Active Member Role/Relationship Status Dates Dr. Ashtyn Gamez MD Primary Care Provider Active Team Status: Active Member Role/Relationship Status Dates Dr. Ashtyn Gamez MD Primary Care Provider Active Start: June 28, 2025 Dr. Gage Woodson MD Emergency Provider Active Sta rt: June 28, 2025 Dr. Baudilio Murillo MD Admit Provider Active Start : June 28, 2025 Dr. Baudilio Murillo MD Attending Provider Active S tart: June 28, 2025 Dr. Baudilio Murillo MD Referring Provider Active S tart: June 28, 2025 Team Status: Active Member Role/Relationship Status Dates Dr. Ashtyn Gamez MD Primary Care Provider Active Start: June 28, 2025 Dr. Gage Woodson MD Emergency Provider Active Sta rt: June 28, 2025 Dr. Baudilio Murillo MD Admit Provider Active Start : June 28, 2025 Dr. Baudilio Murillo MD Attending Provider Active S tart: June 28, 2025 Dr. Baudilio Murillo MD Referring Provider Active S tart: June 28, 2025 Dr. Baudilio Murillo MD Other Provider Active Start : June 28, 2025 Team Status: Inactive Member Role/Relationship Status Dates Dr. Ashtyn Gamez MD Primary Care Provider Active Start: June 28, 2025 End: June 29, 2025 Dr. Gage Woodson MD Emergency Provider Active Sta rt: June 28, 2025 End: June 29, 2025 Dr. Baudilio Murillo MD Admit Provider Active Start : June 28, 2025 End: June 29, 2025 Dr. Baudilio Murillo MD Referring Provider Active S tart: June 28, 2025 End: June 29, 2025 Dr. Baudilio Murillo MD Other Provider Active Start : June 28, 2025 End: June 29, 2025 Dr. Jose Miguel Glynn DO Attending Provider Active Start: June 28, 2025 End: June 29, 2025 Dr. Padilla Terry DO Other Provider Active Start: June 28, 2025 End: June 29, 2025 Team Status: Active Member Role/Relationship Status Dates Dr. Ashtyn Gamez MD Primary Care Provider Active Start: June 29, 2025 Dr. Gage Woodson MD Emergency Provider Active Sta rt: June 29, 2025 Dr. Baudilio Murillo MD Admit Provider Active Start : June 29, 2025 Dr. Baudilio Murillo MD Referring Provider Active S tart: June 29, 2025 Dr. Baudilio Murillo MD Other Provider Active Start : June 29, 2025 Dr. Jose Miguel Glynn DO Other Provider Active S tart: June 29, 2025 Dr. Padilla Terry DO Other Provider Active Start: June 29, 2025 Dr. Dashawn Hooper MD Attending Provider Active S tart: June 29, 2025 Team Status: Active Member Role/Relationship Status Dates Dr. Ashtyn Gamez MD Primary Care Provider Active Start: July 01, 2025 Dr. Buadilio Murillo MD Attending Provider Active S tart: July 01, 2025 Team Status: Active Member Role/Relationship Status Dates Dr. Ashtyn Gamez MD Primary Care Provider Active Start: June 29, 2025 Dr. Gage Woodson MD Emergency Provider Active Sta rt: June 29, 2025 Dr. Baudilio Murillo MD Admit Provider Active Start : June 29, 2025 Dr. Baudilio Murillo MD Other Provider Active Start : June 29, 2025 Dr. Jose Miguel Glynn DO Attending Provider Active Start: June 29, 2025 Dr. Jose Miguel Glynn DO Other Provider Active S tart: June 29, 2025 Dr. Padilla Terry DO Other Provider Active Start: June 29, 2025 Team Status: Active Member Role/Relationship Status Dates Dr. Ashtyn Gamez MD Primary Care Provider Active Start: July 01, 2025 Dr. Baudilio Murillo MD Attending Provider Active S tart: July 01, 2025 Team Status: Inactive Member Role/Relationship Status Dates Dr. Ashtyn Gamez MD Primary Care Provider Active Start: July 05, 2025 End: July 05, 2025 Dr. Ashtyn Gamez MD Referring Provider Active Start: July 05, 2025 End: July 05, 2025 Maryjane Glynn ASSOCIATE PROFESSOR, ASSOCIATE PROFESSOR-C Attending Provider Active Start: July 05, 2025 End: July 05, 2025 Team Status: Active Member Role/Relationship Status Dates Dr. Ashtyn Gamez MD Primary Care Provider Active Start: July 09, 2025 Dr. Baudilio Murillo MD Attending Provider Active S tart: July 09, 2025 Dr. Baudilio Murillo MD Referring Provider Active S tart: July 09, 2025 Team Status: Inactive Member Role/Relationship Status Dates Dr. Ashtyn Gamez MD Primary Care Provider Active Start: July 12, 2025 End: July 14, 2025 Dr. Deni Ludwig MD Attending Provider Active S tart: July 12, 2025 End: July 14, 2025 Dr. Deni Ludwig MD Referring Provider Active S tart: July 12, 2025 End: July 14, 2025 Team Status: Inactive Member Role/Relationship Status Dates Dr. Ashtyn Gamez MD Primary Care Provider Active Start: July 09, 2025 End: July 09, 2025 Dr. Baudilio Murillo MD Attending Provider Active S tart: July 09, 2025 End: July 09, 2025 Dr. Baudilio Murillo MD Referring Provider Active S tart: July 09, 2025 End: July 09, 2025 Team Status: Active Member Role/Relationship Status Dates Dr. Ashtyn Gamez MD Primary Care Provider Active Start: July 17, 2025 Dr. Deni Ludwig MD Attending Provider Active S tart: July 17, 2025 Dr. Deni Ludwig MD Referring Provider Active S tart: July 17, 2025 Team Status: Active Member Role/Relationship Status Dates Dr. Ashtyn Gamez MD Primary care physician Activ e Team Status: Active Member Role/Relationship Status Dates Dr. Ashtyn Gamez MD Primary care physician Activ e Start: June 28, 2025 Dr. Gage Woodson MD Emergency Department Physician Active Start: June 28, 2025 Dr. Baudilio Murillo MD Admitting physician Active Start: June 28, 2025 Dr. Baudilio Murillo MD Attending physician Active Start: June 28, 2025 Dr. Baudilio Murillo MD Referring Provider Active S tart: June 28, 2025 Dr. Baudilio Murillo MD Nurse Practitioner Active S tart: June 28, 2025 Team Status: Inactive Member Role/Relationship Status Dates Dr. Ashtyn Gamez MD Primary care physician Activ e Start: June 28, 2025 End: June 29, 2025 Dr. Gage Woodson MD Emergency Department Physician Active Start: June 28, 2025 End: June 29, 2025 Dr. Baudilio Murillo MD Admitting physician Active Start: June 28, 2025 End: June 29, 2025 Dr. Baudilio Murillo MD Referring Provider Active S tart: June 28, 2025 End: June 29, 2025 Dr. Baudilio Murillo MD Nurse Practitioner Active S tart: June 28, 2025 End: June 29, 2025 Dr. Jose Miguel Glynn DO Attending physician Active Start: June 28, 2025 End: June 29, 2025 Dr. Padilla Terry DO Nurse Practitioner Active Start: June 28, 2025 End: June 29, 2025 Team Status: Active Member Role/Relationship Status Dates Dr. Ashtyn Gamez MD Primary care physician Activ e Start: June 29, 2025 Dr. Gage Woodson MD Emergency Department Physician Active Start: June 29, 2025 Dr. Baudilio Murillo MD Admitting physician Active Start: June 29, 2025 Dr. Baudilio Murillo MD Referring Provider Active S tart: June 29, 2025 Dr. Baudilio Murillo MD Nurse Practitioner Active S tart: June 29, 2025 Dr. Jose Miguel Glynn DO Nurse Practitioner Active Start: June 29, 2025 Dr. Padilla Terry DO Nurse Practitioner Active Start: June 29, 2025 Dr. Dashawn Hooper MD Attending physician Active Start: June 29, 2025 Team Status: Active Member Role/Relationship Status Dates Dr. Ashtyn Gamez MD Primary care physician Activ e Start: June 29, 2025 Dr. Gage Woodson MD Emergency Department Physician Active Start: June 29, 2025 Dr. Baudilio Murillo MD Admitting physician Active Start: June 29, 2025 Dr. Baudilio Murillo MD Nurse Practitioner Active S tart: June 29, 2025 Dr. Jose Miguel Glynn DO Attending physician Active Start: June 29, 2025 Dr. Jose Miguel Glynn DO Nurse Practitioner Active Start: June 29, 2025 Dr. Padilla Terry DO Nurse Practitioner Active Start: June 29, 2025 Team Status: Active Member Role/Relationship Status Dates Dr. Ashtyn Gamez MD Primary care physician Activ e Start: July 01, 2025 Dr. Baudilio Murillo MD Attending physician Active Start: July 01, 2025 Team Status: Inactive Member Role/Relationship Status Dates Dr. Ashtyn Gamez MD Primary care physician Activ e Start: July 05, 2025 End: July 05, 2025 Dr. Ashtyn Gamez MD Referring Provider Active Start: July 05, 2025 End: July 05, 2025 Maryjane Glynn ASSOCIATE PROFESSOR, ASSOCIATE PROFESSOR-C Attending physician Active Start: July 05, 2025 End: July 05, 2025 Team Status: Inactive Member Role/Relationship Status Dates Dr. Ashtyn Gamez MD Primary care physician Activ e Start: July 09, 2025 End: July 09, 2025 Dr. Baudilio Murillo MD Attending physician Active Start: July 09, 2025 End: July 09, 2025 Dr. Baudilio Murillo MD Referring Provider Active S tart: July 09, 2025 End: July 09, 2025 Team Status: Inactive Member Role/Relationship Status Dates Dr. Ashtyn Gamez MD Primary care physician Activ e Start: July 12, 2025 End: July 14, 2025 Dr. Dnei Ludwig MD Attending physician Active Start: July 12, 2025 End: July 14, 2025 Dr. Deni Ludwig MD Referring Provider Active S tart: July 12, 2025 End: July 14, 2025 Team Status: Inactive Member Role/Relationship Status Dates Dr. Ashtyn Gamez MD Primary care physician Activ e Start: August 12, 2025 End: August 13, 2025 Dr. Deni Ludwig MD Attending physician Active Start: August 12, 2025 End: August 13, 2025 Dr. Deni Ludwig MD Referring Provider Active S tart: August 12, 2025 End: August 13, 2025 Team Status: Active Member Role/Relationship Status Dates Dr. Ashtyn Gamez MD Primary care physician Activ e Start: August 14, 2025 Dr. Deni Ludwig MD Attending physician Active Start: August 14, 2025 Dr. Deni Ludwig MD Referring Provider Active S tart: August 14, 2025 Reason for Visit (unrecogniz ed section and content) Reason Comments New Patient Benign Prostatic Hypertrophy Slow stream Nocturia 1-2 times Has tried Tamsulosin in past was not effective Specialty Diagnoses / Procedures Referred By Contac t Referred To Contact Urology Diagnoses Benign prostatic hyperplasia without lower urinary tract symptoms Procedures Eval and Tx Ashtyn Gamez MD [address] [place] [address] [facility] [address] [place] [address] Referral ID Status Reason Start Date Expiration Date V isits Requested Visits Authorized [id number] Pending Review 03/14/2024 03/14/2025 1 1 Reason Onset Date Comments Appointment Request 08/24/2024 Reason Comments Benign Prostatic Hypertrophy Procedure Cystoscopy / TRUS pr ostate Reason Onset Date Comments Surgery Scheduling 09/05/2024 Goals (unrecognized section and content) Goals may be documented in a n alternate section FOR RECORDS PERTAINING TO PATIENTS WHO ARE [...] BE BASED ON THE PRIMARY CLINICAL RECORDS. [facility] [employer] [facility] provides no warranty or guarantee of the accuracy or completeness of information in this document.
== END | disposition home or self-care (01) ==
LOC: CVS 14:41
PROVIDERS: PCP Family Medicine; Referring Provider Nurse Practitioner Gerontology; Visit Provider Nurse Practitioner Gerontology
DX: I21.09 ST elevation (STEMI) myocardial infarction involving other coronary artery of anterior wall (principal)
CPT/HCPCS: 93308